=== PATIENT | male | born 1970 | race Caucasian/White ===

== ENCOUNTER 2016-12-29 01:35 | Observation (INO) | payer BC, OTHER ==
[2016-12-29] MEDS ORDERED: solu-MEDROL 125 MG IV ONE (01:52)
[2016-12-29] MEDS ORDERED: Sodium Chloride 0.9% 1000 ML 1,000 ML IV STA ×2 (01:52→03:31)
[2016-12-29] MEDS ORDERED: PROVENTIL 2.5 MG/3 ML NEB IH ONE ×2 (01:52→01:57)
--- NOTE | 2016-12-29 02:00 | ERPHSYRPT ---
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 HAS PRODUCTIVE COUGH FOR 2-3 DAYS ASSOCIATED WITH FEVER AND CHILLS. DENIES CHEST PAIN. Timing/Duration: today Activities at Onset: none Severity of Dyspnea-Max: moderate Severity of Dyspnea-Current: moderate Possible Cause: occasional episodes Modifying Factors: Improves With: coughing Associated Symptoms: constant, wheezing, productive cough International travel in last 2 weeks: No Allergies/Adverse Reactions: No Known Drug Allergies Allergy (Unverified 10/27/15 08:49) Home Medications: Lisinopril/Hydrochlorothiazide [Lisinopril-Hctz 20-12.5 mg Tab] 1 each PO BID [History] Oxycodone HCl/Acetaminophen [Percocet 10-325 mg Tablet] 1 each PO BID PRN [History] Hx Tetanus, Diphtheria Vaccination/Date Given: No Hx Influenza Vaccination/Date Given: No Hx Pneumococcal Vaccination/Date Given: No - Review of Systems Constitutional: Fever, No Chills Eyes: No Symptoms Ears, Nose, & Throat: No Symptoms Respiratory: Cough, Dyspnea Cardiac: No Symptoms, No Chest Pain, No Edema, No Syncope Abdominal/Gastrointestinal: No Symptoms, No Abdominal Pain, No Nausea, No Vomiting, No Diarrhea Genitourinary Symptoms: No Symptoms, No Dysuria Musculoskeletal: No Back Pain, No Neck Pain Skin: No Symptoms, No Rash Neurological: No Dizziness, No Focal Weakness, No Sensory Changes Psychological: No Symptoms Endocrine: No Symptoms All Other Systems: Reviewed and Negative - Past Medical History Pertinent Past Medical History: No Neurological History: No Pertinent History ENT History: No Pertinent History Cardiac History: Hypertension Respiratory History: No Pertinent History Endocrine Medical History: No Pertinent History Musculoskeletal History: No Pertinent History GI Medical History: GERD History: No Pertinent History Psycho-Social History: No Pertinent History Male Reproductive Disorders: No Pertinent History Other Medical History: blood clot LUE. - Past Surgical History Past Surgical History: Yes Neuro Surgical History: No Pertinent History Cardiac: No Pertinent History Respiratory: No Pertinent History Gastrointestinal: No Pertinent History Genitourinary: No Pertinent History Musculoskeletal: Orthopedic Surgery Male Surgical History: No Pertinent History Other Surgical History: LEFT ANKLE - Social History Smoking Status: Current every day smoker How long have you smoked: 30 Exposure to second hand smoke: No Drug Use: none Patient Lives Alone: No - Nursing Vital Signs Nursing Vital Signs: Initial Vital Signs Temperature 98.5 F Temperature Source Oral Pulse Rate 98 Respiratory Rate 18 Blood Pressure [] 131/62 Pain Intensity 4 - Physical Exam General Appearance: moderate distress Eye Exam: PERRL/EOMI Neck Exam: normal inspection, supple Respiratory Exam: diminished breath sounds, rhonchi, wheezing (DIFFUSE, POOR AIR EXCHANGE) Cardiovascular/Chest Exam: normal heart sounds, regular rate/rhythm Abdominal/Gastrointestinal Exam: soft, normal bowel sounds, No tenderness, No distention, No mass Extremity Exam: non-tender, normal range of motion, normal inspection, no calf tenderness, no pedal edema Peripheral Pulses Exam: carotid (R): 2+, carotid (L): 2+, femoral (R): 2+, femoral (L): 2+, dorsalis-pedis (R): 2+ Neurologic Exam: alert, oriented x 3, 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, 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, sensation nml, No motor deficits Skin Exam: normal color, warm, No dry SpO2 Interpretation: normal - Radiology Exams Chest X-ray Interpretation: Interpreted by me (LEFT INFRAHILAR INFILTRATE) Ordered Tests: Active Orders 24 hr Category Date Time Status Up Ad Essie ROUTINE Activity 12/29/16 04:21 Ordered Admission/Status Order ROUTINE Care 12/29/16 04:21 Ordered 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 12/29/16 01:52 Active Code Status Order ROUTINE Care 12/29/16 04:21 Ordered EKG-ER Only STAT Care 12/29/16 01:52 Active IV Care Q6H Care 12/29/16 04:21 Ordered IV Insertion STAT Care 12/29/16 01:52 Active Oxygen-ED Only NASAL CANNULA 2 lpm Care 12/29/16 01:52 Active Keo Hose, Apply ROUTINE Care 12/29/16 04:21 Ordered Vital Signs Q4H Care 12/29/16 04:21 Ordered Weight,Daily 0600 Care 12/29/16 04:21 Ordered Cardiac Diet Diet 12/29/16 Breakfast Ordered CHEST 2 VIEWS (PA AND LAT) Stat Exams 12/29/16 01:52 Taken BLOOD CULTURE Stat Lab 12/29/16 02:41 Received CBC W DIFF Stat Lab 12/29/16 02:00 Completed CMP Stat Lab 12/29/16 02:00 Completed Lactic Acid Urgent Lab 12/29/16 01:52 Completed MAGNESIUM Stat Lab 12/29/16 02:00 Completed TROPONIN Q3H Lab 12/29/16 02:00 Completed TROPONIN Q3H Lab 12/29/16 05:00 Ordered TROPONIN Q3H Lab 12/29/16 08:00 Ordered TROPONIN Q3H Lab 12/29/16 11:00 Ordered TROPONIN Q3H Lab 12/29/16 14:00 Ordered Oxygen NASAL CANNULA 2 lpm RT 12/29/16 04:21 Ordered Respiratory Nebulizer STAT RT 12/29/16 01:53 Completed Respiratory Therapy Consult ROUTINE RT 12/29/16 04:21 Ordered Transfer Order Routine Transfer 12/29/16 04:20 Ordered Medication Summary Generic Name Dose Route Start Last Admin Trade Name Freq PRN Reason Stop Dose Admin Acetaminophen 650 mg 12/29/16 04:25 Tylenol 325 Mg PO 01/28/17 04:24 Q4HPRN PRN FEVER Albuterol/Ipratropium 3 ml 12/29/16 07:00 Duoneb 0.5-3 Mg/3 Ml Neb IH 01/28/17 06:59 Q4HRT OANH Amlodipine Besylate 10 mg 12/29/16 10:00 Norvasc 5 Mg PO 01/28/17 09:59 QAM OANH Ceftriaxone Sodium/Dextrose 1 g in 50 mls @ 100 mls/hr 12/29/16 03:00 02:56 Rocephin 1 Gm-D5w 50 Ml Bag IV 01/28/17 02:59 100 mls/hr Q24H OANH Administration Sodium Chloride 1,000 mls @ 999 mls/hr 12/29/16 03:31 12/29/16 03:41 Sodium Chloride 0.9% 1000 Ml IV 12/29/16 04:31 999 mls/hr .Q1H1M STA Administration Azithromycin 250 mls @ 125 mls/hr 12/29/16 04:12 12/29/16 04:24 Zithromax 500 Mg/ 250 Ml Nacl Premix IV 12/29/16 06:11 125 mls/hr STAT ONE Administration Ceftriaxone Sodium/Dextrose 50 mls @ 100 mls/hr 12/29/16 10:00 Rocephin 1 Gm-D5w 50 Ml Bag IV 01/28/17 09:59 Q24H10 OANH Azithromycin 250 mls @ 125 mls/hr 12/29/16 10:00 Zithromax 500 Mg/ 250 Ml Nacl Premix IV 01/28/17 09:59 Q24H10 OANH Levalbuterol HCl 1.25 mg 12/29/16 04:27 Xopenex 1.25 Mg/0.5 Ml Ud Nebule IH 01/28/17 04:26 Q2HPRN PRN DIFFICULTY BREATHING Methylprednisolone Sodium Succinate 80 mg 12/29/16 06:00 Solu-Medrol 125 Mg IV 01/28/17 05:59 Q6HT OANH Discontinued Medications Generic Name Dose Route Start Last Admin Trade Name Freq PRN Reason Stop Dose Admin Albuterol Sulfate 10 mg 12/29/16 01:52 12/29/16 01:58 Proventil 2.5 Mg/3 Ml Neb IH 12/29/16 01:53 10 mg STAT ONE Administration Albuterol Sulfate Confirm 12/29/16 01:57 Proventil 2.5 Mg/3 Ml Neb Administered 12/29/16 01:58 Dose 10 mg IH .STK-MED ONE Sodium Chloride 1,000 mls @ 999 mls/hr 12/29/16 01:52 12/29/16 02:13 Sodium Chloride 0.9% 1000 Ml IV 12/29/16 02:52 999 mls/hr .Q1H1M STA Administration Sodium Chloride Confirm 12/29/16 02:10 Sodium Chloride 0.9% 1000 Ml Administered 12/29/16 02:11 Dose 1,000 mls @ ud .ROUTE .STK-MED ONE Sodium Chloride Confirm 12/29/16 03:30 Sodium Chloride 0.9% 1000 Ml Administered 12/29/16 03:31 Dose 1,000 mls @ ud .ROUTE .STK-MED ONE Azithromycin Confirm 12/29/16 04:20 Zithromax 500 Mg/ 250 Ml Nacl Premix Administered 12/29/16 04:21 Dose 250 mls @ ud IV .STK-MED ONE Methylprednisolone Sodium Succinate 125 mg 12/29/16 01:52 12/29/16 02:13 Solu-Medrol 125 Mg IV 12/29/16 01:53 125 mg STAT ONE Administration Methylprednisolone Sodium Succinate Confirm 12/29/16 02:10 Solu-Medrol 125 Mg Administered 12/29/16 02:11 Dose 125 mg .ROUTE .STK-MED ONE Oxycodone/Acetaminophen 1 tab 12/29/16 03:29 12/29/16 03:33 Oxycodone-Acetaminophen 10-325 PO 12/29/16 03:30 1 tab STAT STA Administration Oxycodone/Acetaminophen Confirm 12/29/16 03:33 Oxycodone-Acetaminophen 10-325 Administered 12/29/16 03:34 Dose 1 tab .ROUTE .STK-MED ONE Lab/Rad Data: Laboratory Result Diagrams 12/29/16 02:00 12/29/16 02:00 Laboratory Results 12/29/16 12/29/16 12/29/16 Range/Units 02:41 02:00 02:00 WBC (4.0-10.5) K/mm3 RBC (4.1-5.6) M/mm3 Hgb (12.5-18.0) gm/dl Hct (42-50) % MCV (78-100) fl MCH (26-32) pg MCHC (32-36) g/dl RDW (11.5-14.0) % Plt Count (150-450) K/mm3 MPV (6-9.5) fl Gran % (36.0-66.0) % Lymphocytes % (24.0-44.0) % Monocytes % (0.0-12.0) % Eosinophils % (0.00-5.0) % Basophils % (0.0-0.4) % Basophils # (0-0.4) Sodium 139 (136-145) mEq/L Potassium 4.2 (3.5-5.1) mEq/L Chloride 102 (98-107) mEq/L Carbon Dioxide 30.0 (21-32) mEq/L Anion Gap 11.3 (5-15) MEQ/L BUN 19 (9-20) mg/dL Creatinine 1.31 H (0.55-1.30) mg/dl Estimated GFR > 60 ML/MIN Glucose 108 (70-110) MG/DL Lactic Acid (0.4-2.0) Calcium 9.3 (8.5-10.1) mg/dL Magnesium 1.8 (1.8-2.4) mg/dL Total Bilirubin 0.5 (0.2-1.0) mg/dL AST 34 (15-37) U/L ALT 37 (12-78) U/L Alkaline Phosphatase 58 (46-116) U/L Troponin I < 0.017 (0.000-0.056) ng/ml Serum Total Protein 7.2 (6.4-8.2) gm/dL Albumin 3.9 (3.4-5.0) g/dL Influenza Type A Ag NEGATIVE (NEGATIVE) Influenza Type B Ag NEGATIVE (NEGATIVE) RSV (PCR) NEGATIVE (Negative) 12/29/16 12/29/16 Range/Units 02:00 01:52 WBC 9.8 (4.0-10.5) K/mm3 RBC 5.19 (4.1-5.6) M/mm3 Hgb 15.5 (12.5-18.0) gm/dl Hct 48.5 (42-50) % MCV 93.4 (78-100) fl MCH 29.9 (26-32) pg MCHC 32.0 (32-36) g/dl RDW 14.6 H (11.5-14.0) % Plt Count 220 (150-450) K/mm3 MPV 12.2 H (6-9.5) fl Gran % 56.1 (36.0-66.0) % Lymphocytes % 29.3 (24.0-44.0) % Monocytes % 11.8 (0.0-12.0) % Eosinophils % 2.6 (0.00-5.0) % Basophils % 0.2 (0.0-0.4) % Basophils # 0.02 (0-0.4) Sodium (136-145) mEq/L Potassium (3.5-5.1) mEq/L Chloride (98-107) mEq/L Carbon Dioxide (21-32) mEq/L Anion Gap (5-15) MEQ/L BUN (9-20) mg/dL Creatinine (0.55-1.30) mg/dl Estimated GFR ML/MIN Glucose (70-110) MG/DL Lactic Acid 1.6 (0.4-2.0) Calcium (8.5-10.1) mg/dL Magnesium (1.8-2.4) mg/dL Total Bilirubin (0.2-1.0) mg/dL AST (15-37) U/L ALT (12-78) U/L Alkaline Phosphatase (46-116) U/L Troponin I (0.000-0.056) ng/ml Serum Total Protein (6.4-8.2) gm/dL Albumin (3.4-5.0) g/dL Influenza Type A Ag (NEGATIVE) Influenza Type B Ag (NEGATIVE) RSV (PCR) (Negative) - Progress Progress Note: 12/29/16 02:54 PATIENT GIVEN CONTINUOUS NEBULIZER ALBUTEROL 10MG OVER 1 HOUR, IV BOLUS NORMAL SALINE 1 LITER OVER 1 HOUR, SOLUMEDROL 125MG, ROCEPHIN 1GM, AND ZITHROMAX 500MG IVPB 12/29/16 04:15 Blood Culture(s) Obtained: Yes Antibiotics given: Yes Discussed with : Diony (DISCUSSED WITH DR AGUDELO AT 0415 FOR ADMISSION) - Departure Time of Disposition: 04:30 Departure Disposition: Observation Clinical Impression: ACUTE PNEUMONIA WITH BRONCHIOSPASM Condition: Stable Critical Care Time: No Referrals: JUWAN BENTON [Primary Care Provider] -
[2016-12-29] MEDS ORDERED: Sodium Chloride 0.9% 1000 ML 1,000 ML ONE (02:10)
[2016-12-29] MEDS ORDERED: solu-MEDROL 125 MG ONE (02:10)
[2016-12-29 02:15] LABS: BASOPHIL % 0.2 % (0.0-0.4); Eosinophil % 2.6 % (0.00-5.0); Granulocytes % 56.1 % (36.0-66.0); Lymphocytes % 29.3 % (24.0-44.0); Mean Cell Volume 93.4 fl (78-100); Mean Corpuscular Hemoglobin 29.9 pg (26-32); Mean Platelet Volume 12.2 fl (6-9.5); Monocytes % 11.8 % (0.0-12.0); Platelet Count 220 K/mm3 (150-450); Red Blood Count 5.19 M/mm3 (4.1-5.6); Red Cell Distribution Width 14.6 % (11.5-14.0); White Blood Count 9.8 K/mm3 (4.0-10.5)
[2016-12-29 02:39] LABS: ALBUMIN 3.9 g/dL (3.4-5.0); ALKALINE PHOSPHATASE 58 U/L (46-116); ANION GAP 11.3 MEQ/L (5-15); BILIRUBIN,TOTAL 0.5 mg/dL (0.2-1.0); BLOOD UREA NITROGEN 19 mg/dL (9-20); CHLORIDE 102 mEq/L (98-107); Glucose 108 MG/DL (70-110); MAGNESIUM 1.8 mg/dL (1.8-2.4); Potassium 4.2 mEq/L (3.5-5.1); SGOT/AST 34 U/L (15-37); SGPT/ALT 37 U/L (12-78); SODIUM 139 mEq/L (136-145); Total Protein 7.2 gm/dL (6.4-8.2)
[2016-12-29] MEDS ORDERED: ROCEPHIN 1 Gm-D5w 50 ml Bag** 50 ML IV ONE (02:52)
[2016-12-29] MEDS ORDERED: ROCEPHIN 1 Gm-D5w 50 ml Bag** 1 G/50 ML IVPB IV SCH ×2 (03:00→22:00)
[2016-12-29] MEDS ORDERED: OXYCODONE-ACETAMINOPHEN 10-325 PO STA (03:29)
[2016-12-29] MEDS ORDERED: Sodium Chloride 0.9% 1000 ML 2,000 ML ONE (03:30)
[2016-12-29] MEDS ORDERED: OXYCODONE-ACETAMINOPHEN 10-325 ONE (03:33)
[2016-12-29] MEDS ORDERED: Zithromax 500 MG/ 250 ML NaCl Premix 250 ML IV ONE ×2 (04:12→04:20)
[2016-12-29] MEDS ORDERED: TYLENOL 325 MG PO PRN (04:25)
[2016-12-29] MEDS ORDERED: Xopenex 1.25 MG/0.5 ML UD NEBULE IH PRN (04:27)
[2016-12-29] MEDS ORDERED: Sodium Chloride 0.9% 1000 ML 1,000 ML IV SCH (04:30)
[2016-12-29] MEDS ORDERED: solu-MEDROL 125 MG IV SCH (06:00)
[2016-12-29] MEDS ORDERED: DUONEB 0.5-3 MG/3 ml Neb IH SCH (07:00)
[2016-12-29 07:38] VITALS: BP 159/85; PULSE 104; O2SAT 93
--- NOTE | 2016-12-29 08:26 | PCM.DCORD ---
- Discharge Discharge Date: 12/29/16 Disposition: Home, Self-Care Condition: Stable Prescriptions: New Prednisone 20 mg [Deltasone 20 mg] 40 mg PO DAILY #10 tablet Albuterol Sulfate [Proair Hfa] 2 puff IH Q4H PRN #1 hfa.aer.ad PRN Reason: Shortness Of Breath Azithromycin 250 mg [Zithromax 250 MG TABLET] 250 mg PO DAILY #4 tablet Continue Lisinopril/Hydrochlorothiazide [Lisinopril-Hctz 20-12.5 mg Tab] 1 each PO BID Amlodipine Besylate 10 mg [Norvasc 10 MG] 10 mg PO DAILY #30 tablet Naproxen [Naprosyn] 500 mg PO [id number] PRN #20 tablet PRN Reason: Pain Oxycodone HCl/Acetaminophen [Percocet 10-325 mg Tablet] 1 each PO BID PRN Testosterone Cypionate 200 mg IM UD Follow up with: JUWAN BENTON [Primary Care Provider] -
--- NOTE | 2016-12-29 08:26 | PCM.HP ---
History of Present Illness - Chief Complaint Chief Complaint: Shortness of Breath Date: 12/29/16 History of Present Illness: is a 46 year old male. 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 He had an inhaler in the past at home but doesn't any longer. He did not use anything prior to arrival he was not feeling poorly before the evening of arrival. He is feeling much better this am. After the neb treatment in ED he reports feeling significant improvement. He denies fever, chest pain, palpitations, nausea or vomiting. No calf pain or swelling. - Review of Systems Constitutional: No Fever, No Chills Eyes: No Symptoms Ears, Nose, & Throat: No Symptoms Respiratory: No Cough, No Short Of Breath Cardiac: No Chest Pain, No Edema, No Syncope Abdominal/Gastrointestinal: No Abdominal Pain, No Nausea, No Vomiting, No Diarrhea Genitourinary Symptoms: No Dysuria Musculoskeletal: No Back Pain, No Neck Pain Skin: No Rash Neurological: No Dizziness, No Focal Weakness, No Sensory Changes Psychological: No Symptoms Endocrine: No Symptoms Hematologic/Lymphatic: No Symptoms Immunological/Allergic: No Symptoms Medications & Allergies Home Medications: Home Medication List Lisinopril/Hydrochlorothiazide [Lisinopril-Hctz 20-12.5 mg Tab] 1 each PO BID [History Confirmed 12/29/16] Amlodipine Besylate 10 mg [Norvasc 10 MG] 10 mg PO DAILY #30 tablet 10/28/15 [ Rx Confirmed 12/29/16] Naproxen [Naprosyn] 500 mg PO [id number] PRN #20 tablet 07/19/16 [Rx Confirmed ] Albuterol Sulfate [Proair Hfa] 2 puff IH Q4H PRN #1 hfa.aer.ad 12/29/16 [Rx] Azithromycin 250 mg [Zithromax 250 MG TABLET] 250 mg PO DAILY #4 tablet [Rx] Oxycodone HCl/Acetaminophen [Percocet 10-325 mg Tablet] 1 each PO BID PRN [History Confirmed 12/29/16] Prednisone 20 mg [Deltasone 20 mg] 40 mg PO DAILY #10 tablet 12/29/16 [Rx] Testosterone Cypionate 200 mg IM UD 12/29/16 [History Confirmed 12/29/16] Allergies/Adverse Reactions: Allergies Allergy/AdvReac Type Severity Reaction Status Date / Time No Known Drug Allergies Allergy Unverified 10/27/15 08:49 - Past Medical History Past Medical History: No Neurological History: No Pertinent History ENT History: No Pertinent History Cardiac History: Hypertension Respiratory History: No Pertinent History Endocrine Medical History: No Pertinent History Musculoskelatal History: No Pertinent History GI Medical History: GERD History: No Pertinent History Pyscho-Social History: No Pertinent History Male Reproductive Disorders: No Pertinent History Comment: blood clot LUE. - Past Surgical History Past Surgical History: Yes Neuro Surgical History: No Pertinent History Cardiac History: No Pertinent History Respiratory Surgery: No Pertinent History GI Surgical History: No Pertinent History Genitourinary Surgical Hx: No Pertinent History Musculskeletal Surgical Hx: Orthopedic Surgery Male Surgical History: No Pertinent History Other Surgical History: LEFT ANKLE - Social History Smoking Status: Current every day smoker How long have you smoked: 29 Exposure to second hand smoke: No Alcohol: Rarely Drug Use: none - Physical Exam Vital Signs: Vital Signs - 24 hr Temp Pulse Resp BP Pulse Ox 12/29/16 07:36 97.6 F 104 H 22 159/85 93 L 12/29/16 06:33 106 H 18 97 12/29/16 05:45 105 H 18 98 12/29/16 05:16 97.8 F 108 H 12 146/83 95 12/29/16 03:40 98 H 18 131/62 96 12/29/16 02:46 107 H 20 150/74 95 12/29/16 02:01 118 H 28 H 90 L 12/29/16 01:45 98.5 F 114 H 20 148/87 92 L Oxygen-Last 24 hours O2 Percentage 2 Liters = 28% O2 Percentage 2 Liters = 28% O2 Percentage 2 Liters = 28% General Appearance: no apparent distress, alert, obese Neurologic Exam: alert, oriented x 3, cooperative, normal mood/affect, nml cerebellar function, nml station & gait, sensation nml, No motor deficits Eye Exam: PERRL/EOMI, eyes nml inspection Ears, Nose, Throat Exam: normal ENT inspection, TMs normal, pharynx normal, moist mucous membranes Neck Exam: normal inspection, non-tender, supple, full range of motion Respiratory Exam: normal breath sounds, lungs clear, No respiratory distress Cardiovascular Exam: regular rate/rhythm, normal heart sounds, normal peripheral pulses Gastrointestinal/Abdomen Exam: soft, normal bowel sounds, No tenderness, No mass Back Exam: normal inspection, normal range of motion, No CVA tenderness, No vertebral tenderness Extremity Exam: normal inspection, normal range of motion, pelvis stable Skin Exam: normal color, warm, dry, other (multiple scratches on arms and face) , No rash Lymphatic Exam: No adenopathy Results - Labs Lab/Micro Results: Lab Results-Last 24 Hours 12/29/16 Range/Units 05:28 Troponin I < 0.017 (0.000-0.056) ng/ml - Other Procedures and Tests Respiratory Therapy 12/29/16 04:21 Oxygen NASAL CANNULA 2 lpm 12/29/16 05:47 neb [Respiratory Nebulizer] 0700,1100,1500,1900,2300,0300 12/29/16 05:55 Smoking Cessation Education ONCE Assessment/Plan (1) Acute bronchitis Status: Acute Assessment & Plan: I did not see anythign that looks like pneumonia on the xray with his long smoking history and previous inhaler use he probably has copd will continue wtih prednisone, albuterol and finish the coarse of azithromycin at home followup if not improving or worsening. Code(s): J20.9 - ACUTE BRONCHITIS, UNSPECIFIED (2) Hypertension Status: Acute Code(s): I10 - ESSENTIAL (PRIMARY) HYPERTENSION
[2016-12-29] MEDS ORDERED: OXYCODONE-ACETAMINOPHEN 10-325 PO PRN (08:45)
--- NOTE | 2016-12-29 08:57 | XRAY ---
Indication: Cough and dyspnea. Comparison: None PA/lateral chest hyperinflated and clear. Heart is not enlarged. Vascularity normal. Bony thorax intact. Impression: Nonacute hyperinflated chest.
[2016-12-29] MEDS ORDERED: Zestril 20 MG*** 20 MG, hydroDIURIL 25 MG*** 12.5 MG PO SCH ×2 (10:00)
[2016-12-29] MEDS ORDERED: ROCEPHIN 1 Gm-D5w 50 ml Bag** 50 ML IV SCH (10:00)
[2016-12-29] MEDS ORDERED: NORVASC 5 MG PO SCH ×2 (10:00)
[2016-12-29] MEDS ORDERED: NON-FORMULARY ITEM (Lisinopril/Hydrochlorothiazide [Lisinopril-Hctz 20-12.5 Mg Tab] 1 EACH PO SCH (10:00)
[2016-12-29] MEDS ORDERED: Zithromax 500 MG/ 250 ML NaCl Premix 250 ML IV SCH (10:00)
[2016-12-29] MEDS ORDERED: NON-FORMULARY ITEM (Amlodipine Besylate 10 Mg [Norvasc 10 Mg] 10 MG) PO SCH (10:00)
== END 2016-12-29 10:20 | disposition home or self-care (01) ==
LOC: ED 01:35 → MED SURG 04:39
PROVIDERS: ADMIT Family Medicine; ATTEND Family Medicine
DX: J20.9 Acute bronchitis, unspecified (principal); I10 Essential (primary) hypertension; K21.9 Gastro-esophageal reflux disease without esophagitis
CPT/HCPCS: 36000; 36415; 71020; 80053; 83605; 83735; 84484; 85025; 87040; 87631; 93005; 93041; 93268; 94640; 94760; 96360; 96365; 96367; 96374; 99285; G0378; J0456; J0696; J2930; A9270-GY

== ENCOUNTER 2016-12-31 10:36 | Emergency (ER) | payer OTHER ==
--- NOTE | 2016-12-31 11:01 | ERPHSYRPT ---
- History of Present Illness Time Seen by Provider: 12/31/16 10:56 Source: patient Exam Limitations: no limitations Patient Subjective Stated Complaint: SHORTNESS OF BREATH SINCE SUNDAY. SEEN AND ADMITTED SUNDAY FOR PNEUMONIA. WENT HOME ON [place]PAK AND PREDNISONE AND INHALER. HASN'T USED INHALER SINCE LAST NIGHT. ALSO HAS MISPLACED HIS LISINOPRIL AND HASN'T TAKEN IT EITHER. Triage Nursing Assessment: AMBULATED TO ROOM PER SELF. SKIN FLUSHED, WARM. RESP NONLABORED. Physician History: Recently admitted 2 days ago for pneumonia. States taking meds as prescribed but still SOB and wheezing. Also with mild cough, headache but no fever, chills , dizziness or weakness. Pt. usually 1 to 1.5 PPD smoker but smoked 1-2 cig/ day. States have not take HBP for 5-6 days. No CP or palpitations. Chart reviewed from last visit showed CXR to be without infiltrates. Timing/Duration: day(s) (3-4), intermittent Activities at Onset: activity Severity of Dyspnea-Max: moderate Severity of Dyspnea-Current: moderate Possible Cause: no prior episodes Modifying Factors: Improves With: albuterol inhaler (improves), exertion ( worsens) Associated Symptoms: cough, wheezing, No fever, No weakness, No ankle swelling, No lightheadedness, No tightness International travel in last 2 weeks: No Allergies/Adverse Reactions: No Known Drug Allergies Allergy (Unverified 10/27/15 08:49) Home Medications: Lisinopril/Hydrochlorothiazide [Lisinopril-Hctz 20-12.5 mg Tab] 1 each PO BID [History] Oxycodone HCl/Acetaminophen [Percocet 10-325 mg Tablet] 1 each PO BID PRN [History] Testosterone Cypionate 200 mg IM UD 12/29/16 [History] Hx Tetanus, Diphtheria Vaccination/Date Given: No Hx Influenza Vaccination/Date Given: No Hx Pneumococcal Vaccination/Date Given: No - Review of Systems Constitutional: No Fever, No Chills Eyes: No Symptoms Ears, Nose, & Throat: No Symptoms Respiratory: Cough, Dyspnea, Wheezing Cardiac: No Chest Pain, No Edema, No Syncope Abdominal/Gastrointestinal: No Abdominal Pain, No Nausea, No Vomiting, No Diarrhea Genitourinary Symptoms: No Dysuria Musculoskeletal: No Back Pain, No Neck Pain Skin: No Rash Neurological: No Dizziness, No Focal Weakness, No Sensory Changes Psychological: No Symptoms Endocrine: No Symptoms All Other Systems: Reviewed and Negative - Past Medical History Pertinent Past Medical History: Yes Neurological History: No Pertinent History ENT History: No Pertinent History Cardiac History: Hypertension Respiratory History: No Pertinent History, Bronchitis, Pneumonia Endocrine Medical History: No Pertinent History Musculoskeletal History: No Pertinent History GI Medical History: GERD History: No Pertinent History Psycho-Social History: No Pertinent History Male Reproductive Disorders: No Pertinent History Other Medical History: blood clot LUE. - Past Surgical History Past Surgical History: Yes Neuro Surgical History: No Pertinent History Cardiac: No Pertinent History Respiratory: No Pertinent History Gastrointestinal: No Pertinent History Genitourinary: No Pertinent History Musculoskeletal: Orthopedic Surgery Male Surgical History: No Pertinent History Other Surgical History: LEFT ANKLE - Social History Smoking Status: Current every day smoker How long have you smoked: 29 Exposure to second hand smoke: No Drug Use: none Patient Lives Alone: No - Nursing Vital Signs Nursing Vital Signs: Initial Vital Signs Temperature 97.9 F Temperature Source Oral Pulse Rate 91 Respiratory Rate 20 Blood Pressure [Right Arm] 163/95 Pain Intensity 6 - Physical Exam General Appearance: no apparent distress, alert Eye Exam: PERRL/EOMI Neck Exam: normal inspection, supple Respiratory Exam: diminished breath sounds, prolonged expirations, wheezing Cardiovascular/Chest Exam: regular rate/rhythm, tachycardia Abdominal/Gastrointestinal Exam: soft, No tenderness, No distention, No mass Extremity Exam: non-tender, normal range of motion, normal inspection, no calf tenderness, no pedal edema Peripheral Pulses Exam: dorsalis-pedis (R): 2+, dorsalis-pedis (L): 2+ Neurologic Exam: alert, oriented x 3, cooperative, varnisher plasticoater II-XII nml as tested, sensation nml, No motor deficits Skin Exam: normal color, warm, No dry SpO2 Interpretation: normal SpO2: 95 Oxygen Delivery: Room Air - Course Nursing assessment & vital signs reviewed: Yes Ordered Tests: Active Orders 24 hr Category Date Time Status IV Insertion STAT Care 12/31/16 11:05 Active CHEST 2 VIEWS (PA AND LAT) Stat Exams 12/31/16 11:06 Taken BMP Stat Lab 12/31/16 10:45 Completed CBC W DIFF Stat Lab 12/31/16 10:45 Completed Respiratory Nebulizer STAT RT 12/31/16 11:08 Completed Respiratory Nebulizer STAT RT 12/31/16 12:41 Completed Medication Summary Discontinued Medications Generic Name Dose Route Start Last Admin Trade Name Tana PRN Reason Stop Dose Admin Albuterol/Ipratropium 3 ml 12/31/16 11:05 12/31/16 11:20 Duoneb 0.5-3 Mg/3 Ml Neb IH 12/31/16 11:06 3 ml STAT ONE Administration Albuterol/Ipratropium Confirm 12/31/16 11:17 Duoneb 0.5-3 Mg/3 Ml Neb Administered 12/31/16 11:18 Dose 3 ml IH .STK-MED ONE Albuterol/Ipratropium 3 ml 12/31/16 12:41 12/31/16 12:49 Duoneb 0.5-3 Mg/3 Ml Neb IH 12/31/16 12:42 3 ml STAT ONE Administration Albuterol/Ipratropium Confirm 12/31/16 12:48 Duoneb 0.5-3 Mg/3 Ml Neb Administered 12/31/16 12:49 Dose 3 ml IH .STK-MED ONE Lisinopril 20 mg/ 0 mg 12/31/16 11:09 12/31/16 11:35 Hydrochlorothiazide 12.5 mg PO 12/31/16 11:10 20 mg DAILY STA Administration Methylprednisolone Sodium Succinate 125 mg 12/31/16 11:05 12/31/16 11:24 Solu-Medrol 125 Mg IV 12/31/16 11:06 125 mg STAT ONE Administration Methylprednisolone Sodium Succinate Confirm 12/31/16 11:21 Solu-Medrol 125 Mg Administered 12/31/16 11:22 Dose 125 mg .ROUTE .STK-MED ONE Lab/Rad Data: Laboratory Result Diagrams 12/31/16 10:45 12/31/16 10:45 Laboratory Results 12/31/16 12/31/16 Range/Units 10:45 10:45 WBC 12.5 H (4.0-10.5) K/mm3 RBC 5.20 (4.1-5.6) M/mm3 Hgb 15.5 (12.5-18.0) gm/dl Hct 48.3 (42-50) % MCV 92.9 (78-100) fl MCH 29.8 (26-32) pg MCHC 32.1 (32-36) g/dl RDW 14.1 H (11.5-14.0) % Plt Count 190 (150-450) K/mm3 MPV 12.3 H (6-9.5) fl Gran % 70.4 H (36.0-66.0) % Lymphocytes % 20.7 L (24.0-44.0) % Monocytes % 8.2 (0.0-12.0) % Eosinophils % 0.5 (0.00-5.0) % Basophils % 0.2 (0.0-0.4) % Basophils # 0.02 (0-0.4) Sodium 138 (136-145) mEq/L Potassium 3.6 (3.5-5.1) mEq/L Chloride 102 (98-107) mEq/L Carbon Dioxide 28.6 (21-32) mEq/L Anion Gap 10.5 (5-15) MEQ/L BUN 15 (9-20) mg/dL Creatinine 1.01 (0.55-1.30) mg/dl Estimated GFR > 60 ML/MIN Glucose 122 H (70-110) MG/DL Calcium 9.2 (8.5-10.1) mg/dL - Progress Progress: improved Air Movement: good Progress Note: 12/31/16 13:21 patient given Solu-Medrol, DuoNeb 2 that did seem to improve his symptoms. Patient also given lisinopril hydrochlorothiazide for his blood pressure Blood Culture(s) Obtained: No Counseled pt/family regarding: lab results, diagnosis, rad results - Departure Time of Disposition: 13:22 Departure Disposition: Home Clinical Impression: Acute bronchitis, COPD exacerbation Condition: Stable Critical Care Time: No Instructions: Chronic Obstructive Pulmonary Disease, Bronchitis Additional Instructions: RX: Prednisone, Lisinopril/HCTZ Continue antibiotic as prescribed Return for worse cough, short of breath or any problems. Prescriptions: Lisinopril/Hydrochlorothiazide [Lisinopril-Hctz 20-25 mg Tab] 2 each PO DAILY # 10 tablet
[2016-12-31] MEDS ORDERED: solu-MEDROL 125 MG IV ONE (11:05)
[2016-12-31] MEDS ORDERED: DUONEB 0.5-3 MG/3 ml Neb IH ONE ×4 (11:05→12:48)
[2016-12-31] MEDS ORDERED: Zestril 20 MG*** 20 MG, hydroDIURIL 25 MG*** 12.5 MG PO STA ×2 (11:09)
[2016-12-31] MEDS ORDERED: solu-MEDROL 125 MG ONE (11:21)
[2016-12-31 11:25] LABS: BASOPHIL % 0.2 % (0.0-0.4); Eosinophil % 0.5 % (0.00-5.0); Granulocytes % 70.4 % (36.0-66.0); Lymphocytes % 20.7 % (24.0-44.0); Mean Cell Volume 92.9 fl (78-100); Mean Corpuscular Hemoglobin 29.8 pg (26-32); Mean Platelet Volume 12.3 fl (6-9.5); Monocytes % 8.2 % (0.0-12.0); Platelet Count 190 K/mm3 (150-450); Red Cell Distribution Width 14.1 % (11.5-14.0); White Blood Count 12.5 K/mm3 (4.0-10.5)
[2016-12-31 11:31] LABS: ANION GAP 10.5 MEQ/L (5-15); BLOOD UREA NITROGEN 15 mg/dL (9-20); CHLORIDE 102 mEq/L (98-107); Carbon Dioxide 28.6 mEq/L (21-32); Glucose 122 MG/DL (70-110); Potassium 3.6 mEq/L (3.5-5.1); SODIUM 138 mEq/L (136-145)
[2016-12-31 12:34] VITALS: BP 163/95
[2016-12-31 13:28] VITALS: PULSE 101
[2016-12-31 13:31] VITALS: O2SAT 95
--- NOTE | 2016-12-31 20:21 | XRAY ---
Indication: Cough. Comparison: December 29, 2016. PA/lateral remains hyperinflated and clear. Heart and mediastinal structures within normal limits. No new/acute findings.
== END 2016-12-31 13:37 | disposition home or self-care (01) ==
LOC: ED 10:36
DX: J20.9 Acute bronchitis, unspecified (principal); J44.1 Chronic obstructive pulmonary disease with (acute) exacerbation; R06.02 Shortness of breath; R06.2 Wheezing
CPT/HCPCS: 36000; 36415; 71020; 80048; 85025; 94640; 96374; 99284; J2930; A9270-GY

== ENCOUNTER 2017-11-24 19:33 | Emergency (ER) | payer OTHER ==
--- NOTE | 2017-11-24 20:06 | ERPHSYRPT ---
- History of Present Illness Time Seen by Provider: 11/24/17 19:55 Historian: patient Exam Limitations: clinical condition Patient Subjective Stated Complaint: sneezed 1 1/2 weeks ago and pain in lefr lower ribs. pain with coughing. denies injury. states had shoulder surgery 6 weeks ago to left shoulder Triage Nursing Assessment: alert in no distress. pain to left loweer ribs after sneezing.. pain on palpation.. pain increases with coughing and sneezing. denies trauma to the area. lungs clear. denies fever. Physician History: PATIENT STATES HE SNEEZED 1 WEEK AGO AND DEVELOPED PAIN IN LEFT LOWER RIBS PERSISTENT UPON DEEP BREATHING, MOTION OF TORSO OR COUGHING. HAD RECENT LEFT SHOULDER SURGERY 6 WEEKS AGO. Timing/Duration: week(s) Activities at Onset: other (DEEP INSPIRATION, MOTION OF TORSO) Chest Pain Radiation: no radiation Severity of Pain-Max: moderate Severity of Pain-Current: moderate Modifying Factors: Improves With: breathing, movement, change in position Associated Symptoms: hurts to breathe Prior Chest Pain/Cardiac Workup: no prior chest pain Nitro Today/Relief: no nitro taken today Aspirin Treatment Today: no aspirin today Allergies/Adverse Reactions: No Known Drug Allergies Allergy (Unverified 11/24/17 19:54) Home Medications: Lisinopril/Hydrochlorothiazide [Lisinopril-Hctz 20-12.5 mg Tab] 1 each PO BID [History] Oxycodone HCl/Acetaminophen [Percocet 10-325 mg Tablet] 1 each PO BID PRN [History] Testosterone Cypionate 200 mg IM UD 12/29/16 [History] Hx Tetanus, Diphtheria Vaccination/Date Given: No Hx Influenza Vaccination/Date Given: No Hx Pneumococcal Vaccination/Date Given: No Immunizations Up to Date: (unknown) - Review of Systems Constitutional: No Fever, No Chills Eyes: No Symptoms Ears, Nose, & Throat: No Symptoms Respiratory: No Symptoms, No Cough, No Dyspnea Cardiac: Chest Pain, No Edema, No Syncope Abdominal/Gastrointestinal: No Symptoms, No Abdominal Pain, No Nausea, No Vomiting, No Diarrhea Genitourinary Symptoms: No Symptoms, No Dysuria Musculoskeletal: No Back Pain, No Neck Pain Skin: No Symptoms, No Rash Neurological: No Symptoms, No Dizziness, No Focal Weakness, No Sensory Changes Psychological: No Symptoms Endocrine: No Symptoms Hematologic/Lymphatic: No Symptoms All Other Systems: Reviewed and Negative - Past Medical History Pertinent Past Medical History: Yes Neurological History: No Pertinent History ENT History: No Pertinent History Cardiac History: Hypertension Respiratory History: No Pertinent History, Bronchitis, Pneumonia Endocrine Medical History: No Pertinent History Musculoskeletal History: No Pertinent History GI Medical History: GERD History: No Pertinent History Psycho-Social History: No Pertinent History Male Reproductive Disorders: No Pertinent History Other Medical History: blood clot LUE. - Past Surgical History Past Surgical History: Yes Neuro Surgical History: No Pertinent History Cardiac: No Pertinent History Respiratory: No Pertinent History Gastrointestinal: No Pertinent History Genitourinary: No Pertinent History Musculoskeletal: Other Male Surgical History: No Pertinent History Other Surgical History: rotator cuff - Social History Smoking Status: Former smoker How long have you smoked: 29 Exposure to second hand smoke: No Drug Use: marijuana Patient Lives Alone: No - Nursing Vital Signs Nursing Vital Signs: Initial Vital Signs Temperature 97.8 F 11/24/17 19:45 Pulse Rate 109 H 11/24/17 19:45 Respiratory Rate 18 11/24/17 19:45 Blood Pressure 163/109 11/24/17 19:45 O2 Sat by Pulse Oximetry 98 11/24/17 19:45 Pain Scale Pain Intensity 5 - Physical Exam General Appearance: no apparent distress, alert Eye Exam: PERRL/EOMI, eyes nml inspection Ears, Nose, Throat Exam: normal ENT inspection, moist mucous membranes Neck Exam: normal inspection, non-tender, supple, full range of motion Respiratory Exam: normal breath sounds, chest tenderness, lungs clear, other ( MARKED TENDERNESS LEFT ANTERIORLATERAL 8TH TO 9TH RIBS NO CREPITUS OR ECCHYMOSIS ), No respiratory distress Cardiovascular Exam: regular rate/rhythm, normal heart sounds Gastrointestinal/Abdomen Exam: soft, No tenderness, No mass Back Exam: normal inspection, No CVA tenderness, No vertebral tenderness Extremity Exam: normal inspection, normal range of motion Neurologic Exam: alert, oriented x 3, cooperative, normal mood/affect, sensation nml, No motor deficits Skin Exam: normal color, warm, dry SpO2 Interpretation: normal SpO2: 98 Oxygen Delivery: Room Air - Course EKG Interpreted by Me: RATE, Sinus Rhythm, NORMAL AXIS (rate 91,) - Radiology Exams Left Ribs X-ray Interpretation: Interpreted by me (NONDISPLACED FRACTURE LEFT 11TH RIB FRACTURE) Chest X-ray Interpretation: Interpreted by me, Negative Ordered Tests: Active Orders 24 hr Category Date Time Status Client Operations Manager STAT Care 11/24/17 20:01 Active EKG-ER Only STAT Care 11/24/17 22:05 Active CHEST 1 VIEW (PORTABLE) Stat Exams 11/24/17 21:01 Taken RIBS UNILATERAL Stat Exams 11/24/17 21:00 Taken BMP Stat Lab 11/24/17 20:17 Completed CBC W DIFF Stat Lab 11/24/17 20:17 Completed D-DIMER QUANTITATION Stat Lab 11/24/17 20:24 Completed Manual Differential NC Stat Lab 11/24/17 20:17 Completed TROPONIN Q3H Lab 11/24/17 20:17 Completed TROPONIN Q3H Lab 11/24/17 23:15 Ordered TROPONIN Q3H Lab 11/25/17 03:15 Ordered TROPONIN Q3H Lab 11/25/17 06:15 Ordered TROPONIN Q3H Lab 11/25/17 09:15 Ordered Medication Summary Discontinued Medications Generic Name Dose Route Start Last Admin Trade Name Tana PRN Reason Stop Dose Admin Acetaminophen/Codeine Phosphate 2 tab 11/24/17 22:00 11/24/17 22:15 Tylenol #3 Tablet PO 11/24/17 22:01 2 tab SENT HOME W/ PATIENT ONE Administration Acetaminophen/Codeine Phosphate Confirm 11/24/17 22:15 Tylenol #3 Tablet Administered 11/24/17 22:16 Dose 2 tab .ROUTE .STK-MED ONE Lactated Ringer's 1,000 mls @ 500 mls/hr 11/24/17 20:07 11/24/17 20:42 Lactated Ringers IV 11/24/17 22:06 500 mls/hr .Q2H ONE Administration Lactated Ringer's Confirm 11/24/17 20:42 Lactated Ringers Administered 11/24/17 20:43 Dose 1,000 mls @ ud IV .STK-MED ONE Ketorolac Tromethamine 30 mg 11/24/17 20:08 11/24/17 20:42 Toradol 30 Mg Injection IV 11/24/17 20:09 30 mg STAT ONE Administration Ketorolac Tromethamine Confirm 11/24/17 20:42 Toradol 30 Mg Injection Administered 11/24/17 20:43 Dose 30 mg .ROUTE .STK-MED ONE Lab/Rad Data: Laboratory Result Diagrams 11/24/17 20:17 11/24/17 20:17 Laboratory Results 11/24/17 11/24/17 11/24/17 Range/Units 20:24 20:17 20:17 WBC (4.0-10.5) K/mm3 RBC (4.1-5.6) M/mm3 Hgb (12.5-18.0) gm/dl Hct (42-50) % MCV (78-100) fl MCH (26-32) pg MCHC (32-36) g/dl RDW (11.5-14.0) % Plt Count (150-450) K/mm3 MPV (6-9.5) fl Segmented Neutrophils (36.-66.) % Band Neutrophils (0.0-2.0) % Lymphocytes (Manual) (24-44) % Monocytes (Manual) (0.0-12.0) % Eosinophils (Manual) (0.00-3.0) % Differential Comment Atypical Lymphocytes % Platelet Estimate (NORMAL) D-Dimer 480.32 (0-500) ng/mL Sodium 142 (137-145) mmol/L Potassium 3.9 (3.5-5.1) mmol/L Chloride 100 (98-107) mEq/L Carbon Dioxide 29 (22-30) mmol/L Anion Gap 16.1 H (5-15) MEQ/L BUN 14 (9-20) mg/dl Creatinine 0.87 (0.66-1.25) mg/dl Estimated GFR > 60 ML/MIN Glucose 129 H (74-106) mg/dL Calcium 10.0 (8.4-10.2) mg/dL Troponin I < 0.012 (0.000-0.034) ng/ml 11/24/17 Range/Units 20:17 WBC 9.6 (4.0-10.5) K/mm3 RBC 5.27 (4.1-5.6) M/mm3 Hgb 15.8 (12.5-18.0) gm/dl Hct 49.3 (42-50) % MCV 93.5 (78-100) fl MCH 30.0 (26-32) pg MCHC 32.0 (32-36) g/dl RDW 13.8 (11.5-14.0) % Plt Count 235 (150-450) K/mm3 MPV 11.5 H (6-9.5) fl Segmented Neutrophils 69 H (36.-66.) % Band Neutrophils 1 (0.0-2.0) % Lymphocytes (Manual) 17 L (24-44) % Monocytes (Manual) 4 (0.0-12.0) % Eosinophils (Manual) 2 (0.00-3.0) % Differential Comment NORMAL Atypical Lymphocytes 7 % Platelet Estimate NORMAL (NORMAL) D-Dimer (0-500) ng/mL Sodium (137-145) mmol/L Potassium (3.5-5.1) mmol/L Chloride (98-107) mEq/L Carbon Dioxide (22-30) mmol/L Anion Gap (5-15) MEQ/L BUN (9-20) mg/dl Creatinine (0.66-1.25) mg/dl Estimated GFR ML/MIN Glucose (74-106) mg/dL Calcium (8.4-10.2) mg/dL Troponin I (0.000-0.034) ng/ml - Progress Progress Note: 11/24/17 22:10 IV LR 500ML/HR, TORADOL 30MG IV, DISCHARGED HOME TYLENOL #3 -2 TABLETS Counseled pt/family regarding: lab results, diagnosis, need for follow-up, rad results - Departure Time of Disposition: 22:30 Departure Disposition: Home Clinical Impression: LEFT CHEST WALL PAIN, NONDISPLACED LEFT 11TH RIB FRACTURE Condition: Stable Critical Care Time: No Referrals: JUWAN BENTON [Primary Care Provider] - Additional Instructions: TORADOL 10MG EVERY 6 HOURS FOR MILD TO MODERATE PAIN. TYLENOL #3 EVERY 4 HOURS FOR BREAK THROUGH PAIN. CONSULT YOUR PRIMARY CARE PROVIDER FOR FOLLOWUP. Prescriptions: Codeine Phosphate/APAP #3 [Tylenol #3 Tablet] 1 tab PO Q4H PRN PRN #8 tablet PRN Reason: Pain Ketorolac Tromethamine [Toradol] 10 mg PO Q6HPRN PRN #20 tablet PRN Reason: Pain
[2017-11-24] MEDS ORDERED: Lactated Ringers 1,000 ML IV ONE ×2 (20:07→20:42)
[2017-11-24] MEDS ORDERED: TORAdol 30 mg Injection IV ONE (20:08)
[2017-11-24 20:26] LABS: Granulocyte Absolute (ANC) 5.73 (1.4-6.9); Hematocrit 49.3 % (42-50); Hemoglobin 15.8 gm/dl (12.5-18.0); Mean Cell Volume 93.5 fl (78-100); Mean Platelet Volume 11.5 fl (6-9.5); Platelet Count 235 K/mm3 (150-450); Red Blood Count 5.27 M/mm3 (4.1-5.6); Red Cell Distribution Width 13.8 % (11.5-14.0); White Blood Count 9.6 K/mm3 (4.0-10.5)
[2017-11-24] MEDS ORDERED: TORAdol 30 mg Injection ONE (20:42)
[2017-11-24 20:43] LABS: ANION GAP 16.1 MEQ/L (5-15); BLOOD UREA NITROGEN 14 mg/dl (9-20); CHLORIDE 100 mEq/L (98-107); Carbon Dioxide 29 mmol/L (22-30); Creatinine 1 0.87 mg/dl (0.66-1.25); Glucose 129 mg/dL (74-106); Potassium 3.9 mmol/L (3.5-5.1); SODIUM 142 mmol/L (137-145)
[2017-11-24 20:55] LABS: ATYPICAL LYMPHS 7 %; BAND 1 % (0.0-2.0); Eosinophil 2 % (0.00-3.0); Lymphocytes 17 % (24-44); Monocyte 4 % (0.0-12.0); Neutrophils 69 % (36.-66.); Total Cells Counted 100
[2017-11-24 20:56] LABS: Platelet Estimate NORMAL (NORMAL)
[2017-11-24] MEDS ORDERED: Tylenol #3 Tablet PO ONE (22:00)
[2017-11-24 22:03] VITALS: PULSE 99
[2017-11-24] MEDS ORDERED: Tylenol #3 Tablet ONE (22:15)
[2017-11-24 22:46] VITALS: BP 124/78; O2SAT 97
--- NOTE | 2017-11-24 23:25 | XRAY ---
Indication: Left lower rib pain following coughing/sneezing. Comparison: None 2 views of the left ribs demonstrates old anterior lateral 9/10 rib fractures and minimal multilevel spinal endplate spurring. No other bony, articular, or soft tissue abnormalities.
--- NOTE | 2017-11-24 23:25 | XRAY ---
Indication: Left sided rib pain following coughing/sneezing. Comparison: December 31, 2016. Portable chest again demonstrates normal heart and lungs. Bony thorax intact. No new/acute findings.
== END 2017-11-24 22:46 | disposition home or self-care (01) ==
LOC: ED 19:33
DX: S22.32XA Fracture of one rib, left side, initial encounter for closed fracture (principal); R07.89 Other chest pain
CPT/HCPCS: 36000; 36415; 71045; 71100; 80048; 84484; 85025; 85379; 93005; 93041; 96360; 96361; 96374; 99284; J1885; A9270-GY

== ENCOUNTER 2018-02-10 16:45 | Observation (INO) | payer OTHER ==
[2018-02-10] MEDS ORDERED: NITRO-BID 2% UD PACKETS TOP ONE (16:54)
[2018-02-10] MEDS ORDERED: DUONEB 0.5-3 MG/3 ml Neb IH ONE ×2 (16:54→17:02)
[2018-02-10] MEDS ORDERED: CAPTOPRIL 25 MG PO ONE (16:54)
[2018-02-10] MEDS ORDERED: Sodium Chloride 0.9% 1000 ML 1,000 ML IV SCH (17:00)
[2018-02-10] MEDS ORDERED: NITRO-BID 2% UD PACKETS ONE (17:17)
[2018-02-10] MEDS ORDERED: CAPTOPRIL 25 MG ONE (17:17)
[2018-02-10] MEDS ORDERED: Sodium Chloride 0.9% 1000 ML 1,000 ML ONE (17:17)
--- NOTE | 2018-02-10 17:23 | ERPHSYRPT ---
- History of Present Illness Time Seen by Provider: 02/10/18 16:50 Source: patient Exam Limitations: no limitations Patient Subjective Stated Complaint: pt reports shortness of breath and swelling to legs for 3 days. also reports cough wiht phlegm. Triage Nursing Assessment: pt is aox3, pupils perrl, pt is afebrile, pt is able to speak in 5-6 word sentences, lung sounds are diminished in posterior amaro, bilat. productive cough present that is intermittent. moderate non pitting pedal edema present. pedal pulses strong and equal. cap refill < 3 seconds. Physician History: patient with increased sob x 3 days; getting worse; cough clear phleghm; no cp; feels hot but no fever; no travel; no exposures; no prior hx; smoke 1 ppd; no N& V; swelling of legs x 3 days Timing/Duration: today (worse), day(s) (onset 3), gradual onset, worse Activities at Onset: rest Severity of Dyspnea-Max: severe Severity of Dyspnea-Current: severe Possible Cause: no prior episodes Modifying Factors: Improves With: coughing Associated Symptoms: intermittent, cough, edema, wheezing, ankle swelling, productive cough (cllear) International travel in last 2 weeks: No Allergies/Adverse Reactions: No Known Drug Allergies Allergy (Unverified 11/24/17 19:54) Home Medications: Lisinopril/Hydrochlorothiazide [Lisinopril-Hctz 20-12.5 mg Tab] 1 each PO BID [History] Oxycodone HCl/Acetaminophen [Percocet 10-325 mg Tablet] 1 each PO BID PRN [History] Testosterone Cypionate 200 mg IM UD 12/29/16 [History] Hx Tetanus, Diphtheria Vaccination/Date Given: Yes Hx Influenza Vaccination/Date Given: No Hx Pneumococcal Vaccination/Date Given: No Immunizations Up to Date: Yes - Review of Systems Constitutional: No Symptoms Eyes: No Symptoms Ears, Nose, & Throat: No Symptoms Respiratory: Cough, Dyspnea, Dyspnea on Exertion (RENTERIA), Wheezing, No Cyanosis, No Stridor Cardiac: Edema, Orthopnea (maybe), No Chest Pain, No Palpitations, No Syncope Abdominal/Gastrointestinal: No Abdominal Pain, No Nausea, No Vomiting, No Diarrhea Genitourinary Symptoms: No Symptoms Musculoskeletal: No Symptoms Skin: No Symptoms Neurological: No Symptoms Psychological: No Symptoms Endocrine: No Symptoms Hematologic/Lymphatic: No Symptoms Immunological/Allergic: No Symptoms - Past Medical History Pertinent Past Medical History: Yes Neurological History: No Pertinent History ENT History: No Pertinent History Cardiac History: Hypertension Respiratory History: No Pertinent History, Bronchitis, Pneumonia Endocrine Medical History: No Pertinent History Musculoskeletal History: No Pertinent History GI Medical History: GERD History: No Pertinent History Psycho-Social History: No Pertinent History Male Reproductive Disorders: No Pertinent History Other Medical History: blood clot LUE. - Past Surgical History Past Surgical History: Yes Neuro Surgical History: No Pertinent History Cardiac: No Pertinent History Respiratory: No Pertinent History Gastrointestinal: No Pertinent History Genitourinary: No Pertinent History Musculoskeletal: Other Male Surgical History: No Pertinent History Other Surgical History: rotator cuff - Social History Smoking Status: Current every day smoker How long have you smoked: 29 Exposure to second hand smoke: No Alcohol Use: Socially Drug Use: none Patient Lives Alone: Yes Significant Family History: heart disease, hypertension - Female History Hx Now: No - Nursing Vital Signs Nursing Vital Signs: Initial Vital Signs Temperature 98.7 F 02/10/18 16:51 Pulse Rate 112 H 02/10/18 16:51 Respiratory Rate 20 02/10/18 16:51 Blood Pressure 161/138 02/10/18 16:51 O2 Sat by Pulse Oximetry 96 02/10/18 16:51 - Physical Exam General Appearance: moderate distress (respiratory), alert, obese Eye Exam: PERRL/EOMI, eyes nml inspection Ears, Nose, Throat Exam: hearing grossly normal, normal ENT inspection, normal pharynx, No pharyngeal erythema Neck Exam: normal inspection, non-tender, supple, full range of motion, JVD ( mild semi upright) Respiratory Exam: respiratory distress, airway intact, diminished breath sounds , crackles/rales, wheezing, No normal breath sounds, No chest tenderness, No lungs clear, No stridor, No pleural rub Cardiovascular/Chest Exam: regular rate/rhythm, normal peripheral pulses, edema , JVD, tachycardia, No normal heart sounds (muffled), No murmur Abdominal/Gastrointestinal Exam: soft, normal bowel sounds, distention, No tenderness, No guarding, No pulsatile mass, No rebound, No organomegaly Rectal Exam: deferred Extremity Exam: non-tender, normal range of motion, normal inspection, no calf tenderness, pedal edema (2+), No nelli's sign Peripheral Pulses Exam: carotid (R): 4+, carotid (L): 4+, femoral (R): 4+, femoral (L): 4+, dorsalis-pedis (R): 3+, dorsalis-pedis (L): 3+ Neurologic Exam: alert, oriented x 3, cooperative, 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, nml station & gait, No normal mood/affect (anxious) Skin Exam: normal color, warm, dry, No rash, No petechiae, No cyanosis Lymphatic Exam: No adenopathy SpO2 Interpretation: normal SpO2: 96 Oxygen Delivery: Room Air - Course Nursing assessment & vital signs reviewed: Yes EKG Interpreted by Me: RATE (102), Sinus Rhythm, Sinus Tach, NORMAL AXIS, NORMAL INTERVALS, NORMAL QRS, Non-specific ST Changes (poor R wave progression V1-V3 unchanged from old ekg done 11-24-17) Rhythm Strip: Rate (112), Sinus Tachycardia - Radiology Exams Chest X-ray Interpretation: Interpreted by me, No Pneumothorax, Nml Heart Size, Nml Mediastinum, Other (increased bilateral interstitial markings bibasilar L>R) Ordered Tests: Active Orders 24 hr Category Date Time Status Care Director Rn STAT Care 02/10/18 16:55 Active EKG-ER Only STAT Care 02/10/18 16:54 Active IV Insertion STAT Care 02/10/18 16:54 Active Pulse Oximetry (ED) STAT Care 02/10/18 16:54 Active CHEST 1 VIEW (PORTABLE) Stat Exams 02/10/18 16:55 Taken BLOOD CULTURE Stat Lab 02/10/18 18:10 Received CBC W DIFF Stat Lab 02/10/18 17:10 Completed CMP Stat Lab 02/10/18 17:10 Completed Lactic Acid Stat Lab 02/10/18 17:27 Completed MAGNESIUM Stat Lab 02/10/18 17:10 Completed NT PRO BNP Stat Lab 02/10/18 17:10 Completed PROTIME WITH INR Stat Lab 02/10/18 17:10 Completed TROPONIN Q3H Lab 02/10/18 17:10 Completed TROPONIN Q3H Lab 02/10/18 20:00 Ordered TROPONIN Q3H Lab 02/10/18 23:00 Ordered TROPONIN Q3H Lab 02/11/18 02:00 Ordered TROPONIN Q3H Lab 02/11/18 05:00 Ordered Peak Expiratory Flow Rate ONCE RT 02/10/18 16:54 Active Respiratory Nebulizer STAT RT 02/10/18 16:56 Completed Transfer Order Routine Transfer 02/10/18 Ordered Medication Summary Generic Name Dose Route Start Last Admin Trade Name Vitoq PRN Reason Stop Dose Admin Sodium Chloride 1,000 mls @ 50 mls/hr 02/10/18 17:00 02/10/18 17:20 Sodium Chloride 0.9% 1000 Ml IV 03/12/18 16:59 50 mls/hr .Q20H OANH Administration Ceftriaxone Sodium/Dextrose 1 g in 50 mls @ 100 mls/hr 02/10/18 18:15 Rocephin 1 Gm-D5w 50 Ml Bag IV 02/10/18 18:44 STAT STA Discontinued Medications Generic Name Dose Route Start Last Admin Trade Name Vitoq PRN Reason Stop Dose Admin Albuterol/Ipratropium 3 ml 02/10/18 16:54 02/10/18 17:05 Duoneb 0.5-3 Mg/3 Ml Neb IH 02/10/18 16:55 3 ml STAT ONE Administration Albuterol/Ipratropium Confirm 02/10/18 17:02 Duoneb 0.5-3 Mg/3 Ml Neb Administered 02/10/18 17:03 Dose 3 ml IH .STK-MED ONE Captopril 25 mg 02/10/18 16:54 02/10/18 17:21 Captopril 25 Mg PO 02/10/18 16:55 25 mg STAT ONE Administration Captopril Confirm 02/10/18 17:17 Captopril 25 Mg Administered 02/10/18 17:18 Dose 25 mg .ROUTE .STK-MED ONE Famotidine 20 mg 02/10/18 18:16 Pepcid 20 Mg Vial IV 02/10/18 18:17 STAT ONE Furosemide 40 mg 02/10/18 18:16 Lasix 40 Mg/4 Ml IV 02/10/18 18:17 STAT ONE Methylprednisolone Sodium Succinate 125 mg 02/10/18 18:16 Solu-Medrol 125 Mg IV 02/10/18 18:17 STAT ONE Nitroglycerin 1 gm 02/10/18 16:54 02/10/18 17:20 Nitro-Bid 2% Ud Packets TOP 02/10/18 16:55 1 gm STAT ONE Administration Nitroglycerin Confirm 02/10/18 17:17 Nitro-Bid 2% Ud Packets Administered 02/10/18 17:18 Dose 1 gm .ROUTE .STK-MED ONE Lab/Rad Data: Laboratory Result Diagrams 02/10/18 17:10 02/10/18 17:10 Laboratory Results 02/10/18 02/10/18 02/10/18 Range/Units 17:27 17:20 17:10 WBC (4.0-10.5) K/mm3 RBC (4.1-5.6) M/mm3 Hgb (12.5-18.0) gm/dl Hct (42-50) % MCV (78-100) fl MCH (26-32) pg MCHC (32-36) g/dl RDW (11.5-14.0) % Plt Count (150-450) K/mm3 MPV (6-9.5) fl Gran % (36.0-66.0) % Eos # (Auto) (0-0.5) Absolute Lymphs (auto) (1.0-4.6) Absolute Monos (auto) (0.0-1.3) Lymphocytes % (24.0-44.0) % Monocytes % (0.0-12.0) % Eosinophils % (0.00-5.0) % Basophils % (0.0-0.4) % Absolute Granulocytes (1.4-6.9) Basophils # (0-0.4) PT (8.83-12.87) SECONDS INR (0.8-3.0) Sodium (137-145) mmol/L Potassium (3.5-5.1) mmol/L Chloride (98-107) mmol/L Carbon Dioxide (22-30) mmol/L Anion Gap (5-15) MEQ/L BUN (9-20) mg/dL Creatinine (0.66-1.25) mg/dL Estimated GFR ML/MIN Glucose (74-106) mg/dL Lactic Acid 1.2 (0.4-2.0) Calcium (8.4-10.2) mg/dL Magnesium (1.6-2.3) mg/dL Total Bilirubin (0.2-1.3) mg/dL AST (17-59) U/L ALT (0-50) U/L Alkaline Phosphatase (38-126) U/L Troponin I < 0.012 (0.000-0.034) ng/mL NT-Pro-B Natriuret Pep (0-450) pg/mL Serum Total Protein (6.3-8.2) g/dL Albumin (3.5-5.0) g/dL Influenza Type A Ag NEGATIVE (NEGATIVE) Influenza Type B Ag NEGATIVE (NEGATIVE) RSV (PCR) NEGATIVE (Negative) 02/10/18 02/10/18 02/10/18 Range/Units 17:10 17:10 17:10 WBC 7.9 (4.0-10.5) K/mm3 RBC 4.81 (4.1-5.6) M/mm3 Hgb 14.8 (12.5-18.0) gm/dl Hct 45.8 (42-50) % MCV 95.2 (78-100) fl MCH 30.8 (26-32) pg MCHC 32.3 (32-36) g/dl RDW 15.2 H (11.5-14.0) % Plt Count 208 (150-450) K/mm3 MPV 12.0 H (6-9.5) fl Gran % 62.7 (36.0-66.0) % Eos # (Auto) 0.34 (0-0.5) Absolute Lymphs (auto) 2.01 (1.0-4.6) Absolute Monos (auto) 0.58 (0.0-1.3) Lymphocytes % 25.4 (24.0-44.0) % Monocytes % 7.3 (0.0-12.0) % Eosinophils % 4.3 (0.00-5.0) % Basophils % 0.3 (0.0-0.4) % Absolute Granulocytes 4.97 (1.4-6.9) Basophils # 0.02 (0-0.4) PT 11.6 (8.83-12.87) SECONDS INR 1.00 (0.8-3.0) Sodium 144 (137-145) mmol/L Potassium 3.7 (3.5-5.1) mmol/L Chloride 104 (98-107) mmol/L Carbon Dioxide 30 (22-30) mmol/L Anion Gap 13.5 (5-15) MEQ/L BUN 10 (9-20) mg/dL Creatinine 0.96 (0.66-1.25) mg/dL Estimated GFR > 60.0 ML/MIN Glucose 116 H (74-106) mg/dL Lactic Acid (0.4-2.0) Calcium 9.2 (8.4-10.2) mg/dL Magnesium 2.1 (1.6-2.3) mg/dL Total Bilirubin 0.30 (0.2-1.3) mg/dL AST 40 (17-59) U/L ALT 48 (0-50) U/L Alkaline Phosphatase 78 (38-126) U/L Troponin I (0.000-0.034) ng/mL NT-Pro-B Natriuret Pep 107 (0-450) pg/mL Serum Total Protein 6.7 (6.3-8.2) g/dL Albumin 4.0 (3.5-5.0) g/dL Influenza Type A Ag (NEGATIVE) Influenza Type B Ag (NEGATIVE) RSV (PCR) (Negative) reviewed - Progress Progress: re-examined (after meds) Air Movement: fair Progress Note: 02/10/18 17:25 EKG unchanged from old; lab and cxr pending; giving meds and resp treatment; will monitor and recheck 02/10/18 17:43 patient breathing easier and BS improved after meds and resp treatment; EKG unchanged form before; cxr inc bibasilar markings; cbc and lactate wnl; will continue IV fluids, monitor and recheck 02/10/18 17:59 VS improving; feeling better; moving air better; INR winl continue to monitor and recheck; will start on ATBs; lytes and pBNP wnl; will start ATBs and recheck and consult with LMD for disposition 02/10/18 18:00 02/10/18 18:17 resp panel neg; DR Storey consulted and will admit to OBS; patient notified and discussed smoking cessation and admission Blood Culture(s) Obtained: Yes Antibiotics given: Yes Discussed with : [place] (consulted and will admit) Will see patient in: hospital (observation) Counseled pt/family regarding: lab results, diagnosis, need for follow-up, rad results, smoking cessation - Departure Time of Disposition: 18:17 Departure Disposition: Observation Clinical Impression: Acute exacerbation of chronic obstructive airways disease, Hypertension, Acute bronchitis Condition: Serious Critical Care Time: No Referrals: JUWAN STOREY [Primary Care Provider] - Instructions: Chronic Obstructive Pulmonary Disease
[2018-02-10 17:30] LABS: BASOPHIL % 0.3 % (0.0-0.4); Basophil (Absolute #) 0.02 (0-0.4); Eosinophil % 4.3 % (0.00-5.0); Eosinophil (Absolute #) 0.34 (0-0.5); Granulocyte Absolute (ANC) 4.97 (1.4-6.9); Granulocytes % 62.7 % (36.0-66.0); Hematocrit 45.8 % (42-50); Hemoglobin 14.8 gm/dl (12.5-18.0); Lymphocyte (Absolute #) 2.01 (1.0-4.6); Lymphocytes % 25.4 % (24.0-44.0); Mean Cell Volume 95.2 fl (78-100); Mean Corpuscular Hemoglobin 30.8 pg (26-32); Mean Corpuscular Hgb Concent. 32.3 g/dl (32-36); Monocyte (Absolute #) 0.58 (0.0-1.3); Monocytes % 7.3 % (0.0-12.0); Platelet Count 208 K/mm3 (150-450); Red Blood Count 4.81 M/mm3 (4.1-5.6); Red Cell Distribution Width 15.2 % (11.5-14.0); White Blood Count 7.9 K/mm3 (4.0-10.5)
[2018-02-10 17:49] LABS: ALKALINE PHOSPHATASE 78 U/L (38-126); ANION GAP 13.5 MEQ/L (5-15); BLOOD UREA NITROGEN 10 mg/dL (9-20); CHLORIDE 104 mmol/L (98-107); Calcium 9.2 mg/dL (8.4-10.2); Carbon Dioxide 30 mmol/L (22-30); Creatinine 1 0.96 mg/dL (0.66-1.25); Glucose 116 mg/dL (74-106); Potassium 3.7 mmol/L (3.5-5.1); SGOT/AST 40 U/L (17-59); SGPT/ALT 48 U/L (0-50); SODIUM 144 mmol/L (137-145); Total Protein 6.7 g/dL (6.3-8.2)
[2018-02-10 17:55] LABS: NT PRO BNP 107 pg/mL (0-450)
[2018-02-10 18:04] LABS: INFLUENZA A NEGATIVE (NEGATIVE); INFLUENZA B NEGATIVE (NEGATIVE); RESPIRATORY SYNCTIAL VIRUS NEGATIVE (Negative)
[2018-02-10] MEDS ORDERED: ROCEPHIN 1 Gm-D5w 50 ml Bag** 1 G/50 ML IVPB IV STA (18:15)
[2018-02-10] MEDS ORDERED: solu-MEDROL 125 MG IV ONE (18:16)
[2018-02-10] MEDS ORDERED: Pepcid 20 MG VIAL IV ONE ×2 (18:16→18:23)
[2018-02-10] MEDS ORDERED: Lasix 40 MG/4 ML IV ONE (18:16)
[2018-02-10] MEDS ORDERED: solu-MEDROL 125 MG ONE (18:23)
[2018-02-10] MEDS ORDERED: ROCEPHIN 1 Gm-D5w 50 ml Bag** 1 G/50 ML IVPB IV ONE (18:23)
[2018-02-10] MEDS ORDERED: Lasix 40 MG/4 ML ONE (18:23)
[2018-02-10] MEDS: DUONEB 0.5-3 MG/3 ml Neb IH SCH ×2 (19:45→23:12)
--- NOTE | 2018-02-10 21:14 | XRAY ---
Indication: Short of breath and cough. Comparison: November 24, 2017. Portable chest demonstrates minimal right midlung fibrosis/scarring. Remaining heart, lungs, and bony thorax normal.
[2018-02-10] MEDS ORDERED: Cyclobenzaprine 10 MG PO ONE (22:00)
[2018-02-10] MEDS: Pepcid 20 MG PO SCH (22:32)
[2018-02-10] MEDS: solu-MEDROL 125 MG IV SCH (23:45)
[2018-02-11] MEDS: DUONEB 0.5-3 MG/3 ml Neb IH SCH ×6 (03:11→23:07)
[2018-02-11] MEDS ORDERED: ROCEPHIN 1 Gm-D5w 50 ml Bag** 1 G/50 ML IVPB IV ONE (04:02)
[2018-02-11] MEDS: solu-MEDROL 125 MG IV SCH ×3 (06:16→22:31)
--- NOTE | 2018-02-11 09:16 | PCM.HP ---
History of Present Illness - Chief Complaint Chief Complaint: Exac. COPD/Bronchitis Date: 02/11/18 History of Present Illness: is a 47 year old male. 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 He started smoking again a few months ago. He began having a coughing spell and was unable to catch his breath and came to ED. He denies chest pain. He was coughing hard enough it made him feel as though he was going to vomit. - Review of Systems Constitutional: No Fever, No Chills Eyes: No Symptoms Ears, Nose, & Throat: No Symptoms Respiratory: Cough, Short Of Breath, Wheezing Cardiac: No Chest Pain, No Edema, No Syncope Abdominal/Gastrointestinal: No Abdominal Pain, No Nausea, No Vomiting, No Diarrhea Genitourinary Symptoms: No Dysuria Musculoskeletal: No Back Pain, No Neck Pain Skin: No Rash Neurological: No Dizziness, No Focal Weakness, No Sensory Changes Psychological: No Symptoms Endocrine: No Symptoms Hematologic/Lymphatic: No Symptoms Immunological/Allergic: No Symptoms Medications & Allergies Home Medications: Home Medication List Amlodipine Besylate 10 mg [Norvasc 10 MG] 10 mg PO DAILY #30 tablet 10/28/15 [ Rx Confirmed 02/10/18] Testosterone Cypionate 200 mg IM UD 12/29/16 [History Confirmed 02/10/18] Lisinopril/Hydrochlorothiazide [Lisinopril-Hctz 20-25 mg Tab] 2 each PO DAILY # 10 tablet 12/31/16 [Rx Confirmed 02/10/18] Cyclobenzaprine HCl [Flexeril] 10 mg PO TID PRN 02/10/18 [History Confirmed ] Allergies/Adverse Reactions: Allergies Allergy/AdvReac Type Severity Reaction Status Date / Time No Known Drug Allergies Allergy Unverified 11/24/17 19:54 - Past Medical History Past Medical History: Yes Neurological History: No Pertinent History ENT History: No Pertinent History Cardiac History: Hypertension Respiratory History: No Pertinent History, Bronchitis, Pneumonia Endocrine Medical History: No Pertinent History Musculoskelatal History: No Pertinent History GI Medical History: GERD History: No Pertinent History Pyscho-Social History: No Pertinent History Male Reproductive Disorders: No Pertinent History Comment: blood clot LUE. - Past Surgical History Past Surgical History: Yes Neuro Surgical History: No Pertinent History Cardiac History: No Pertinent History Respiratory Surgery: No Pertinent History GI Surgical History: No Pertinent History Genitourinary Surgical Hx: No Pertinent History Musculskeletal Surgical Hx: Other Male Surgical History: No Pertinent History Other Surgical History: rotator cuff surgery - Social History Smoking Status: Current every day smoker How long have you smoked: 29 Exposure to second hand smoke: Yes Alcohol: Rarely Drug Use: none Significant Family History: heart disease, hypertension - Physical Exam Vital Signs: Vital Signs - 24 hr Temp Pulse Resp BP Pulse Ox 02/11/18 07:18 98.4 F 96 H 18 196/81 93 L 02/11/18 06:50 97 H 20 92 L 02/11/18 04:00 98.3 F 97 H 20 142/79 92 L 02/11/18 03:11 88 20 93 L 02/10/18 23:47 98.2 F 67 18 130/66 96 02/10/18 23:10 91 H 26 H 94 L 02/10/18 20:00 97.6 F 103 H 28 H 138/96 94 L 02/10/18 19:45 102 H 24 93 L 02/10/18 19:34 97.6 F 103 H 28 H 138/96 94 L 02/10/18 18:54 95 02/10/18 18:24 96 02/10/18 17:52 104 H 24 184/121 95 02/10/18 17:32 94 L 02/10/18 16:54 103 H 22 93 L 02/10/18 16:51 98.7 F 112 H 22 161/138 96 General Appearance: no apparent distress, alert, obese Neurologic Exam: alert, oriented x 3, cooperative, normal mood/affect, nml cerebellar function, nml station & gait, sensation nml, No motor deficits Eye Exam: PERRL/EOMI, eyes nml inspection Ears, Nose, Throat Exam: normal ENT inspection, TMs normal, pharynx normal, moist mucous membranes Neck Exam: normal inspection, non-tender, supple, full range of motion Respiratory Exam: wheezing, No crackles/rales Cardiovascular Exam: regular rate/rhythm, normal heart sounds, normal peripheral pulses Gastrointestinal/Abdomen Exam: soft, normal bowel sounds, No tenderness, No mass Back Exam: normal inspection, normal range of motion, No CVA tenderness, No vertebral tenderness Extremity Exam: normal inspection, normal range of motion, pelvis stable Skin Exam: normal color, warm, dry, No rash Lymphatic Exam: No adenopathy Results - Labs Lab/Micro Results: Lab Results-Last 24 Hours 02/10/18 02/10/18 02/11/18 Range/Units 20:10 23:15 03:00 Troponin I < 0.012 < 0.012 < 0.012 (0.000-0.034) ng/mL 02/11/18 Range/Units 05:25 Troponin I < 0.012 (0.000-0.034) ng/mL - Other Procedures and Tests Respiratory Therapy 02/10/18 21:59 BiPap/CPAP ROUTINE Assessment/Plan (1) Acute exacerbation of chronic obstructive airways disease Current Visit: Yes Status: Acute Assessment & Plan: continue the antibiotic. wean the iv steroids to 80 mg iv q8h and wean as tolerated continue O2 as needed for O2<90 continue nebs restart home bp medications he has been off for 1 week stop iv fluids with his swelling cardiac enzymes and bnp are within normal limits likely related to salt intake, heat and sitting prolonged periods Code(s): J44.1 - CHRONIC OBSTRUCTIVE PULMONARY DISEASE W (ACUTE) EXACERBATION (2) Hypertension Current Visit: Yes Status: Chronic Code(s): I10 - ESSENTIAL (PRIMARY) HYPERTENSION (3) Obstructive sleep apnea Current Visit: Yes Status: Chronic Code(s): G47.33 - OBSTRUCTIVE SLEEP APNEA (ADULT) (PEDIATRIC)
[2018-02-11] MEDS: ENOXAPARIN SODIUM SQ SCH (09:20)
[2018-02-11] MEDS: Pepcid 20 MG PO SCH ×2 (09:20→22:31)
[2018-02-11] MEDS ORDERED: NON-FORMULARY ITEM (Cyclobenzaprine Hcl [Flexeril] 10 MG) PO PRN (09:29)
[2018-02-11] MEDS ORDERED: Cyclobenzaprine 10 MG PO PRN (09:31)
[2018-02-11] MEDS ORDERED: ROCEPHIN 1 Gm-D5w 50 ml Bag** 1 G/50 ML IVPB IV SCH (10:00)
[2018-02-11] MEDS ORDERED: HYDROCHLOROTHIAZIDE PO SCH (10:00)
[2018-02-11] MEDS ORDERED: LISINOPRIL PO SCH (10:00)
[2018-02-11] MEDS ORDERED: [UNRECOGNIZED DRUG - OTHER] PO SCH (10:00)
[2018-02-11] MEDS ORDERED: NON-FORMULARY ITEM (Amlodipine Besylate 10 Mg [Norvasc 10 Mg] 10 MG) PO SCH (10:00)
[2018-02-11] MEDS: hydroDIURIL 25 MG PO SCH (11:16)
[2018-02-11] MEDS: NORVASC 5 MG PO SCH (11:17)
[2018-02-11] MEDS: Zestril 20 MG PO SCH (11:17)
[2018-02-11] MEDS ORDERED: APRESOLINE 20 MG/ML INJ IV PRN (14:58)
[2018-02-11] MEDS: TYLENOL 325 MG PO PRN (22:30)
[2018-02-11] MEDS: Lopressor 50 MG PO SCH (22:31)
[2018-02-11] MEDS: ROCEPHIN 1 Gm-D5w 50 ml Bag** 1 G/50 ML IVPB IV SCH (22:32)
[2018-02-12] MEDS: DUONEB 0.5-3 MG/3 ml Neb IH SCH ×6 (03:09→23:02)
[2018-02-12] MEDS: solu-MEDROL 125 MG IV SCH (05:33)
[2018-02-12] MEDS: Zestril 20 MG PO SCH (09:35)
[2018-02-12] MEDS: hydroDIURIL 25 MG PO SCH (09:35)
[2018-02-12] MEDS: ENOXAPARIN SODIUM SQ SCH (09:36)
[2018-02-12] MEDS: NORVASC 5 MG PO SCH (09:36)
[2018-02-12] MEDS: Lopressor 50 MG PO SCH ×2 (09:36→21:37)
[2018-02-12] MEDS: Pepcid 20 MG PO SCH ×2 (09:36→21:37)
[2018-02-12] MEDS: DELTASONE 20 MG PO SCH (09:36)
--- NOTE | 2018-02-12 11:19 | XRAY ---
Indication: Short of breath. Multiple contiguous axial images obtained through the chest using 100 cc Isovue 370 contrast and PE protocol. Comparison: None There is suboptimal opacification of the pulmonary arteries limiting evaluation of the more distal lobar and segmental pulmonary arteries. No obvious central pulmonary embolus. Heart is not enlarged. Aorta is normal in course and caliber. No pathologic mediastinal/hilar lymphadenopathy. Lungs inflated with minimal bilateral dependent atelectasis and minimal right minor fissure thickening. No suspicious pulmonary mass, infiltrate, or effusion. Bony thorax intact with minimal degenerative changes throughout the spine. Limited upper abdomen demonstrates fatty liver. Impression: 1. Pulmonary embolus evaluation limited due to suboptimal contrast opacification. No obvious central pulmonary embolus. 2. No acute cardiopulmonary abnormalities. 3. Fatty liver. CT DI 23.69
[2018-02-12] MEDS: ZOLOFT 50 MG TABLET PO SCH (15:52)
[2018-02-12] MEDS: TYLENOL 325 MG PO PRN (18:28)
[2018-02-12] MEDS: ROCEPHIN 1 Gm-D5w 50 ml Bag** 1 G/50 ML IVPB IV SCH (21:40)
--- NOTE | 2018-02-12 22:27 | PCM.NOTE ---
Date and Time: 02/12/18 0755 Subjective Assessment: He continues to have shortness of breath and sinus tachycardia with the nebs and is having desaturation when the oxygen is removed down to the low 80% range. He is overall feeling better and swelling is improved limitied coughing Objective Exam General Appearance: no apparent distress, alert, obese Neurologic Exam: alert, oriented x 3, cooperative, normal mood/affect, nml cerebellar function, sensation nml, No motor deficits Skin Exam: normal color, warm, dry Eye Exam: PERRL, EOMI, eyes nml inspection Ears, Nose, Throat Exam: normal ENT inspection, pharynx normal, moist mucous membranes Neck Exam: normal inspection, non-tender, supple, full range of motion Respiratory Exam: rhonchi (minimal), No respiratory distress Cardiovascular Exam: regular rate/rhythm, normal heart sounds Gastrointestinal/Abdomen Exam: soft, No tenderness, No mass Extremity Exam: normal inspection, normal range of motion Back Exam: normal inspection, normal range of motion, No CVA tenderness, No vertebral tenderness Male Genitalia Exam: deferred Rectal Exam: deferred OBJECTIVE DATA Vital Signs: Vital Signs - 24 hr Temp Pulse Resp BP Pulse Ox 02/12/18 20:00 98.4 F 117 H 24 150/71 94 L 02/12/18 18:43 117 H 24 94 L 02/12/18 16:00 98.1 F 107 H 24 163/70 02/12/18 15:58 18 02/12/18 15:00 100 H 18 94 L 02/12/18 12:00 98.7 F 107 H 18 113/73 94 L 02/12/18 11:00 108 H 20 93 L 02/12/18 09:39 118 H 20 92 L 02/12/18 08:00 98.4 F 95 H 22 125/81 95 02/12/18 07:45 22 02/12/18 07:00 108 H 20 95 02/12/18 06:00 95 02/12/18 04:00 98.2 F 105 H 22 132/81 95 02/12/18 03:09 105 H 22 94 L 02/11/18 23:52 98.2 F 117 H 22 97 02/11/18 23:07 117 H 22 97 Oxygen-Last 24 hours O2 Percentage 2 Liters = 28% O2 Percentage 2 Liters = 28% Pain Assessment - Last Documented Pain Intensity 0 Pain Scale Used 0-10 Pain Scale Intake and Output: Intake & Output 02/10/18 02/11/18 02/12/18 02/13/18 11:59 11:59 11:59 11:59 Intake Total 3317 3770 840 Output Total 3935 5683 Balance -1433 -305 840 Weight 160.6 kg 160.9 kg Radiology Exams: Radiology Procedures Category Date Time Status CHEST WITH CONTRAST [CT] Stat Exams 02/12/18 08:23 Completed Assessment/Plan (1) Acute exacerbation of chronic obstructive airways disease Current Visit: Yes Status: Acute Onset Date: ~02/10/18 Assessment & Plan: given persistent hypoxia and the sinus tachycardia will check CT PE protocol wean steroid to prednisone wean O2 as tolerated continue metoprolol for the htn and sinus tachy that is worse with the nebs Code(s): J44.1 - CHRONIC OBSTRUCTIVE PULMONARY DISEASE W (ACUTE) EXACERBATION (2) Hypertension Current Visit: Yes Status: Chronic Onset Date: ~02/10/18 Code(s): I10 - ESSENTIAL (PRIMARY) HYPERTENSION (3) Obstructive sleep apnea Current Visit: Yes Status: Chronic Code(s): G47.33 - OBSTRUCTIVE SLEEP APNEA (ADULT) (PEDIATRIC)
[2018-02-13] MEDS: TYLENOL 325 MG PO PRN (00:38)
[2018-02-13] MEDS: DUONEB 0.5-3 MG/3 ml Neb IH SCH ×2 (03:14→07:02)
[2018-02-13 07:40] VITALS: BP 137/89; PULSE 92; O2SAT 96
--- NOTE | 2018-02-13 08:26 | PCM.DCORD ---
- Discharge Discharge Date: 02/13/18 Disposition: Home, Self-Care Prescriptions: New Amoxicillin/Potassium Clav [Augmentin 875-125 Tablet] 1 each PO BID 7 Days # 14 tablet Furosemide [Lasix] 40 mg PO DAILY #30 tablet Potassium Chloride 8 meq PO DAILY #30 tablet.er Prednisone 10 mg PO DAILY 9 Days #18 tablet No Action Amlodipine Besylate 10 mg [Norvasc 10 MG] 10 mg PO DAILY #30 tablet Testosterone Cypionate 200 mg IM UD Lisinopril/Hydrochlorothiazide [Lisinopril-Hctz 20-25 mg Tab] 2 each PO DAILY #10 tablet Cyclobenzaprine HCl [Flexeril] 10 mg PO TID PRN PRN Reason: Pain Instructions: Quitting Smoking, Exacerbation of COPD (DC) Follow up with: JUWAN BENTON [Primary Care Provider] - 1 Week
[2018-02-13] MEDS: Zestril 20 MG PO SCH (10:27)
[2018-02-13] MEDS: NORVASC 5 MG PO SCH (10:27)
[2018-02-13] MEDS: DELTASONE 20 MG PO SCH (10:27)
[2018-02-13] MEDS: ENOXAPARIN SODIUM SQ SCH (10:27)
[2018-02-13] MEDS: Lopressor 50 MG PO SCH (10:28)
[2018-02-13] MEDS: Pepcid 20 MG PO SCH (10:28)
[2018-02-13] MEDS: hydroDIURIL 25 MG PO SCH (10:28)
[2018-02-13] MEDS: ZOLOFT 50 MG TABLET PO SCH (10:58)
--- NOTE | 2018-02-15 08:45 | DS ---
DISCHARGE DIAGNOSES: 1) ACUTE EXACERBATION OF CHRONIC OBSTRUCTIVE PULMONARY DISEASE. 2) LYMPHEDEMA. HOSPITAL COURSE: The patient is a 47 year-old white male patient who reportedly had increased swelling in his leg to the point he had no ankle. He was very short of breath and scared. He presented himself to the emergency room. He did improve with DuoNeb and diuresis. He was also placed on Solu-Medrol and Rocephin. Over the ensuing next couple of days, the patient improved remarkably although on the morning of 02/13/2018, he still had slight bibasilar wheezes present but he was feeling much better and essentially felt to be ready for discharge home. His laboratory studies showed several troponins to all be running less than 0.012 and had CBC which was normal with a white blood cell count of 7,900, hemoglobin 14.8, PLT count 208,000. His metabolic panel showed a glucose 116 otherwise was entirely normal. Otherwise ProBNP was also normal. International normalized ratio was 1.0. Lactic acid was 1.2. Influenza A, B and respiratory syncytial virus were negative. He had initially sinus tachycardia on initial evaluation in the emergency room. His EKG otherwise appeared to be fairly normal with slight aberration in beat III that appeared to be diminished R-wave in that area but no acute changes were noted. The patient was discharged home on prednisone 30 mg for three days, 20 mg for three days, 10 mg for three days and Albuterol nebulizer treatments. Augmentin 875 mg twice a day, Lasix 40 mg daily, potassium 8 mEq daily and follow up in the office in one week.
[2018-02-19] MEDS ORDERED: ZOLOFT 50 MG TABLET PO SCH (10:00)
== END 2018-02-13 11:20 | disposition home or self-care (01) ==
LOC: ED 16:45 → MED SURG 18:39
PROVIDERS: ADMIT Family Medicine; ATTEND Family Medicine
DX: J44.1 Chronic obstructive pulmonary disease with (acute) exacerbation (principal); I89.0 Lymphedema, not elsewhere classified; K21.9 Gastro-esophageal reflux disease without esophagitis; Z72.0 Tobacco use; I10 Essential (primary) hypertension; G47.33 Obstructive sleep apnea (adult) (pediatric); F51.9 Sleep disorder not due to a substance or known physiological condition, unspecified; Z79.899 Other long term (current) drug therapy
CPT/HCPCS: 36000; 36415; 71045; 71260; 80053; 83605; 83735; 83880; 84484; 85025; 85610; 87040; 87631; 93005; 93041; 93268; 94150; 94640; 94660; 94760; 96374; 96375; 99285; J0360; J0696; J1650; J1940; J2930; A9270-GY; G0378

== ENCOUNTER 2018-04-09 22:35 | Emergency (ER) | payer OTHER ==
[2018-04-09] MEDS ORDERED: Erythromycin 3.5 GM OPHTH. OP ONE (23:36)
[2018-04-09] MEDS ORDERED: TETRACAINE 0.5% STERI-UNIT SOL OP STA (23:36)
--- NOTE | 2018-04-10 | ERPHSYRPT ---
- History of Present Illness Time Seen by Provider: 04/09/18 23:30 Source: patient Patient Subjective Stated Complaint: thinks something is in his right eye Triage Nursing Assessment: Pt c/o of pain in left eye and feels like something is in it, tachycardic at 123 and BP of 149/110, doesn't recall getting anything in it, red, half open, headache Physician History: 47 Y/O WHITE MALE WITH RECURRENT H/O RIGHT EYE CORNEAL ABRASIONS. 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 HE FEELS THIS TIME HE HAS A FB /SAND SENSATION IN HIS RIGHT EYE. HE HAS A HEADACHE WELL. 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 Bed Exposure: No Allergies/Adverse Reactions: No Known Drug Allergies Allergy (Verified 04/09/18 23:05) Home Medications: Testosterone Cypionate 200 mg IM UD 12/29/16 [History] Bupropion HCl [Bupropion HCl ER] 150 mg PO BID 04/09/18 [History] Phentermine HCl 37.5 mg PO DAILY 04/09/18 [History] Hx Tetanus, Diphtheria Vaccination/Date Given: Yes Hx Influenza Vaccination/Date Given: No Hx Pneumococcal Vaccination/Date Given: No - Review of Systems Constitutional: No Symptoms Eyes: Eye Pain, Eye Redness, Foreign Body Sensation Ears, Nose, & Throat: No Symptoms Respiratory: No Symptoms, No Cough, No Dyspnea, No Stridor, No Wheezing Cardiac: No Symptoms, No Chest Pain Abdominal/Gastrointestinal: No Symptoms, No Abdominal Pain, No Nausea, No Vomiting, No Diarrhea Genitourinary Symptoms: No Symptoms Musculoskeletal: No Symptoms Skin: No Symptoms Neurological: No Symptoms, Headache, No Dizziness, No Focal Weakness, No Gait Changes, No Speech Changes Psychological: No Symptoms Endocrine: No Symptoms Hematologic/Lymphatic: No Symptoms Immunological/Allergic: No Symptoms All Other Systems: Reviewed and Negative - Past Medical History Pertinent Past Medical History: Yes Neurological History: No Pertinent History ENT History: No Pertinent History Cardiac History: Hypertension Respiratory History: No Pertinent History, Bronchitis, Pneumonia Endocrine Medical History: No Pertinent History Musculoskeletal History: No Pertinent History GI Medical History: GERD History: No Pertinent History Psycho-Social History: No Pertinent History Male Reproductive Disorders: No Pertinent History Other Medical History: blood clot LUE. - Past Surgical History Past Surgical History: Yes Neuro Surgical History: No Pertinent History Cardiac: No Pertinent History Respiratory: No Pertinent History Gastrointestinal: No Pertinent History Genitourinary: No Pertinent History Musculoskeletal: Other Male Surgical History: No Pertinent History Other Surgical History: rotator cuff surgery - Social History Smoking Status: Current every day smoker How long have you smoked: 29 Exposure to second hand smoke: Yes Alcohol Use: Socially Drug Use: none Patient Lives Alone: Yes Significant Family History: heart disease, hypertension - Nursing Vital Signs Nursing Vital Signs: Initial Vital Signs Temperature 98.5 F 04/09/18 22:51 Pulse Rate 134 H 04/09/18 22:51 Blood Pressure 142/126 04/09/18 22:51 O2 Sat by Pulse Oximetry 97 04/09/18 22:51 Pain Scale Pain Intensity 7 - Physical Exam Vision Acuity Degree Evaluation Phase: Uncorrected Vision Acuity Right Eye: 20/50 Vision Acuity Left Eye: 20/20 Eye Exam: right eye: conjunctival inflammation, corneal abrasion, left eye: normal inspection, bilateral eye: PERRL, abnormal EOM Ears, Nose, Throat Exam: normal ENT inspection, TMs normal Neck Exam: normal inspection, non-tender, supple, full range of motion Respiratory Exam: normal breath sounds, lungs clear, airway intact, No chest tenderness, No respiratory distress Cardiovascular Exam: regular rate/rhythm, normal heart sounds, normal peripheral pulses Gastrointestinal Exam: soft, normal bowel sounds, No tenderness, No distention, No guarding, No rebound Extremity Exam: normal inspection, normal range of motion Neurologic: alert, oriented x 3, cooperative, retoucher II-XII nml as tested, normal mood/affect, nml cerebellar function, nml station & gait Skin Exam: normal color, warm, dry Lymphatic: No adenopathy SpO2 Interpretation: normal SpO2: 96 Oxygen Delivery: Room Air - Course Nursing assessment & vital signs reviewed: Yes Ordered Tests: Medication Summary Discontinued Medications Generic Name Dose Route Start Last Admin Trade Name Freq PRN Reason Stop Dose Admin Erythromycin 3.5 gm 04/09/18 23:36 Erythromycin 3.5 Gm Ophth. OP 04/09/18 23:37 STAT ONE Tetracaine HCl 4 ml 04/09/18 23:36 Tetracaine 0.5% Steri-Unit Zeina OP 04/09/18 23:37 STAT STA - Progress Progress: improved, re-examined Counseled pt/family regarding: diagnosis, need for follow-up - Departure Time of Disposition: 00:05 Departure Disposition: Home Clinical Impression: Corneal abrasion, Conjunctivitis Condition: Good Critical Care Time: No Referrals: JUWAN BENTON [Primary Care Provider] - Additional Instructions: WARM COMPRESSES EACH MORNING AND NEEDED. CONTACT AN OPHTHAMOLOGIST TOMORROW FOR FURTHER MANAGEMENT Prescriptions: Hydrocodone/APAP 5/325 [Lake 5/325 mg] 1 each PO Q6H PRN PRN #8 tablet MDD 4 PRN Reason: Pain Erythromycin Base 3.5 gm [Erythromycin 3.5 GM OPHTH.] 0.5 inch OP QID #1 tube
[2018-04-10] MEDS ORDERED: TETRACAINE 0.5% STERI-UNIT SOL OP ONE (00:31)
[2018-04-10] MEDS ORDERED: Erythromycin 1 GM ONE (00:31)
[2018-04-10 00:43] VITALS: BP 124/105; PULSE 109; O2SAT 95
== END 2018-04-10 00:43 | disposition home or self-care (01) ==
LOC: ED 22:35
DX: S05.01XA Injury of conjunctiva and corneal abrasion without foreign body, right eye, initial encounter (principal); H10.9 Unspecified conjunctivitis
CPT/HCPCS: 99283; A9270-GY

== ENCOUNTER 2018-04-25 16:57 | Emergency (ER) | payer OTHER ==
--- NOTE | 2018-04-25 17:36 | ERPHSYRPT ---
- History of Present Illness Time Seen by Provider: 04/25/18 17:28 Source: patient Exam Limitations: no limitations Patient Subjective Stated Complaint: Patient complains of high blood pressure and swelling to arms, legs, and face. Triage Nursing Assessment: Patient ambulates into ER and transfered to bed per self. Patient complains of blood pressure of 148/97 about an hour ago and called Dr. Storey and was told to go to ER since he was swollen. Patient complains of SOB on exertion. Patient denies pain. Patient ble noted to be slightly swollen with no pitting. No other swelling noted. Patient lungs clear A/P kd. No cough noted. Patient complains of being extremely thirsty. Mucous membranes are dry. Physician History: The patient is a 47-year-old male in planing of elevated blood pressure, excessive thirst, swelling of his feet, and mild shortness of breath upon walking. He called his local doctor, Dr. Storey, and because of the late hour the day, was told to come to the ER for evaluation. These symptoms have been going on for 2 days. He has some pain in his feet and pain in his back. He denies fever or chills. His past medical history significant for hypertension, edema, COPD, and depression. Timing/Duration: yesterday Severity: mild Modifying Factors: Improves With: nothing Associated Symptoms: shortness of breath Allergies/Adverse Reactions: No Known Drug Allergies Allergy (Verified 04/25/18 17:19) Home Medications: Testosterone Cypionate 200 mg IM UD 12/29/16 [History] Bupropion HCl [Bupropion HCl ER] 150 mg PO BID 04/09/18 [History] Phentermine HCl 37.5 mg PO DAILY 04/09/18 [History] Hx Tetanus, Diphtheria Vaccination/Date Given: No Hx Influenza Vaccination/Date Given: No Hx Pneumococcal Vaccination/Date Given: No Immunizations Up to Date: Yes - Review of Systems Constitutional: No Fever, No Chills Eyes: No Symptoms Ears, Nose, & Throat: No Symptoms Respiratory: Dyspnea Cardiac: No Chest Pain, No Edema, No Syncope Abdominal/Gastrointestinal: No Abdominal Pain, No Nausea, No Vomiting, No Diarrhea Genitourinary Symptoms: No Dysuria Musculoskeletal: No Back Pain, No Neck Pain Skin: No Rash Neurological: No Dizziness, No Focal Weakness, No Sensory Changes Psychological: No Symptoms Endocrine: No Symptoms Hematologic/Lymphatic: No Symptoms Immunological/Allergic: No Symptoms All Other Systems: Reviewed and Negative - Past Medical History Pertinent Past Medical History: Yes Neurological History: No Pertinent History ENT History: No Pertinent History Cardiac History: Hypertension Respiratory History: No Pertinent History, Bronchitis, Pneumonia Endocrine Medical History: No Pertinent History Musculoskeletal History: No Pertinent History GI Medical History: GERD History: No Pertinent History Psycho-Social History: No Pertinent History Male Reproductive Disorders: No Pertinent History Other Medical History: blood clot LUE. - Past Surgical History Past Surgical History: Yes Neuro Surgical History: No Pertinent History Cardiac: No Pertinent History Respiratory: No Pertinent History Gastrointestinal: No Pertinent History Genitourinary: No Pertinent History Musculoskeletal: Other Male Surgical History: No Pertinent History Other Surgical History: rotator cuff surgery - Social History Smoking Status: Former smoker How long have you smoked: 29 Exposure to second hand smoke: No Alcohol Use: Socially Drug Use: none Patient Lives Alone: No Significant Family History: heart disease, hypertension - Nursing Vital Signs Nursing Vital Signs: Initial Vital Signs Temperature 98.6 F 04/25/18 17:07 Pulse Rate 119 H 04/25/18 17:07 Respiratory Rate 20 04/25/18 17:07 Blood Pressure 159/97 04/25/18 17:07 O2 Sat by Pulse Oximetry 96 04/25/18 17:07 Pain Scale Pain Intensity 0 - Physical Exam General Appearance: no apparent distress, alert Eye Exam: PERRL/EOMI, eyes nml inspection Ears, Nose, Throat Exam: dry mucous membranes, pharyngeal erythema, other ( enlarged uvula) Neck Exam: normal inspection, non-tender, supple, full range of motion Respiratory Exam: normal breath sounds, lungs clear, No respiratory distress Cardiovascular Exam: tachycardia Gastrointestinal/Abdomen Exam: soft, normal bowel sounds, No tenderness, No mass Rectal Exam: not done Back Exam: normal inspection, normal range of motion, No CVA tenderness, No vertebral tenderness Extremity Exam: pedal edema (mild edema of ankles) Neurologic Exam: alert, oriented x 3, cooperative, normal mood/affect, nml cerebellar function, nml station & gait, sensation nml, No motor deficits Skin Exam: normal color, warm, dry, No rash Lymphatic Exam: No adenopathy SpO2 Interpretation: normal SpO2: 96 Oxygen Delivery: Room Air - Course EKG Interpreted by Me: RATE, Sinus Rhythm, Sinus Tach, NORMAL AXIS, NORMAL INTERVALS, NORMAL QRS, NORMAL ST-T, Other (no change comp EKG 02/10/18.) - Radiology Exams Chest X-ray Interpretation: Interpreted by me, Negative (comp 1v chest 02/10/18.) Ordered Tests: Active Orders 24 hr Category Date Time Status Wing Coverer STAT Care 04/25/18 17:41 Active Clean Catch Urine Specimen STAT Care 04/25/18 17:40 Active EKG-ER Only STAT Care 04/25/18 17:40 Active IV Insertion STAT Care 04/25/18 17:40 Active Oxygen-ED Only NASAL CANNULA 2 lpm Care 04/25/18 17:40 Active CHEST 2 VIEWS (PA AND LAT) Stat Exams 04/25/18 17:41 Taken CBC W DIFF Stat Lab 04/25/18 18:00 Completed CMP Stat Lab 04/25/18 18:00 Completed Lactic Acid Stat Lab 04/25/18 18:00 Completed Manual Differential NC Stat Lab 04/25/18 18:00 Completed NT PRO BNP Stat Lab 04/25/18 18:00 Completed TROPONIN Q3H Lab 04/25/18 18:00 Completed TROPONIN Q3H Lab 04/25/18 20:45 Ordered TROPONIN Q3H Lab 04/25/18 23:45 Ordered TROPONIN Q3H Lab 04/26/18 02:45 Ordered TROPONIN Q3H Lab 04/26/18 05:45 Ordered UA W/RFX UR CULTURE Stat Lab 04/25/18 18:30 Completed Medication Summary Generic Name Dose Route Start Last Admin Trade Name Freq PRN Reason Stop Dose Admin Sodium Chloride 1,000 mls @ 999 mls/hr 04/25/18 18:45 04/25/18 18:48 Sodium Chloride 0.9% 1000 Ml IV 04/25/18 19:45 999 mls/hr .Q1H1M STA Administration Discontinued Medications Generic Name Dose Route Start Last Admin Trade Name Freq PRN Reason Stop Dose Admin Acetaminophen 1,000 mg 04/25/18 18:55 Tylenol Extra Strength 500 Mg PO 04/25/18 18:56 STAT STA Sodium Chloride Confirm 04/25/18 18:47 Sodium Chloride 0.9% 1000 Ml Administered 04/25/18 18:48 Dose 1,000 mls @ ud .ROUTE .K-MED ONE Lab/Rad Data: Laboratory Result Diagrams 04/25/18 18:00 04/25/18 18:00 Laboratory Results 04/25/18 04/25/18 04/25/18 Range/Units 18:30 18:00 18:00 WBC (4.0-10.5) K/mm3 RBC (4.1-5.6) M/mm3 Hgb (12.5-18.0) gm/dl Hct (42-50) % MCV (78-100) fl MCH (26-32) pg MCHC (32-36) g/dl RDW (11.5-14.0) % Plt Count (150-450) K/mm3 MPV (6-9.5) fl Absolute Granulocytes (1.4-6.9) Sodium (137-145) mmol/L Potassium (3.5-5.1) mmol/L Chloride (98-107) mmol/L Carbon Dioxide (22-30) mmol/L Anion Gap (5-15) MEQ/L BUN (9-20) mg/dL Creatinine (0.66-1.25) mg/dL Estimated GFR ML/MIN Glucose (74-106) mg/dL Lactic Acid (0.4-2.0) Calcium (8.4-10.2) mg/dL Total Bilirubin (0.2-1.3) mg/dL AST (17-59) U/L ALT (0-50) U/L Alkaline Phosphatase (38-126) U/L Troponin I < 0.012 (0.000-0.034) ng/mL NT-Pro-B Natriuret Pep (0-450) pg/mL Serum Total Protein (6.3-8.2) g/dL Albumin (3.5-5.0) g/dL Ur Collection Type CLEAN CATCH Urine Color YELLOW (YELLOW) Urine Appearance CLEAR (CLEAR) Urine pH 7.0 (5-6) Ur Specific Goessel 1.010 (1.005-1.025) Urine Protein NEGATIVE (Negative) Urine Ketones NEGATIVE (NEGATIVE) Urine Blood NEGATIVE (0-5) Kei/ul Urine Nitrite NEGATIVE (NEGATIVE) Urine Bilirubin NEGATIVE (NEGATIVE) Urine Urobilinogen NORMAL (0-1) mg/dL Ur Leukocyte Esterase NEGATIVE (NEGATIVE) Urine Culture Reflexed NO (NO) Urine Glucose NEGATIVE (NEGATIVE) mg/dL Group A Strep Antibody NEGATIVE (NEGATIVE) Specimen Received 04/25/18 1835 04/25/18 04/25/18 04/25/18 Range/Units 18:00 18:00 18:00 WBC 9.6 (4.0-10.5) K/mm3 RBC 4.63 (4.1-5.6) M/mm3 Hgb 14.5 (12.5-18.0) gm/dl Hct 43.6 (42-50) % MCV 94.2 (78-100) fl MCH 31.3 (26-32) pg MCHC 33.3 (32-36) g/dl RDW 14.5 H (11.5-14.0) % Plt Count 207 (150-450) K/mm3 MPV 11.4 H (6-9.5) fl Absolute Granulocytes 5.32 (1.4-6.9) Sodium 141 (137-145) mmol/L Potassium 4.2 (3.5-5.1) mmol/L Chloride 104 (98-107) mmol/L Carbon Dioxide 27 (22-30) mmol/L Anion Gap 15.0 (5-15) MEQ/L BUN 26 H (9-20) mg/dL Creatinine 1.35 H (0.66-1.25) mg/dL Estimated GFR > 60.0 ML/MIN Glucose 124 H (74-106) mg/dL Lactic Acid 1.4 (0.4-2.0) Calcium 10.0 (8.4-10.2) mg/dL Total Bilirubin 0.30 (0.2-1.3) mg/dL AST 29 (17-59) U/L ALT 45 (0-50) U/L Alkaline Phosphatase 90 (38-126) U/L Troponin I (0.000-0.034) ng/mL NT-Pro-B Natriuret Pep 66.4 (0-450) pg/mL Serum Total Protein 7.1 (6.3-8.2) g/dL Albumin 4.5 (3.5-5.0) g/dL Ur Collection Type Urine Color (YELLOW) Urine Appearance (CLEAR) Urine pH (5-6) Ur Specific Goessel (1.005-1.025) Urine Protein (Negative) Urine Ketones (NEGATIVE) Urine Blood (0-5) Kei/ul Urine Nitrite (NEGATIVE) Urine Bilirubin (NEGATIVE) Urine Urobilinogen (0-1) mg/dL Ur Leukocyte Esterase (NEGATIVE) Urine Culture Reflexed (NO) Urine Glucose (NEGATIVE) mg/dL Group A Strep Antibody (NEGATIVE) Specimen Received - Progress Progress: improved Counseled pt/family regarding: lab results, diagnosis, rad results - Departure Time of Disposition: 18:57 Departure Disposition: Home Clinical Impression: Mild dehydration Condition: Stable Critical Care Time: No Referrals: JUWAN STOREY [Primary Care Provider] - Additional Instructions: You have mild dehydration. You were given Tylenol 1000 mg orally for your headache. You were given fluids by IV in the ER. Stay well hydrated. Follow- up with Dr. Storey this week.
[2018-04-25 18:10] LABS: Granulocyte Absolute (ANC) 5.32 (1.4-6.9); Hematocrit 43.6 % (42-50); Hemoglobin 14.5 gm/dl (12.5-18.0); Mean Cell Volume 94.2 fl (78-100); Mean Corpuscular Hemoglobin 31.3 pg (26-32); Mean Corpuscular Hgb Concent. 33.3 g/dl (32-36); Mean Platelet Volume 11.4 fl (6-9.5); Platelet Count 207 K/mm3 (150-450); Red Blood Count 4.63 M/mm3 (4.1-5.6); Red Cell Distribution Width 14.5 % (11.5-14.0); White Blood Count 9.6 K/mm3 (4.0-10.5)
[2018-04-25 18:42] LABS: ALBUMIN 4.5 g/dL (3.5-5.0); ALKALINE PHOSPHATASE 90 U/L (38-126); BLOOD UREA NITROGEN 26 mg/dL (9-20); CHLORIDE 104 mmol/L (98-107); Carbon Dioxide 27 mmol/L (22-30); Creatinine 1 1.35 mg/dL (0.66-1.25); Glucose 124 mg/dL (74-106); NT PRO BNP 66.4 pg/mL (0-450); Potassium 4.2 mmol/L (3.5-5.1); SGOT/AST 29 U/L (17-59); SGPT/ALT 45 U/L (0-50); SODIUM 141 mmol/L (137-145); Total Protein 7.1 g/dL (6.3-8.2)
[2018-04-25] MEDS ORDERED: Sodium Chloride 0.9% 1000 ML 1,000 ML IV STA (18:45)
[2018-04-25 18:47] LABS: Appearance CLEAR (CLEAR); Glucose NEGATIVE (NEGATIVE); Leukocyte Esterase NEGATIVE (NEGATIVE); Nitrite NEGATIVE (NEGATIVE); Protein,Urine Dip NEGATIVE (Negative)
[2018-04-25] MEDS ORDERED: Sodium Chloride 0.9% 1000 ML 1,000 ML ONE (18:47)
[2018-04-25 18:48] LABS: Bilirubin NEGATIVE (NEGATIVE); Blood NEGATIVE Ery/ul (0-5); Ketones NEGATIVE (NEGATIVE); Urobilinogen NORMAL mg/dL (0-1)
[2018-04-25] MEDS ORDERED: TYLENOL EXTRA STRENGTH 500 MG PO STA (18:55)
[2018-04-25] MEDS ORDERED: TYLENOL EXTRA STRENGTH 500 MG ONE (18:58)
[2018-04-25 20:01] VITALS: BP 142/82; PULSE 99; O2SAT 98
[2018-04-25 20:04] LABS: BAND 3 % (0.0-2.0); Neutrophils 50 % (36.-66.); Total Cells Counted 100
[2018-04-25 20:05] LABS: ANISOCYTOSIS 1+; Eosinophil 3 % (0.00-3.0); Lymphocytes 36 % (24-44); Monocyte 6 % (0.0-12.0); Nucleated Red Blood Cell 1 %; Platelet Estimate NORMAL (NORMAL)
--- NOTE | 2018-04-26 08:44 | XRAY ---
Indication: Short of breath. Leg swelling. Comparison: February 10, 2018. PA/lateral chest unchanged again demonstrating minimal right midlung fibrosis/scarring. Remaining heart, lungs, and bony thorax normal.
== END 2018-04-25 20:02 | disposition home or self-care (01) ==
LOC: ED 16:57
DX: E86.0 Dehydration (principal); R51 Headache; R06.02 Shortness of breath; M54.9 Dorsalgia, unspecified; M79.672 Pain in left foot; M79.671 Pain in right foot; Z79.899 Other long term (current) drug therapy
CPT/HCPCS: 36000; 36415; 71046; 80053; 81002; 83605; 83880; 84484; 85025; 87651; 93005; 93041; 96360; 96374; 99284; A9270-GY

== ENCOUNTER 2018-11-07 21:57 | Emergency (ER) | payer OTHER ==
--- NOTE | 2018-11-07 22:05 | ERPHSYRPT ---
- History of Present Illness Time Seen by Provider: 11/07/18 22:05 Source: patient Exam Limitations: no limitations Physician History: 48 y/o white male with h/o hypertension presents with intermittent dizziness for last couple of weeks. pt seen by his pcp who took him off one of his bp meds one week ago. he has been continuing lisinopril, lasix and potassium. pt denies cp, denies soa, denies visual changes, denies abd pain. no new meds. pt states he takes his meds as prescribed. pt has had no bleeding. pt states he has not been eating or drinking well. pt does have a h/o hematuria, pyelonephritis and prostatitis in past. no known renal dz. Timing/Duration: week(s) (2), intermittent Severity: moderate Character of Deficits: none Deficits: no difficulties Baseline/Normal Cognition: alert oriented x 3 Current Cognition: alert oriented x 3 Baseline Gait: walks w/o assistance Associated Symptoms: nausea, vomiting (x1 today), No confusion, No loss of consciousness, No numbness/tingling in legs/feet, No chest pain Allergies/Adverse Reactions: No Known Drug Allergies Allergy (Verified 04/25/18 17:19) Home Medications: Testosterone Cypionate 200 mg IM UD 12/29/16 [History] Bupropion HCl [Bupropion HCl ER] 150 mg PO BID 04/09/18 [History] Phentermine HCl 37.5 mg PO DAILY 04/09/18 [History] Hx Tetanus, Diphtheria Vaccination/Date Given: No Hx Influenza Vaccination/Date Given: No Hx Pneumococcal Vaccination/Date Given: No - Review of Systems Constitutional: No Symptoms Eyes: No Symptoms Ears, Nose, & Throat: No Symptoms Respiratory: No Symptoms Cardiac: No Symptoms Abdominal/Gastrointestinal: Nausea, Vomiting (x1) Genitourinary Symptoms: No Symptoms Musculoskeletal: No Symptoms Skin: No Symptoms Neurological: Dizziness Psychological: No Symptoms Endocrine: No Symptoms Hematologic/Lymphatic: No Symptoms Immunological/Allergic: No Symptoms All Other Systems: Reviewed and Negative - Past Medical History Pertinent Past Medical History: Yes Neurological History: No Pertinent History ENT History: No Pertinent History Cardiac History: Hypertension Respiratory History: No Pertinent History, Bronchitis, Pneumonia Endocrine Medical History: No Pertinent History Musculoskeletal History: No Pertinent History GI Medical History: GERD History: No Pertinent History Psycho-Social History: No Pertinent History Male Reproductive Disorders: No Pertinent History Other Medical History: blood clot LUE. - Past Surgical History Past Surgical History: Yes Neuro Surgical History: No Pertinent History Cardiac: No Pertinent History Respiratory: No Pertinent History Gastrointestinal: No Pertinent History Genitourinary: No Pertinent History Musculoskeletal: Other Male Surgical History: No Pertinent History Other Surgical History: rotator cuff surgery - Social History Smoking Status: Former smoker How long have you smoked: 29 Exposure to second hand smoke: No Alcohol Use: Socially Drug Use: none Patient Lives Alone: No Significant Family History: heart disease, hypertension - Nursing Vital Signs Nursing Vital Signs: Initial Vital Signs Temperature 97.9 F 11/07/18 22:24 Pulse Rate 109 H 11/07/18 22:24 Respiratory Rate 18 11/07/18 22:24 Blood Pressure 90/64 11/07/18 22:24 O2 Sat by Pulse Oximetry 97 11/07/18 22:24 Pain Scale Pain Intensity 0 - Symone Coma Scale Best Eye Response (Symone): (4) open spontaneously Best Verbal Response (Symone): (5) oriented Best Motor Response (Symone): (6) obeys commands Etta Total: 15 - Physical Exam General Appearance: no apparent distress, alert, anxiety Eye Exam: bilateral eye: normal inspection, PERRL, EOMI Ears, Nose, Throat Exam: normal ENT inspection, TMs normal, moist mucous membranes Neck Exam: normal inspection, non-tender, supple, full range of motion Respiratory: normal breath sounds, lungs clear, airway intact, No chest tenderness, No respiratory distress, No accessory muscle use, No rhonchi, No wheezing, No stridor Cardiovascular: regular rate/rhythm, normal heart sounds, normal peripheral pulses Gastrointestinal: soft, normal bowel sounds, No tenderness, No guarding, No rebound Back Exam: normal inspection, normal range of motion, No CVA tenderness, No vertebral tenderness Extremity Exam: normal inspection, normal range of motion, pelvis stable Mental Status: alert, oriented x 3, 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 door 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 Exam: normal hearing, normal speech, PERRL, tongue midline Coordination/Gait: normal finger to nose, normal gait Motor/Sensory: no motor deficit, no sensory deficit, no pronator drift Skin Exam: normal color, warm, dry SpO2 Interpretation: normal O2 Delivery: Room Air - Course Nursing assessment & vital signs reviewed: Yes EKG Interpreted by Me: RATE, Sinus Tach, NORMAL AXIS, NORMAL INTERVALS, NORMAL QRS, Other (no changes from comparison ekg dated 04/25/18) Ordered Tests: Active Orders 24 hr Category Date Time Status Airfreight Operations Agent STAT Care 11/07/18 22:34 Active Clean Catch Urine Specimen STAT Care 11/07/18 22:34 Active EKG-ER Only STAT Care 11/07/18 22:34 Active IV Insertion STAT Care 11/07/18 22:34 Active HEAD WITHOUT CONTRAST [CT] Stat Exams 11/07/18 22:34 Taken CBC W DIFF Stat Lab 11/07/18 22:45 Completed CMP Stat Lab 11/07/18 22:45 Completed TROPONIN Q3H Lab 11/07/18 21:45 Completed TROPONIN Q3H Lab 11/08/18 01:45 Ordered TROPONIN Q3H Lab 11/08/18 04:45 Ordered TROPONIN Q3H Lab 11/08/18 07:45 Ordered TROPONIN Q3H Lab 11/08/18 10:45 Ordered UA W/RFX UR CULTURE Stat Lab 11/07/18 22:34 Ordered Medication Summary Discontinued Medications Generic Name Dose Route Start Last Admin Trade Name Freq PRN Reason Stop Dose Admin Al Hydrox/Mg Hydrox/Simethicone Confirm 11/08/18 00:47 Maalox Es 30 Ml Unit Dose Administered 11/08/18 00:48 Dose 30 ml .ROUTE .STK-MED ONE Sodium Chloride 1,000 mls @ 999 mls/hr 11/07/18 22:34 11/07/18 23:49 Sodium Chloride 0.9% 1000 Ml IV 11/07/18 23:34 Infused .Q1H1M STA Infusion Sodium Chloride Confirm 11/07/18 22:45 Sodium Chloride 0.9% 1000 Ml Administered 11/07/18 22:46 Dose 1,000 mls @ ud .ROUTE .STK-MED ONE Sodium Chloride Confirm 11/08/18 00:10 Sodium Chloride 0.9% 1000 Ml Administered 11/08/18 00:11 Dose 1,000 mls @ ud .ROUTE .STK-MED ONE Sodium Chloride 1,000 mls @ 999 mls/hr 11/08/18 00:13 11/08/18 00:14 Sodium Chloride 0.9% 1000 Ml IV 11/08/18 01:13 999 mls/hr .Q1H1M STA Administration Lidocaine HCl Confirm 11/08/18 00:46 Xylocaine Hcl Viscous * Administered 11/08/18 00:47 Dose 15 ml .ROUTE .STK-MED ONE Magnesium Hydroxide 45 ml 11/08/18 00:53 11/08/18 00:58 Gi Cocktail 45 Ml (Maalox/Lidocaine) PO 11/08/18 00:54 45 ml STAT ONE Administration Lab/Rad Data: Laboratory Result Diagrams 11/07/18 22:45 11/07/18 22:45 Laboratory Results 11/07/18 11/07/18 11/07/18 Range/Units 22:45 22:45 21:45 WBC 10.0 (4.0-10.5) K/mm3 RBC 4.40 (4.1-5.6) M/mm3 Hgb 13.5 (12.5-18.0) gm/dl Hct 41.1 L (42-50) % MCV 93.4 (78-100) fl MCH 30.7 (26-32) pg MCHC 32.8 (32-36) g/dl RDW 13.5 (11.5-14.0) % Plt Count 226 (150-450) K/mm3 MPV 11.9 H (6-9.5) fl Gran % 50.9 (36.0-66.0) % Eos # (Auto) 0.27 (0-0.5) Absolute Lymphs (auto) 3.76 (1.0-4.6) Absolute Monos (auto) 0.85 (0.0-1.3) Lymphocytes % 37.5 (24.0-44.0) % Monocytes % 8.5 (0.0-12.0) % Eosinophils % 2.7 (0.00-5.0) % Basophils % 0.4 (0.0-0.4) % Absolute Granulocytes 5.10 (1.4-6.9) Basophils # 0.04 (0-0.4) Sodium 137 (137-145) mmol/L Potassium 5.2 H (3.5-5.1) mmol/L Chloride 103 (98-107) mmol/L Carbon Dioxide 18 L (22-30) mmol/L Anion Gap 20.5 H (5-15) MEQ/L BUN 83 H (9-20) mg/dL Creatinine 8.82 H (0.66-1.25) mg/dL Estimated GFR 6.9 ML/MIN Glucose 93 (74-106) mg/dL Calcium 10.3 H (8.4-10.2) mg/dL Total Bilirubin 0.50 (0.2-1.3) mg/dL AST 24 (17-59) U/L ALT 37 (0-50) U/L Alkaline Phosphatase 71 (38-126) U/L Troponin I < 0.012 (0.000-0.034) ng/mL Serum Total Protein 7.8 (6.3-8.2) g/dL Albumin 4.9 (3.5-5.0) g/dL - Progress Progress: improved, re-examined Progress Note: 11/08/18 01:29 at 0100, spoke with dr. peck(pts pcp). i reviewed pt hx, condition, lab, ekg and ct results. we opted to contact nephrology for transfer. pt may require dialysis. at [address] pnadey(nephrology). i reviewed pt hx, condition, lab, ekg and ct head results. he accepts pt in transfer to [facility]-pt preference. Discussed with : [place], Other (dannie(nephrology)) Counseled pt/family regarding: lab results, diagnosis, rad results - Departure Time of Disposition: 01:32 Departure Disposition: Transfer Clinical Impression: Acute renal failure, Hypotension, Dizziness Condition: Stable Critical Care Time: No Referrals: JUWAN PECK [Primary Care Provider] -
[2018-11-07] MEDS ORDERED: Sodium Chloride 0.9% 1000 ML 1,000 ML IV STA (22:34)
[2018-11-07] MEDS ORDERED: Sodium Chloride 0.9% 1000 ML 1,000 ML ONE (22:45)
[2018-11-07 22:50] LABS: BASOPHIL % 0.4 % (0.0-0.4); Basophil (Absolute #) 0.04 (0-0.4); Eosinophil % 2.7 % (0.00-5.0); Eosinophil (Absolute #) 0.27 (0-0.5); Granulocytes % 50.9 % (36.0-66.0); Hematocrit 41.1 % (42-50); Hemoglobin 13.5 gm/dl (12.5-18.0); Lymphocyte (Absolute #) 3.76 (1.0-4.6); Lymphocytes % 37.5 % (24.0-44.0); Mean Cell Volume 93.4 fl (78-100); Mean Corpuscular Hemoglobin 30.7 pg (26-32); Mean Corpuscular Hgb Concent. 32.8 g/dl (32-36); Mean Platelet Volume 11.9 fl (6-9.5); Monocyte (Absolute #) 0.85 (0.0-1.3); Monocytes % 8.5 % (0.0-12.0); Platelet Count 226 K/mm3 (150-450); Red Cell Distribution Width 13.5 % (11.5-14.0)
[2018-11-07 23:17] LABS: ALBUMIN 4.9 g/dL (3.5-5.0); ANION GAP 20.5 MEQ/L (5-15); BILIRUBIN,TOTAL 0.5 mg/dL (0.2-1.3); Calcium 10.3 mg/dL (8.4-10.2); Creatinine 1 8.82 mg/dL (0.66-1.25); Potassium 5.2 mmol/L (3.5-5.1); Total Protein 7.8 g/dL (6.3-8.2)
[2018-11-08] MEDS ORDERED: Sodium Chloride 0.9% 1000 ML 1,000 ML ONE ×2 (00:10→01:36)
[2018-11-08] MEDS ORDERED: Sodium Chloride 0.9% 1000 ML 1,000 ML IV STA (00:13)
[2018-11-08] MEDS ORDERED: XYLOCAINE HCl Viscous ONE (00:46)
[2018-11-08] MEDS ORDERED: MAALOX ES 30 ML UNIT DOSE ONE (00:47)
[2018-11-08] MEDS ORDERED: GI COCKTAIL 45 ML (Maalox/Lidocaine) PO ONE (00:53)
[2018-11-08 01:41] LABS: Appearance CLEAR (CLEAR); Bilirubin NEGATIVE (NEGATIVE); Blood NEGATIVE Ery/ul (0-5); Glucose NEGATIVE (NEGATIVE); Ketones NEGATIVE (NEGATIVE); Leukocyte Esterase NEGATIVE (NEGATIVE); Mucus SLIGHT /HPF (NEGATIVE); Nitrite NEGATIVE (NEGATIVE); Protein,Urine Dip NEGATIVE (Negative); Specific Gravity 1.012 (1.005-1.025); Urobilinogen NEGATIVE mg/dL (0-1)
[2018-11-08] MEDS ORDERED: Sodium Chloride 0.9% 1000 ML 1,000 ML IV SCH (01:45)
[2018-11-08 02:25] VITALS: BP 89/57; PULSE 93; O2SAT 92
--- NOTE | 2018-11-08 08:57 | XRAY ---
Indication: Dizziness. Multiple contiguous axial images obtained through the head without contrast. Comparison: None Normal appearing brain parenchyma, ventricles, and bony calvarium. Minimal ethmoid sinus mucosal thickening. Remaining visualized paranasal sinuses and mastoid air cells are clear. Impression: Normal CT head without contrast exam. Minimal paranasal sinus disease. Comment: Preliminary interpretation was made by [facility]. No discrepancy. CT DI 67.60
== END 2018-11-08 02:49 | disposition short-term general hospital (02) ==
LOC: ED 21:57
DX: N17.9 Acute kidney failure, unspecified (principal); I95.9 Hypotension, unspecified; I10 Essential (primary) hypertension; K21.9 Gastro-esophageal reflux disease without esophagitis; R42 Dizziness and giddiness; R11.2 Nausea with vomiting, unspecified
CPT/HCPCS: 36000; 36415; 70450; 80053; 81001; 84484; 85025; 93005; 93041; 96360; 96361; 99285; A9270-GY

== ENCOUNTER 2018-11-13 17:13 | Emergency (ER) | payer OTHER ==
[2018-11-13] MEDS ORDERED: TRANDATE 20 MG/5 ML SYRINGE IV ONE ×2 (17:42→17:49)
--- NOTE | 2018-11-13 17:42 | ERPHSYRPT ---
- History of Present Illness Time Seen by Provider: 11/13/18 17:30 Source: patient Patient Subjective Stated Complaint: Pt states "I was here for low blood pressure on and they sent me to [facility] and I was in acute renal failure. They have been messing with my blood pressure meds and now my pressure is high. I am very anxious as well." Triage Nursing Assessment: Pt alert and oriented X 3, skin pwd. PT ambualates with an upright steady gait, able to speak in clear full sentences Pt in no apparent respiratory distress. Physician History: 48 y/o white male recently here for acute renal failure, 11/07/18, and sent to [facility]. pt placed on amlodipine 5mg daily. pt went to a today and pt of renal failure. pt states he did become anxious but also was feeling a bit off. he checked his bp and was elevated so he came into ED for eval. pt has an appt with prescribing physician in 2 days. pt denies cp, denies soa and denies abd pain. pts urine is a little orange but no dysuria. Timing/Duration: day(s) (a few days) Severity: mild Associated Symptoms: No nausea, No vomiting, No diaphoresis, No cough, No chest pain, No headaches, No syncope, No weakness Allergies/Adverse Reactions: No Known Drug Allergies Allergy (Verified 04/25/18 17:19) Home Medications: Testosterone Cypionate 200 mg IM UD 12/29/16 [History] Amlodipine Besylate [Norvasc] 5 mg PO DAILY 11/13/18 [History] Bupropion HCl 150 mg Sr [Wellbutrin SR 150 MG] 150 mg PO BID 11/13/18 [ History] Oxycodone/APAP 5 mg/325 mg [Percocet Tablet 5/325Mg] 1 tab PO DAILY [History] Topiramate 50 mg PO DAILY 11/13/18 [History] Hx Tetanus, Diphtheria Vaccination/Date Given: Yes Hx Influenza Vaccination/Date Given: No Hx Pneumococcal Vaccination/Date Given: No Immunizations Up to Date: Yes - Review of Systems Constitutional: No Symptoms Eyes: No Symptoms Ears, Nose, & Throat: No Symptoms Respiratory: No Symptoms Cardiac: No Symptoms, No Chest Pain, No Palpitations, No Syncope Abdominal/Gastrointestinal: No Symptoms Genitourinary Symptoms: No Symptoms Musculoskeletal: No Symptoms Skin: No Symptoms Neurological: No Symptoms, No Dizziness, No Headache, No Sensory Changes Psychological: Anxiety Endocrine: No Symptoms Hematologic/Lymphatic: No Symptoms Immunological/Allergic: No Symptoms All Other Systems: Reviewed and Negative - Past Medical History Pertinent Past Medical History: Yes Neurological History: No Pertinent History ENT History: No Pertinent History Cardiac History: Hypertension Respiratory History: No Pertinent History, Bronchitis, Pneumonia Endocrine Medical History: No Pertinent History Musculoskeletal History: No Pertinent History GI Medical History: GERD History: No Pertinent History Psycho-Social History: No Pertinent History Male Reproductive Disorders: No Pertinent History Other Medical History: blood clot LUE. - Past Surgical History Past Surgical History: Yes Neuro Surgical History: No Pertinent History Cardiac: No Pertinent History Respiratory: No Pertinent History Gastrointestinal: No Pertinent History Genitourinary: No Pertinent History Musculoskeletal: Other Male Surgical History: No Pertinent History Other Surgical History: rotator cuff surgery - Social History Smoking Status: Current every day smoker How long have you smoked: years Exposure to second hand smoke: Yes Alcohol Use: Socially Drug Use: none Patient Lives Alone: Yes Significant Family History: heart disease, hypertension - Nursing Vital Signs Nursing Vital Signs: Initial Vital Signs Temperature 98.0 F 11/13/18 17:26 Pulse Rate 112 H 11/13/18 17:26 Respiratory Rate 18 11/13/18 17:26 Blood Pressure 167/105 11/13/18 17:26 O2 Sat by Pulse Oximetry 97 11/13/18 17:26 Pain Scale Pain Intensity 0 - Physical Exam General Appearance: no apparent distress, alert, anxiety Eye Exam: PERRL/EOMI, eyes nml inspection Ears, Nose, Throat Exam: normal ENT inspection, TMs normal, moist mucous membranes Neck Exam: normal inspection, non-tender, supple, full range of motion Respiratory Exam: normal breath sounds, lungs clear, airway intact, No chest tenderness, No respiratory distress, No accessory muscle use, No rhonchi, No wheezing, No stridor Cardiovascular Exam: normal heart sounds, normal peripheral pulses, tachycardia Gastrointestinal/Abdomen Exam: soft, normal bowel sounds, No tenderness, No guarding, No rebound Back Exam: normal inspection, normal range of motion, No CVA tenderness, No vertebral tenderness Extremity Exam: normal inspection, normal range of motion, pelvis stable Neurologic Exam: alert, oriented x 3, cooperative, processing specialist II-XII nml as tested Skin Exam: normal color, warm, dry Lymphatic Exam: No adenopathy SpO2 Interpretation: normal SpO2: 97 O2 Delivery: Room Air - Course Nursing assessment & vital signs reviewed: Yes Ordered Tests: Active Orders 24 hr Category Date Time Status Bath Design Sales Consultant STAT Care 11/13/18 17:43 Active IV Insertion STAT Care 11/13/18 17:42 Active Pulse Oximetry (ED) STAT Care 11/13/18 17:42 Active BMP Stat Lab 11/13/18 17:55 Completed CBC W DIFF Stat Lab 11/13/18 17:55 Completed Medication Summary Discontinued Medications Generic Name Dose Route Start Last Admin Trade Name Freq PRN Reason Stop Dose Admin Labetalol HCl 10 mg 11/13/18 17:42 11/13/18 17:49 Trandate 20 Mg/5 Ml Syringe IV 11/13/18 17:43 10 mg STAT ONE Administration Labetalol HCl Confirm 11/13/18 17:49 Trandate 20 Mg/5 Ml Syringe Administered 11/13/18 17:50 Dose 20 mg IV .STPrivateGriffe-MED ONE Lab/Rad Data: Laboratory Result Diagrams 11/13/18 17:55 11/13/18 17:55 Laboratory Results 11/13/18 11/13/18 Range/Units 17:55 17:55 WBC 8.4 (4.0-10.5) K/mm3 RBC 4.12 (4.1-5.6) M/mm3 Hgb 12.8 (12.5-18.0) gm/dl Hct 38.5 L (42-50) % MCV 93.4 (78-100) fl MCH 31.1 (26-32) pg MCHC 33.2 (32-36) g/dl RDW 12.8 (11.5-14.0) % Plt Count 202 (150-450) K/mm3 MPV 11.9 H (6-9.5) fl Gran % 61.6 (36.0-66.0) % Eos # (Auto) 0.38 (0-0.5) Absolute Lymphs (auto) 2.22 (1.0-4.6) Absolute Monos (auto) 0.59 (0.0-1.3) Lymphocytes % 26.5 (24.0-44.0) % Monocytes % 7.0 (0.0-12.0) % Eosinophils % 4.5 (0.00-5.0) % Basophils % 0.4 (0.0-0.4) % Absolute Granulocytes 5.15 (1.4-6.9) Basophils # 0.03 (0-0.4) Sodium 139 (137-145) mmol/L Potassium 4.2 (3.5-5.1) mmol/L Chloride 107 (98-107) mmol/L Carbon Dioxide 22 (22-30) mmol/L Anion Gap 13.9 (5-15) MEQ/L BUN 23 H (9-20) mg/dL Creatinine 1.53 H (0.66-1.25) mg/dL Estimated GFR 52.3 ML/MIN Glucose 103 (74-106) mg/dL Calcium 9.8 (8.4-10.2) mg/dL - Progress Progress: improved, re-examined Counseled pt/family regarding: lab results, diagnosis, need for follow-up - Departure Time of Disposition: 18:46 Departure Disposition: Home Clinical Impression: Hypertension, Hypertensive urgency Condition: Stable Critical Care Time: Yes Critical Care Time(excluding separately billable procedures): 30-74 minutes Referrals: JUWAN BENTON [Primary Care Provider] - Additional Instructions: take medications as prescribed. follow up with your prescribing physician on Fridays appointment
[2018-11-13 17:58] LABS: BASOPHIL % 0.4 % (0.0-0.4); Basophil (Absolute #) 0.03 (0-0.4); Eosinophil % 4.5 % (0.00-5.0); Eosinophil (Absolute #) 0.38 (0-0.5); Granulocyte Absolute (ANC) 5.15 (1.4-6.9); Granulocytes % 61.6 % (36.0-66.0); Hematocrit 38.5 % (42-50); Hemoglobin 12.8 gm/dl (12.5-18.0); Lymphocyte (Absolute #) 2.22 (1.0-4.6); Lymphocytes % 26.5 % (24.0-44.0); Mean Cell Volume 93.4 fl (78-100); Mean Corpuscular Hemoglobin 31.1 pg (26-32); Mean Corpuscular Hgb Concent. 33.2 g/dl (32-36); Mean Platelet Volume 11.9 fl (6-9.5); Monocyte (Absolute #) 0.59 (0.0-1.3); Platelet Count 202 K/mm3 (150-450); Red Blood Count 4.12 M/mm3 (4.1-5.6); Red Cell Distribution Width 12.8 % (11.5-14.0); White Blood Count 8.4 K/mm3 (4.0-10.5)
[2018-11-13 18:11] VITALS: PULSE 96
[2018-11-13 18:22] LABS: ANION GAP 13.9 MEQ/L (5-15); Calcium 9.8 mg/dL (8.4-10.2); Creatinine 1 1.53 mg/dL (0.66-1.25); Potassium 4.2 mmol/L (3.5-5.1)
[2018-11-13 18:47] VITALS: O2SAT 97
[2018-11-13 18:52] VITALS: BP 135/95
== END 2018-11-13 19:11 | disposition home or self-care (01) ==
LOC: ED 17:13
DX: I10 Essential (primary) hypertension (principal); I16.0 Hypertensive urgency; K21.9 Gastro-esophageal reflux disease without esophagitis
CPT/HCPCS: 36000; 36415; 80048; 85025; 93041; 96374; 99284

== ENCOUNTER 2018-12-23 15:41 | Emergency (ER) | payer OTHER ==
[2018-12-23 16:25] LABS: BASOPHIL % 0.1 % (0.0-0.4); Basophil (Absolute #) 0.01 (0-0.4); Eosinophil % 3.5 % (0.00-5.0); Granulocytes % 54.6 % (36.0-66.0); Hematocrit 41.8 % (42-50); Hemoglobin 13.3 gm/dl (12.5-18.0); Lymphocyte (Absolute #) 2.81 (1.0-4.6); Lymphocytes % 32.6 % (24.0-44.0); Mean Cell Volume 95.4 fl (78-100); Mean Corpuscular Hemoglobin 30.4 pg (26-32); Mean Corpuscular Hgb Concent. 31.8 g/dl (32-36); Mean Platelet Volume 11.3 fl (6-9.5); Monocyte (Absolute #) 0.79 (0.0-1.3); Monocytes % 9.2 % (0.0-12.0); Platelet Count 238 K/mm3 (150-450); Red Blood Count 4.38 M/mm3 (4.1-5.6); Red Cell Distribution Width 13.8 % (11.5-14.0); White Blood Count 8.6 K/mm3 (4.0-10.5)
--- NOTE | 2018-12-23 16:25 | ERPHSYRPT ---
- History of Present Illness Time Seen by Provider: 12/23/18 16:03 Source: patient Exam Limitations: no limitations Patient Subjective Stated Complaint: Pt states "For the past couple of day I have noticed my legs swelling. I have kidney problems and I am just nervous." Triage Nursing Assessment: Pt alert and oriented X 3, skin pwd Pt ambulates with an upright steady gait, able to speak in clear full sentences. Pt in no respiratory distress. PT legs slightly swollen and tight. Physician History: 48-year-old white male with history of high blood pressure, bronchitis, pneumonia, GERD, a localized blood clot in his left upper extremity, and gout. Patient arrives with complaint of pain in his left first metacarpal phalangeal joint for several days he states that he's been having swelling in both of his legs for 2 days. He states that the last time he had symptoms similar to this he had gout and ended up with renal failure. He states he is having some pain in the distal legs. He denies any shortness of breath or chest pain. Past medical history includes high blood pressure, bronchitis, pneumonia, GERD, a localized blood clot in the left upper arm, gout Past surgical history includes rotator cuff surgery Social history includes tobacco use patient denies illicit drug use alcohol use. Timing/Duration: day(s) (2-3 days) Severity: moderate Modifying Factors: Improves With: nothing Associated Symptoms: other (swelling bilateral legs pain left first metatarsal phalangeal joint), No nausea, No vomiting, No abdominal pain, No shortness of breath, No heartburn, No diaphoresis, No cough, No chills, No chest pain, No fever, No headaches, No loss of appetite, No malaise, No rash, No syncope, No seizure, No weakness Allergies/Adverse Reactions: No Known Drug Allergies Allergy (Verified 04/25/18 17:19) Home Medications: Amlodipine Besylate [Norvasc] 5 mg PO DAILY 11/13/18 [History] Oxycodone/APAP 5 mg/325 mg [Percocet Tablet 5/325Mg] 1 tab PO DAILY [History] Topiramate 50 mg PO DAILY 11/13/18 [History] Lisinopril 10 mg [Zestril 10 MG] 10 mg PO DAILY 12/23/18 [History] Metoprolol Tartrate [Lopressor] 100 mg PO DAILY 12/23/18 [History] Hx Tetanus, Diphtheria Vaccination/Date Given: Yes Hx Influenza Vaccination/Date Given: No Hx Pneumococcal Vaccination/Date Given: No Immunizations Up to Date: Yes - Review of Systems Constitutional: No Fever, No Chills Eyes: No Symptoms Ears, Nose, & Throat: No Symptoms Respiratory: No Cough, No Dyspnea Cardiac: Edema, No Chest Pain, No Palpitations, No Syncope, No Orthopnea, No PND Abdominal/Gastrointestinal: No Abdominal Pain, No Nausea, No Vomiting, No Diarrhea Genitourinary Symptoms: No Dysuria Musculoskeletal: Joint Pain (Pain left first metatarsal phalangeal joint), Other (swelling bilateral legs) Skin: No Rash Neurological: No Dizziness, No Focal Weakness, No Sensory Changes Psychological: No Symptoms Endocrine: No Symptoms All Other Systems: Reviewed and Negative - Past Medical History Pertinent Past Medical History: Yes Neurological History: No Pertinent History ENT History: No Pertinent History Cardiac History: Hypertension Respiratory History: No Pertinent History, Bronchitis, Pneumonia Endocrine Medical History: No Pertinent History Musculoskeletal History: No Pertinent History GI Medical History: GERD History: No Pertinent History Psycho-Social History: No Pertinent History Male Reproductive Disorders: No Pertinent History Other Medical History: blood clot LUE. - Past Surgical History Past Surgical History: Yes Neuro Surgical History: No Pertinent History Cardiac: No Pertinent History Respiratory: No Pertinent History Gastrointestinal: No Pertinent History Genitourinary: No Pertinent History Musculoskeletal: Other Male Surgical History: No Pertinent History Other Surgical History: rotator cuff surgery - Social History Smoking Status: Current every day smoker How long have you smoked: years Exposure to second hand smoke: Yes Alcohol Use: Socially Drug Use: none Patient Lives Alone: Yes Significant Family History: heart disease, hypertension - Nursing Vital Signs Nursing Vital Signs: Initial Vital Signs Temperature 98.7 F 12/23/18 15:50 Pulse Rate 84 12/23/18 15:50 Respiratory Rate 18 12/23/18 15:50 Blood Pressure 145/83 12/23/18 15:50 O2 Sat by Pulse Oximetry 98 12/23/18 15:50 Pain Scale Pain Intensity 4 - Physical Exam General Appearance: no apparent distress, alert Eye Exam: PERRL/EOMI, eyes nml inspection Ears, Nose, Throat Exam: normal ENT inspection, TMs normal, pharynx normal, moist mucous membranes Neck Exam: normal inspection, non-tender, supple, full range of motion Respiratory Exam: normal breath sounds, lungs clear, No respiratory distress Cardiovascular Exam: regular rate/rhythm, normal heart sounds, normal peripheral pulses, capillary refill <2 sec Gastrointestinal/Abdomen Exam: soft, normal bowel sounds, No tenderness, No mass Back Exam: normal inspection, normal range of motion, No CVA tenderness, No vertebral tenderness Extremity Exam: other (1+ edema bilateral lower legs, tender with palpation left metatarsal phalangeal joint #1) Neurologic Exam: alert, oriented x 3, cooperative, normal mood/affect, nml cerebellar function, nml station & gait, sensation nml, No motor deficits Skin Exam: normal color, warm, dry, No rash SpO2 Interpretation: normal (98%) SpO2: 98 - Course Nursing assessment & vital signs reviewed: Yes EKG Interpreted by Me: RATE (73 bpm), Sinus Rhythm, NORMAL AXIS, 1st degree AV Block, Other (EKG: Sinus rhythm with first-degree AV block. 73 bpm, normal axis , no acute ST or T wave changes.) - Radiology Exams Chest X-ray Interpretation: Discussed w/ radiologist (Chest x-ray: Impression non- acute chest) Ordered Tests: Active Orders 24 hr Category Date Time Status Take Up Supervisor STAT Care 12/23/18 16:18 Active EKG-ER Only STAT Care 12/23/18 16:17 Active IV Insertion STAT Care 12/23/18 16:17 Active Pulse Oximetry (ED) STAT Care 12/23/18 16:17 Active CHEST 1 VIEW (PORTABLE) Stat Exams 12/23/18 16:28 Completed CBC W DIFF Stat Lab 12/23/18 16:15 Completed CMP Stat Lab 12/23/18 16:15 Completed D-DIMER QUANTITATION Stat Lab 12/23/18 16:15 Completed NT PRO BNP Stat Lab 12/23/18 16:15 Completed TROPONIN Q3H Lab 12/23/18 16:15 Completed TROPONIN Q3H Lab 12/23/18 19:30 Ordered TROPONIN Q3H Lab 12/23/18 22:30 Ordered TROPONIN Q3H Lab 12/24/18 01:30 Ordered TROPONIN Q3H Lab 12/24/18 04:30 Ordered UA W/RFX UR CULTURE Stat Lab 12/23/18 17:20 Completed Uric Acid Stat Lab 12/23/18 16:15 Completed Medication Summary Discontinued Medications Generic Name Dose Route Start Last Admin Trade Name Tana PRN Reason Stop Dose Admin Methylprednisolone Sodium Succinate 125 mg 12/23/18 17:02 12/23/18 17:17 Solu-Medrol 125 Mg IV 12/23/18 17:03 125 mg STAT ONE Administration Methylprednisolone Sodium Succinate Confirm 12/23/18 17:15 Solu-Medrol 125 Mg Administered 12/23/18 17:16 Dose 125 mg .ROUTE .STK-MED ONE Lab/Rad Data: Laboratory Result Diagrams 12/23/18 16:15 12/23/18 16:15 Laboratory Results 12/23/18 12/23/18 12/23/18 Range/Units 17:20 16:15 16:15 WBC (4.0-10.5) K/mm3 RBC (4.1-5.6) M/mm3 Hgb (12.5-18.0) gm/dl Hct (42-50) % MCV (78-100) fl MCH (26-32) pg MCHC (32-36) g/dl RDW (11.5-14.0) % Plt Count (150-450) K/mm3 MPV (6-9.5) fl Gran % (36.0-66.0) % Eos # (Auto) (0-0.5) Absolute Lymphs (auto) (1.0-4.6) Absolute Monos (auto) (0.0-1.3) Lymphocytes % (24.0-44.0) % Monocytes % (0.0-12.0) % Eosinophils % (0.00-5.0) % Basophils % (0.0-0.4) % Absolute Granulocytes (1.4-6.9) Basophils # (0-0.4) D-Dimer (215-500) ng/mL Sodium (137-145) mmol/L Potassium (3.5-5.1) mmol/L Chloride (98-107) mmol/L Carbon Dioxide (22-30) mmol/L Anion Gap (5-15) MEQ/L BUN (9-20) mg/dL Creatinine (0.66-1.25) mg/dL Estimated GFR ML/MIN Glucose (74-106) mg/dL Uric Acid 8.5 H (3.5-7.2) mg/dL Calcium (8.4-10.2) mg/dL Total Bilirubin (0.2-1.3) mg/dL AST (17-59) U/L ALT (0-50) U/L Alkaline Phosphatase (38-126) U/L Troponin I < 0.012 (0.000-0.034) ng/mL NT-Pro-B Natriuret Pep (0-450) pg/mL Serum Total Protein (6.3-8.2) g/dL Albumin (3.5-5.0) g/dL Urine Color YELLOW (YELLOW) Urine Appearance CLEAR (CLEAR) Urine pH 6.0 (5-6) Ur Specific Lenore 1.011 (1.005-1.025) Urine Protein NEGATIVE (Negative) Urine Ketones NEGATIVE (NEGATIVE) Urine Blood NEGATIVE (0-5) Kei/ul Urine Nitrite NEGATIVE (NEGATIVE) Urine Bilirubin NEGATIVE (NEGATIVE) Urine Urobilinogen NEGATIVE (0-1) mg/dL Ur Leukocyte Esterase NEGATIVE (NEGATIVE) Urine WBC (Auto) 3-5 (0-5) /HPF Urine RBC (Auto) NONE (0-2) /HPF U Epithel Cells (Auto) NONE (FEW) /HPF Urine Bacteria (Auto) NONE (NEGATIVE) /HPF Urine Culture Reflexed NO (NO) Urine Glucose NEGATIVE (NEGATIVE) mg/dL 12/23/18 12/23/18 12/23/18 Range/Units 16:15 16:15 16:15 WBC 8.6 (4.0-10.5) K/mm3 RBC 4.38 (4.1-5.6) M/mm3 Hgb 13.3 (12.5-18.0) gm/dl Hct 41.8 L (42-50) % MCV 95.4 (78-100) fl MCH 30.4 (26-32) pg MCHC 31.8 L (32-36) g/dl RDW 13.8 (11.5-14.0) % Plt Count 238 (150-450) K/mm3 MPV 11.3 H (6-9.5) fl Gran % 54.6 (36.0-66.0) % Eos # (Auto) 0.30 (0-0.5) Absolute Lymphs (auto) 2.81 (1.0-4.6) Absolute Monos (auto) 0.79 (0.0-1.3) Lymphocytes % 32.6 (24.0-44.0) % Monocytes % 9.2 (0.0-12.0) % Eosinophils % 3.5 (0.00-5.0) % Basophils % 0.1 (0.0-0.4) % Absolute Granulocytes 4.70 (1.4-6.9) Basophils # 0.01 (0-0.4) D-Dimer 344 (215-500) ng/mL Sodium 138 (137-145) mmol/L Potassium 3.9 (3.5-5.1) mmol/L Chloride 107 (98-107) mmol/L Carbon Dioxide 23 (22-30) mmol/L Anion Gap 12.8 (5-15) MEQ/L BUN 13 (9-20) mg/dL Creatinine 1.06 (0.66-1.25) mg/dL Estimated GFR > 60.0 ML/MIN Glucose 78 (74-106) mg/dL Uric Acid (3.5-7.2) mg/dL Calcium 9.8 (8.4-10.2) mg/dL Total Bilirubin 0.30 (0.2-1.3) mg/dL AST 36 (17-59) U/L ALT 46 (0-50) U/L Alkaline Phosphatase 67 (38-126) U/L Troponin I (0.000-0.034) ng/mL NT-Pro-B Natriuret Pep 30.9 (0-450) pg/mL Serum Total Protein 7.3 (6.3-8.2) g/dL Albumin 4.3 (3.5-5.0) g/dL Urine Color (YELLOW) Urine Appearance (CLEAR) Urine pH (5-6) Ur Specific Lenore (1.005-1.025) Urine Protein (Negative) Urine Ketones (NEGATIVE) Urine Blood (0-5) Kei/ul Urine Nitrite (NEGATIVE) Urine Bilirubin (NEGATIVE) Urine Urobilinogen (0-1) mg/dL Ur Leukocyte Esterase (NEGATIVE) Urine WBC (Auto) (0-5) /HPF Urine RBC (Auto) (0-2) /HPF U Epithel Cells (Auto) (FEW) /HPF Urine Bacteria (Auto) (NEGATIVE) /HPF Urine Culture Reflexed (NO) Urine Glucose (NEGATIVE) mg/dL - Progress Progress: improved Progress Note: 12/23/18 17:57 48-year-old white male who states that he had gout in the past and had had subsequent renal failure. He states that he has been having swelling of his lower legs for the last couple days some mild tenderness in his lower legs. He also states that he has pain in his left metatarsal phalangeal joint for a couple of days. Patient with EKG which is remarkable for sinus rhythm 73 bpm first degree AV block no acute ST or T wave changes are noted patient's uric acid is elevated at 8.5 d-dimer is 344 BNP was within normal limits chemistry is essentially normal chest x-ray nonacute chest troponin within normal limits patient's CBC essentially normal white count 8.6 hemoglobin 13.3 hematocrit 41.8 BNP is normal Patient's urine is essentially normal Impression 1. Gout. 2. Dependent edema Patient was given Solu-Medrol [address] patient on tapering dose of prednisone Patient to elevate his legs. Follow-up with his family doctor. 12/23/18 18:06 Had considered placing the patient on tramadol for pain however the patient is chronically on narcotic analgesia prescribed by Dr. Hilario pain infection control manager, Patient to take pain medications as prescribed by Dr. Hilario. - Departure Departure Disposition: Home Clinical Impression: Dependent edema Gout Qualifiers: Gout site: foot Gout etiology: unspecified cause Chronicity: acute Laterality: left Qualified Code(s): M10.9 - Gout, unspecified Condition: Fair Critical Care Time: No Referrals: JUWAN BENTON [Primary Care Provider] - Instructions: Dependent Edema (DC) Additional Instructions: Return home. Elevate legs. Tapering dose of prednisone as directed. Follow-up with your family doctor. Return for acute distress or for severe symptoms.
--- NOTE | 2018-12-23 16:36 | XRAY ---
Indication: Bilateral leg swelling. History CHF. Comparison: April 25, 2018. Portable apical lordotic chest is clear. Heart and mediastinal structures within normal limits for AP portable technique. Bony thorax intact. Impression: Nonacute chest.
[2018-12-23 16:41] LABS: ALBUMIN 4.3 g/dL (3.5-5.0); ALKALINE PHOSPHATASE 67 U/L (38-126); ANION GAP 12.8 MEQ/L (5-15); BLOOD UREA NITROGEN 13 mg/dL (9-20); CHLORIDE 107 mmol/L (98-107); Calcium 9.8 mg/dL (8.4-10.2); Carbon Dioxide 23 mmol/L (22-30); Creatinine 1 1.06 mg/dL (0.66-1.25); Glucose 78 mg/dL (74-106); NT PRO BNP 30.9 pg/mL (0-450); Potassium 3.9 mmol/L (3.5-5.1); SGOT/AST 36 U/L (17-59); SGPT/ALT 46 U/L (0-50); SODIUM 138 mmol/L (137-145); Total Protein 7.3 g/dL (6.3-8.2)
[2018-12-23] MEDS ORDERED: solu-MEDROL 125 MG IV ONE (17:02)
[2018-12-23] MEDS ORDERED: solu-MEDROL 125 MG ONE (17:15)
[2018-12-23 17:43] LABS: Appearance CLEAR (CLEAR); Bilirubin NEGATIVE (NEGATIVE); Blood NEGATIVE Ery/ul (0-5); Glucose NEGATIVE (NEGATIVE); Ketones NEGATIVE (NEGATIVE); Leukocyte Esterase NEGATIVE (NEGATIVE); Nitrite NEGATIVE (NEGATIVE); Protein,Urine Dip NEGATIVE (Negative); Specific Gravity 1.011 (1.005-1.025); Urobilinogen NEGATIVE mg/dL (0-1)
[2018-12-23 18:13] VITALS: BP 122/72
[2018-12-23 18:16] VITALS: PULSE 78; O2SAT 99
== END 2018-12-23 18:19 | disposition home or self-care (01) ==
LOC: ED 15:41
DX: R60.9 Edema, unspecified (principal); M10.9 Gout, unspecified; K21.9 Gastro-esophageal reflux disease without esophagitis
CPT/HCPCS: 36000; 36415; 71045; 80053; 81001; 83880; 84484; 84550; 85025; 85379; 93005; 93041; 96374; 99284; J2930

== ENCOUNTER 2019-01-13 02:25 | Emergency (ER) | payer OTHER ==
[2019-01-13] MEDS ORDERED: solu-MEDROL 125 MG IV ONE (02:55)
[2019-01-13] MEDS ORDERED: DUONEB 0.5-3 MG/3 ml Neb IH ONE ×2 (02:55→03:20)
[2019-01-13] MEDS ORDERED: solu-MEDROL 125 MG ONE (03:00)
--- NOTE | 2019-01-13 03:01 | ERPHSYRPT ---
- History of Present Illness Time Seen by Provider: 01/13/19 02:50 Source: patient Exam Limitations: no limitations Patient Subjective Stated Complaint: pt states he has cough since sunday. cough has increased and woke up tonight with difficulty breathing. pt states pain in his chest and ribs from coughing Triage Nursing Assessment: pt alert and oriented, answers questions approp. pt ambulatory with steady gait noted. respirations nonlabored with exp wheezes noted bilat. frequent cough noted. skin pink warm and dry. Physician History: 48-year-old white male with history of high blood pressure, bronchitis, pneumonia, GERD, blood clot in his left upper extremity. Patient arrives with complaint of a cough since Sunday 2 days ago he now states that he woke up with shortness of breath this morning he has pain with coughing in his chest otherwise no chest pain has no fevers. He does have a nebulizing machine at home but has not used to treatment. Past medical history includes high blood pressure, bronchitis, pneumonia, GERD, blood clot left upper extremity Past surgical history includes rotator cuff surgery Social history positive tobacco use. Timing/Duration: day(s) (2 days) Activities at Onset: none Severity of Dyspnea-Max: moderate Severity of Dyspnea-Current: moderate Possible Cause: occasional episodes Associated Symptoms: cough, chest pain/discomfort (pain with coughing), wheezing , No edema, No fever, No insomnia, No loss of appetite, No lightheadedness, No weakness, No ankle swelling, No chills, No hemoptysis, No calf pain, No dizziness, No heaviness, No heart racing, No lightheadedness, No leg swelling, No muscle spasms feet, No muscle spasms hands, No painful breathing, No productive cough, No sweating, No tightness, No tingling face International travel in last 2 weeks: No Allergies/Adverse Reactions: No Known Drug Allergies Allergy (Verified 01/13/19 02:39) Home Medications: Amlodipine Besylate [Norvasc] 5 mg PO DAILY 11/13/18 [History] Oxycodone/APAP 5 mg/325 mg [Percocet Tablet 5/325Mg] 1 tab PO DAILY [History] Topiramate 50 mg PO DAILY 11/13/18 [History] Lisinopril 10 mg [Zestril 10 MG] 20 mg PO DAILY 12/23/18 [History] Metoprolol Tartrate [Lopressor] 100 mg PO DAILY 12/23/18 [History] Hx Tetanus, Diphtheria Vaccination/Date Given: Yes Hx Influenza Vaccination/Date Given: No Hx Pneumococcal Vaccination/Date Given: No Immunizations Up to Date: Yes - Review of Systems Constitutional: No Fever, No Chills Eyes: No Symptoms Ears, Nose, & Throat: No Symptoms Respiratory: Cough, Dyspnea, Wheezing Cardiac: Other (pain in chest with coughing), No Chest Pain, No Edema, No Syncope Abdominal/Gastrointestinal: No Abdominal Pain, No Nausea, No Vomiting, No Diarrhea Genitourinary Symptoms: No Dysuria Musculoskeletal: No Back Pain, No Neck Pain Skin: No Rash Neurological: No Dizziness, No Focal Weakness, No Sensory Changes Psychological: No Symptoms Endocrine: No Symptoms All Other Systems: Reviewed and Negative - Past Medical History Pertinent Past Medical History: Yes Neurological History: No Pertinent History ENT History: No Pertinent History Cardiac History: Hypertension Respiratory History: No Pertinent History, Bronchitis, Pneumonia Endocrine Medical History: No Pertinent History Musculoskeletal History: No Pertinent History GI Medical History: GERD History: No Pertinent History, Renal Disease Psycho-Social History: No Pertinent History Male Reproductive Disorders: No Pertinent History Other Medical History: arf 2 mos ago. blood clot LUE. - Past Surgical History Past Surgical History: Yes Neuro Surgical History: No Pertinent History Cardiac: No Pertinent History Respiratory: No Pertinent History Gastrointestinal: No Pertinent History Genitourinary: No Pertinent History Musculoskeletal: Other Male Surgical History: No Pertinent History Other Surgical History: rotator cuff surgery - Social History Smoking Status: Current every day smoker How long have you smoked: 30 yrs 1pp Exposure to second hand smoke: Yes Alcohol Use: Socially Drug Use: none Patient Lives Alone: Yes Significant Family History: heart disease, hypertension - Nursing Vital Signs Nursing Vital Signs: Initial Vital Signs Temperature 97.8 F 01/13/19 02:26 Pulse Rate 97 H 01/13/19 02:26 Respiratory Rate 22 01/13/19 02:26 Blood Pressure 160/106 01/13/19 02:26 O2 Sat by Pulse Oximetry 95 01/13/19 02:26 Pain Scale Pain Intensity 6 - Physical Exam General Appearance: mild distress, alert Eye Exam: PERRL/EOMI Ears, Nose, Throat Exam: hearing grossly normal, normal ENT inspection, normal pharynx, No abnormal TM (R), No abnormal TM (L), No sinus pain/drainage, No hearing decreased, No nasal congestion, No pharyngeal erythema, No tonsillar exudate, No tonsillar swelling Neck Exam: normal inspection, supple Respiratory Exam: airway intact, diminished breath sounds, wheezing, No chest tenderness Cardiovascular/Chest Exam: normal heart sounds, regular rate/rhythm, normal peripheral pulses, No murmur Abdominal/Gastrointestinal Exam: soft, No tenderness, No distention, No mass Extremity Exam: non-tender, normal range of motion, normal inspection, no calf tenderness, no pedal edema Peripheral Pulses Exam: dorsalis-pedis (R): 2+, dorsalis-pedis (L): 2+ Neurologic Exam: alert, oriented x 3, cooperative, conceptor II-XII nml as tested, sensation nml, No motor deficits Skin Exam: normal color, warm, No dry SpO2 Interpretation: normal (95%) SpO2: 95 - Course Nursing assessment & vital signs reviewed: Yes EKG Interpreted by Me: RATE (94 bpm), Sinus Rhythm, NORMAL AXIS, Other (EKG: Sinus rhythm, 94 bpm, normal axis, no acute ST or T wave changes normal EKG) - Radiology Exams Chest X-ray Interpretation: Interpreted by me (no acute disease process noted) Ordered Tests: Active Orders 24 hr Category Date Time Status Line Producer STAT Care 01/13/19 02:56 Active EKG-ER Only STAT Care 01/13/19 02:55 Active IV Insertion STAT Care 01/13/19 02:55 Active Pulse Oximetry (ED) STAT Care 01/13/19 02:55 Active CHEST 1 VIEW (PORTABLE) Stat Exams 01/13/19 02:55 Taken CBC W DIFF Stat Lab 01/13/19 03:00 Completed CMP Stat Lab 01/13/19 03:00 Completed D-DIMER QUANTITATION Stat Lab 01/13/19 03:00 Completed TROPONIN Q3H Lab 01/13/19 03:00 Completed TROPONIN Q3H Lab 01/13/19 06:00 Ordered TROPONIN Q3H Lab 01/13/19 09:00 Ordered TROPONIN Q3H Lab 01/13/19 12:00 Ordered TROPONIN Q3H Lab 01/13/19 15:00 Ordered VENOUS BLOOD GAS Stat Lab 01/13/19 03:28 Completed Respiratory Nebulizer STAT RT 01/13/19 02:56 Completed Respiratory Nebulizer STAT RT 01/13/19 03:48 Ordered Respiratory Therapy Assessment DAILY RT 01/13/19 03:24 Completed Medication Summary Discontinued Medications Generic Name Dose Route Start Last Admin Trade Name Tana PRN Reason Stop Dose Admin Albuterol/Ipratropium 3 ml 01/13/19 02:55 01/13/19 03:25 Duoneb 0.5-3 Mg/3 Ml Neb IH 01/13/19 02:56 3 ml STAT ONE Administration Albuterol/Ipratropium Confirm 01/13/19 03:20 Duoneb 0.5-3 Mg/3 Ml Neb Administered 01/13/19 03:21 Dose 3 ml IH .STK-MED ONE Methylprednisolone Sodium Succinate 125 mg 01/13/19 02:55 01/13/19 03:03 Solu-Medrol 125 Mg IV 01/13/19 02:56 125 mg STAT ONE Administration Methylprednisolone Sodium Succinate Confirm 01/13/19 03:00 Solu-Medrol 125 Mg Administered 01/13/19 03:01 Dose 125 mg .ROUTE .STK-MED ONE Lab/Rad Data: Laboratory Result Diagrams 01/13/19 03:00 01/13/19 03:00 Laboratory Results 01/13/19 01/13/19 01/13/19 Range/Units 03:28 03:00 03:00 WBC (4.0-10.5) K/mm3 RBC (4.1-5.6) M/mm3 Hgb (12.5-18.0) gm/dl Hct (42-50) % MCV (78-100) fl MCH (26-32) pg MCHC (32-36) g/dl RDW (11.5-14.0) % Plt Count (150-450) K/mm3 MPV (6-9.5) fl Gran % (36.0-66.0) % Eos # (Auto) (0-0.5) Absolute Lymphs (auto) (1.0-4.6) Absolute Monos (auto) (0.0-1.3) Lymphocytes % (24.0-44.0) % Monocytes % (0.0-12.0) % Eosinophils % (0.00-5.0) % Basophils % (0.0-0.4) % Absolute Granulocytes (1.4-6.9) Basophils # (0-0.4) D-Dimer 303 (215-500) ng/mL pO2/FiO2 Ratio 21.0 % VBG pH 7.38 (7.32-7.42) VBG pCO2 at Pat Temp 47 (42-55) mm/Hg VBG pO2 at Pat Temp 66 H (25-40) mm/Hg VBG HCO3 27.8 (22-28) meq/L VBG O2 Sat (Luis Daniel) 95.6 (95-100) VBG Base Excess 1.9 (-2.0-2.0) VBG Hemoglobin 14.7 VBG Carboxyhemoglobin 3.6 (0.0-6.9) % T HGB POC Potassium 4.3 (3.5-5.1) Sodium (137-145) mmol/L Potassium (3.5-5.1) mmol/L Chloride (98-107) mmol/L Carbon Dioxide (22-30) mmol/L Anion Gap (5-15) MEQ/L BUN (9-20) mg/dL Creatinine (0.66-1.25) mg/dL Estimated GFR ML/MIN Glucose (74-106) mg/dL Calcium (8.4-10.2) mg/dL Total Bilirubin (0.2-1.3) mg/dL AST (17-59) U/L ALT (0-50) U/L Alkaline Phosphatase (38-126) U/L Troponin I < 0.012 (0.000-0.034) ng/mL Serum Total Protein (6.3-8.2) g/dL Albumin (3.5-5.0) g/dL 01/13/19 01/13/19 Range/Units 03:00 03:00 WBC 5.9 (4.0-10.5) K/mm3 RBC 4.55 (4.1-5.6) M/mm3 Hgb 13.9 (12.5-18.0) gm/dl Hct 43.6 (42-50) % MCV 95.8 (78-100) fl MCH 30.5 (26-32) pg MCHC 31.9 L (32-36) g/dl RDW 13.3 (11.5-14.0) % Plt Count 195 (150-450) K/mm3 MPV 11.4 H (6-9.5) fl Gran % 53.3 (36.0-66.0) % Eos # (Auto) 0.45 (0-0.5) Absolute Lymphs (auto) 1.76 (1.0-4.6) Absolute Monos (auto) 0.52 (0.0-1.3) Lymphocytes % 29.8 (24.0-44.0) % Monocytes % 8.8 (0.0-12.0) % Eosinophils % 7.6 H (0.00-5.0) % Basophils % 0.5 (0.0-0.4) % Absolute Granulocytes 3.15 (1.4-6.9) Basophils # 0.03 (0-0.4) D-Dimer (215-500) ng/mL pO2/FiO2 Ratio % VBG pH (7.32-7.42) VBG pCO2 at Pat Temp (42-55) mm/Hg VBG pO2 at Pat Temp (25-40) mm/Hg VBG HCO3 (22-28) meq/L VBG O2 Sat (Luis Daniel) (95-100) VBG Base Excess (-2.0-2.0) VBG Hemoglobin VBG Carboxyhemoglobin (0.0-6.9) % T HGB POC Potassium (3.5-5.1) Sodium 142 (137-145) mmol/L Potassium 4.2 (3.5-5.1) mmol/L Chloride 105 (98-107) mmol/L Carbon Dioxide 27 (22-30) mmol/L Anion Gap 14.4 (5-15) MEQ/L BUN 14 (9-20) mg/dL Creatinine 0.95 (0.66-1.25) mg/dL Estimated GFR > 60.0 ML/MIN Glucose 100 (74-106) mg/dL Calcium 10.0 (8.4-10.2) mg/dL Total Bilirubin 0.30 (0.2-1.3) mg/dL AST 30 (17-59) U/L ALT 31 (0-50) U/L Alkaline Phosphatase 87 (38-126) U/L Troponin I (0.000-0.034) ng/mL Serum Total Protein 7.2 (6.3-8.2) g/dL Albumin 4.2 (3.5-5.0) g/dL - Progress Progress: improved Air Movement: fair Progress Note: 01/13/19 03:49 Patient improved after DuoNeb treatment but still some wheezes. Chest x-ray no acute disease process noted. Labs essentially normal. Patient has been given Solu-Medrol Will give Rocephin 1 g IV. Will repeat albuterol treatment. Plan home continue albuterol at home (patient has this). Zithromax at home. Tapering prednisone at home. Follow-up with family doctor. Patient instructed to quit smoking. - Departure Departure Disposition: Home Clinical Impression: Acute exacerbation of chronic obstructive airways disease Condition: Fair Critical Care Time: No Referrals: JUWAN BENTON [Primary Care Provider] - Instructions: Chronic Obstructive Pulmonary Disease Additional Instructions: Return home, rest.. Plenty of fluids. Use your albuterol nebulizer every 4 hours as needed. Zithromax Z-NED as directed. Tapering dose of prednisone as directed. Quit smoking. Follow-up with your family doctor. Return for acute distress or for severe symptoms. Prescriptions: Azithromycin 250 mg [Zithromax 250 MG TABLET] 0 mg PO ZPACK #6 tablet
[2019-01-13 03:09] LABS: BASOPHIL % 0.5 % (0.0-0.4); Basophil (Absolute #) 0.03 (0-0.4); Eosinophil % 7.6 % (0.00-5.0); Eosinophil (Absolute #) 0.45 (0-0.5); Granulocyte Absolute (ANC) 3.15 (1.4-6.9); Granulocytes % 53.3 % (36.0-66.0); Hematocrit 43.6 % (42-50); Hemoglobin 13.9 gm/dl (12.5-18.0); Lymphocyte (Absolute #) 1.76 (1.0-4.6); Lymphocytes % 29.8 % (24.0-44.0); Mean Cell Volume 95.8 fl (78-100); Mean Corpuscular Hemoglobin 30.5 pg (26-32); Mean Corpuscular Hgb Concent. 31.9 g/dl (32-36); Mean Platelet Volume 11.4 fl (6-9.5); Monocyte (Absolute #) 0.52 (0.0-1.3); Monocytes % 8.8 % (0.0-12.0); Platelet Count 195 K/mm3 (150-450); Red Blood Count 4.55 M/mm3 (4.1-5.6); Red Cell Distribution Width 13.3 % (11.5-14.0); White Blood Count 5.9 K/mm3 (4.0-10.5)
[2019-01-13 03:15] LABS: ALBUMIN 4.2 g/dL (3.5-5.0); ALKALINE PHOSPHATASE 87 U/L (38-126); ANION GAP 14.4 MEQ/L (5-15); BLOOD UREA NITROGEN 14 mg/dL (9-20); CHLORIDE 105 mmol/L (98-107); Carbon Dioxide 27 mmol/L (22-30); Creatinine 1 0.95 mg/dL (0.66-1.25); Glucose 100 mg/dL (74-106); Potassium 4.2 mmol/L (3.5-5.1); SGOT/AST 30 U/L (17-59); SGPT/ALT 31 U/L (0-50); SODIUM 142 mmol/L (137-145); Total Protein 7.2 g/dL (6.3-8.2)
[2019-01-13 03:35] LABS: VBG BASE EXCESS 1.9 (-2.0-2.0); VBG CARBOXYHEMOGLOBIN 3.6 % T HGB (0.0-6.9); VBG HCO3- 27.8 meq/L (22-28); VBG HEMOGLOBIN 14.7; VBG O2 SATURATION 95.6 (95-100); VBG POTASSIUM 4.3 (3.5-5.1); VBG pH 7.38 (7.32-7.42)
[2019-01-13] MEDS ORDERED: ROCEPHIN 1 Gm-D5w 50 ml Bag** 1 G/50 ML IVPB IV STA (03:47)
[2019-01-13] MEDS ORDERED: PROVENTIL 2.5 MG/3 ML NEB IH ONE ×2 (03:48→04:10)
[2019-01-13] MEDS ORDERED: ROCEPHIN 1 Gm-D5w 50 ml Bag** 1 G/50 ML IVPB IV ONE (04:05)
[2019-01-13 04:46] VITALS: BP 159/95; PULSE 75; O2SAT 95
--- NOTE | 2019-01-13 09:12 | XRAY ---
Indication: Cough. Short of breath. Comparison: December 23, 2018. Portable apical lordotic chest again demonstrates normal heart and lungs. Bony thorax intact. No new/acute findings.
== END 2019-01-13 04:51 | disposition home or self-care (01) ==
LOC: ED 02:25
DX: J44.1 Chronic obstructive pulmonary disease with (acute) exacerbation (principal); K21.9 Gastro-esophageal reflux disease without esophagitis; Z79.899 Other long term (current) drug therapy
CPT/HCPCS: 36000; 36415; 71045; 80053; 82805; 84484; 85025; 85379; 93005; 93041; 94640; 96365; 96374; 99284; J0696; J2930; J7609; A9270-GY

== ENCOUNTER 2019-03-16 14:38 | Emergency (ER) | payer OTHER ==
[2019-03-16] MEDS ORDERED: Sodium Chloride 0.9% 1000 ML 1,000 ML IV STA (15:31)
[2019-03-16] MEDS ORDERED: Zofran 4 MG/2 ML VIAL IV ONE (15:31)
--- NOTE | 2019-03-16 15:31 | ERPHSYRPT ---
- History of Present Illness Time Seen by Provider: 03/16/19 15:30 Historian: patient Exam Limitations: clinical condition Patient Subjective Stated Complaint: PT HERE FOR A HERNIA, HE STATES THAT IS ABD HAS HURT FOR 3 DAYS , NO NAUSEA OR VOMINTING, NO DIFFICULTY URINATING Triage Nursing Assessment: PT ALERT, RESP EASY, SKIN W/D/P. ABD SOFT, NO EDEMA NOTED, Physician History: PATIENT WITH A HISTORY OF HYPERTENSION, MEDICATION NONCOMPLIANCE COMPLAINS OF ULMBILICAL HERNIA PAIN X 3 DAYS, INCREASED IN SIZE. DENIES NAUSEA, EMESIS, DIARRHEA OR FEVER. Timing/Duration: day(s) Activities at Onset: none Quality: sharpness, stabbing, other (UPON COUGH OR STRAINING OF ABDOMEN) Pain Radiation: no radiation Severity of Pain-Max: moderate Severity of Pain-Current: moderate Modifying Factors: Improves With: coughing, defecating, other (STRAINING) Previous symptoms: same symptoms as today Allergies/Adverse Reactions: No Known Drug Allergies Allergy (Verified 01/13/19 02:39) Home Medications: Amlodipine Besylate [Norvasc] 5 mg PO DAILY 11/13/18 [History] Oxycodone/APAP 5 mg/325 mg [Percocet Tablet 5/325Mg] 1 tab PO DAILY [History] Topiramate 50 mg PO DAILY 11/13/18 [History] Lisinopril 10 mg [Zestril 10 MG] 20 mg PO DAILY 12/23/18 [History] Metoprolol Tartrate [Lopressor] 100 mg PO DAILY 12/23/18 [History] Hx Tetanus, Diphtheria Vaccination/Date Given: Yes Hx Influenza Vaccination/Date Given: No Hx Pneumococcal Vaccination/Date Given: No Immunizations Up to Date: Yes - Review of Systems Constitutional: No Fever, No Chills Eyes: No Symptoms Ears, Nose, & Throat: No Symptoms Respiratory: No Symptoms, No Cough, No Dyspnea Cardiac: No Symptoms, No Chest Pain, No Edema, No Syncope Abdominal/Gastrointestinal: Other (UMBILICAL HERNIA PAIN), No Abdominal Pain, No Nausea, No Vomiting, No Diarrhea Genitourinary Symptoms: No Symptoms, No Dysuria Musculoskeletal: No Symptoms, No Back Pain, No Neck Pain Skin: No Symptoms, No Rash Neurological: No Dizziness, No Focal Weakness, No Sensory Changes Psychological: No Symptoms Endocrine: No Symptoms All Other Systems: Reviewed and Negative - Past Medical History Pertinent Past Medical History: Yes Neurological History: No Pertinent History ENT History: No Pertinent History Cardiac History: Hypertension Respiratory History: No Pertinent History, Bronchitis, Pneumonia Endocrine Medical History: No Pertinent History Musculoskeletal History: No Pertinent History GI Medical History: GERD History: No Pertinent History, Renal Disease Psycho-Social History: No Pertinent History Male Reproductive Disorders: No Pertinent History Other Medical History: arf 2 mos ago. blood clot LUE. - Past Surgical History Past Surgical History: Yes Neuro Surgical History: No Pertinent History Cardiac: No Pertinent History Respiratory: No Pertinent History Gastrointestinal: No Pertinent History Genitourinary: No Pertinent History Musculoskeletal: Other Male Surgical History: No Pertinent History Other Surgical History: rotator cuff surgery - Social History Smoking Status: Former smoker How long have you smoked: 30 yrs 1pp Exposure to second hand smoke: No Alcohol Use: Socially Drug Use: none Patient Lives Alone: No Significant Family History: heart disease, hypertension - Nursing Vital Signs Nursing Vital Signs: Initial Vital Signs Temperature 98.0 F 03/16/19 15:04 Pulse Rate 84 03/16/19 15:04 Respiratory Rate 18 03/16/19 15:04 Blood Pressure 185/108 03/16/19 15:04 O2 Sat by Pulse Oximetry 94 L 03/16/19 15:04 Pain Scale Pain Intensity 4 - Physical Exam General Appearance: no apparent distress, alert Eye Exam: PERRL/EOMI, eyes nml inspection Ears, Nose, Throat Exam: normal ENT inspection, pharynx normal, moist mucous membranes Neck Exam: normal inspection, non-tender, supple, full range of motion Respiratory Exam: normal breath sounds, lungs clear, No respiratory distress Cardiovascular Exam: regular rate/rhythm, normal heart sounds Gastrointestinal/Abdomen Exam: soft, normal bowel sounds, tenderness (UMBILICAL HERNIA EASILY REDUCIBLE 3CM), No mass Back Exam: normal inspection, normal range of motion, No CVA tenderness, No vertebral tenderness Extremity Exam: normal inspection, normal range of motion, pelvis stable Neurologic Exam: alert, oriented x 3, cooperative, normal mood/affect, nml cerebellar function, sensation nml, No motor deficits Skin Exam: normal color, warm, dry SpO2 Interpretation: normal SpO2: 94 - CT Exams Abdomen/Pelvis CT Interpretation: Tele-radiologist Report (SMALL FAT CONTAINING UMBILICAL HERNIA WITHOUT EVIDENCE OF FAT NECROSIS) Ordered Tests: Active Orders 24 hr Category Date Time Status IV Insertion STAT Care 03/16/19 15:31 Active ABDOMEN AND PELVIS W CONTRAST [CT] Stat Exams 03/16/19 17:19 Taken AMYLASE Stat Lab 03/16/19 15:52 Completed BMP Stat Lab 03/16/19 15:52 Completed CBC W DIFF Stat Lab 03/16/19 15:52 Completed LIPASE Stat Lab 03/16/19 15:52 Completed Manual Differential NC Stat Lab 03/16/19 15:52 Completed UA W/RFX UR CULTURE Stat Lab 03/16/19 16:56 Completed Medication Summary Discontinued Medications Generic Name Dose Route Start Last Admin Trade Name Freq PRN Reason Stop Dose Admin Sodium Chloride 1,000 mls @ 500 mls/hr 03/16/19 15:31 03/16/19 17:41 Sodium Chloride 0.9% 1000 Ml IV 03/16/19 17:30 Infused .Q2H STA Infusion Sodium Chloride Confirm 03/16/19 15:43 Sodium Chloride 0.9% 1000 Ml Administered 03/16/19 15:44 Dose 1,000 mls @ ud .ROUTE .STK-MED ONE Ceftriaxone Sodium/Dextrose 1 g in 50 mls @ 100 mls/hr 03/16/19 17:14 17:21 Rocephin 1 Gm-D5w 50 Ml Bag IV 03/16/19 17:43 100 ml/hr STAT STA 100 mls/hr Administration Ceftriaxone Sodium/Dextrose Confirm 03/16/19 17:20 Rocephin 1 Gm-D5w 50 Ml Bag Administered 03/16/19 17:21 Dose 1 g in 50 mls @ ud IV .STK-MED ONE Ketorolac Tromethamine 30 mg 03/16/19 16:39 03/16/19 16:50 Toradol 30 Mg Injection IV 03/16/19 16:40 30 mg STAT ONE Administration Ketorolac Tromethamine Confirm 03/16/19 16:48 Toradol 30 Mg Injection Administered 03/16/19 16:49 Dose 30 mg .ROUTE .STK-MED ONE Ondansetron HCl 4 mg 03/16/19 15:31 03/16/19 15:50 Zofran 4 Mg/2 Ml Vial IV 03/16/19 15:32 4 mg STAT ONE Administration Ondansetron HCl Confirm 03/16/19 15:43 Zofran 4 Mg/2 Ml Vial Administered 03/16/19 15:44 Dose 4 mg .ROUTE .STK-MED ONE Lab/Rad Data: Laboratory Result Diagrams 03/16/19 15:52 03/16/19 15:52 Laboratory Results 03/16/19 03/16/19 03/16/19 Range/Units 16:56 15:52 15:52 WBC 8.7 (4.0-10.5) K/mm3 RBC 4.50 (4.1-5.6) M/mm3 Hgb 13.6 (12.5-18.0) gm/dl Hct 42.1 (42-50) % MCV 93.6 (78-100) fl MCH 30.2 (26-32) pg MCHC 32.3 (32-36) g/dl RDW 13.4 (11.5-14.0) % Plt Count 208 (150-450) K/mm3 MPV 11.2 H (6-9.5) fl Segmented Neutrophils 59 (36.-66.) % Band Neutrophils 4 H (0.0-2.0) % Lymphocytes (Manual) 26 (24-44) % Monocytes (Manual) 6 (0.0-12.0) % Eosinophils (Manual) 3 (0.00-3.0) % Atypical Lymphocytes 2 % Toxic Granulation 1+ Platelet Estimate NORMAL (NORMAL) RBC Morphology NORMAL Sodium 143 (137-145) mmol/L Potassium 4.1 (3.5-5.1) mmol/L Chloride 108 H (98-107) mmol/L Carbon Dioxide 24 (22-30) mmol/L Anion Gap 14.8 (5-15) MEQ/L BUN 10 (9-20) mg/dL Creatinine 1.00 (0.66-1.25) mg/dL Estimated GFR > 60.0 ML/MIN Glucose 92 (74-106) mg/dL Calcium 9.8 (8.4-10.2) mg/dL Amylase 37 (30-110) U/L Lipase 54 (23-300) U/L Urine Color YELLOW (YELLOW) Urine Appearance CLEAR (CLEAR) Urine pH 5.0 (5-6) Ur Specific [place] 1.023 (1.005-1.025) Urine Protein NEGATIVE (Negative) Urine Ketones NEGATIVE (NEGATIVE) Urine Blood NEGATIVE (0-5) Kei/ul Urine Nitrite NEGATIVE (NEGATIVE) Urine Bilirubin NEGATIVE (NEGATIVE) Urine Urobilinogen NEGATIVE (0-1) mg/dL Ur Leukocyte Esterase TRACE (NEGATIVE) Urine WBC (Auto) 6-10 (0-5) /HPF Urine RBC (Auto) 0-2 (0-2) /HPF U Epithel Cells (Auto) NONE (FEW) /HPF Urine Bacteria (Auto) NONE SEEN (NEGATIVE) /HPF Urine Mucus (Auto) SLIGHT (NEGATIVE) /HPF Urine Culture Reflexed NO (NO) Urine Glucose NEGATIVE (NEGATIVE) mg/dL - Progress Progress Note: 03/16/19 15:37 IV NORMAL SALINE 100ML/HR, LABETOLOL 20MG IV FOR BP 186/108 03/16/19 15:37, TORADOL 30MG IV 03/16/19 18:15 - Departure Departure Disposition: Home Clinical Impression: REDUCIBLE UMBILICAL HERNIA, URINARY TRACT INFECTION Condition: Stable Critical Care Time: No Referrals: JUWAN BENTON [Primary Care Provider] - Additional Instructions: FOLLOWUP WITH YOUR PRIMARY CARE PROVIDER FOR EVALUATION AND REFERRAL TO A SURGEON FOR CARE. ANTIBIOTIC LEVAQUIN 500MG DAILY FOR 10 DAYS, FOR TREATMENT OF URINARY TRACT INFECTION. TORADOL 10 MG EVERY 6 HOURS NEEDED FOR PAIN. Prescriptions: Ketorolac Tromethamine [Toradol] 10 mg PO Q6HPRN PRN #20 tablet PRN Reason: Pain Levofloxacin [Levaquin] 500 mg PO DAILY #10 tablet
[2019-03-16] MEDS ORDERED: Sodium Chloride 0.9% 1000 ML 1,000 ML ONE (15:43)
[2019-03-16] MEDS ORDERED: Zofran 4 MG/2 ML VIAL ONE (15:43)
[2019-03-16 15:54] LABS: Hematocrit 42.1 % (42-50); Hemoglobin 13.6 gm/dl (12.5-18.0); Mean Cell Volume 93.6 fl (78-100); Mean Corpuscular Hemoglobin 30.2 pg (26-32); Mean Corpuscular Hgb Concent. 32.3 g/dl (32-36); Mean Platelet Volume 11.2 fl (6-9.5); Platelet Count 208 K/mm3 (150-450); Red Cell Distribution Width 13.4 % (11.5-14.0); White Blood Count 8.7 K/mm3 (4.0-10.5)
[2019-03-16 16:05] LABS: AMYLASE 37 U/L (30-110); ANION GAP 14.8 MEQ/L (5-15); BLOOD UREA NITROGEN 10 mg/dL (9-20); CHLORIDE 108 mmol/L (98-107); Calcium 9.8 mg/dL (8.4-10.2); Carbon Dioxide 24 mmol/L (22-30); Glucose 92 mg/dL (74-106); Potassium 4.1 mmol/L (3.5-5.1); SODIUM 143 mmol/L (137-145)
[2019-03-16 16:11] LABS: ATYPICAL LYMPHS 2 %; BAND 4 % (0.0-2.0); Eosinophil 3 % (0.00-3.0); Lymphocytes 26 % (24-44); Monocyte 6 % (0.0-12.0); Neutrophils 59 % (36.-66.); Total Cells Counted 100
[2019-03-16 16:12] LABS: Platelet Estimate NORMAL (NORMAL); Toxic Granulation 1+
[2019-03-16] MEDS ORDERED: TORAdol 30 mg Injection IV ONE (16:39)
[2019-03-16] MEDS ORDERED: TORAdol 30 mg Injection ONE (16:48)
[2019-03-16 17:01] LABS: Appearance CLEAR (CLEAR); Bilirubin NEGATIVE (NEGATIVE); Blood NEGATIVE Ery/ul (0-5); Glucose NEGATIVE (NEGATIVE); Ketones NEGATIVE (NEGATIVE); Leukocyte Esterase TRACE (NEGATIVE); Mucus SLIGHT /HPF (NEGATIVE); Nitrite NEGATIVE (NEGATIVE); Protein,Urine Dip NEGATIVE (Negative); RBC 0-2 /HPF (0-2); Specific Gravity 1.023 (1.005-1.025); Urobilinogen NEGATIVE mg/dL (0-1)
[2019-03-16 17:02] LABS: Bacteria NONE SEEN /HPF (NEGATIVE)
[2019-03-16] MEDS ORDERED: ROCEPHIN 1 Gm-D5w 50 ml Bag** 1 G/50 ML IVPB IV STA (17:14)
[2019-03-16] MEDS ORDERED: ROCEPHIN 1 Gm-D5w 50 ml Bag** 1 G/50 ML IVPB IV ONE (17:20)
[2019-03-16 18:05] VITALS: BP 172/103; PULSE 70
[2019-03-16 18:21] VITALS: O2SAT 94
--- NOTE | 2019-03-16 21:29 | XRAY ---
Indication: Umbilical pain. UTI. Multiple contiguous axial images obtained through the abdomen and pelvis using 80 cc Isovue 370 contrast only. Comparison: CT renal stone study October 27, 2015. Lung bases demonstrates minimal atelectasis/scarring. No infiltrate or effusion. Heart is not enlarged. Noncontrasted stomach and bowel loops appear nonobstructed. Normal appendix. Mild sigmoid diverticulosis. No free fluid/air. Stable fatty liver and subcentimeter left mid renal exophytic cyst. Remaining liver, gallbladder, pancreas, spleen, adrenal glands, kidneys, ureters, and bladder appear unremarkable. Mild aortoiliac calcifications. No AAA or pathological retroperitoneal lymphadenopathy. Osseous structures intact with mild degenerative changes throughout the spine. Stable bilateral L5 spondylolysis with very minimal spondylolisthesis. Moderate-sized fatty umbilical hernia, not previously imaged. Impression: 1. Fatty umbilical hernia not previously imaged. 2. Sigmoid diverticulosis without diverticulitis. 3. Stable fatty liver, left renal cyst, and L5 spondylolysis with very minimal spondylolisthesis. 4. Remaining CT abdomen/pelvis with contrast cystogram is negative Comment: Preliminary interpretation was made by [facility] who does not report incidental sigmoid diverticulosis and left renal cyst. CTDI 23.68
== END 2019-03-16 18:53 | disposition home or self-care (01) ==
LOC: ED 14:38
DX: K42.9 Umbilical hernia without obstruction or gangrene (principal); N39.0 Urinary tract infection, site not specified; I10 Essential (primary) hypertension; Z91.14 Patient's other noncompliance with medication regimen; Z79.899 Other long term (current) drug therapy
CPT/HCPCS: 36000; 36415; 74177; 80048; 81001; 82150; 83690; 85025; 96360; 96361; 96365; 96374; 96375; 99284; J0696; J1885; J2405

== ENCOUNTER 2019-03-24 12:06 | Emergency (ER) | payer OTHER ==
[2019-03-24 12:22] VITALS: O2SAT 97
[2019-03-24] MEDS ORDERED: Sodium Chloride 0.9% 1000 ML 1,000 ML ONE ×2 (12:41→15:44)
--- NOTE | 2019-03-24 12:42 | ERPHSYRPT ---
- History of Present Illness Time Seen by Provider: 03/24/19 12:30 Source: patient Exam Limitations: no limitations Patient Subjective Stated Complaint: Weak and aches all over, bloated, dizzy, tricia horse in leg Triage Nursing Assessment: Pt walked into the ER, lungs clear, pulses normal, hypertensive, achy, rates pain 6/10, sinus rhythm, urinating large quantaties, + 1 edema Physician History: 48-year-old white male arrives with complaint of refill over he's been urinating a lot since yesterday feels like his legs are swelling noted that his blood pressure was elevated yesterday. No chest pain no shortness of breath no nausea no vomiting. Past medical history includes bronchitis, high blood pressure, pneumonia, GERD, renal disease, blood clot in the left upper extremity. Past surgical history includes rotator cuff surgery. Social history former smoker Timing/Duration: yesterday Severity: moderate Modifying Factors: Improves With: nothing Associated Symptoms: malaise, other (myalgias, frequent urination), No nausea, No vomiting, No abdominal pain, No shortness of breath, No heartburn, No diaphoresis, No cough, No chills, No chest pain, No fever, No headaches, No loss of appetite, No syncope, No seizure, No weakness Allergies/Adverse Reactions: No Known Drug Allergies Allergy (Verified 03/24/19 12:22) Home Medications: Amlodipine Besylate [Norvasc] 5 mg PO DAILY 11/13/18 [History] Oxycodone/APAP 5 mg/325 mg [Percocet Tablet 5/325Mg] 1 tab PO DAILY [History] Topiramate 50 mg PO DAILY 11/13/18 [History] Lisinopril 10 mg [Zestril 10 MG] 20 mg PO DAILY 12/23/18 [History] Metoprolol Tartrate [Lopressor] 100 mg PO DAILY 12/23/18 [History] Hx Tetanus, Diphtheria Vaccination/Date Given: Yes Hx Influenza Vaccination/Date Given: No Hx Pneumococcal Vaccination/Date Given: No - Review of Systems Constitutional: Malaise, Weakness, No Fever, No Chills Eyes: No Symptoms Ears, Nose, & Throat: No Symptoms Respiratory: No Cough, No Dyspnea Cardiac: Other (increased blood pressure), No Chest Pain, No Edema, No Syncope Abdominal/Gastrointestinal: No Abdominal Pain, No Nausea, No Vomiting, No Diarrhea Genitourinary Symptoms: Frequency, No Dysuria Musculoskeletal: Myalgias, No Arthralgias, No Back Pain, No Neck Pain, No Deformity, No Fall, No Injury, No Joint Redness, No Joint Pain, No Joint Swelling, No Other Skin: No Rash Neurological: No Dizziness, No Focal Weakness, No Sensory Changes Psychological: No Symptoms Endocrine: No Symptoms All Other Systems: Reviewed and Negative - Past Medical History Pertinent Past Medical History: Yes Neurological History: No Pertinent History ENT History: No Pertinent History Cardiac History: Hypertension Respiratory History: No Pertinent History, Bronchitis, Pneumonia Endocrine Medical History: No Pertinent History Musculoskeletal History: No Pertinent History GI Medical History: GERD, Hernia History: No Pertinent History, Renal Disease Psycho-Social History: No Pertinent History Male Reproductive Disorders: No Pertinent History Other Medical History: arf 2 mos ago. blood clot LUE. - Past Surgical History Past Surgical History: Yes Neuro Surgical History: No Pertinent History Cardiac: No Pertinent History Respiratory: No Pertinent History Gastrointestinal: No Pertinent History Genitourinary: No Pertinent History Musculoskeletal: Other Male Surgical History: No Pertinent History Other Surgical History: rotator cuff surgery - Social History Smoking Status: Former smoker How long have you smoked: 30 yrs 1pp Exposure to second hand smoke: No Alcohol Use: Socially Drug Use: none Patient Lives Alone: Yes Significant Family History: heart disease, hypertension - Nursing Vital Signs Nursing Vital Signs: Initial Vital Signs Temperature 98.1 F 03/24/19 12:14 Pulse Rate 94 H 03/24/19 12:14 Respiratory Rate 22 03/24/19 12:14 Blood Pressure 183/108 03/24/19 12:14 O2 Sat by Pulse Oximetry 97 03/24/19 12:14 Pain Scale Pain Intensity 6 - Physical Exam General Appearance: mild distress, alert, obese Eye Exam: PERRL/EOMI, eyes nml inspection Ears, Nose, Throat Exam: normal ENT inspection, TMs normal, pharynx normal, moist mucous membranes Neck Exam: normal inspection, non-tender, supple, full range of motion Respiratory Exam: normal breath sounds, lungs clear, No respiratory distress Cardiovascular Exam: regular rate/rhythm, normal heart sounds, normal peripheral pulses, capillary refill <2 sec Gastrointestinal/Abdomen Exam: soft, normal bowel sounds, No tenderness, No mass Back Exam: normal inspection Extremity Exam: normal inspection, normal range of motion, pelvis stable Neurologic Exam: alert, oriented x 3, cooperative, solutions development analyst II-XII nml as tested, normal mood/affect, nml cerebellar function, nml station & gait, sensation nml, No motor deficits Skin Exam: normal color, warm, dry, No rash SpO2 Interpretation: normal (97%) SpO2: 97 - Course Nursing assessment & vital signs reviewed: Yes EKG Interpreted by Me: RATE (90 bpm), Sinus Rhythm, NORMAL AXIS, Other (EKG: Sinus rhythm, 90 beats per minute, normal axis, no acute ST or T wave changes, normal EKG) - Radiology Exams Chest X-ray Interpretation: Discussed w/ radiologist (chest x-ray: Impression: 1. No infiltrates to suggest focal pneumonia or other acute cardiopulmonary disease is seen. This represents no significant interval change from January 13, 2019) Ordered Tests: Active Orders 24 hr Category Date Time Status EKG-ER Only STAT Care 03/24/19 12:37 Active IV Insertion STAT Care 03/24/19 12:37 Active CHEST 1 VIEW (PORTABLE) Stat Exams 03/24/19 12:38 Completed AMYLASE Stat Lab 03/24/19 12:35 Completed BLOOD CULTURE Stat Lab 03/24/19 12:55 Received CBC W DIFF Stat Lab 03/24/19 12:35 Completed CMP Stat Lab 03/24/19 12:35 Completed D-DIMER QUANTITATION Stat Lab 03/24/19 12:35 Completed LIPASE Stat Lab 03/24/19 12:35 Completed NT PRO BNP Stat Lab 03/24/19 12:35 Completed TROPONIN Q3H Lab 03/24/19 12:35 Completed TROPONIN Q3H Lab 03/24/19 15:50 Completed UA W/RFX UR CULTURE Stat Lab 03/24/19 14:45 Completed Medication Summary Discontinued Medications Generic Name Dose Route Start Last Admin Trade Name Freq PRN Reason Stop Dose Admin Acetaminophen 650 mg 03/24/19 15:54 03/24/19 16:02 Tylenol 325 Mg PO 03/24/19 15:55 650 mg STAT ONE Administration Acetaminophen Confirm 03/24/19 16:00 Tylenol 325 Mg Administered 03/24/19 16:01 Dose 650 mg .ROUTE .STK-MED ONE Sodium Chloride 1,000 mls @ 100 mls/hr 03/24/19 12:45 03/24/19 15:47 Sodium Chloride 0.9% 1000 Ml IV 04/23/19 12:44 Infused .Q10H OANH Infusion Sodium Chloride 1,000 mls @ 999 mls/hr 03/24/19 15:42 03/24/19 16:51 Sodium Chloride 0.9% 1000 Ml IV 03/24/19 16:42 Infused .Q1H1M STA Infusion Sodium Chloride Confirm 03/24/19 12:41 Sodium Chloride 0.9% 1000 Ml Administered 03/24/19 12:42 Dose 1,000 mls @ ud .ROUTE .[facility] ONE Sodium Chloride Confirm 03/24/19 15:44 Sodium Chloride 0.9% 1000 Ml Administered 03/24/19 15:45 Dose 1,000 mls @ ud .ROUTE .[facility] ONE Lab/Rad Data: Laboratory Result Diagrams 03/24/19 12:35 03/24/19 12:35 Laboratory Results 03/24/19 03/24/19 03/24/19 Range/Units 15:50 14:45 12:35 WBC (4.0-10.5) K/mm3 RBC (4.1-5.6) M/mm3 Hgb (12.5-18.0) gm/dl Hct (42-50) % MCV (78-100) fl MCH (26-32) pg MCHC (32-36) g/dl RDW (11.5-14.0) % Plt Count (150-450) K/mm3 MPV (6-9.5) fl Gran % (36.0-66.0) % Eos # (Auto) (0-0.5) Absolute Lymphs (auto) (1.0-4.6) Absolute Monos (auto) (0.0-1.3) Lymphocytes % (24.0-44.0) % Monocytes % (0.0-12.0) % Eosinophils % (0.00-5.0) % Basophils % (0.0-0.4) % Absolute Granulocytes (1.4-6.9) Basophils # (0-0.4) D-Dimer (215-500) ng/mL Sodium (137-145) mmol/L Potassium (3.5-5.1) mmol/L Chloride (98-107) mmol/L Carbon Dioxide (22-30) mmol/L Anion Gap (5-15) MEQ/L BUN (9-20) mg/dL Creatinine (0.66-1.25) mg/dL Estimated GFR ML/MIN Glucose (74-106) mg/dL Calcium (8.4-10.2) mg/dL Total Bilirubin (0.2-1.3) mg/dL AST (17-59) U/L ALT (0-50) U/L Alkaline Phosphatase (38-126) U/L Troponin I < 0.012 < 0.012 (0.000-0.034) ng/mL NT-Pro-B Natriuret Pep (0-450) pg/mL Serum Total Protein (6.3-8.2) g/dL Albumin (3.5-5.0) g/dL Amylase (30-110) U/L Lipase (23-300) U/L Urine Color YELLOW (YELLOW) Urine Appearance CLEAR (CLEAR) Urine pH 8.0 (5-6) Ur Specific [place] 1.013 (1.005-1.025) Urine Protein NEGATIVE (Negative) Urine Ketones NEGATIVE (NEGATIVE) Urine Blood NEGATIVE (0-5) Kei/ul Urine Nitrite NEGATIVE (NEGATIVE) Urine Bilirubin NEGATIVE (NEGATIVE) Urine Urobilinogen NEGATIVE (0-1) mg/dL Ur Leukocyte Esterase NEGATIVE (NEGATIVE) Urine WBC (Auto) NONE (0-5) /HPF Urine RBC (Auto) NONE (0-2) /HPF U Epithel Cells (Auto) NONE (FEW) /HPF Urine Bacteria (Auto) NONE (NEGATIVE) /HPF Urine Culture Reflexed NO (NO) Urine Glucose NEGATIVE (NEGATIVE) mg/dL 03/24/19 03/24/19 03/24/19 Range/Units 12:35 12:35 12:35 WBC (4.0-10.5) K/mm3 RBC (4.1-5.6) M/mm3 Hgb (12.5-18.0) gm/dl Hct (42-50) % MCV (78-100) fl MCH (26-32) pg MCHC (32-36) g/dl RDW (11.5-14.0) % Plt Count (150-450) K/mm3 MPV (6-9.5) fl Gran % (36.0-66.0) % Eos # (Auto) (0-0.5) Absolute Lymphs (auto) (1.0-4.6) Absolute Monos (auto) (0.0-1.3) Lymphocytes % (24.0-44.0) % Monocytes % (0.0-12.0) % Eosinophils % (0.00-5.0) % Basophils % (0.0-0.4) % Absolute Granulocytes (1.4-6.9) Basophils # (0-0.4) D-Dimer 612 H* (215-500) ng/mL Sodium 139 (137-145) mmol/L Potassium 3.9 (3.5-5.1) mmol/L Chloride 106 (98-107) mmol/L Carbon Dioxide 22 (22-30) mmol/L Anion Gap 15.2 H (5-15) MEQ/L BUN 17 (9-20) mg/dL Creatinine 1.30 H (0.66-1.25) mg/dL Estimated GFR > 60.0 ML/MIN Glucose 93 (74-106) mg/dL Calcium 9.5 (8.4-10.2) mg/dL Total Bilirubin 0.60 (0.2-1.3) mg/dL AST 29 (17-59) U/L ALT 37 (0-50) U/L Alkaline Phosphatase 61 (38-126) U/L Troponin I (0.000-0.034) ng/mL NT-Pro-B Natriuret Pep 90.4 (0-450) pg/mL Serum Total Protein 7.0 (6.3-8.2) g/dL Albumin 4.1 (3.5-5.0) g/dL Amylase 33 (30-110) U/L Lipase 46 (23-300) U/L Urine Color (YELLOW) Urine Appearance (CLEAR) Urine pH (5-6) Ur Specific [place] (1.005-1.025) Urine Protein (Negative) Urine Ketones (NEGATIVE) Urine Blood (0-5) Kei/ul Urine Nitrite (NEGATIVE) Urine Bilirubin (NEGATIVE) Urine Urobilinogen (0-1) mg/dL Ur Leukocyte Esterase (NEGATIVE) Urine WBC (Auto) (0-5) /HPF Urine RBC (Auto) (0-2) /HPF U Epithel Cells (Auto) (FEW) /HPF Urine Bacteria (Auto) (NEGATIVE) /HPF Urine Culture Reflexed (NO) Urine Glucose (NEGATIVE) mg/dL 03/24/19 Range/Units 12:35 WBC 6.8 (4.0-10.5) K/mm3 RBC 4.53 (4.1-5.6) M/mm3 Hgb 13.7 (12.5-18.0) gm/dl Hct 41.5 L (42-50) % MCV 91.6 (78-100) fl MCH 30.2 (26-32) pg MCHC 33.0 (32-36) g/dl RDW 13.7 (11.5-14.0) % Plt Count 191 (150-450) K/mm3 MPV 11.7 H (6-9.5) fl Gran % 78.2 H (36.0-66.0) % Eos # (Auto) 0.06 (0-0.5) Absolute Lymphs (auto) 0.88 L (1.0-4.6) Absolute Monos (auto) 0.54 (0.0-1.3) Lymphocytes % 12.9 L (24.0-44.0) % Monocytes % 7.9 (0.0-12.0) % Eosinophils % 0.9 (0.00-5.0) % Basophils % 0.1 (0.0-0.4) % Absolute Granulocytes 5.33 (1.4-6.9) Basophils # 0.01 (0-0.4) D-Dimer (215-500) ng/mL Sodium (137-145) mmol/L Potassium (3.5-5.1) mmol/L Chloride (98-107) mmol/L Carbon Dioxide (22-30) mmol/L Anion Gap (5-15) MEQ/L BUN (9-20) mg/dL Creatinine (0.66-1.25) mg/dL Estimated GFR ML/MIN Glucose (74-106) mg/dL Calcium (8.4-10.2) mg/dL Total Bilirubin (0.2-1.3) mg/dL AST (17-59) U/L ALT (0-50) U/L Alkaline Phosphatase (38-126) U/L Troponin I (0.000-0.034) ng/mL NT-Pro-B Natriuret Pep (0-450) pg/mL Serum Total Protein (6.3-8.2) g/dL Albumin (3.5-5.0) g/dL Amylase (30-110) U/L Lipase (23-300) U/L Urine Color (YELLOW) Urine Appearance (CLEAR) Urine pH (5-6) Ur Specific [place] (1.005-1.025) Urine Protein (Negative) Urine Ketones (NEGATIVE) Urine Blood (0-5) Kei/ul Urine Nitrite (NEGATIVE) Urine Bilirubin (NEGATIVE) Urine Urobilinogen (0-1) mg/dL Ur Leukocyte Esterase (NEGATIVE) Urine WBC (Auto) (0-5) /HPF Urine RBC (Auto) (0-2) /HPF U Epithel Cells (Auto) (FEW) /HPF Urine Bacteria (Auto) (NEGATIVE) /HPF Urine Culture Reflexed (NO) Urine Glucose (NEGATIVE) mg/dL - Progress Progress: improved Progress Note: 03/24/19 15:49 48-year-old white male with history of bronchitis, high blood pressure, pneumonia, GERD, renal disease, blood clot in the left upper extremity. Patient states and pressure yesterday and blood pressure on arrival however this is markedly improved since arrival. Patient states she has had diffuse aching all over his body since yesterday Is not short of breath he has no chest pain Patient's vitals are stable with the exception of an elevated blood pressure on arrival Patient was EKG sinus rhythm 90 beats per minute normal axis no acute ST or T wave changes Patient's chest x-ray no acute disease process noted patient with a BNP of 90.4 troponin less than 0.012 CBC white blood cell 6.8 hemoglobin 13.7 hematocrit 41.5 platelets 191 d-dimer is mildly elevated at 612 patient is not short of breath nor is he having any chest pain nor is he tachycardic Patient's chemistry is remarkable for a BUN of 17 and a creatinine mildly elevated 1.30. Anion gap is slightly elevated at 15.2 with a normal at 15 patient's urinalysis is normal. Patient is complaining of generalized aching. He does state that he is driving I have offered the patient some [place] for pain he states he has Percocet at home. Will go ahead and give patient Tylenol for his pain will give patient a second liter of normal saline I've discussed the patient's case with Dr. Storey. . - Departure Departure Disposition: Home Clinical Impression: Myalgia, Dehydration, mild Hypertension Qualifiers: Hypertension type: unspecified Qualified Code(s): I10 - Essential (primary) hypertension Condition: Fair Critical Care Time: No Referrals: JUWAN STOREY [Primary Care Provider] - Additional Instructions: Return home. Plenty of fluids. Pain medications as prescribed by your family doctor/pain temperature control inspector. Followup with your family DrNiko. Return for acute distress or for severe symptoms.
[2019-03-24] MEDS ORDERED: Sodium Chloride 0.9% 1000 ML 1,000 ML IV SCH (12:45)
[2019-03-24 12:58] LABS: BASOPHIL % 0.1 % (0.0-0.4); Basophil (Absolute #) 0.01 (0-0.4); Eosinophil % 0.9 % (0.00-5.0); Eosinophil (Absolute #) 0.06 (0-0.5); Granulocyte Absolute (ANC) 5.33 (1.4-6.9); Granulocytes % 78.2 % (36.0-66.0); Hematocrit 41.5 % (42-50); Hemoglobin 13.7 gm/dl (12.5-18.0); Lymphocyte (Absolute #) 0.88 (1.0-4.6); Lymphocytes % 12.9 % (24.0-44.0); Mean Cell Volume 91.6 fl (78-100); Mean Corpuscular Hemoglobin 30.2 pg (26-32); Mean Platelet Volume 11.7 fl (6-9.5); Monocyte (Absolute #) 0.54 (0.0-1.3); Monocytes % 7.9 % (0.0-12.0); Platelet Count 191 K/mm3 (150-450); Red Blood Count 4.53 M/mm3 (4.1-5.6); Red Cell Distribution Width 13.7 % (11.5-14.0); White Blood Count 6.8 K/mm3 (4.0-10.5)
[2019-03-24 13:12] LABS: ALBUMIN 4.1 g/dL (3.5-5.0); ALKALINE PHOSPHATASE 61 U/L (38-126); AMYLASE 33 U/L (30-110); ANION GAP 15.2 MEQ/L (5-15); BLOOD UREA NITROGEN 17 mg/dL (9-20); CHLORIDE 106 mmol/L (98-107); Calcium 9.5 mg/dL (8.4-10.2); Carbon Dioxide 22 mmol/L (22-30); Glucose 93 mg/dL (74-106); Potassium 3.9 mmol/L (3.5-5.1); SGOT/AST 29 U/L (17-59); SGPT/ALT 37 U/L (0-50); SODIUM 139 mmol/L (137-145)
--- NOTE | 2019-03-24 13:14 | XRAY ---
Exam: AP upright portable chest film from 03/24/2019. Comparison: AP portable chest film from 01/13/2019. Indication: 48-year-old male "aches all over". Findings: The heart size is normal. The patient is rotated slightly to the right. The jewel and mediastinal structures appear unremarkable. The lungs are well expanded. There is either a minimal amount of linear pleural reaction within the minor fissure on the right or subtle subsegmental linear atelectasis in this projection. This is nonspecific. No air space infiltrates, vascular congestion, pneumothorax, or pleural fluid is seen. EKG leads are seen in place. No acute osseous findings are noted. I again see minimal convexity of the lower thoracic spine toward the left. Impression: 1. No infiltrates to suggest focal pneumonia or other acute cardiopulmonary disease is seen. This represents no significant interval change from 01/13/2019.
[2019-03-24 15:02] LABS: Appearance CLEAR (CLEAR); Bilirubin NEGATIVE (NEGATIVE); Blood NEGATIVE Ery/ul (0-5); Glucose NEGATIVE (NEGATIVE); Ketones NEGATIVE (NEGATIVE); Leukocyte Esterase NEGATIVE (NEGATIVE); Nitrite NEGATIVE (NEGATIVE); Protein,Urine Dip NEGATIVE (Negative); Specific Gravity 1.013 (1.005-1.025); Urobilinogen NEGATIVE mg/dL (0-1)
[2019-03-24] MEDS ORDERED: Sodium Chloride 0.9% 1000 ML 1,000 ML IV STA (15:42)
[2019-03-24] MEDS ORDERED: TYLENOL 325 MG PO ONE (15:54)
[2019-03-24] MEDS ORDERED: TYLENOL 325 MG ONE (16:00)
[2019-03-24 16:50] VITALS: BP 194/110; PULSE 91
== END 2019-03-24 16:55 | disposition home or self-care (01) ==
LOC: ED 12:06
DX: M79.10 Myalgia, unspecified site (principal); E86.0 Dehydration; I10 Essential (primary) hypertension
CPT/HCPCS: 36000; 36415; 71045; 80053; 81001; 82150; 83690; 83880; 84484; 85025; 85379; 87040; 93005; 96360; 96361; 99284; A9270-GY

== ENCOUNTER 2019-04-21 00:55 | Emergency (ER) | payer MEDICAID, OTHER ==
[2019-04-21] MEDS ORDERED: TORAdol 30 mg Injection IV ONE (01:12)
[2019-04-21] MEDS ORDERED: Sodium Chloride 0.9% 1000 ML 1,000 ML IV STA (01:12)
--- NOTE | 2019-04-21 01:18 | ERPHSYRPT ---
- History of Present Illness Time Seen by Provider: 04/21/19 01:13 Historian: patient Exam Limitations: no limitations Physician History: 48-year-old white male with history of high blood pressure, GERD, hernia, renal disease, bronchitis, pneumonia Patient arrives with complaint of. Umbilical pain he states he has an umbilical hernia he states that he was working in a [employer] today. He states the bar from the [employer] was pushing on his abdomen he feels like his umbilical hernia has poked out he states he is having pain in the area he states he usually can put a finger in the area but is unable to do so. He is not having vomiting no diarrhea. Past medical history includes high blood pressure, GERD, hernia, renal disease, bronchitis, pneumonia Past surgical history includes rotator cuff surgery Timing/Duration: today Activities at Onset: other (had been driving a [employer]) Quality: aching Abdominal Pain Onset Location: periumbilical Pain Radiation: no radiation Severity of Pain-Max: moderate Severity of Pain-Current: moderate Modifying Factors: Improves With: nothing Associated Symptoms: No back, No chest pain, No diaphoresis, No diarrhea, No fever/chills, No fatigue, No headache, No heartburn, No loss of appetite, No nausea, No neck pain, No rash, No shortness of breath, No syncope, No testicular pain, No vomiting, No weakness Previous symptoms: same symptoms as today (similar symptoms March 16, 2019 patient with a fat-containing umbilical hernia) Allergies/Adverse Reactions: No Known Drug Allergies Allergy (Verified 04/21/19 01:14) Home Medications: Amlodipine Besylate [Norvasc] 5 mg PO DAILY 11/13/18 [History] Oxycodone/APAP 5 mg/325 mg [Percocet Tablet 5/325Mg] 1 tab PO DAILY [History] Topiramate 50 mg PO DAILY 11/13/18 [History] Lisinopril 10 mg [Zestril 10 MG] 20 mg PO DAILY 12/23/18 [History] Metoprolol Tartrate [Lopressor] 100 mg PO DAILY 12/23/18 [History] Hx Tetanus, Diphtheria Vaccination/Date Given: Yes Hx Influenza Vaccination/Date Given: No Hx Pneumococcal Vaccination/Date Given: No - Review of Systems Constitutional: No Fever, No Chills Eyes: No Symptoms Ears, Nose, & Throat: No Symptoms Respiratory: No Cough, No Dyspnea Abdominal/Gastrointestinal: Abdominal Pain, No Nausea, No Vomiting, No Diarrhea , No Constipation, No Hematemesis, No Hematochezia, No Melena, No Dysphagia, No Appetite Changes Genitourinary Symptoms: No Dysuria Musculoskeletal: No Back Pain, No Neck Pain Skin: No Rash Neurological: No Dizziness, No Focal Weakness, No Sensory Changes Psychological: No Symptoms Endocrine: No Symptoms All Other Systems: Reviewed and Negative - Past Medical History Pertinent Past Medical History: Yes Neurological History: No Pertinent History ENT History: No Pertinent History Cardiac History: Hypertension Respiratory History: No Pertinent History, Bronchitis, Pneumonia Endocrine Medical History: No Pertinent History Musculoskeletal History: No Pertinent History GI Medical History: GERD, Hernia History: No Pertinent History, Renal Disease Psycho-Social History: No Pertinent History Male Reproductive Disorders: No Pertinent History Other Medical History: arf 2 mos ago. blood clot LUE. - Past Surgical History Past Surgical History: Yes Neuro Surgical History: No Pertinent History Cardiac: No Pertinent History Respiratory: No Pertinent History Gastrointestinal: No Pertinent History Genitourinary: No Pertinent History Musculoskeletal: Other Male Surgical History: No Pertinent History Other Surgical History: rotator cuff surgery - Social History Smoking Status: Former smoker How long have you smoked: 30 yrs 1pp Exposure to second hand smoke: No Alcohol Use: Socially Drug Use: none Patient Lives Alone: Yes Significant Family History: heart disease, hypertension - Nursing Vital Signs Nursing Vital Signs: Initial Vital Signs Temperature 97.3 F 04/21/19 01:00 Pulse Rate 88 04/21/19 01:00 Respiratory Rate 18 04/21/19 01:00 Blood Pressure 172/104 04/21/19 01:00 O2 Sat by Pulse Oximetry 97 04/21/19 01:00 Pain Scale Pain Intensity 5 - Physical Exam General Appearance: mild distress, alert Eye Exam: PERRL/EOMI, eyes nml inspection Ears, Nose, Throat Exam: normal ENT inspection, pharynx normal, moist mucous membranes Neck Exam: normal inspection, non-tender, supple, full range of motion Respiratory Exam: normal breath sounds, lungs clear, No respiratory distress Cardiovascular Exam: regular rate/rhythm, normal heart sounds, capillary refill <2 sec Gastrointestinal/Abdomen Exam: soft, normal bowel sounds, tenderness ( periumbilical tenderness), hernia (umbilical hernia feels like it reduces to me however patient states he does not think it is reduced and still is having pain) Back Exam: normal inspection, normal range of motion, No CVA tenderness, No vertebral tenderness Extremity Exam: normal inspection, normal range of motion, pelvis stable Neurologic Exam: alert, oriented x 3, cooperative, 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 Evaluation the anterior aspect of the abdomen and pelvis is limited due to patient touching the CT scanner which produces significant artifact. 2. No significant interval change and small fat-containing umbilical hernia. 3. Hepatic steatosis and probably hepatomegaly. 4. Mild splenomegaly. 5. Nonspecific small bowel wall thickening. Please exclude enteritis clinically.) Ordered Tests: Active Orders 24 hr Category Date Time Status IV Insertion STAT Care 04/21/19 01:12 Active ABDOMEN AND PELVIS W CONTRAST [CT] Stat Exams 04/21/19 02:06 Taken AMYLASE Stat Lab 04/21/19 01:12 Completed CBC W DIFF Stat Lab 04/21/19 01:12 Completed CMP Stat Lab 04/21/19 01:12 Completed LIPASE Stat Lab 04/21/19 01:12 Completed UA W/RFX UR CULTURE Stat Lab 04/21/19 03:00 Completed Medication Summary Discontinued Medications Generic Name Dose Route Start Last Admin Trade Name Freq PRN Reason Stop Dose Admin Sodium Chloride 1,000 mls @ 999 mls/hr 04/21/19 01:12 04/21/19 02:34 Sodium Chloride 0.9% 1000 Ml IV 04/21/19 02:12 Infused .Q1H1M STA Infusion Sodium Chloride Confirm 04/21/19 01:25 Sodium Chloride 0.9% 1000 Ml Administered 04/21/19 01:26 Dose 1,000 mls @ ud .ROUTE .STK-MED ONE Ketorolac Tromethamine 30 mg 04/21/19 01:12 04/21/19 01:25 Toradol 30 Mg Injection IV 04/21/19 01:13 30 mg STAT ONE Administration Ketorolac Tromethamine Confirm 04/21/19 01:24 Toradol 30 Mg Injection Administered 04/21/19 01:25 Dose 30 mg .ROUTE .STK-MED ONE Lab/Rad Data: Laboratory Result Diagrams 04/21/19 01:12 04/21/19 01:12 Laboratory Results 04/21/19 04/21/19 04/21/19 Range/Units 03:00 01:12 01:12 WBC 7.7 (4.0-10.5) K/mm3 RBC 4.72 (4.1-5.6) M/mm3 Hgb 14.0 (12.5-18.0) gm/dl Hct 43.6 (42-50) % MCV 92.4 (78-100) fl MCH 29.7 (26-32) pg MCHC 32.1 (32-36) g/dl RDW 13.8 (11.5-14.0) % Plt Count 192 (150-450) K/mm3 MPV 11.1 H (6-9.5) fl Gran % 41.0 (36.0-66.0) % Eos # (Auto) 0.27 (0-0.5) Absolute Lymphs (auto) 3.45 (1.0-4.6) Absolute Monos (auto) 0.81 (0.0-1.3) Lymphocytes % 44.7 H (24.0-44.0) % Monocytes % 10.5 (0.0-12.0) % Eosinophils % 3.5 (0.00-5.0) % Basophils % 0.3 (0.0-0.4) % Absolute Granulocytes 3.16 (1.4-6.9) Basophils # 0.02 (0-0.4) Sodium 142 (137-145) mmol/L Potassium 3.9 (3.5-5.1) mmol/L Chloride 109 H (98-107) mmol/L Carbon Dioxide 26 (22-30) mmol/L Anion Gap 10.8 (5-15) MEQ/L BUN 18 (9-20) mg/dL Creatinine 1.11 (0.66-1.25) mg/dL Estimated GFR > 60.0 ML/MIN Glucose 104 (74-106) mg/dL Calcium 9.7 (8.4-10.2) mg/dL Total Bilirubin 0.30 (0.2-1.3) mg/dL AST 26 (17-59) U/L ALT 41 (0-50) U/L Alkaline Phosphatase 82 (38-126) U/L Serum Total Protein 6.6 (6.3-8.2) g/dL Albumin 4.0 (3.5-5.0) g/dL Amylase 40 (30-110) U/L Lipase 44 (23-300) U/L Urine Color YELLOW (YELLOW) Urine Appearance CLEAR (CLEAR) Urine pH 5.0 (5-6) Ur Specific [place] 1.030 (1.005-1.025) Urine Protein NEGATIVE (Negative) Urine Ketones NEGATIVE (NEGATIVE) Urine Blood NEGATIVE (0-5) Kei/ul Urine Nitrite NEGATIVE (NEGATIVE) Urine Bilirubin NEGATIVE (NEGATIVE) Urine Urobilinogen NEGATIVE (0-1) mg/dL Ur Leukocyte Esterase NEGATIVE (NEGATIVE) Urine WBC (Auto) 3-5 (0-5) /HPF Urine RBC (Auto) NONE (0-2) /HPF U Epithel Cells (Auto) NONE (FEW) /HPF Urine Bacteria (Auto) NONE (NEGATIVE) /HPF Urine Mucus (Auto) SLIGHT (NEGATIVE) /HPF Urine Culture Reflexed NO (NO) Urine Glucose NEGATIVE (NEGATIVE) mg/dL - Progress Progress: improved Progress Note: 04/21/19 01:17 Patient with mild elevation of blood pressure however patient states he is not taking his blood pressure medications because he doesn't feel like it. 04/21/19 04:28 Patient with a small fat-containing hernia on CT abdomen unchanged from previous. After coming back from CT patient states he felt like his hernia was back out he did have a small approximately 1.5-2 cm hernia which was easily reduced. Will release patient. Patient with Percocet at home. Will place patient on clear fluids 24-48 hours of abdominal pain Percocet as prescribed by his family for pain. Patient is to contact Dr. Heath as previously recommended by this emergency room. - Departure Departure Disposition: Home Clinical Impression: Reducible umbilical hernia Condition: Fair Critical Care Time: No Referrals: JUWAN BENTON [Primary Care Provider] - Additional Instructions: Return home. Plenty of fluids. Clear fluids only 24-48 hours if abdominal pain. Percocet as prescribed by your family . Followup with Dr. Heath. Or your family Return for acute distress or for severe symptoms
[2019-04-21] MEDS ORDERED: TORAdol 30 mg Injection ONE (01:24)
[2019-04-21] MEDS ORDERED: Sodium Chloride 0.9% 1000 ML 1,000 ML ONE (01:25)
[2019-04-21 01:28] LABS: BASOPHIL % 0.3 % (0.0-0.4); Basophil (Absolute #) 0.02 (0-0.4); Eosinophil % 3.5 % (0.00-5.0); Eosinophil (Absolute #) 0.27 (0-0.5); Granulocyte Absolute (ANC) 3.16 (1.4-6.9); Hematocrit 43.6 % (42-50); Lymphocyte (Absolute #) 3.45 (1.0-4.6); Lymphocytes % 44.7 % (24.0-44.0); Mean Cell Volume 92.4 fl (78-100); Mean Corpuscular Hemoglobin 29.7 pg (26-32); Mean Corpuscular Hgb Concent. 32.1 g/dl (32-36); Mean Platelet Volume 11.1 fl (6-9.5); Monocyte (Absolute #) 0.81 (0.0-1.3); Monocytes % 10.5 % (0.0-12.0); Platelet Count 192 K/mm3 (150-450); Red Blood Count 4.72 M/mm3 (4.1-5.6); Red Cell Distribution Width 13.8 % (11.5-14.0); White Blood Count 7.7 K/mm3 (4.0-10.5)
[2019-04-21 01:40] LABS: ALKALINE PHOSPHATASE 82 U/L (38-126); AMYLASE 40 U/L (30-110); ANION GAP 10.8 MEQ/L (5-15); BLOOD UREA NITROGEN 18 mg/dL (9-20); CHLORIDE 109 mmol/L (98-107); Calcium 9.7 mg/dL (8.4-10.2); Carbon Dioxide 26 mmol/L (22-30); Creatinine 1 1.11 mg/dL (0.66-1.25); Glucose 104 mg/dL (74-106); LIPASE 44 U/L (23-300); Potassium 3.9 mmol/L (3.5-5.1); SGOT/AST 26 U/L (17-59); SGPT/ALT 41 U/L (0-50); SODIUM 142 mmol/L (137-145); Total Protein 6.6 g/dL (6.3-8.2)
[2019-04-21 03:00] VITALS: O2SAT 95
[2019-04-21 03:07] LABS: Appearance CLEAR (CLEAR); Bilirubin NEGATIVE (NEGATIVE); Blood NEGATIVE Ery/ul (0-5); Glucose NEGATIVE (NEGATIVE); Ketones NEGATIVE (NEGATIVE); Leukocyte Esterase NEGATIVE (NEGATIVE); Mucus SLIGHT /HPF (NEGATIVE); Nitrite NEGATIVE (NEGATIVE); Protein,Urine Dip NEGATIVE (Negative); Urobilinogen NEGATIVE mg/dL (0-1)
[2019-04-21 04:18] VITALS: BP 157/105; PULSE 86
--- NOTE | 2019-04-21 08:48 | XRAY ---
Indication: Abdomen pain. Periumbilical hernia. Multiple contiguous axial images obtained through the abdomen and pelvis using 80 cc Isovue 370 contrast only. Comparison: [facility] 2018. Lung bases are clear. Heart is not enlarged. Anterior abdomen not completely included in the [id number]. Noncontrasted stomach and visualized bowel loops appear nonobstructed. Normal appendix. Again minimal sigmoid diverticulosis. Gallbladder contracted without gallstones. No free fluid/air. Stable fatty liver, left mid renal exophytic cyst, and fatty umbilical hernia. Remaining liver, gallbladder, pancreas, spleen, adrenal glands, kidneys, ureters, and bladder appear unremarkable. Stable mild aortoiliac calcifications. No AAA or pathologic retroperitoneal lymphadenopathy. Osseous structures intact again with mild degenerative changes throughout the spine and bilateral L5 spondylolysis with minimal spondylolisthesis. Impression: 1. Anterior abdomen not completely included in the [id number] limiting the exam. 2. Stable fatty liver, left renal cyst, fatty umbilical hernia, and L5 spondylolysis with minimal spondylolisthesis. 3. No new or acute intra-abdominal/pelvic abnormalities. Comment: Preliminary interpretation was made by [facility]. No critical discrepancy. CTDI 23.68
== END 2019-04-21 04:36 | disposition home or self-care (01) ==
LOC: ED 00:55
DX: K42.9 Umbilical hernia without obstruction or gangrene (principal)
CPT/HCPCS: 36000; 36415; 74177; 80053; 81001; 82150; 83690; 85025; 96360; 96374; 99284; J1885

== ENCOUNTER 2019-06-27 22:32 | Emergency (ER) | payer MEDICAID ==
[2019-06-27] MEDS ORDERED: Sodium Chloride 0.9% 1000 ML 1,000 ML IV STA (22:41)
--- NOTE | 2019-06-27 22:47 | ERPHSYRPT ---
- History of Present Illness Time Seen by Provider: 06/27/19 22:35 Historian: patient Exam Limitations: no limitations Physician History: Dysuria, hematuria with worsening right flank pain for the past two days. Worse over the past 12 hours. Negative evaluation prior to coming into the emergency department this evening. Timing/Duration: day(s) (2) Activities at Onset: none Quality: aching, burning Abdominal Pain Onset Location: flank Pain Radiation: groin Severity of Pain-Max: moderate Severity of Pain-Current: moderate Modifying Factors: Improves With: nothing Associated Symptoms: No back, No chest pain, No diaphoresis, No diarrhea, No fever/chills, No fatigue, No headache, No heartburn, No loss of appetite, No nausea, No neck pain, No rash, No shortness of breath, No syncope, No testicular pain, No vomiting, No weakness Previous symptoms: same symptoms as today, other (diagnosed with renal failure last time he had similar symptoms) Allergies/Adverse Reactions: No Known Drug Allergies Allergy (Verified 06/28/19 00:16) Home Medications: Amlodipine Besylate [Norvasc] 5 mg PO DAILY 11/13/18 [History] Oxycodone/APAP 5 mg/325 mg [Percocet Tablet 5/325Mg] 1 tab PO DAILY [History] Lisinopril 10 mg [Zestril 10 MG] 20 mg PO DAILY 12/23/18 [History] Metoprolol Tartrate [Lopressor] 100 mg PO DAILY 12/23/18 [History] Hx Tetanus, Diphtheria Vaccination/Date Given: Yes Hx Influenza Vaccination/Date Given: No Hx Pneumococcal Vaccination/Date Given: No - Review of Systems Constitutional: No Fever, No Chills, No Fatigue Eyes: No Eye Pain, No Vision Changes Ears, Nose, & Throat: No Mouth Pain, No Mouth Swelling, No Painful Swallowing Respiratory: No Cough, No Dyspnea Cardiac: No Chest Pain, No Palpitations, No Syncope Abdominal/Gastrointestinal: No Abdominal Pain, No Nausea, No Vomiting, No Hematemesis, No Hematochezia, No Melena Genitourinary Symptoms: Dysuria, Frequency, Hematuria, Flank Pain, No Urgency, No Urinary Retention, No Testicle Pain Musculoskeletal: No Back Pain, No Neck Pain Skin: No Pruritis, No Rash Neurological: No Focal Weakness, No Parasthesia, No Seizure, No Tremors, No Vertigo Psychological: No Anxiety, No Emotional Lability Endocrine: No Polydipsia Hematologic/Lymphatic: No Easy Bleeding, No Easy Bruising All Other Systems: Reviewed and Negative - Past Medical History Pertinent Past Medical History: Yes Neurological History: No Pertinent History ENT History: No Pertinent History Cardiac History: Hypertension Respiratory History: No Pertinent History, Bronchitis, Pneumonia Endocrine Medical History: No Pertinent History Musculoskeletal History: No Pertinent History GI Medical History: GERD, Hernia History: No Pertinent History, Renal Disease Psycho-Social History: No Pertinent History Male Reproductive Disorders: No Pertinent History Other Medical History: arf 2 mos ago. blood clot LUE. - Past Surgical History Past Surgical History: Yes Neuro Surgical History: No Pertinent History Cardiac: No Pertinent History Respiratory: No Pertinent History Gastrointestinal: No Pertinent History Genitourinary: No Pertinent History Musculoskeletal: Other Male Surgical History: No Pertinent History Other Surgical History: rotator cuff surgery - Social History Smoking Status: Former smoker How long have you smoked: 30 yrs 1pp Exposure to second hand smoke: No Alcohol Use: Socially Drug Use: none Patient Lives Alone: Yes Significant Family History: heart disease, hypertension - Nursing Vital Signs Nursing Vital Signs: Initial Vital Signs Temperature 98.4 F 06/27/19 22:43 Pulse Rate 90 06/27/19 22:43 Respiratory Rate 18 06/27/19 22:43 Blood Pressure 176/102 06/27/19 22:43 O2 Sat by Pulse Oximetry 97 06/27/19 22:43 Pain Scale Pain Intensity 1 - Physical Exam General Appearance: no apparent distress Eye Exam: PERRL/EOMI, eyes nml inspection, No scleral icterus Ears, Nose, Throat Exam: pharynx normal, moist mucous membranes Neck Exam: normal inspection, non-tender, supple, full range of motion, No meningismus, No limited range of motion, No lymphadenopathy Respiratory Exam: normal breath sounds, lungs clear, airway intact, No chest tenderness, No respiratory distress, No diminished breath sounds, No accessory muscle use, No crackles/rales, No rhonchi, No wheezing Cardiovascular Exam: regular rate/rhythm, normal heart sounds, normal peripheral pulses, capillary refill <2 sec Gastrointestinal/Abdomen Exam: soft, normal bowel sounds, No tenderness, No distention, No mass, No pulsatile mass, No rebound Back Exam: normal inspection, normal range of motion, No CVA tenderness, No vertebral tenderness, No rash Extremity Exam: normal inspection, normal range of motion, pelvis stable Neurologic Exam: alert, oriented x 3, 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 Mild urinary bladder which may be secondary to incomplete distention versus cystitis/UTI. Mild hepatosplenomegaly and diffuse fatty alteration of the liver. Previous ventral hernia repair.) Ordered Tests: Active Orders 24 hr Category Date Time Status IV Insertion STAT Care 06/27/19 22:41 Active NPO (ED) STAT Care 06/27/19 22:41 Active ABDOMEN AND PELVIS W/0 CONTRAS [CT] Stat Exams 06/27/19 22:42 Taken CBC W DIFF Stat Lab 06/27/19 23:15 Completed CMP Stat Lab 06/27/19 23:15 Completed CULTURE,URINE Stat Lab 06/27/19 23:15 Received Lactic Acid Stat Lab 06/27/19 22:41 Completed UA W/RFX UR CULTURE Stat Lab 06/27/19 23:15 Completed Medication Summary Discontinued Medications Generic Name Dose Route Start Last Admin Trade Name Freq PRN Reason Stop Dose Admin Sodium Chloride 1,000 mls @ 999 mls/hr 06/27/19 22:41 06/27/19 23:23 Sodium Chloride 0.9% 1000 Ml IV 06/27/19 23:41 999 mls/hr .Q1H1M STA Administration Sodium Chloride Confirm 06/27/19 23:11 Sodium Chloride 0.9% 1000 Ml Administered 06/27/19 23:12 Dose 1,000 mls @ ud .ROUTE .STK-MED ONE Trimethoprim/Sulfamethoxazole 1 tab 06/28/19 00:07 Bactrim Ds Tablet PO 06/28/19 00:08 STAT STA Lab/Rad Data: Laboratory Result Diagrams 06/27/19 23:15 06/27/19 23:15 Laboratory Results 06/27/19 06/27/19 06/27/19 Range/Units 23:15 23:15 23:15 WBC 11.2 H (4.0-10.5) K/mm3 RBC 4.72 (4.1-5.6) M/mm3 Hgb 14.0 (12.5-18.0) gm/dl Hct 43.4 (42-50) % MCV 91.9 (78-100) fl MCH 29.7 (26-32) pg MCHC 32.3 (32-36) g/dl RDW 14.1 H (11.5-14.0) % Plt Count 240 (150-450) K/mm3 MPV 11.4 H (6-9.5) fl Gran % 61.1 (36.0-66.0) % Eos # (Auto) 0.39 (0-0.5) Absolute Lymphs (auto) 3.13 (1.0-4.6) Absolute Monos (auto) 0.79 (0.0-1.3) Lymphocytes % 28.1 (24.0-44.0) % Monocytes % 7.1 (0.0-12.0) % Eosinophils % 3.5 (0.00-5.0) % Basophils % 0.2 (0.0-0.4) % Absolute Granulocytes 6.82 (1.4-6.9) Basophils # 0.02 (0-0.4) Sodium 140 (137-145) mmol/L Potassium 4.0 (3.5-5.1) mmol/L Chloride 105 (98-107) mmol/L Carbon Dioxide 24 (22-30) mmol/L Anion Gap 15.6 H (5-15) MEQ/L BUN 22 H (9-20) mg/dL Creatinine 0.99 (0.66-1.25) mg/dL Estimated GFR > 60.0 ML/MIN Glucose 123 H (74-106) mg/dL Lactic Acid (0.4-2.0) Calcium 9.7 (8.4-10.2) mg/dL Total Bilirubin 0.20 (0.2-1.3) mg/dL AST 25 (17-59) U/L ALT 38 (0-50) U/L Alkaline Phosphatase 81 (38-126) U/L Serum Total Protein 7.3 (6.3-8.2) g/dL Albumin 4.4 (3.5-5.0) g/dL Urine Color YELLOW (YELLOW) Urine Appearance SLIGHTLY CLOUDY (CLEAR) Urine pH 5.0 (5-6) Ur Specific [place] 1.017 (1.005-1.025) Urine Protein NEGATIVE (Negative) Urine Ketones NEGATIVE (NEGATIVE) Urine Blood LARGE (0-5) Kei/ul Urine Nitrite NEGATIVE (NEGATIVE) Urine Bilirubin NEGATIVE (NEGATIVE) Urine Urobilinogen NEGATIVE (0-1) mg/dL Ur Leukocyte Esterase MODERATE (NEGATIVE) Urine WBC (Auto) >100 (0-5) /HPF Urine RBC (Auto) >101 (0-2) /HPF U Epithel Cells (Auto) NONE (FEW) /HPF Urine Bacteria (Auto) NONE (NEGATIVE) /HPF Urine Mucus (Auto) SLIGHT (NEGATIVE) /HPF Urine Culture Reflexed YES (NO) Urine Glucose NEGATIVE (NEGATIVE) mg/dL 06/27/19 Range/Units 22:41 WBC (4.0-10.5) K/mm3 RBC (4.1-5.6) M/mm3 Hgb (12.5-18.0) gm/dl Hct (42-50) % MCV (78-100) fl MCH (26-32) pg MCHC (32-36) g/dl RDW (11.5-14.0) % Plt Count (150-450) K/mm3 MPV (6-9.5) fl Gran % (36.0-66.0) % Eos # (Auto) (0-0.5) Absolute Lymphs (auto) (1.0-4.6) Absolute Monos (auto) (0.0-1.3) Lymphocytes % (24.0-44.0) % Monocytes % (0.0-12.0) % Eosinophils % (0.00-5.0) % Basophils % (0.0-0.4) % Absolute Granulocytes (1.4-6.9) Basophils # (0-0.4) Sodium (137-145) mmol/L Potassium (3.5-5.1) mmol/L Chloride (98-107) mmol/L Carbon Dioxide (22-30) mmol/L Anion Gap (5-15) MEQ/L BUN (9-20) mg/dL Creatinine (0.66-1.25) mg/dL Estimated GFR ML/MIN Glucose (74-106) mg/dL Lactic Acid 1.4 (0.4-2.0) Calcium (8.4-10.2) mg/dL Total Bilirubin (0.2-1.3) mg/dL AST (17-59) U/L ALT (0-50) U/L Alkaline Phosphatase (38-126) U/L Serum Total Protein (6.3-8.2) g/dL Albumin (3.5-5.0) g/dL Urine Color (YELLOW) Urine Appearance (CLEAR) Urine pH (5-6) Ur Specific [place] (1.005-1.025) Urine Protein (Negative) Urine Ketones (NEGATIVE) Urine Blood (0-5) Kei/ul Urine Nitrite (NEGATIVE) Urine Bilirubin (NEGATIVE) Urine Urobilinogen (0-1) mg/dL Ur Leukocyte Esterase (NEGATIVE) Urine WBC (Auto) (0-5) /HPF Urine RBC (Auto) (0-2) /HPF U Epithel Cells (Auto) (FEW) /HPF Urine Bacteria (Auto) (NEGATIVE) /HPF Urine Mucus (Auto) (NEGATIVE) /HPF Urine Culture Reflexed (NO) Urine Glucose (NEGATIVE) mg/dL - Progress Progress: improved Progress Note: 06/28/19 00:17 No abdominal pain or CVA tenderness bilaterally Counseled pt/family regarding: lab results, diagnosis, need for follow-up, rad results - Departure Departure Disposition: Home Clinical Impression: Acute cystitis with hematuria Hypertension Qualifiers: Hypertension type: essential hypertension Qualified Code(s): I10 - Essential ( primary) hypertension Condition: Good Critical Care Time: No Referrals: JUWAN BENTON [Primary Care Provider] - Follow Up with PCP/3 days Instructions: Blood in the Urine (Hematuria) in Adults, Urinary Tract Infection , Adult (DC), High Blood Pressure (DC) Additional Instructions: return immediately back to the emergency department if any worse pain, no bowel pain, worsening blood in the urine, difficulty urinating, worsening pain with urination, concerning signs or symptoms that weren't present at the emergency room for immediate reevaluation in the emergency room. Follow-up with your doctor in 3 days to consider rechecking blood work and check urine culture results. Prescriptions: Smz/Tmp Ds Tablet [Bactrim Ds Tablet] 1 tab PO Q12H #20 tablet
[2019-06-27] MEDS ORDERED: Sodium Chloride 0.9% 1000 ML 1,000 ML ONE (23:11)
[2019-06-27 23:19] LABS: Absolute Neutrophil Ct (ANC) 6.82 (1.4-6.9); BASOPHIL % 0.2 % (0.0-0.4); Basophil (Absolute #) 0.02 (0-0.4); Eosinophil % 3.5 % (0.00-5.0); Eosinophil (Absolute #) 0.39 (0-0.5); Hematocrit 43.4 % (42-50); Lymphocyte (Absolute #) 3.13 (1.0-4.6); Lymphocytes % 28.1 % (24.0-44.0); Mean Cell Volume 91.9 fl (78-100); Mean Corpuscular Hemoglobin 29.7 pg (26-32); Mean Corpuscular Hgb Concent. 32.3 g/dl (32-36); Mean Platelet Volume 11.4 fl (6-9.5); Monocyte (Absolute #) 0.79 (0.0-1.3); Monocytes % 7.1 % (0.0-12.0); Neutrophil % 61.1 % (36.0-66.0); Platelet Count 240 K/mm3 (150-450); Red Blood Count 4.72 M/mm3 (4.1-5.6); Red Cell Distribution Width 14.1 % (11.5-14.0); White Blood Count 11.2 K/mm3 (4.0-10.5)
[2019-06-27 23:21] LABS: Appearance SLIGHTLY CLOUDY (CLEAR); Bilirubin NEGATIVE (NEGATIVE); Blood LARGE Ery/ul (0-5); Glucose NEGATIVE (NEGATIVE); Ketones NEGATIVE (NEGATIVE); Leukocyte Esterase MODERATE (NEGATIVE); Mucus SLIGHT /HPF (NEGATIVE); Nitrite NEGATIVE (NEGATIVE); Protein,Urine Dip NEGATIVE (Negative); Specific Gravity 1.017 (1.005-1.025); Urobilinogen NEGATIVE mg/dL (0-1); WBC >100 /HPF (0-5)
[2019-06-27 23:22] LABS: RBC >101 /HPF (0-2)
[2019-06-27 23:28] LABS: ALBUMIN 4.4 g/dL (3.5-5.0); ALKALINE PHOSPHATASE 81 U/L (38-126); ANION GAP 15.6 MEQ/L (5-15); BLOOD UREA NITROGEN 22 mg/dL (9-20); CHLORIDE 105 mmol/L (98-107); Calcium 9.7 mg/dL (8.4-10.2); Carbon Dioxide 24 mmol/L (22-30); Creatinine 1 0.99 mg/dL (0.66-1.25); Glucose 123 mg/dL (74-106); SGOT/AST 25 U/L (17-59); SGPT/ALT 38 U/L (0-50); SODIUM 140 mmol/L (137-145); Total Protein 7.3 g/dL (6.3-8.2)
[2019-06-28] MEDS ORDERED: BACTRIM DS TABLET PO STA (00:07)
[2019-06-28 00:15] VITALS: BP 122/83; PULSE 80; O2SAT 95
[2019-06-28] MEDS ORDERED: BACTRIM DS TABLET PO ONE (00:15)
--- NOTE | 2019-06-28 07:41 | XRAY ---
Indication: Right flank pain. Dysuria/hematuria and elevated WBC. Multiple contiguous axial images obtained through the abdomen and pelvis without contrast as ordered. Comparison: April 21, 2019. Lung bases remain clear. Heart is not enlarged. Stomach is distended with food/fluid. Noncontrasted stomach and bowel loops appear nonobstructed. Normal appendix. Stable minimal descending/sigmoid diverticulosis, fatty hepatomegaly, and left renal exophytic cyst. No free fluid/air. Remaining liver, gallbladder, pancreas, spleen, adrenal glands, kidneys, ureters, and bladder appear unremarkable for noncontrast exam. Stable mild aortoiliac calcifications without AAA. Osseous structures intact again with mild degenerative changes throughout the thoracolumbar spine with stable bilateral L5 spondylolysis with minimal spondylolisthesis. There has been interval ventral hernia repair at the level of the umbilicus. Impression: 1. Stable colonic diverticulosis, fatty hepatomegaly, left renal cyst, and L5 spondylolysis with minimal grade [address] abdomen/pelvis without contrast exam is negative. Comment: Preliminary interpretation was made by [facility]. No discrepancy. CTDI 23.68
== END 2019-06-28 00:34 | disposition home or self-care (01) ==
LOC: ED 22:32
DX: N30.01 Acute cystitis with hematuria (principal); I10 Essential (primary) hypertension; R30.0 Dysuria; R10.9 Unspecified abdominal pain; Z79.899 Other long term (current) drug therapy
CPT/HCPCS: 36000; 36415; 74176; 80053; 81001; 83605; 85025; 87077; 87086; 87186; 96360; 99284; A9270-GY

== ENCOUNTER 2019-08-26 00:06 | Emergency (ER) | payer MEDICAID ==
--- NOTE | 2019-08-26 00:31 | ERPHSYRPT ---
- History of Present Illness Time Seen by Provider: 08/26/19 00:15 Source: patient Exam Limitations: no limitations Physician History: Patient has had bilateral lower extremity swelling for the past ten days while working in [place]. 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 Timing/Duration: day(s) (10), constant, gradual onset, improved (today) Severity: moderate Modifying Factors: Improves With: rest (elevating his legs). Worsens With: other (standing) Associated Symptoms: No nausea, No vomiting, No abdominal pain, No shortness of breath, No heartburn, No diaphoresis, No cough, No chills, No chest pain, No fever, No headaches, No loss of appetite, No malaise, No rash, No syncope, No seizure, No weakness Allergies/Adverse Reactions: No Known Drug Allergies Allergy (Verified 08/26/19 00:32) Home Medications: Amlodipine Besylate [Norvasc] 5 mg PO DAILY 11/13/18 [History] Oxycodone/APAP 5 mg/325 mg [Percocet Tablet 5/325Mg] 1 tab PO DAILY [History] Lisinopril 10 mg [Zestril 10 MG] 20 mg PO DAILY 12/23/18 [History] Metoprolol Tartrate [Lopressor] 100 mg PO DAILY 12/23/18 [History] Omeprazole Magnesium [Prilosec Otc] 40 mg PO DAILY 08/26/19 [History] Hx Tetanus, Diphtheria Vaccination/Date Given: Yes Hx Influenza Vaccination/Date Given: No Hx Pneumococcal Vaccination/Date Given: No - Review of Systems Constitutional: No Fever, No Chills, No Fatigue Eyes: No Eye Pain, No Vision Changes Ears, Nose, & Throat: No Mouth Swelling, No Throat Pain, No Painful Swallowing Respiratory: No Cough, No Dyspnea Cardiac: Edema (bilateral lower extremities), No Chest Pain, No Syncope Abdominal/Gastrointestinal: No Abdominal Pain, No Nausea, No Vomiting, No Diarrhea Genitourinary Symptoms: No Dysuria, No Hematuria, No Flank Pain Musculoskeletal: No Back Pain, No Neck Pain, No Myalgias Skin: No Rash Neurological: No Dizziness, No Focal Weakness, No Headache, No Parasthesia, No Sensory Changes Psychological: No Symptoms Endocrine: No Excessive Sweating Hematologic/Lymphatic: No Easy Bleeding, No Easy Bruising All Other Systems: Reviewed and Negative - Past Medical History Pertinent Past Medical History: Yes Neurological History: No Pertinent History ENT History: No Pertinent History Cardiac History: Hypertension Respiratory History: No Pertinent History, Bronchitis, Pneumonia Endocrine Medical History: No Pertinent History Musculoskeletal History: No Pertinent History GI Medical History: GERD, Hernia History: No Pertinent History, Renal Disease Psycho-Social History: No Pertinent History Male Reproductive Disorders: No Pertinent History Other Medical History: arf 2 mos ago. blood clot LUE. - Past Surgical History Past Surgical History: Yes Neuro Surgical History: No Pertinent History Cardiac: No Pertinent History Respiratory: No Pertinent History Gastrointestinal: No Pertinent History Genitourinary: No Pertinent History Musculoskeletal: Other Male Surgical History: No Pertinent History Other Surgical History: rotator cuff surgery - Social History Smoking Status: Former smoker How long have you smoked: 30 yrs 1pp Exposure to second hand smoke: No Alcohol Use: Socially Drug Use: none Patient Lives Alone: Yes Significant Family History: heart disease, hypertension - Nursing Vital Signs Nursing Vital Signs: Initial Vital Signs Temperature 97.9 F 08/26/19 00:19 Pulse Rate 87 08/26/19 00:19 Respiratory Rate 16 08/26/19 00:19 Blood Pressure 175/99 08/26/19 00:19 O2 Sat by Pulse Oximetry 96 08/26/19 00:19 Pain Scale Pain Intensity 0 - Physical Exam General Appearance: no apparent distress, alert Eye Exam: PERRL/EOMI, eyes nml inspection, No scleral icterus, No pale conjunctivae Ears, Nose, Throat Exam: normal ENT inspection, TMs normal, pharynx normal, moist mucous membranes Neck Exam: normal inspection, non-tender, supple, full range of motion, No meningismus, No Brudzinski, No JVD Respiratory Exam: normal breath sounds, lungs clear, airway intact, No respiratory distress, No accessory muscle use, No prolonged expirations, No crackles/rales, No rhonchi, No wheezing, No stridor Cardiovascular Exam: regular rate/rhythm, normal heart sounds, normal peripheral pulses, capillary refill <2 sec Gastrointestinal/Abdomen Exam: soft, normal bowel sounds, No tenderness, No mass , No rebound Back Exam: normal inspection, normal range of motion, No CVA tenderness, No vertebral tenderness Extremity Exam: normal inspection, normal range of motion, pelvis stable, No calf tenderness, No nelli's sign, No pedal edema, No swelling Neurologic Exam: alert, oriented x 3, 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, 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, normal mood/affect, nml station & gait, sensation nml, No motor deficits Skin Exam: normal color, warm, dry, No rash, No jaundice, No cyanosis Lymphatic Exam: No adenopathy SpO2 Interpretation: normal O2 Delivery: Room Air - Course Nursing assessment & vital signs reviewed: Yes - Radiology Exams Chest X-ray Interpretation: Interpreted by me, Reviewed by me, No Fracture, No Pneumonia, No Pneumothorax, Nml Alignment, Nml Heart Size, No Infiltrates, Nml Mediastinum Ordered Tests: Active Orders 24 hr Category Date Time Status Chief Media Officer STAT Care 08/26/19 00:24 Active EKG-ER Only STAT Care 08/26/19 00:23 Active IV Insertion STAT Care 08/26/19 00:23 Active CHEST 1 VIEW (PORTABLE) Stat Exams 08/26/19 00:24 Taken CBC W DIFF Stat Lab 08/26/19 00:56 Completed CK-Creatinine Phosphokinase Stat Lab 08/26/19 00:56 Completed CMP Stat Lab 08/26/19 00:56 Completed MAGNESIUM Stat Lab 08/26/19 00:56 Completed NT PRO BNP Stat Lab 08/26/19 00:56 Completed PROTIME WITH INR Stat Lab 08/26/19 00:56 Completed PTT Stat Lab 08/26/19 00:56 Completed TROPONIN Q3H Lab 08/26/19 00:56 Completed TSH [TSH, 3RD Generation] Stat Lab 08/26/19 00:56 Completed UA W/RFX UR CULTURE Stat Lab 08/26/19 02:59 Ordered Lab/Rad Data: Laboratory Result Diagrams 08/26/19 00:56 08/26/19 00:56 Laboratory Results 08/26/19 08/26/19 08/26/19 Range/Units 00:56 00:56 00:56 WBC (4.0-10.5) K/mm3 RBC (4.1-5.6) M/mm3 Hgb (12.5-18.0) gm/dl Hct (42-50) % MCV (78-100) fl MCH (26-32) pg MCHC (32-36) g/dl RDW (11.5-14.0) % Plt Count (150-450) K/mm3 MPV (6-9.5) fl Gran % (36.0-66.0) % Eos # (Auto) (0-0.5) Absolute Lymphs (auto) (1.0-4.6) Absolute Monos (auto) (0.0-1.3) Lymphocytes % (24.0-44.0) % Monocytes % (0.0-12.0) % Eosinophils % (0.00-5.0) % Basophils % (0.0-0.4) % Absolute Granulocytes (1.4-6.9) Basophils # (0-0.4) PT (8.83-12.87) SECONDS INR (0.8-3.0) APTT (24.1-36.1) SECONDS Sodium (137-145) mmol/L Potassium (3.5-5.1) mmol/L Chloride (98-107) mmol/L Carbon Dioxide (22-30) mmol/L Anion Gap (5-15) MEQ/L BUN (9-20) mg/dL Creatinine (0.66-1.25) mg/dL Estimated GFR ML/MIN Glucose (74-106) mg/dL Calcium (8.4-10.2) mg/dL Magnesium (1.6-2.3) mg/dL Total Bilirubin (0.2-1.3) mg/dL AST (17-59) U/L ALT (0-50) U/L Alkaline Phosphatase (38-126) U/L Creatine Kinase 311 H (55-170) U/L Troponin I < 0.012 (0.000-0.034) ng/mL NT-Pro-B Natriuret Pep (0-450) pg/mL Serum Total Protein (6.3-8.2) g/dL Albumin (3.5-5.0) g/dL TSH 3rd Generation 0.509 (0.47-4.68) mIU/L 08/26/19 08/26/19 08/26/19 Range/Units 00:56 00:56 00:56 WBC 8.5 (4.0-10.5) K/mm3 RBC 4.63 (4.1-5.6) M/mm3 Hgb 13.6 (12.5-18.0) gm/dl Hct 42.8 (42-50) % MCV 92.4 (78-100) fl MCH 29.4 (26-32) pg MCHC 31.8 L (32-36) g/dl RDW 14.5 H (11.5-14.0) % Plt Count 199 (150-450) K/mm3 MPV 11.1 H (6-9.5) fl Gran % 57.2 (36.0-66.0) % Eos # (Auto) 0.38 (0-0.5) Absolute Lymphs (auto) 2.49 (1.0-4.6) Absolute Monos (auto) 0.74 (0.0-1.3) Lymphocytes % 29.2 (24.0-44.0) % Monocytes % 8.7 (0.0-12.0) % Eosinophils % 4.5 (0.00-5.0) % Basophils % 0.4 (0.0-0.4) % Absolute Granulocytes 4.88 (1.4-6.9) Basophils # 0.03 (0-0.4) PT 11.7 (8.83-12.87) SECONDS INR 1.03 (0.8-3.0) APTT 32.4 (24.1-36.1) SECONDS Sodium 140 (137-145) mmol/L Potassium 3.6 (3.5-5.1) mmol/L Chloride 105 (98-107) mmol/L Carbon Dioxide 27 (22-30) mmol/L Anion Gap 11.9 (5-15) MEQ/L BUN 10 (9-20) mg/dL Creatinine 0.91 (0.66-1.25) mg/dL Estimated GFR > 60.0 ML/MIN Glucose 96 (74-106) mg/dL Calcium 9.7 (8.4-10.2) mg/dL Magnesium 2.0 (1.6-2.3) mg/dL Total Bilirubin 0.40 (0.2-1.3) mg/dL AST 41 (17-59) U/L ALT 28 (0-50) U/L Alkaline Phosphatase 73 (38-126) U/L Creatine Kinase (55-170) U/L Troponin I (0.000-0.034) ng/mL NT-Pro-B Natriuret Pep 103 (0-450) pg/mL Serum Total Protein 7.0 (6.3-8.2) g/dL Albumin 4.0 (3.5-5.0) g/dL TSH 3rd Generation (0.47-4.68) mIU/L - Progress Progress: unchanged Progress Note: 08/26/19 01:54 Patient has no respiratory distress. Patient has remained in sinus rhythm throughout his time on the pvc monitor while in the emergency department without any arrhythmias, ectopy or signs of ischemia, injury or infarction. 08/26/19 03:25 Patient has no significant swelling in either bilateral lower extremity Counseled pt/family regarding: lab results, diagnosis, need for follow-up, rad results - Departure Departure Disposition: Home Clinical Impression: Bilateral lower extremity edema, Elevated creatine kinase level Hypertension Qualifiers: Hypertension type: essential hypertension Qualified Code(s): I10 - Essential ( primary) hypertension Condition: Good Critical Care Time: No Referrals: JUWAN BENTON [Primary Care Provider] - 08/26/19 Instructions: Peripheral Edema -- Bilateral, Dependent Edema (DC) Additional Instructions: Discharge/Care Plan MANDIWIL DOTSON was seen on 08/26/19 in the Emergency Room. The patient was counseled regarding Diagnosis,Lab results, Imaging studies, need for follow up and when to return to the Emergency Room. Continue to elevated your legs when you can and use compression stockings when standing for long periods of time. Return if any swelling is one sided, any new shortness of breath, any facial or upper extremity swelling, any chest pain or any other concerning sign of symptom that was not present at today's emergency department visit for immediate re-evaluation in the emergency department. Prescriptions given: None Discharge Note I have spoken with the patient. I have explained the patient's condition, diagnosis and treatment plan based on the information available to me at this time. I have answered the patient's questions and addressed any concerns. The patient has a good understanding of the patient's diagnosis, condition and treatment plan as can be expected at this point. The vital signs have been stable. The patient's condition is stable and appropriate for discharge from the emergency department. The patient will pursue further outpatient evaluation with the primary care physician or other designated or consulting physician as outlined in the discharge instructions. The patient is agreeable to this plan of care and follow -up instructions have been explained in detail. The patient has received these instructions. The patient is aware that any significant change in condition or worsening of symptoms should prompt an immediate return to this or the closest emergency department or call 911.
[2019-08-26 00:56] LABS: Absolute Neutrophil Ct (ANC) 4.88 (1.4-6.9); BASOPHIL % 0.4 % (0.0-0.4); Basophil (Absolute #) 0.03 (0-0.4); Eosinophil % 4.5 % (0.00-5.0); Eosinophil (Absolute #) 0.38 (0-0.5); Hematocrit 42.8 % (42-50); Hemoglobin 13.6 gm/dl (12.5-18.0); Lymphocyte (Absolute #) 2.49 (1.0-4.6); Lymphocytes % 29.2 % (24.0-44.0); Mean Cell Volume 92.4 fl (78-100); Mean Corpuscular Hemoglobin 29.4 pg (26-32); Mean Corpuscular Hgb Concent. 31.8 g/dl (32-36); Mean Platelet Volume 11.1 fl (6-9.5); Monocyte (Absolute #) 0.74 (0.0-1.3); Monocytes % 8.7 % (0.0-12.0); Neutrophil % 57.2 % (36.0-66.0); Platelet Count 199 K/mm3 (150-450); Red Blood Count 4.63 M/mm3 (4.1-5.6); Red Cell Distribution Width 14.5 % (11.5-14.0); White Blood Count 8.5 K/mm3 (4.0-10.5)
[2019-08-26 01:10] LABS: INR 1.03 (0.8-3.0); PROTIME 11.7 SECONDS (8.83-12.87)
[2019-08-26 01:12] LABS: PTT 32.4 SECONDS (24.1-36.1)
[2019-08-26 01:23] LABS: ALKALINE PHOSPHATASE 73 U/L (38-126); ANION GAP 11.9 MEQ/L (5-15); BLOOD UREA NITROGEN 10 mg/dL (9-20); CHLORIDE 105 mmol/L (98-107); Calcium 9.7 mg/dL (8.4-10.2); Carbon Dioxide 27 mmol/L (22-30); Creatinine 1 0.91 mg/dL (0.66-1.25); Glucose 96 mg/dL (74-106); NT PRO BNP 103 pg/mL (0-450); Potassium 3.6 mmol/L (3.5-5.1); SGOT/AST 41 U/L (17-59); SGPT/ALT 28 U/L (0-50); SODIUM 140 mmol/L (137-145)
[2019-08-26 03:31] LABS: Appearance CLEAR (CLEAR); Bilirubin NEGATIVE (NEGATIVE); Blood NEGATIVE Ery/ul (0-5); Glucose NEGATIVE (NEGATIVE); Ketones NEGATIVE (NEGATIVE); Leukocyte Esterase NEGATIVE (NEGATIVE); Nitrite NEGATIVE (NEGATIVE); Protein,Urine Dip NEGATIVE (Negative); Specific Gravity 1.018 (1.005-1.025); Urobilinogen NEGATIVE mg/dL (0-1)
[2019-08-26 03:44] VITALS: BP 154/98; PULSE 91; O2SAT 94
--- NOTE | 2019-08-26 18:11 | XRAY ---
Exam: AP upright portable chest film from 08/26/2019. Comparison: AP upright portable chest film from 03/24/2019. Indication: Lower extremity edema, CHF. Findings: The film was obtained in a lordotic projection. The patient is slightly rotated toward the right. EKG leads are seen in place. The transverse heart size appears within normal limits. The jewel and mediastinal structures appear intact. The lung amaro appear clear. No pulmonary vascular congestion or pleural fluid is seen. No pneumothorax is seen. Mild lower thoracic levoscoliosis is seen. Impression: 1. No acute cardiopulmonary process is seen. There has been no significant interval change from 03/24/2019.
== END 2019-08-26 03:44 | disposition home or self-care (01) ==
LOC: ED 00:06
DX: R60.9 Edema, unspecified (principal); I10 Essential (primary) hypertension; R94.4 Abnormal results of kidney function studies; Z79.899 Other long term (current) drug therapy
CPT/HCPCS: 36000; 36415; 71045; 80053; 81001; 82550; 83735; 83880; 84443; 84484; 85025; 85610; 85730; 93005; 93041; 99284

== ENCOUNTER 2020-01-04 21:34 | Observation (INO) | payer OTHER ==
[2020-01-04] MEDS ORDERED: Sodium Chloride 0.9% 1000 ML 1,000 ML IV STA (22:12)
[2020-01-04 22:27] LABS: Absolute Neutrophil Ct (ANC) 3.89 (1.4-6.9); BASOPHIL % 0.1 % (0.0-0.4); Basophil (Absolute #) 0.01 (0-0.4); Eosinophil % 2.5 % (0.00-5.0); Hematocrit 46.5 % (42-50); Hemoglobin 15.5 gm/dl (12.5-18.0); Lymphocyte (Absolute #) 3.08 (1.0-4.6); Lymphocytes % 39.1 % (24.0-44.0); Mean Corpuscular Hemoglobin 30.3 pg (26-32); Mean Corpuscular Hgb Concent. 33.3 g/dl (32-36); Mean Platelet Volume 11.8 fl (7.5-11.0); Monocyte (Absolute #) 0.69 (0.0-1.3); Monocytes % 8.8 % (0.0-12.0); Neutrophil % 49.5 % (36.0-66.0); Platelet Count 206 K/mm3 (150-450); Red Blood Count 5.11 M/mm3 (4.1-5.6); Red Cell Distribution Width 14.4 % (11.5-14.0); White Blood Count 7.9 K/mm3 (4.0-10.5)
[2020-01-04] MEDS ORDERED: Sodium Chloride 0.9% 1000 ML 1,000 ML ONE (22:28)
--- NOTE | 2020-01-04 22:32 | ERPHSYRPT ---
- History of Present Illness Time Seen by Provider: 01/04/20 22:06 Patient Subjective Stated Complaint: dizziness x 3-4 days Triage Nursing Assessment: pt to ED c/p dizziness x 3-4 days. states was mushroom hunting today and felt like he was going to pass out. denies pain. no LOC. has had this feeling about a year ago and was dx with renal disease. denies urinary or bowel issues at this time. A&Ox3, no difficulites with speech. ambulated with no assistance to room with no issues. lung sounds clear bilat, heart sounds clear, bowel sounds active. behavior calm and appropriate. Physician History: 49 years old male with history of hypertension presented in the ER with chief complaint of dizziness going off and on for the last 3 to 4 days with worsening since this afternoon. Patient report he feels as if he is going to pass out. He never passed out any actual. He denies any spinning sensation. Denies any chest pain palpitations or shortness of breath during the episodes. It happens more with activity and gets better with resting. Denies any numbness tingling or focal weakness. Denies any visual symptoms. Patient report having similar symptom last time when he was in renal failure. Denies any cough fever chills or sick contact. Patient also reports decreased oral intake for almost 1 week. Timing/Duration: day(s) (3), intermittent, worse Severity: moderate Modifying Factors: Improves With: rest Associated Symptoms: No vomiting, No abdominal pain, No shortness of breath, No heartburn, No diaphoresis, No chills, No chest pain, No fever, No headaches, No loss of appetite, No malaise, No rash, No syncope Allergies/Adverse Reactions: No Known Drug Allergies Allergy (Verified 01/04/20 21:54) Home Medications: Amlodipine Besylate [Norvasc] 5 mg PO DAILY 11/13/18 [History] Oxycodone/APAP 5 mg/325 mg [Percocet Tablet 5/325Mg] 1 tab PO DAILY [History] Lisinopril 10 mg [Zestril 10 MG] 20 mg PO DAILY 12/23/18 [History] Metoprolol Tartrate [Lopressor] 100 mg PO DAILY 12/23/18 [History] Omeprazole Magnesium [Prilosec Otc] 40 mg PO DAILY 08/26/19 [History] Telmisartan 80 mg [Micardis 80 MG Tablet] 80 mg PO DAILY 01/04/20 [History ] Topiramate 50 mg PO DAILY 01/04/20 [History] Hx Tetanus, Diphtheria Vaccination/Date Given: Yes Hx Influenza Vaccination/Date Given: No Hx Pneumococcal Vaccination/Date Given: No Travel Risk - International Travel Have you traveled outside of the country in past 3 weeks: No (N) If Yes where:: [facility] - Coronavirus Screening Has patient experienced Coronavirus symptoms: No - Review of Systems Constitutional: Malaise, Weakness Eyes: No Symptoms Ears, Nose, & Throat: No Symptoms Respiratory: No Symptoms Cardiac: No Symptoms Abdominal/Gastrointestinal: No Symptoms Genitourinary Symptoms: No Symptoms Musculoskeletal: No Symptoms Skin: No Symptoms Neurological: Dizziness Psychological: No Symptoms Endocrine: No Symptoms Hematologic/Lymphatic: No Symptoms Immunological/Allergic: No Symptoms All Other Systems: Reviewed and Negative - Past Medical History Pertinent Past Medical History: Yes Neurological History: No Pertinent History ENT History: No Pertinent History Cardiac History: Hypertension Respiratory History: Bronchitis, Pneumonia Endocrine Medical History: No Pertinent History Musculoskeletal History: No Pertinent History GI Medical History: GERD, Hernia History: Renal Disease Psycho-Social History: No Pertinent History Male Reproductive Disorders: No Pertinent History Other Medical History: arf 2 mos ago. blood clot LUE. - Past Surgical History Past Surgical History: Yes Neuro Surgical History: No Pertinent History Cardiac: No Pertinent History Respiratory: No Pertinent History Gastrointestinal: No Pertinent History Genitourinary: No Pertinent History Musculoskeletal: Other Male Surgical History: No Pertinent History Other Surgical History: rotator cuff surgery, hernia - Social History Smoking Status: Current every day smoker How long have you smoked: 30 yrs Exposure to second hand smoke: No Alcohol Use: Socially Drug Use: none Patient Lives Alone: Yes Significant Family History: heart disease, hypertension - Nursing Vital Signs Nursing Vital Signs: Initial Vital Signs Temperature 97.4 F 01/04/20 21:42 Pulse Rate 78 01/04/20 21:42 Respiratory Rate 18 01/04/20 21:42 Blood Pressure 133/86 01/04/20 21:42 O2 Sat by Pulse Oximetry 99 01/04/20 21:42 Pain Scale Pain Intensity 0 - Physical Exam General Appearance: no apparent distress Eye Exam: PERRL/EOMI, eyes nml inspection Ears, Nose, Throat Exam: normal ENT inspection, TMs normal, pharynx normal Neck Exam: normal inspection, non-tender, supple, full range of motion Respiratory Exam: normal breath sounds, lungs clear, No chest tenderness, No respiratory distress Cardiovascular Exam: regular rate/rhythm, normal heart sounds, normal peripheral pulses Gastrointestinal/Abdomen Exam: soft, normal bowel sounds Back Exam: normal inspection, normal range of motion, No CVA tenderness Extremity Exam: normal inspection, normal range of motion Neurologic Exam: alert, oriented x 3, 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, 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, normal mood/affect, nml cerebellar function, nml station & gait, sensation nml Skin Exam: normal color SpO2 Interpretation: normal SpO2: 99 O2 Delivery: Room Air - Course Nursing assessment & vital signs reviewed: Yes EKG Interpreted by Me: RATE (77), NORMAL AXIS, NORMAL QRS Ordered Tests: Active Orders 24 hr Category Date Time Status EKG-ER Only STAT Care 01/04/20 22:12 Active IV Insertion STAT Care 01/04/20 22:12 Active Isolation, Initiate & Maintain Q12H Care 01/04/20 21:54 Active CHEST 1 VIEW (PORTABLE) Stat Exams 01/04/20 22:12 Taken CBC W DIFF Stat Lab 01/04/20 22:22 Completed CMP Stat Lab 01/04/20 22:22 Completed Lactic Acid Stat Lab 01/04/20 22:15 Completed MAGNESIUM Routine Lab 01/04/20 22:22 Received NT PRO BNP Routine Lab 01/04/20 22:22 Received TROPONIN Q3H Lab 01/04/20 22:22 Received TROPONIN Q3H Lab 01/05/20 01:15 Ordered TROPONIN Q3H Lab 01/05/20 04:15 Ordered TROPONIN Q3H Lab 01/05/20 07:15 Ordered TROPONIN Q3H Lab 01/05/20 10:15 Ordered UA W/RFX UR CULTURE Stat Lab 01/04/20 22:12 Uncollected Medication Summary Generic Name Dose Route Start Last Admin Trade Name Freq PRN Reason Stop Dose Admin Sodium Chloride 1,000 mls @ 999 mls/hr 01/04/20 22:12 01/04/20 22:30 Sodium Chloride 0.9% 1000 Ml IV 01/04/20 23:12 999 mls/hr .Q1H1M STA Administration Sodium Chloride 1,000 mls @ 125 mls/hr 01/04/20 23:00 Sodium Chloride 0.9% 1000 Ml IV 02/03/20 22:59 .Q8H OANH Discontinued Medications Generic Name Dose Route Start Last Admin Trade Name Tana PRN Reason Stop Dose Admin Sodium Chloride Confirm 01/04/20 22:28 Sodium Chloride 0.9% 1000 Ml Administered 01/04/20 22:29 Dose 1,000 mls @ ud .ROUTE .STK-MED ONE Lab/Rad Data: Laboratory Result Diagrams 01/04/20 22:22 01/04/20 22:22 Laboratory Results 01/04/20 01/04/20 01/04/20 Range/Units 22:22 22:22 22:15 WBC 7.9 (4.0-10.5) K/mm3 RBC 5.11 (4.1-5.6) M/mm3 Hgb 15.5 (12.5-18.0) gm/dl Hct 46.5 (42-50) % MCV 91.0 (78-100) fl MCH 30.3 (26-32) pg MCHC 33.3 (32-36) g/dl RDW 14.4 H (11.5-14.0) % Plt Count 206 (150-450) K/mm3 MPV 11.8 H (7.5-11.0) fl Gran % 49.5 (36.0-66.0) % Eos # (Auto) 0.20 (0-0.5) Absolute Lymphs (auto) 3.08 (1.0-4.6) Absolute Monos (auto) 0.69 (0.0-1.3) Lymphocytes % 39.1 (24.0-44.0) % Monocytes % 8.8 (0.0-12.0) % Eosinophils % 2.5 (0.00-5.0) % Basophils % 0.1 (0.0-0.4) % Absolute Granulocytes 3.89 (1.4-6.9) Basophils # 0.01 (0-0.4) Sodium 140 (137-145) mmol/L Potassium 4.0 (3.5-5.1) mmol/L Chloride 108 H (98-107) mmol/L Carbon Dioxide 19 L (22-30) mmol/L Anion Gap 17.4 H (5-15) MEQ/L BUN 62 H (9-20) mg/dL Creatinine 2.54 H (0.66-1.25) mg/dL Estimated GFR 29.0 ML/MIN Glucose 96 (74-106) mg/dL Lactic Acid 0.8 (0.4-2.0) Calcium 10.0 (8.4-10.2) mg/dL Total Bilirubin 0.50 (0.2-1.3) mg/dL AST 24 (17-59) U/L ALT 35 (0-50) U/L Alkaline Phosphatase 92 (38-126) U/L Serum Total Protein 7.9 (6.3-8.2) g/dL Albumin 4.8 (3.5-5.0) g/dL - Progress Progress: re-examined Progress Note: 01/04/20 23:00 49 years old is evaluated for dizziness/lightheadedness. Patient has been taking multiple diuretics and has also been taking ibuprofen off and on. He was given IV fluid bolus followed by maintenance. Work-up showed normal white count. Has acute renal failure with BUN of 62 and creatinine 2.5. Chest x-ray did not show any acute finding EKG negative for any acute ischemic changes. Negative initial troponin. I believe patient is volume depleted from diuretics plus has some element of ibuprofen toxicity. Discussed with Dr. Alberts and patient is being admitted. Discussed with : Charlie Will see patient in: hospital (observation) Counseled pt/family regarding: lab results, diagnosis, rad results - Departure Departure Disposition: Observation Clinical Impression: Acute renal failure Qualifiers: Acute renal failure type: unspecified Qualified Code(s): N17.9 - Acute kidney failure, unspecified Condition: Stable Critical Care Time: No Referrals: JUWAN BENTON [Primary Care Provider] -
[2020-01-04 22:39] LABS: ALBUMIN 4.8 g/dL (3.5-5.0); ANION GAP 17.4 MEQ/L (5-15); BILIRUBIN,TOTAL 0.5 mg/dL (0.2-1.3); Creatinine 1 2.54 mg/dL (0.66-1.25); Total Protein 7.9 g/dL (6.3-8.2)
[2020-01-04 22:59] LABS: MAGNESIUM 2.3 mg/dL (1.6-2.3); NT PRO BNP 21.8 pg/mL (0-450); TROPONIN < 0.012 ng/mL (0.000-0.034)
[2020-01-04] MEDS ORDERED: Zofran 4 MG/2 ML VIAL IV PRN (23:27)
[2020-01-04] MEDS ORDERED: Sodium Chloride 0.9% 1000 ML 1,000 ML IV SCH (23:27)
[2020-01-04] MEDS ORDERED: TYLENOL 325 MG PO PRN (23:27)
[2020-01-04] MEDS ORDERED: HUMALOG SQ PRN (23:27)
[2020-01-04] MEDS: Sodium Chloride 0.9% 1000 ML 1,000 ML IV SCH (23:59)
[2020-01-05 00:12] LABS: Appearance CLEAR (CLEAR); Bacteria NONE SEEN /HPF (NEGATIVE); Bilirubin NEGATIVE (NEGATIVE); Blood NEGATIVE Ery/ul (0-5); Glucose NEGATIVE (NEGATIVE); Ketones NEGATIVE (NEGATIVE); Leukocyte Esterase NEGATIVE (NEGATIVE); Mucus SLIGHT /HPF (NEGATIVE); Nitrite NEGATIVE (NEGATIVE); Protein,Urine Dip NEGATIVE (Negative); RBC NONE SEEN /HPF (0-2); Specific Gravity 1.015 (1.005-1.025); Urobilinogen NEGATIVE mg/dL (0-1); WBC 0-2 /HPF (0-5)
[2020-01-05 04:37] LABS: ANION GAP 13.6 MEQ/L (5-15); Calcium 9.7 mg/dL (8.4-10.2); Creatinine 1 1.89 mg/dL (0.66-1.25); Potassium 3.9 mmol/L (3.5-5.1)
[2020-01-05 04:39] LABS: Absolute Neutrophil Ct (ANC) 2.85 (1.4-6.9); BASOPHIL % 0.1 % (0.0-0.4); Basophil (Absolute #) 0.01 (0-0.4); Eosinophil % 3.9 % (0.00-5.0); Eosinophil (Absolute #) 0.27 (0-0.5); Hematocrit 43.8 % (42-50); Hemoglobin 14.2 gm/dl (12.5-18.0); Lymphocyte (Absolute #) 3.04 (1.0-4.6); Lymphocytes % 44.4 % (24.0-44.0); Mean Corpuscular Hemoglobin 29.8 pg (26-32); Mean Corpuscular Hgb Concent. 32.4 g/dl (32-36); Monocyte (Absolute #) 0.67 (0.0-1.3); Monocytes % 9.8 % (0.0-12.0); Neutrophil % 41.8 % (36.0-66.0); Platelet Count 188 K/mm3 (150-450); Red Blood Count 4.76 M/mm3 (4.1-5.6); Red Cell Distribution Width 14.2 % (11.5-14.0); White Blood Count 6.8 K/mm3 (4.0-10.5)
--- NOTE | 2020-01-05 08:13 | XRAY ---
Indication: Dizziness. Comparison: August 26, 2019. Portable apical lordotic chest again demonstrates normal heart and lungs. Bony thorax intact again with minimal levoscoliosis. No new/acute findings.
[2020-01-05] MEDS: Sodium Chloride 0.9% 1000 ML 1,000 ML IV SCH ×2 (08:19→16:20)
--- NOTE | 2020-01-05 09:34 | XRAY ---
Indication: Acute renal failure. Two-dimensional renal sonogram performed. Comparison: October 27, 2015. Both kidneys again normal in reniform shape with normal color perfusion. Right kidney measures 12.6 x 6.7 x 6.4 cm and the left measures 11.8 x 6.1 x 5.2 cm. Previous left lower renal cyst not seen. No focal solid/cystic renal mass, hydronephrosis, or perinephric fluid. Cortical medullary differentiation preserved without cortical thinning. Images of the normally distended urinary bladder grossly unremarkable. Ureteral jets not seen within the allotted exam time. Impression: Negative renal sonogram.
--- NOTE | 2020-01-05 09:36 | HP ---
HISTORY OF PRESENT ILLNESS: This is a 49 year-old patient of Dr. Storey's who presented to the emergency department yesterday. He reports he was out mushroom hunting and felt dizzy like he had low blood pressure. This was worse whenever he was doing anything physical such as walking, bending over or exerting himself. He reports a history of creatinine up to 8 in the past at which time he saw faculty criminal justice, Dr. Mitchell. On review of his chart this was in October 2018. The patient reports that he is taking both telmisartan and lisinopril and actually on his home medicine list we have telmisartan with hydrochlorothiazide 80/25 and telmisartan 80 mg by itself as well as lisinopril 20 mg although his clinic chart says lisinopril 40 mg. The patient said that recently he was started on topiramate by the pain management doctor and thinks this may be why his creatinine was elevated when he was admitted this time. He reports he has been drinking water well, urinating okay. He denies any lower extremity edema but reports if he does not take the hydrochlorothiazide that he then has swelling in his legs. He denies any diarrhea. REVIEW OF SYSTEMS: No constipation. No dyspnea. He felt like he was going to pass out but has not actually passed out. No fevers. No cough. MEDICATIONS: Very unclear about what his actual medications are. His home medication list is in the front of his chart but is different than his last office visit with Dr. Storey and it appears that he has had two different people prescribing the EMA and the ARB. Dr. Storey has been prescribing the EMA and the ARB has been prescribed by nurse practitioner, Enid Bloom. ALLERGIES: NKDA. PAST MEDICAL HISTORY: Hypertension, back pain, knee pain. He sees a automotive painter helper for prescriptions. PAST SURGICAL HISTORY: Shoulder surgery. Hernia surgery. SOCIAL HISTORY: He reports he smokes one and a half packs per day of cigarettes. Denies any alcohol use. 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 FAMILY HISTORY: His mother is living and has hypertension, thyroid problems and coronary artery disease. His father and of myocardial infarction at age 68. PHYSICAL EXAMINATION: VITAL SIGNS: Temperature current 97.5F, temperature max 98.7F, heart rate 73, respiratory rate 16, blood pressure 126/73. Oxygen saturation 97% on room air. GENERAL: The patient is a pleasant talkative man lying in bed in no acute distress. CVS: He has a regular rate and rhythm. No murmurs, gallops or rubs are appreciated. CHEST: Clear to auscultation bilaterally. No crackles or wheezes. ABDOMEN: Soft, nontender, nondistended with normal bowel sounds. EXTREMITIES: No clubbing, cyanosis or edema. SKIN: Warm, dry and intact. LABORATORY DATA AND TESTS: EKG revealed a prolonged ID interval, normal sinus rhythm with no ST-T wave changes. ASSESSMENT AND PLAN: 1) ACUTE RENAL FAILURE: His creatinine on admission was 2.5, repeat today 1.8. He has been on normal saline at 125 ml/hour, will ask his faculty criminal justice, Dr. Mitchell, to see him. I am holding all of his home blood pressure medications at this time. He should not be on EMA inhibitor with the ARB inhibitor and this will need to be clarified with either his primary care doctor or his specialist. I have made his primary care doctor aware of the duplication in therapy. Will check an ultrasound of his kidneys bilaterally. 2) HYPERTENSION: He had an EKG that was normal. Will continue to monitor his blood pressure to see what we might need to send him home on as far as blood pressure medication. 3) TOBACCO ABUSE: The patient will need to be counseled to stop smoking tobacco. 4) CHRONIC KIDNEY DISEASE STAGE II: An old consult note from Dr. Mitchell states he had chronic kidney disease stage II in the past. I will recheck his BNP in the morning.
[2020-01-05] MEDS ORDERED: Pepcid 20 MG VIAL IV SCH (10:00)
[2020-01-05] MEDS: OXYCODONE-ACETAMINOPHEN 10-325 PO SCH ×3 (10:09→21:05)
[2020-01-05] MEDS: Protonix 40MG Tablet PO SCH (10:10)
[2020-01-05 23:13] LABS: Appearance CLEAR (CLEAR); Bilirubin NEGATIVE (NEGATIVE); Blood NEGATIVE Ery/ul (0-5); Epithelial Cells MODERATE /HPF (FEW); Glucose NEGATIVE (NEGATIVE); Ketones NEGATIVE (NEGATIVE); Leukocyte Esterase NEGATIVE (NEGATIVE); Nitrite NEGATIVE (NEGATIVE); Protein,Urine Dip NEGATIVE (Negative); RBC 0-2 /HPF (0-2); Specific Gravity 1.014 (1.005-1.025); Urobilinogen NEGATIVE mg/dL (0-1); WBC 0-2 /HPF (0-5)
[2020-01-06 04:27] VITALS: O2SAT 97
[2020-01-06 05:16] LABS: ANION GAP 12.3 MEQ/L (5-15); BLOOD UREA NITROGEN 26 mg/dL (9-20); CHLORIDE 110 mmol/L (98-107); Calcium 10.1 mg/dL (8.4-10.2); Carbon Dioxide 22 mmol/L (22-30); Creatinine 1 1.17 mg/dL (0.66-1.25); Glucose 97 mg/dL (74-106); Potassium 4.6 mmol/L (3.5-5.1); SODIUM 140 mmol/L (137-145)
[2020-01-06 05:18] LABS: ALBUMIN 4.2 g/dL (3.5-5.0); ALKALINE PHOSPHATASE 75 U/L (38-126); ANION GAP 14.4 MEQ/L (5-15); BLOOD UREA NITROGEN 26 mg/dL (9-20); CHLORIDE 109 mmol/L (98-107); Carbon Dioxide 23 mmol/L (22-30); Creatinine 1 1.14 mg/dL (0.66-1.25); Glucose 98 mg/dL (74-106); MAGNESIUM 2.1 mg/dL (1.6-2.3); Potassium 4.6 mmol/L (3.5-5.1); SGOT/AST 25 U/L (17-59); SGPT/ALT 32 U/L (0-50); SODIUM 141 mmol/L (137-145); Total Protein 7.1 g/dL (6.3-8.2)
[2020-01-06 05:26] LABS: Risk Ratio 7.1
--- NOTE | 2020-01-06 08:13 | CONS ---
CONSULT DATE: 01/05/2020 HISTORY: Jorge Luis Lew is a very pleasant 49 year-old gentleman who had gone mushroom hunting and felt that he was about to pass out. He did not have any vomiting or diarrhea. There was no loss of consciousness. The patient did not have any bladder, bowel issues or incontinence. There was no focal weakness or difficulty in speech. The patient has history of hypertension. The patient presented to the emergency room with above mentioned problems including near passing out episode/presyncope. Vital signs in the emergency room were relatively stable. The patient's creatinine was noted to be 2.54. The patient was taking lisinopril. He was taking telmisartan/hydrochlorothiazide and he was also taking ibuprofen. He did not have bleeding from any orifices. Hemoglobin was 15.5. He denies any voiding difficulty. Ultrasonogram was done in the hospital which was within normal limits. Kidney size was normal. There was no hydronephrosis. His baseline creatinine was within normal limits. He has history of acute kidney injury in the past but did not follow up in the office. He was seen by me in [facility]. REVIEW OF SYSTEMS: Basically positive for near syncopal episode, weakness, dizziness. No fall, trauma, focal weakness, blurry vision, headache, seizure, bladder/bowel incontinence, bleeding, dysuria, hematuria. History chronic nonsteroidal use is present. No skin itching or skin rash. All systems were reviewed in detail and pertinent mentioned here and in history of present illness and the rest were negative. PAST MEDICAL HISTORY: Hypertension. Arthritis of the knee. Gastroesophageal reflux disease. Possible headaches and recently initiated on topiramate. PAST SURGICAL HISTORY: Rotator cuff surgery. Hernia repair. MEDICATIONS: Home medications were reviewed. They included amlodipine, oxycodone, lisinopril, metoprolol, omeprazole, telmisartan/hydrochlorothiazide, topiramate and possible Lasix. ALLERGIES: NKDA. SOCIAL HISTORY: Every day smoker more than 30 pack year history of smoking. Social alcohol use. No drug abuse. FAMILY HISTORY: No history of renal problems in the family. PHYSICAL EXAMINATION: Reveals a gentleman who was seen, vital signs were stable, vital signs were reviewed. HEENT: Normocephalic, atraumatic, pink conjunctivae. NECK: No JVD. CHEST: Clear to auscultation. No distress. CVS: S1, S2 normal. No rub or gallop. ABDOMEN: Soft, nontender. No organomegaly. EXTREMITIES: No cyanosis or clubbing. SKIN: No skin rash. Skin turgor normal. MUSCULOSKELETAL: No acute joint swelling, redness, nontender. NEUROLOGIC: Nonfocal exam. Alert, awake, oriented x3. LAB DATA AND TESTS: Labs were reviewed. Recent creatinine was 1.9. Troponins were normal. Hemoglobin was more than 14. Glucose was normal. ASSESSMENT: 1) ACUTE KIDNEY INJURY, CHRONIC KIDNEY DISEASE NOT OTHERWISE SPECIFIED. Etiology of acute kidney is because of possible relative hypotension. It is well known that patient's on a combination of EMA plus ARB have a high risk of acute kidney injury. The patient also was possibly taking concomitant Lasix and hydrochlorothiazide plus ibuprofen this could have further contributed to acute kidney injury. He is voiding well. Ultrasound is normal. Vital signs are now stable. We will decrease IV fluids to KVO. His oral intake is fair. We will monitor urine, protein/creatinine ratio. We will check UA for any sediments. We will also rule out paraproteinemia. At discharge would recommend stopping any further use of EMA and ARB together. We will discontinue lisinopril, okay to take telmisartan. I would recommend to avoid Lasix. 2) HYPERTENSION: Fairly controlled at this time. No need to reinitiate Lasix. We can gradually reintroduce patient's antihypertensive as needed. We can start with telmisartan. The patient was also on high dose metoprolol and it can be introduced at a lower dose. Okay to take topiramate from renal perspective. All questions answered. He will follow up in two weeks. 3) SYNCOPE: Recent syncopal episode most likely because of relative hypotension, seems to have resolved. Troponins are normal. 4) ARTHRITIS: Avoid ibuprofen.
--- NOTE | 2020-01-06 08:55 | PCM.DCORD ---
- Discharge Discharge Date: 01/06/20 Disposition: Home, Self-Care Condition: Good Prescriptions: Continue Omeprazole Magnesium [Prilosec Otc] 40 mg PO DAILY Telmisartan/Hydrochlorothiazid [Telmisartan-Hctz 80-25 mg Tab] 1 each PO DAILY Oxycodone HCl/Acetaminophen [Percocet 10-325 mg Tablet] 1 each PO TID Discontinued Lisinopril 10 mg [Zestril 10 MG] 20 mg PO DAILY Metoprolol Tartrate [Lopressor] 100 mg PO DAILY Topiramate 50 mg PO BID Telmisartan 80 mg [Micardis 80 MG Tablet] 80 mg PO DAILY Additional Instructions: GET LABS (CMP) DONE 2 DAYS PRIOR TO FOLLOW-UP APPOINTMENT WITH DR. CANO Call Dr. Storey's office or go to ER if you experience dizziness or any other concerns. Follow up with: BRIGID CANO [CONSULTING PHYSICIAN] - Call for Appointment (FOLLOW-UP IN 2 WEEKS , CMP LAB 2 DAYS BEFORE APPT.) JUWAN STOREY [ACTIVE STAFF] - 1 Week
[2020-01-06 09:13] VITALS: BP 162/67; PULSE 68
[2020-01-06] MEDS: Protonix 40MG Tablet PO SCH (09:47)
[2020-01-06] MEDS: OXYCODONE-ACETAMINOPHEN 10-325 PO SCH (09:48)
[2020-01-06] MEDS ORDERED: Micardis 80 MG Tablet PO SCH (10:00)
[2020-01-06] MEDS ORDERED: hydroDIURIL 25 MG PO SCH (10:00)
--- NOTE | 2020-01-06 14:29 | DS ---
DISCHARGE DIAGNOSES: 1) ACUTE RENAL FAILURE NOW RESOLVED. 2) HYPERTENSION. 3) TOBACCO ABUSE. 4) CHRONIC KIDNEY DISEASE UNSPECIFIED STAGE. DISCHARGE PHYSICAL EXAMINATION: VITALS: Temperature current 99.0F, temperature max 99.0F, heart rate 68, respiratory rate 18, blood pressure 152/76. Oxygen saturation 97% on room air. GENERAL: The patient is a pleasant talkative man sitting up in bed eating breakfast in no acute distress. CVS: He had a regular rate and rhythm. No murmurs, gallops or rubs were appreciated. CHEST: Clear to auscultation bilaterally. No crackles or wheezes. ABDOMEN: Soft, nontender, nondistended with normal bowel sounds. EXTREMITIES: No clubbing, cyanosis or edema. SKIN: Warm, dry and intact. HOSPITAL COURSE: 1) ACUTE RENAL FAILURE: He was given IV fluids. Renal ultrasound was normal. Dr. Bravo, [employer], saw him and is going to follow up with him in the office as well. All of his antihypertensives were held until the morning of his discharge at which time he was given telmisartan and hydrochlorothiazide. He will need to follow up closely with is primary care doctor. He is not to take EMA with an ARB and so he will not be taking lisinopril. 2) HYPERTENSION: His blood pressure was low throughout his hospitalization until the day of discharge at which time his antihypertensives were restarted. 3) TOBACCO ABUSE: The patient reports he has no desire to quit smoking at this time although the benefits of doing so were discussed with him. 4) CHRONIC KIDNEY DISEASE UNSPECIFIED STAGE: He will need to follow up with the drill hand as planned. DISCHARGE MEDICATIONS: Please see the discharge order. DISPOSITION: The patient was discharged to home in fair condition.
== END 2020-01-06 10:45 | disposition home or self-care (01) ==
LOC: ED 21:34 → MED SURG 23:26
PROVIDERS: ADMIT Family Medicine; ATTEND Family Medicine
DX: N17.9 Acute kidney failure, unspecified (principal); I12.9 Hypertensive chronic kidney disease with stage 1 through stage 4 chronic kidney disease, or unspecified chronic kidney disease; N18.9 Chronic kidney disease, unspecified; R55 Syncope and collapse; M19.90 Unspecified osteoarthritis, unspecified site; Z79.899 Other long term (current) drug therapy; Z72.0 Tobacco use
CPT/HCPCS: 36000; 36415; 71045; 76770; 80048; 80053; 80061; 81001; 82570; 83605; 83721; 83735; 83880; 84156; 84484; 85025; 93005; 96360; 99285; G0378; A9270-GY

== ENCOUNTER 2020-08-08 01:56 | Emergency (ER) | payer BC, OTHER ==
[2020-08-08 02:14] VITALS: O2SAT 98
[2020-08-08] MEDS ORDERED: CITROMA 296 ML PO ONE (02:32)
[2020-08-08] MEDS ORDERED: Dulcolax 10 MG SUPP PR ONE (02:36)
--- NOTE | 2020-08-08 02:36 | ERPHSYRPT ---
- History of Present Illness Time Seen by Provider: 08/08/20 02:33 Source: patient Exam Limitations: no limitations Patient Subjective Stated Complaint: Patient states " I have been having problems being able to have a BM". Patient states " I am pushing and I have hemorrhoids so bad I can't stand the pain any longer". Triage Nursing Assessment: Patient arrived to ER per self. Patient A/O times 4. Patient able to follow directions without difficulty. Patient ABD obese, non- distended. Patient denies any pain or discomfort upon palpitation. Patient with hyper-active BS in all 4 quads. Patient denies N/V. Patient states appetite and fluid intake has been normal. Upon inspection of anus no visible hemorrhoids noted. Patient noted to be slightly irritated around anus. Physician History: Patient states " I have been having problems being able to have a BM". Patient states " I am pushing and I have hemorrhoids so bad I can't stand the pain any longer". Patient usually have a regular bowel movements but since last 2 to 3 days he has a hard time passing bowel movement and due to that his hemorrhoids are acting up. Patient takes narcotics for his back pain and recently patient is on low carbohydrate diet for weight loss. Timing/Duration: yesterday Severity: moderate Associated Symptoms: denies symptoms Allergies/Adverse Reactions: No Known Drug Allergies Allergy (Verified 08/08/20 02:33) Home Medications: Omeprazole Magnesium [Prilosec Otc] 40 mg PO DAILY 08/26/19 [History] Oxycodone HCl/Acetaminophen [Percocet 10-325 mg Tablet] 1 each PO TID 01/05/20 [History] Telmisartan/Hydrochlorothiazid [Telmisartan-Hctz 80-25 mg Tab] 1 each PO DAILY 01/05/20 [History] Cyclobenzaprine HCl 10 mg [Cyclobenzaprine 10 MG] 10 mg PO DAILY 08/08/20 [History] Duloxetine HCl 60 mg PO DAILY 08/08/20 [History] Hx Tetanus, Diphtheria Vaccination/Date Given: No Hx Influenza Vaccination/Date Given: No Hx Pneumococcal Vaccination/Date Given: No Immunizations Up to Date: Yes Travel Risk - International Travel Have you traveled outside of the country in past 3 weeks: No - Coronavirus Screening Are you exhibiting any of the following symptoms?: No Close contact with a COVID-19 positive Pt in past 14-21 Days: No - Review of Systems Constitutional: No Fever, No Chills Eyes: No Symptoms Ears, Nose, & Throat: No Symptoms Respiratory: No Cough, No Dyspnea Cardiac: No Chest Pain, No Edema, No Syncope Abdominal/Gastrointestinal: Constipation, No Abdominal Pain, No Nausea, No Vomiting, No Diarrhea Genitourinary Symptoms: No Dysuria Musculoskeletal: No Back Pain, No Neck Pain Skin: No Rash Neurological: No Dizziness, No Focal Weakness, No Sensory Changes Psychological: No Symptoms Endocrine: No Symptoms All Other Systems: Reviewed and Negative - Past Medical History Pertinent Past Medical History: Yes Neurological History: No Pertinent History ENT History: No Pertinent History Cardiac History: Hypertension Respiratory History: Bronchitis, Pneumonia Endocrine Medical History: No Pertinent History Musculoskeletal History: No Pertinent History GI Medical History: GERD, Hernia History: Renal Disease Psycho-Social History: No Pertinent History Male Reproductive Disorders: No Pertinent History Other Medical History: arf 1yr ago. blood clot LUE. - Past Surgical History Past Surgical History: Yes Neuro Surgical History: No Pertinent History Cardiac: No Pertinent History Respiratory: No Pertinent History Gastrointestinal: No Pertinent History Genitourinary: No Pertinent History Musculoskeletal: Other Male Surgical History: No Pertinent History Other Surgical History: rotator cuff surgery, hernia - Social History Smoking Status: Current every day smoker How long have you smoked: 35 years Exposure to second hand smoke: Yes Alcohol Use: Socially Drug Use: none Patient Lives Alone: Yes Significant Family History: heart disease, hypertension - Nursing Vital Signs Nursing Vital Signs: Initial Vital Signs Temperature 98.0 F 08/08/20 02:10 Pulse Rate 102 H 08/08/20 02:10 Respiratory Rate 18 08/08/20 02:10 Blood Pressure 162/105 08/08/20 02:10 O2 Sat by Pulse Oximetry 98 08/08/20 02:10 Pain Scale Pain Intensity 8 - Physical Exam General Appearance: no apparent distress, alert Eye Exam: PERRL/EOMI, eyes nml inspection Ears, Nose, Throat Exam: normal ENT inspection, TMs normal, pharynx normal, moist mucous membranes Neck Exam: normal inspection, non-tender, supple, full range of motion Respiratory Exam: normal breath sounds, lungs clear, No respiratory distress Cardiovascular Exam: regular rate/rhythm, normal heart sounds, normal peripheral pulses Gastrointestinal/Abdomen Exam: soft, normal bowel sounds, No tenderness, No mass Back Exam: normal inspection, normal range of motion, No CVA tenderness, No vertebral tenderness Extremity Exam: normal inspection, normal range of motion, pelvis stable Neurologic Exam: alert, oriented x 3, cooperative, normal mood/affect, nml cerebellar function, nml station & gait, sensation nml, No motor deficits Skin Exam: normal color, warm, dry, No rash Lymphatic Exam: No adenopathy SpO2: 98 - Course Nursing assessment & vital signs reviewed: Yes - Radiology Exams Abdomen X-ray Interpretation: Reviewed by me Ordered Tests: Medication Summary Discontinued Medications Generic Name Dose Route Start Last Admin Trade Name Freq PRN Reason Stop Dose Admin Bisacodyl 10 mg 08/08/20 02:36 08/08/20 02:47 Dulcolax 10 Mg Supp OH 08/08/20 02:37 10 mg STAT ONE Administration Magnesium Citrate 150 ml 08/08/20 02:32 08/08/20 02:41 Citroma 296 Ml PO 08/08/20 02:33 150 ml 1XONLY ONE Administration Magnesium Citrate Confirm 08/08/20 02:40 Citroma 296 Ml Administered 08/08/20 02:41 Dose 296 ml .ROUTE .STK-MED ONE - Progress Progress: improved Progress Note: 08/08/20 03:58 Patient has Large bowel movement. Patient is feeling little bit better. Counseled pt/family regarding: diagnosis, need for follow-up - Departure Departure Disposition: Home Clinical Impression: Constipation due to opioid therapy Condition: Stable Critical Care Time: No Referrals: JUWAN BENTON [Primary Care Provider] - Instructions: Constipation, Adult (DC) Additional Instructions: Discharge/Care Plan WIL RAYMOND was seen on 08/08/20 in the Emergency Room. The patient was counseled regarding Diagnosis,Lab results, Imaging studies, need for follow up and when to return to the Emergency Room. Prescriptions given: Discharge Note I have spoken with the patient and/or caregivers. I have explained the patient's condition, diagnosis and treatment plan based on the information available to me at this time. I have answered the patient's and/or caregiver's questions and addressed any concerns. The patient and/or caregivers have as good understanding of the patient's diagnosis, condition and treatment plan as can be expected at this point. The vital signs have been stable. The patient's condition is stable and appropriate for discharge from the emergency department. The patient will pursue further outpatient evaluation with the primary care physician or other designated or consulting physician as outlined in the discharge instructions. The patient and/or caregivers are agreeable to this plan of care and follow-up instructions have been explained in detail. The patient and/or caregivers have received these instruction. The patient/and or caregivers are aware that any significant change in condition or worsening of symptoms should prompt an immediate return to this or the closest emergency department or call 911. Prescriptions: Bisacodyl 10 mg [Dulcolax 10 MG SUPP] 10 mg RC HS PRN PRN #10 supp.rect PRN Reason: Constipation
[2020-08-08] MEDS ORDERED: CITROMA 296 ML ONE (02:40)
[2020-08-08 03:54] VITALS: PULSE 91
[2020-08-08 04:11] VITALS: BP 155/90
== END 2020-08-08 04:11 | disposition home or self-care (01) ==
LOC: ED 01:56
DX: K59.03 Drug induced constipation (principal); T40.605A Adverse effect of unspecified narcotics, initial encounter
CPT/HCPCS: 99283; A9270-GY

== ENCOUNTER 2020-08-09 20:19 | Emergency (ER) | payer OTHER ==
--- NOTE | 2020-08-09 21:00 | ERPHSYRPT ---
- History of Present Illness Historian: patient Patient Subjective Stated Complaint: pt states "I'm having bowel issues. I have knots on my rectum." pt states "I felt sarah when I went to the bathroom." Triage Nursing Assessment: pt ambulated into the er; pt is axo x4; c/o lump on rectum; states 8/10 pain to rectum; excoriation to periarea; small hemorhhoid present on external rectum; bowel sounds active in all quads; abd is soft, obese, round; clear lung sounds in all lobes; clear heart tone; c/o clear brown liquid diarrhea; hypertensive; tachycardic Physician History: 50 yo wm seen in ER 2 days for constipation presents w rectal pain x 4-5 day. Pt has had diarrhea since taking magcitrate. He denies abdominal pain/melena/hematochezia/fever/dysuria/hematuria/cough/coryza/trauma. Timing/Duration: other (5-6 days) Activities at Onset: none Quality: burning Abdominal Pain Onset Location: periumbilical (Rectal) Pain Radiation: no radiation Severity of Pain-Max: moderate Severity of Pain-Current: moderate Modifying Factors: Improves With: other (bowel movements) Associated Symptoms: diarrhea, No back, No chest pain, No diaphoresis, No fever/chills, No fatigue, No headache, No heartburn, No loss of appetite, No nausea, No neck pain, No rash, No shortness of breath, No syncope, No vomiting, No weakness Previous symptoms: no prior history Allergies/Adverse Reactions: No Known Drug Allergies Allergy (Verified 08/09/20 20:27) Home Medications: Omeprazole Magnesium [Prilosec Otc] 40 mg PO DAILY 08/26/19 [History] Oxycodone HCl/Acetaminophen [Percocet 10-325 mg Tablet] 1 each PO TID 01/05/20 [History] Telmisartan/Hydrochlorothiazid [Telmisartan-Hctz 80-25 mg Tab] 1 each PO DAILY 01/05/20 [History] Cyclobenzaprine HCl 10 mg [Cyclobenzaprine 10 MG] 10 mg PO DAILY 08/08/20 [History] Duloxetine HCl 60 mg PO DAILY 08/08/20 [History] Hx Tetanus, Diphtheria Vaccination/Date Given: No Hx Influenza Vaccination/Date Given: No Hx Pneumococcal Vaccination/Date Given: No Travel Risk - International Travel Have you traveled outside of the country in past 3 weeks: No - Coronavirus Screening Are you exhibiting any of the following symptoms?: No Close contact with a COVID-19 positive Pt in past 14-21 Days: No - Review of Systems Constitutional: No Symptoms Eyes: No Symptoms Ears, Nose, & Throat: No Symptoms Respiratory: No Symptoms Cardiac: No Symptoms Abdominal/Gastrointestinal: Diarrhea Genitourinary Symptoms: No Symptoms Musculoskeletal: No Symptoms Skin: No Symptoms Neurological: No Symptoms Psychological: No Symptoms Endocrine: No Symptoms Hematologic/Lymphatic: No Symptoms Immunological/Allergic: No Symptoms - Past Medical History Pertinent Past Medical History: Yes Neurological History: No Pertinent History ENT History: No Pertinent History Cardiac History: Hypertension Respiratory History: Bronchitis, Pneumonia Endocrine Medical History: No Pertinent History Musculoskeletal History: No Pertinent History GI Medical History: GERD, Hernia History: Renal Disease Psycho-Social History: No Pertinent History Male Reproductive Disorders: No Pertinent History Other Medical History: arf 1yr ago. blood clot LUE. - Past Surgical History Past Surgical History: Yes Neuro Surgical History: No Pertinent History Cardiac: No Pertinent History Respiratory: No Pertinent History Gastrointestinal: No Pertinent History Genitourinary: No Pertinent History Musculoskeletal: Other Male Surgical History: No Pertinent History Other Surgical History: rotator cuff surgery, hernia - Social History Smoking Status: Current every day smoker How long have you smoked: 35 years Exposure to second hand smoke: Yes Alcohol Use: Socially Drug Use: none Patient Lives Alone: Yes Significant Family History: heart disease, hypertension - Nursing Vital Signs Nursing Vital Signs: Initial Vital Signs Temperature 98.3 F 08/09/20 20:28 Pulse Rate 115 H 08/09/20 20:28 Respiratory Rate 18 08/09/20 20:28 Blood Pressure 166/105 08/09/20 20:28 O2 Sat by Pulse Oximetry 98 08/09/20 20:28 Pain Scale Pain Intensity 6 - Physical Exam General Appearance: no apparent distress Eye Exam: PERRL/EOMI, eyes nml inspection, No photophobia Ears, Nose, Throat Exam: normal ENT inspection, TMs normal, pharynx normal, moist mucous membranes Neck Exam: normal inspection, non-tender, supple, full range of motion, No meningismus, No mass, No Brudzinski, No Kernig's Respiratory Exam: normal breath sounds, lungs clear, airway intact Cardiovascular Exam: regular rate/rhythm, normal heart sounds, normal peripheral pulses, No murmur Gastrointestinal/Abdomen Exam: soft, other (obese) Rectal Exam: hemorrhoids (1 internal/1 external/no gross hematochezia/excoriation) Back Exam: normal inspection Extremity Exam: normal inspection, normal range of motion Neurologic Exam: alert, oriented x 3, cooperative, 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, normal mood/affect, sensation nml, No motor deficits, No sensory deficit Skin Exam: normal color, warm, dry, No rash Lymphatic Exam: No adenopathy SpO2 Interpretation: normal SpO2: 98 O2 Delivery: Room Air - Course Nursing assessment & vital signs reviewed: Yes - CT Exams Abdomen/Pelvis CT Interpretation: Discussed w/radiologist ([id number]/Nothing acute) Ordered Tests: Active Orders 24 hr Category Date Time Status ABDOMEN AND PELVIS W/0 CONTRAS [CT] Stat Exams 08/09/20 20:49 Taken Medication Summary Discontinued Medications Generic Name Dose Route Start Last Admin Trade Name Tana PRN Reason Stop Dose Admin Ketorolac Tromethamine 60 mg 08/09/20 21:26 08/09/20 21:33 Toradol 30 Mg Injection IM 08/09/20 21:27 60 mg STAT ONE Administration Ketorolac Tromethamine Confirm 08/09/20 21:29 Toradol 30 Mg Injection Administered 08/09/20 21:30 Dose 60 mg .ROUTE .STK-MED ONE - Progress Progress Note: 08/09/20 21:48 Pain improved w 60mg IM Toradol Counseled pt/family regarding: need for follow-up, rad results - Departure Departure Disposition: Home Clinical Impression: Rectal or anal pain Condition: Stable Critical Care Time: No Referrals: JUWAN BENTON [Primary Care Provider] - Instructions: Hemorrhoids (DC) Additional Instructions: Protofoam as needed for pain. Avoid using laxatives Return to ER for increasing pain or temperature greater than 100.5 If pain continues or if you have blood in stool, you will need a colonoscopy. Prescriptions: Pramoxine HCl [Proctofoam] 15 gm TP Q4HPRN PRN #1 foam PRN Reason: Rectal pain
[2020-08-09] MEDS ORDERED: TORAdol 30 mg Injection IM ONE (21:26)
[2020-08-09] MEDS ORDERED: TORAdol 30 mg Injection ONE (21:29)
[2020-08-09 22:04] VITALS: BP 108/68; PULSE 108
[2020-08-09 22:16] VITALS: O2SAT 98
--- NOTE | 2020-08-10 08:47 | XRAY ---
Indication: Rectal pain. History of hemorrhoids. Multiple contiguous axial images obtained through the abdomen and pelvis without contrast as ordered. Comparison: June 27, 2019. Lung bases remain clear. Heart is not enlarged. Noncontrasted stomach and bowel loops remain nonobstructed with no significant colonic fecal debris. Normal appearing appendix. No free fluid/air. Stable 24 cm fatty hepatomegaly and 1 cm left renal exophytic cyst. Remaining liver, gallbladder, pancreas, spleen, adrenal glands, kidneys, ureters, and bladder are unremarkable for noncontrast exam. Stable mild aortoiliac calcifications without AAA. Osseous structures intact again with mild/moderate degenerative changes throughout the thoracolumbar spine. Stable bilateral L5 spondylolysis with minimal grade 1 spondylolisthesis. Stable intact ventral hernia mesh graft. Impression: 1. Stable fatty hepatomegaly, left renal cyst, multilevel degenerative spondylosis, and L5 spondylolysis with grade [address] abdomen/pelvis without contrast exam is negative.
== END 2020-08-09 22:05 | disposition home or self-care (01) ==
LOC: ED 20:19
DX: K62.89 Other specified diseases of anus and rectum (principal); R19.7 Diarrhea, unspecified; I10 Essential (primary) hypertension; Z79.899 Other long term (current) drug therapy
CPT/HCPCS: 74176; 96372; 99284; J1885

== ENCOUNTER 2020-09-09 13:36 | Emergency (ER) | payer OTHER ==
[2020-09-09] MEDS ORDERED: Sodium Chloride 0.9% 1000 ML 1,000 ML IV STA (14:55)
[2020-09-09] MEDS ORDERED: MORPHINE SULFATE 4 MG INJ IV ONE (14:55)
[2020-09-09] MEDS ORDERED: Zofran 4 MG/2 ML VIAL IV ONE (14:55)
--- NOTE | 2020-09-09 14:58 | ERPHSYRPT ---
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 Triage Nursing Assessment: pt arrives p/w/d resp easy a@ox3 pt has redness and irritation noted to buttock kd and a hard nodule noted to deep inner left buttocks and rectum pt dose have clear drainage noted and leaking loose stool Physician History: 49 years old male presented in the ER with chief complaint of left perianal area swelling gradually increasing for the last 1 month associated with moderate to severe sharp pain which is way more worse than before since yesterday. Also report having some discharge since yesterday. No fever but has chills. Denies any history of perianal abscess in the past. Timing/Duration: week(s) (4), gradual onset, worse Severity: moderate Modifying Factors: Improves With: immobilization, rest, ibuprofen. Worsens With: movement Associated Symptoms: chills Allergies/Adverse Reactions: No Known Drug Allergies Allergy (Verified 08/09/20 20:27) Home Medications: Omeprazole Magnesium [Prilosec Otc] 40 mg PO DAILY 08/26/19 [History] Oxycodone HCl/Acetaminophen [Percocet 10-325 mg Tablet] 1 each PO TID 01/05/20 [History] Telmisartan/Hydrochlorothiazid [Telmisartan-Hctz 80-25 mg Tab] 1 each PO DAILY 0 01/05/20 [History] Cyclobenzaprine HCl 10 mg [Cyclobenzaprine 10 MG] 10 mg PO DAILY 08/08/20 [History] Duloxetine HCl 60 mg PO DAILY 08/08/20 [History] Hx Tetanus, Diphtheria Vaccination/Date Given: No Hx Influenza Vaccination/Date Given: No Hx Pneumococcal Vaccination/Date Given: No Travel Risk - International Travel Have you traveled outside of the country in past 3 weeks: No - Coronavirus Screening Are you exhibiting any of the following symptoms?: No Close contact with a COVID-19 positive Pt in past 14-21 Days: No - Review of Systems Constitutional: Chills Eyes: No Symptoms Ears, Nose, & Throat: No Symptoms Respiratory: No Symptoms Cardiac: No Symptoms Abdominal/Gastrointestinal: No Symptoms Genitourinary Symptoms: No Symptoms Musculoskeletal: No Symptoms Skin: Cellulitis, Induration Neurological: No Symptoms Psychological: No Symptoms Endocrine: No Symptoms Hematologic/Lymphatic: No Symptoms Immunological/Allergic: No Symptoms - Past Medical History Pertinent Past Medical History: Yes Neurological History: No Pertinent History ENT History: No Pertinent History Cardiac History: Hypertension Respiratory History: Bronchitis, Pneumonia Endocrine Medical History: No Pertinent History Musculoskeletal History: No Pertinent History GI Medical History: GERD, Hernia History: Renal Disease Psycho-Social History: No Pertinent History Male Reproductive Disorders: No Pertinent History Other Medical History: arf 1yr ago. blood clot LUE. - Past Surgical History Past Surgical History: Yes Neuro Surgical History: No Pertinent History Cardiac: No Pertinent History Respiratory: No Pertinent History Gastrointestinal: No Pertinent History Genitourinary: No Pertinent History Musculoskeletal: Other Male Surgical History: No Pertinent History Other Surgical History: rotator cuff surgery, hernia - Social History Smoking Status: Current every day smoker How long have you smoked: 35 years Exposure to second hand smoke: Yes Alcohol Use: Socially Drug Use: none Patient Lives Alone: Yes Significant Family History: heart disease, hypertension - Nursing Vital Signs Nursing Vital Signs: Initial Vital Signs Temperature 98.9 F 09/09/20 14:04 Pulse Rate 114 H 09/09/20 14:04 Respiratory Rate 16 09/09/20 14:04 Blood Pressure 189/101 09/09/20 14:04 O2 Sat by Pulse Oximetry 96 09/09/20 14:04 Pain Scale Pain Intensity 3 - Physical Exam General Appearance: no apparent distress Ears, Nose, Throat Exam: normal ENT inspection Neck Exam: normal inspection, supple Respiratory Exam: normal breath sounds, lungs clear Cardiovascular Exam: normal heart sounds, tachycardia Gastrointestinal/Abdomen Exam: soft, normal bowel sounds Rectal Exam: other (Left buttock/perirectal area 4.4 cm area swelling with induration, warm and tender to touch. Firm consistency. Negative fluctuation.) Extremity Exam: normal inspection, normal range of motion Neurologic Exam: alert, oriented x 3, cooperative Skin Exam: normal color SpO2 Interpretation: normal SpO2: 96 O2 Delivery: Room Air Ordered Tests: Active Orders 24 hr Category Date Time Status PELVIS WITH CONTRAST [CT] Stat Exams 09/09/20 14:56 Completed BLOOD CULTURE Stat Lab 09/09/20 15:15 Received CBC W DIFF Stat Lab 09/09/20 15:05 Completed CMP Stat Lab 09/09/20 15:05 Completed Lactic Acid Stat Lab 09/09/20 14:55 Completed Medication Summary Discontinued Medications Generic Name Dose Route Start Last Admin Trade Name Tana PRN Reason Stop Dose Admin Sodium Chloride 1,000 mls @ 999 mls/hr 09/09/20 14:55 09/09/20 17:10 Sodium Chloride 0.9% 1000 Ml IV 09/09/20 15:55 Infused .Q1H1M STA Infusion Sodium Chloride Confirm 09/09/20 15:52 Sodium Chloride 0.9% 1000 Ml Administered 09/09/20 15:53 Dose 1,000 mls @ ud .ROUTE .STK-MED ONE Clindamycin HCl/Dextrose 900 mg in 50 mls @ 100 mls/hr 09/09/20 16:34 08/18 01/04 16:43 Clindamycin-D5w 900 Mg/50 Ml IV 09/09/20 17:03 Not Given STAT STA Clindamycin HCl/Dextrose Confirm 09/09/20 16:53 Clindamycin-D5w 900 Mg/50 Ml Administered 09/09/20 16:54 Dose 900 mg in 50 mls @ ud IV .STK-MED ONE Levofloxacin 250 mg 09/09/20 16:46 09/09/20 16:54 Levofloxacin 250mg Tablet PO 09/09/20 16:47 250 mg STAT ONE Administration Levofloxacin Confirm 09/09/20 16:52 Levofloxacin 250mg Tablet Administered 09/09/20 16:53 Dose 250 mg .ROUTE .STK-MED ONE Metronidazole 500 mg 09/09/20 16:46 09/09/20 16:54 Flagyl 500 Mg PO 09/09/20 16:47 500 mg STAT ONE Administration Metronidazole Confirm 09/09/20 16:52 Flagyl 500 Mg Administered 09/09/20 16:53 Dose 500 mg .ROUTE .STK-MED ONE Morphine Sulfate 4 mg 09/09/20 14:55 09/09/20 16:02 Morphine Sulfate 4 Mg Inj IV 09/09/20 14:56 4 mg STAT ONE Administration Morphine Sulfate Confirm 09/09/20 15:52 Morphine Sulfate 4 Mg Inj Administered 09/09/20 15:53 Dose 4 mg .ROUTE .STK-MED ONE Ondansetron HCl 4 mg 09/09/20 14:55 09/09/20 16:05 Zofran 4 Mg/2 Ml Vial IV 09/09/20 14:56 4 mg STAT ONE Administration Ondansetron HCl Confirm 09/09/20 15:52 Zofran 4 Mg/2 Ml Vial Administered 09/09/20 15:53 Dose 4 mg .ROUTE .STK-MED ONE Lab/Rad Data: Laboratory Result Diagrams 09/09/20 15:05 09/09/20 15:05 Laboratory Results 09/09/20 09/09/20 09/09/20 Range/Units 15:05 15:05 14:55 WBC 11.9 H (4.0-10.5) K/mm3 RBC 4.55 (4.1-5.6) M/mm3 Hgb 13.5 (12.5-18.0) gm/dl Hct 42.8 (42-50) % MCV 94.1 (78-100) fl MCH 29.7 (26-32) pg MCHC 31.5 L (32-36) g/dl RDW 14.3 H (11.5-14.0) % Plt Count 197 (150-450) K/mm3 MPV 11.5 H (7.5-11.0) fl Gran % 66.7 H (36.0-66.0) % Eos # (Auto) 0.21 (0-0.5) Absolute Lymphs (auto) 2.65 (1.0-4.6) Absolute Monos (auto) 1.07 (0.0-1.3) Lymphocytes % 22.3 L (24.0-44.0) % Monocytes % 9.0 (0.0-12.0) % Eosinophils % 1.8 (0.00-5.0) % Basophils % 0.2 (0.0-0.4) % Absolute Granulocytes 7.95 H (1.4-6.9) Basophils # 0.02 (0-0.4) Sodium 135 L (137-145) mmol/L Potassium 4.1 (3.5-5.1) mmol/L Chloride 104 (98-107) mmol/L Carbon Dioxide 26 (22-30) mmol/L Anion Gap 9.5 (5-15) MEQ/L BUN 15 (9-20) mg/dL Creatinine 0.90 (0.66-1.25) mg/dL Estimated GFR > 60.0 ML/MIN Glucose 99 (74-106) mg/dL Lactic Acid 0.7 (0.4-2.0) Calcium 9.8 (8.4-10.2) mg/dL Total Bilirubin 0.50 (0.2-1.3) mg/dL AST 18 (17-59) U/L ALT 21 (0-50) U/L Alkaline Phosphatase 93 (38-126) U/L Serum Total Protein 7.3 (6.3-8.2) g/dL Albumin 4.1 (3.5-5.0) g/dL - Progress Progress: improved, pain not gone completely Progress Note: 09/09/20 16:48 49 years old is evaluated for left perirectal swelling. Is given pain medication and IV fluids, on reevaluation pain is much better. Has normal white count and lactate. Grossly unremarkable chemistries. I have obtained CT pelvis with contrast which ruled out abscess/foreign years but does have some cellulitis. I have offered observation admission with IV antibiotics and surgical consultation if needed but patient does not want to stay at all. He wants to go home and would come back in case of worsening. I have given him oral Levaquin and Flagyl and will continue to go home. Discussed signs symptoms of worsening needing return to ER which he seems understanding. Counseled pt/family regarding: lab results, diagnosis, need for follow-up, rad results - Departure Departure Disposition: Home Clinical Impression: Perirectal cellulitis Condition: Stable Critical Care Time: No Referrals: JUWAN BENTON [Primary Care Provider] - Follow Up with PCP/3 days JUAN ALARCON MD [ASSOCIATE STAFF] - (In 3 days for reevaluation) Instructions: Wound Infection Additional Instructions: Pain medications as needed. Apply warm compresses. Follow-up with primary care/general surgery for reevaluation. Return to ER for increasing pain swelling redness, discharge or if develop fever chills/vomiting etc. Prescriptions: Ciprofloxacin [Cipro 500 MG] 500 mg PO BID #14 tablet Metronidazole 500 mg [Flagyl 500 MG] 500 mg PO TID #21 tablet Hydrocodone/Acetaminophen [[place] 7.5-325 Tablet] 1 each PO Q4-6HPRN PRN 3 Days #12 tablet MDD 4 PRN Reason: Pain
[2020-09-09 15:27] LABS: Absolute Neutrophil Ct (ANC) 7.95 (1.4-6.9); BASOPHIL % 0.2 % (0.0-0.4); Basophil (Absolute #) 0.02 (0-0.4); Eosinophil % 1.8 % (0.00-5.0); Eosinophil (Absolute #) 0.21 (0-0.5); Hematocrit 42.8 % (42-50); Hemoglobin 13.5 gm/dl (12.5-18.0); Lymphocyte (Absolute #) 2.65 (1.0-4.6); Lymphocytes % 22.3 % (24.0-44.0); Mean Cell Volume 94.1 fl (78-100); Mean Corpuscular Hemoglobin 29.7 pg (26-32); Mean Corpuscular Hgb Concent. 31.5 g/dl (32-36); Mean Platelet Volume 11.5 fl (7.5-11.0); Monocyte (Absolute #) 1.07 (0.0-1.3); Neutrophil % 66.7 % (36.0-66.0); Platelet Count 197 K/mm3 (150-450); Red Blood Count 4.55 M/mm3 (4.1-5.6); Red Cell Distribution Width 14.3 % (11.5-14.0); White Blood Count 11.9 K/mm3 (4.0-10.5)
[2020-09-09 15:33] LABS: ALBUMIN 4.1 g/dL (3.5-5.0); ALKALINE PHOSPHATASE 93 U/L (38-126); ANION GAP 9.5 MEQ/L (5-15); BLOOD UREA NITROGEN 15 mg/dL (9-20); CHLORIDE 104 mmol/L (98-107); Calcium 9.8 mg/dL (8.4-10.2); Carbon Dioxide 26 mmol/L (22-30); EST GLOMERULAR FILTRATION RATE > 60.0 ML/MIN; Glucose 99 mg/dL (74-106); Potassium 4.1 mmol/L (3.5-5.1); SGOT/AST 18 U/L (17-59); SGPT/ALT 21 U/L (0-50); SODIUM 135 mmol/L (137-145); Total Protein 7.3 g/dL (6.3-8.2)
[2020-09-09] MEDS ORDERED: MORPHINE SULFATE 4 MG INJ ONE (15:52)
[2020-09-09] MEDS ORDERED: Sodium Chloride 0.9% 1000 ML 1,000 ML ONE (15:52)
[2020-09-09] MEDS ORDERED: Zofran 4 MG/2 ML VIAL ONE (15:52)
--- NOTE | 2020-09-09 16:20 | XRAY ---
Indication: Left buttock/perirectal abscess. Multiple contiguous axial images obtained through the pelvis only using 100 cc Isovue 370 contrast. Comparison: August 09, 2020. Left buttock/left perirectum demonstrates new cutaneous/subcutaneous induration measuring at least 3.3 x 2.0 x 6.3 cm with a few tiny subcutaneous air bubbles favoring cellulitis. No walled off fluid collection/abscess. Visualized bowel loops, distal ureters, and urinary bladder are unremarkable. There remains mild aortoiliac calcifications. No pathologic pelvic/inguinal lymphadenopathy. Visualized osseous structures intact with stable L5 spondylolysis and minimal grade 1 spondylolisthesis. Again partially visualized ventral hernia mesh graft. Impression: 1. New medial left buttock/left perirectal cellulitis. Negative abscess. 2. Stable L5 spondylolysis with grade 1 spondylolisthesis.
[2020-09-09 16:22] VITALS: BP 175/99
[2020-09-09] MEDS ORDERED: CLINDAMYCIN-D5W 900 MG/50 ML*** 900 MG/50 ML BAG IV STA (16:34)
[2020-09-09] MEDS ORDERED: Levofloxacin 250MG Tablet PO ONE (16:46)
[2020-09-09] MEDS ORDERED: Flagyl 500 MG PO ONE (16:46)
[2020-09-09] MEDS ORDERED: Levofloxacin 250MG Tablet ONE (16:52)
[2020-09-09] MEDS ORDERED: Flagyl 500 MG ONE (16:52)
[2020-09-09] MEDS ORDERED: CLINDAMYCIN-D5W 900 MG/50 ML*** 0 MG/0 ML BAG IV ONE (16:53)
[2020-09-09 17:08] VITALS: PULSE 95; O2SAT 96
== END 2020-09-09 17:29 | disposition home or self-care (01) ==
LOC: ED 13:36
DX: K61.1 Rectal abscess (principal); Z79.891 Long term (current) use of opiate analgesic; Z79.899 Other long term (current) drug therapy; I10 Essential (primary) hypertension
CPT/HCPCS: 36415; 72193; 80053; 83605; 85025; 87040; 96374; 96375; 99284; J2270; J2405; A9270-GY

== ENCOUNTER 2021-01-24 20:43 | Emergency (ER) | payer OTHER ==
[2021-01-24 21:27] LABS: BASOPHIL % 0.1 % (0.0-0.4); Basophil (Absolute #) 0.01 (0-0.4); Eosinophil % 3.1 % (0.00-5.0); Eosinophil (Absolute #) 0.27 (0-0.5); Hematocrit 48.4 % (42-50); Hemoglobin 15.6 gm/dl (12.5-18.0); Lymphocyte (Absolute #) 3.19 (1.0-4.6); Lymphocytes % 36.6 % (24.0-44.0); Mean Corpuscular Hemoglobin 30.3 pg (26-32); Mean Corpuscular Hgb Concent. 32.2 g/dl (32-36); Mean Platelet Volume 11.6 fl (7.5-11.0); Monocyte (Absolute #) 0.65 (0.0-1.3); Monocytes % 7.5 % (0.0-12.0); Neutrophil % 52.7 % (36.0-66.0); Platelet Count 213 K/mm3 (150-450); Red Blood Count 5.15 M/mm3 (4.1-5.6); Red Cell Distribution Width 13.5 % (11.5-14.0); White Blood Count 8.7 K/mm3 (4.0-10.5)
[2021-01-24 21:41] LABS: Appearance CLEAR (CLEAR); Bilirubin NEGATIVE (NEGATIVE); Blood NEGATIVE Ery/ul (0-5); Epithelial Cells RARE /HPF (FEW); Glucose NEGATIVE (NEGATIVE); Ketones NEGATIVE (NEGATIVE); Leukocyte Esterase NEGATIVE (NEGATIVE); Nitrite NEGATIVE (NEGATIVE); Protein,Urine Dip NEGATIVE (Negative); Specific Gravity 1.018 (1.005-1.025); Urobilinogen NEGATIVE mg/dL (0-1)
[2021-01-24 21:48] LABS: ALBUMIN 4.6 g/dL (3.5-5.0); ALKALINE PHOSPHATASE 95 U/L (38-126); ANION GAP 13.6 MEQ/L (5-15); BLOOD UREA NITROGEN 24 mg/dL (9-20); CHLORIDE 102 mmol/L (98-107); Calcium 9.7 mg/dL (8.4-10.2); Carbon Dioxide 25 mmol/L (22-30); Creatinine 1 0.96 mg/dL (0.66-1.25); EST GLOMERULAR FILTRATION RATE > 60.0 ML/MIN; Glucose 103 mg/dL (74-106); MAGNESIUM 2.2 mg/dL (1.6-2.3); NT PRO BNP 19.9 pg/mL (0-450); Potassium 4.1 mmol/L (3.5-5.1); SGOT/AST 38 U/L (17-59); SGPT/ALT 44 U/L (0-50); SODIUM 136 mmol/L (137-145); Total Protein 7.5 g/dL (6.3-8.2)
--- NOTE | 2021-01-24 22:01 | ERPHSYRPT ---
- History of Present Illness Time Seen by Provider: 01/24/21 21:10 Source: patient Exam Limitations: no limitations Patient Subjective Stated Complaint: Patient states " I have been having alot more swelling in my lower legs in the last 3-4 days and I went to my Pain clinic Appt and the MD told me with my HX I should go get checked out." Triage Nursing Assessment: Patient arrived to ED and ambulated to room without difficulty. Patient A/O times 4. Patient able to answer questions appropriatly. Patient follows directions without difficuly. Physician History: Patient is a 50-year-old male presents to our ED as a referral from his pain specialist. Patient called his pain specialist and advised him that patient has been cramping pain in his calves experiencing swelling of his legs. Patient states he has a history of renal insufficiency. Patient also has a history of congestive heart failure. In light of the significant past medical history patient was advised to come to our ED. Patient is otherwise well. No chest pain. No shortness of breath. No nausea vomiting or diaphoresis. Symptoms are mild to moderate in intensity. No specific worsening or improving factors. Patient voices no other complaints or concerns at this time. Timing/Duration: today Severity: moderate Modifying Factors: Improves With: nothing Associated Symptoms: denies symptoms Allergies/Adverse Reactions: No Known Drug Allergies Allergy (Verified 01/24/21 20:57) Home Medications: Omeprazole Magnesium [Prilosec Otc] 40 mg PO DAILY 08/26/19 [History] Telmisartan/Hydrochlorothiazid [Telmisartan-Hctz 80-25 mg Tab] 1 each PO DAILY 01/05/20 [History] Cyclobenzaprine HCl 10 mg [Cyclobenzaprine 10 MG] 10 mg PO DAILY 08/08/20 [History] Duloxetine HCl 60 mg PO DAILY 08/08/20 [History] Morphine Sulfate Cr 15 mg [Ms Contin 15 MG] 15 mg PO QID 01/24/21 [Histor y] Hx Tetanus, Diphtheria Vaccination/Date Given: No Hx Influenza Vaccination/Date Given: No Hx Pneumococcal Vaccination/Date Given: No Immunizations Up to Date: Yes Travel Risk - International Travel Have you traveled outside of the country in past 3 weeks: No - Coronavirus Screening Are you exhibiting any of the following symptoms?: No Close contact with a COVID-19 positive Pt in past 14-21 Days: No - Vaccine Status Have you recieved a Covid-19 vaccination: No - Review of Systems Constitutional: No Symptoms, No Fever, No Chills Eyes: No Symptoms Ears, Nose, & Throat: No Symptoms Respiratory: No Symptoms, No Cough, No Dyspnea Cardiac: No Symptoms, No Chest Pain, No Edema, No Syncope Abdominal/Gastrointestinal: No Symptoms, No Abdominal Pain, No Nausea, No Vomiting, No Diarrhea Genitourinary Symptoms: No Symptoms, No Dysuria Musculoskeletal: No Symptoms, No Back Pain, No Neck Pain Skin: No Symptoms, No Rash Neurological: No Symptoms, No Dizziness, No Focal Weakness, No Sensory Changes Psychological: No Symptoms Endocrine: No Symptoms Hematologic/Lymphatic: No Symptoms Immunological/Allergic: No Symptoms All Other Systems: Reviewed and Negative - Past Medical History Pertinent Past Medical History: Yes Neurological History: No Pertinent History ENT History: No Pertinent History Cardiac History: Hypertension Respiratory History: Bronchitis, Pneumonia Endocrine Medical History: No Pertinent History Musculoskeletal History: No Pertinent History GI Medical History: GERD, Hernia History: Renal Disease Psycho-Social History: No Pertinent History Male Reproductive Disorders: No Pertinent History Other Medical History: HX Blood Clot LUE. - Past Surgical History Past Surgical History: Yes Neuro Surgical History: No Pertinent History Cardiac: No Pertinent History Respiratory: No Pertinent History Gastrointestinal: No Pertinent History Genitourinary: No Pertinent History Musculoskeletal: Other Male Surgical History: No Pertinent History Other Surgical History: HX Rotator Cuff Surgery, HX Hernia - Social History Smoking Status: Current every day smoker How long have you smoked: 36 years Exposure to second hand smoke: Yes Alcohol Use: Socially Drug Use: none Patient Lives Alone: Yes Significant Family History: heart disease, hypertension - Nursing Vital Signs Nursing Vital Signs: Initial Vital Signs Temperature 98.2 F 01/24/21 21:02 Pulse Rate 100 H 01/24/21 21:02 Respiratory Rate 22 01/24/21 21:02 Blood Pressure 169/110 01/24/21 21:02 O2 Sat by Pulse Oximetry 96 01/24/21 21:02 Pain Scale Pain Intensity 6 - Physical Exam General Appearance: no apparent distress, alert Eye Exam: PERRL/EOMI, eyes nml inspection Ears, Nose, Throat Exam: normal ENT inspection, TMs normal, pharynx normal, moist mucous membranes Neck Exam: normal inspection, non-tender, supple, full range of motion Respiratory Exam: normal breath sounds, lungs clear, No respiratory distress Cardiovascular Exam: regular rate/rhythm, normal heart sounds, normal peripheral pulses Gastrointestinal/Abdomen Exam: soft, normal bowel sounds, No tenderness, No mass Back Exam: normal inspection, normal range of motion, No CVA tenderness, No vertebral tenderness Extremity Exam: normal inspection, normal range of motion, pelvis stable, other (1+ pitting edema bilateral lower extremities. Negative Homans' sign bilaterally.) Neurologic Exam: alert, oriented x 3, cooperative, normal mood/affect, nml cerebellar function, nml station & gait, sensation nml, No motor deficits Skin Exam: normal color, warm, dry, No rash Lymphatic Exam: No adenopathy SpO2 Interpretation: normal SpO2: 96 O2 Delivery: Room Air - Course Nursing assessment & vital signs reviewed: Yes - Radiology Exams Chest X-ray Interpretation: Interpreted by me (Unchanged from previous. Borderline cardiomegaly. Lung amaro are clear. Bony thorax intact.) Ordered Tests: Active Orders 24 hr Category Date Time Status Construction Project Assistant STAT Care 01/24/21 20:56 Active EKG-ER Only STAT Care 01/24/21 20:55 Active IV Insertion STAT Care 01/24/21 20:55 Active Pulse Oximetry (ED) STAT Care 01/24/21 20:55 Active CHEST 1 VIEW (PORTABLE) Stat Exams 01/24/21 20:56 Taken CBC W DIFF Stat Lab 01/24/21 21:20 Completed CMP Stat Lab 01/24/21 21:20 Completed MAGNESIUM Stat Lab 01/24/21 21:20 Completed NT PRO BNP Stat Lab 01/24/21 21:20 Completed TROPONIN Q3H Lab 01/24/21 21:20 Completed TROPONIN Q3H Lab 01/25/21 00:00 Ordered TROPONIN Q3H Lab 01/25/21 03:00 Ordered TROPONIN Q3H Lab 01/25/21 06:00 Ordered TROPONIN Q3H Lab 01/25/21 09:00 Ordered UA W/RFX UR CULTURE Stat Lab 01/24/21 21:02 Completed Lab/Rad Data: Laboratory Result Diagrams 01/24/21 21:20 01/24/21 21:20 Laboratory Results 01/24/21 01/24/21 01/24/21 Range/Units 21:20 21:20 21:20 WBC 8.7 (4.0-10.5) K/mm3 RBC 5.15 (4.1-5.6) M/mm3 Hgb 15.6 (12.5-18.0) gm/dl Hct 48.4 (42-50) % MCV 94.0 (78-100) fl MCH 30.3 (26-32) pg MCHC 32.2 (32-36) g/dl RDW 13.5 (11.5-14.0) % Plt Count 213 (150-450) K/mm3 MPV 11.6 H (7.5-11.0) fl Gran % 52.7 (36.0-66.0) % Eos # (Auto) 0.27 (0-0.5) Absolute Lymphs (auto) 3.19 (1.0-4.6) Absolute Monos (auto) 0.65 (0.0-1.3) Lymphocytes % 36.6 (24.0-44.0) % Monocytes % 7.5 (0.0-12.0) % Eosinophils % 3.1 (0.00-5.0) % Basophils % 0.1 (0.0-0.4) % Absolute Granulocytes 4.60 (1.4-6.9) Basophils # 0.01 (0-0.4) Sodium 136 L (137-145) mmol/L Potassium 4.1 (3.5-5.1) mmol/L Chloride 102 (98-107) mmol/L Carbon Dioxide 25 (22-30) mmol/L Anion Gap 13.6 (5-15) MEQ/L BUN 24 H (9-20) mg/dL Creatinine 0.96 (0.66-1.25) mg/dL Estimated GFR > 60.0 ML/MIN Glucose 103 (74-106) mg/dL Calcium 9.7 (8.4-10.2) mg/dL Magnesium 2.2 (1.6-2.3) mg/dL Total Bilirubin 0.40 (0.2-1.3) mg/dL AST 38 (17-59) U/L ALT 44 (0-50) U/L Alkaline Phosphatase 95 (38-126) U/L Troponin I < 0.012 (0.000-0.034) ng/mL NT-Pro-B Natriuret Pep 19.9 (0-450) pg/mL Serum Total Protein 7.5 (6.3-8.2) g/dL Albumin 4.6 (3.5-5.0) g/dL Urine Color (YELLOW) Urine Appearance (CLEAR) Urine pH (5-6) Ur Specific [place] (1.005-1.025) Urine Protein (Negative) Urine Ketones (NEGATIVE) Urine Blood (0-5) Kei/ul Urine Nitrite (NEGATIVE) Urine Bilirubin (NEGATIVE) Urine Urobilinogen (0-1) mg/dL Ur Leukocyte Esterase (NEGATIVE) Urine WBC (Auto) (0-5) /HPF Urine RBC (Auto) (0-2) /HPF U Epithel Cells (Auto) (FEW) /HPF Urine Bacteria (Auto) (NEGATIVE) /HPF Urine Culture Reflexed (NO) Urine Glucose (NEGATIVE) mg/dL 01/24/21 Range/Units 21:02 WBC (4.0-10.5) K/mm3 RBC (4.1-5.6) M/mm3 Hgb (12.5-18.0) gm/dl Hct (42-50) % MCV (78-100) fl MCH (26-32) pg MCHC (32-36) g/dl RDW (11.5-14.0) % Plt Count (150-450) K/mm3 MPV (7.5-11.0) fl Gran % (36.0-66.0) % Eos # (Auto) (0-0.5) Absolute Lymphs (auto) (1.0-4.6) Absolute Monos (auto) (0.0-1.3) Lymphocytes % (24.0-44.0) % Monocytes % (0.0-12.0) % Eosinophils % (0.00-5.0) % Basophils % (0.0-0.4) % Absolute Granulocytes (1.4-6.9) Basophils # (0-0.4) Sodium (137-145) mmol/L Potassium (3.5-5.1) mmol/L Chloride (98-107) mmol/L Carbon Dioxide (22-30) mmol/L Anion Gap (5-15) MEQ/L BUN (9-20) mg/dL Creatinine (0.66-1.25) mg/dL Estimated GFR ML/MIN Glucose (74-106) mg/dL Calcium (8.4-10.2) mg/dL Magnesium (1.6-2.3) mg/dL Total Bilirubin (0.2-1.3) mg/dL AST (17-59) U/L ALT (0-50) U/L Alkaline Phosphatase (38-126) U/L Troponin I (0.000-0.034) ng/mL NT-Pro-B Natriuret Pep (0-450) pg/mL Serum Total Protein (6.3-8.2) g/dL Albumin (3.5-5.0) g/dL Urine Color YELLOW (YELLOW) Urine Appearance CLEAR (CLEAR) Urine pH 6.0 (5-6) Ur Specific [place] 1.018 (1.005-1.025) Urine Protein NEGATIVE (Negative) Urine Ketones NEGATIVE (NEGATIVE) Urine Blood NEGATIVE (0-5) Kei/ul Urine Nitrite NEGATIVE (NEGATIVE) Urine Bilirubin NEGATIVE (NEGATIVE) Urine Urobilinogen NEGATIVE (0-1) mg/dL Ur Leukocyte Esterase NEGATIVE (NEGATIVE) Urine WBC (Auto) NONE (0-5) /HPF Urine RBC (Auto) NONE (0-2) /HPF U Epithel Cells (Auto) RARE (FEW) /HPF Urine Bacteria (Auto) NONE (NEGATIVE) /HPF Urine Culture Reflexed NO (NO) Urine Glucose NEGATIVE (NEGATIVE) mg/dL - Progress Progress: improved Progress Note: Patient reassessed. He feels well. No chest pain or shortness of breath. No nausea vomiting or diaphoresis. Chest x-ray essentially unchanged. Patient does not appear to be in failure. Kidney function appears to be within normal limits. Will discharge patient at this time. Patient agrees to follow-up with his primary care doctor within 48 hours for reevaluation. 01/24/21 23:10 Counseled pt/family regarding: lab results, diagnosis, need for follow-up, rad results - Departure Departure Disposition: Home Clinical Impression: Leg swelling, Muscle spasm of calf Condition: Stable Critical Care Time: No Referrals: JUWAN BENTON [Primary Care Provider] - Additional Instructions: Discharge/Care Plan RAYMONDWIL DOTSON was seen on 01/24/21 in the Emergency Room. The patient was counseled regarding Diagnosis,Lab results, Imaging studies, need for follow up and when to return to the Emergency Room. Prescriptions given: Discharge Note I have spoken with the patient and/or caregivers. I have explained the patient's condition, diagnosis and treatment plan based on the information available to me at this time. I have answered the patient's and/or caregiver's questions and addressed any concerns. The patient and/or caregivers have as good understanding of the patient's diagnosis, condition and treatment plan as can be expected at this point. The vital signs have been stable. The patient's condition is stable and appropriate for discharge from the emergency department. The patient will pursue further outpatient evaluation with the primary care physician or other designated or consulting physician as outlined in the discharge instructions. The patient and/or caregivers are agreeable to this plan of care and follow-up instructions have been explained in detail. The patient and/or caregivers have received these instruction. The patient/and or caregivers are aware that any significant change in condition or worsening of symptoms should prompt an immediate return to this or the closest emergency department or call 911.
[2021-01-24 23:23] VITALS: BP 165/84; PULSE 106; O2SAT 97
--- NOTE | 2021-01-25 08:56 | XRAY ---
Indication: Pulmonary congestion. Comparison: January 04, 2020. Portable apical lordotic chest again demonstrates normal heart and lungs. Bony thorax intact with levoscoliosis. No new/acute findings.
== END 2021-01-24 23:20 | disposition home or self-care (01) ==
LOC: ED 20:43
DX: M79.89 Other specified soft tissue disorders (principal); M62.831 Muscle spasm of calf
CPT/HCPCS: 36000; 36415; 71045; 80053; 81001; 83735; 83880; 84484; 85025; 93005; 93041; 94760; 99284

== ENCOUNTER 2021-09-09 22:51 | Observation (INO) | payer OTHER ==
[2021-09-09] MEDS ORDERED: DUONEB 0.5-3 MG/3 ml Neb IH ONE ×2 (23:04→23:13)
[2021-09-09] MEDS ORDERED: solu-MEDROL 125 MG, Sterile H2O 10 ml 2 ML IV ONE ×2 (23:04)
--- NOTE | 2021-09-09 23:04 | ERPHSYRPT ---
- History of Present Illness Time Seen by Provider: 09/09/21 22:58 Source: patient, family Exam Limitations: no limitations Physician History: pt reports 3 day history of cough with shortness of breath after fever and exposure of coworker with 'cold'. No chest pain but thinks he had CHF in past. chest clear. no abd pain or n/v. reports prior Hx of asthma and COPD without current or chronic treatment and no prior ER visits. Timing/Duration: day(s) Activities at Onset: none Severity of Dyspnea-Max: moderate Severity of Dyspnea-Current: moderate Possible Cause: no prior episodes Modifying Factors: Improves With: coughing Allergies/Adverse Reactions: No Known Drug Allergies Allergy (Verified 09/09/21 22:52) Home Medications: Omeprazole Magnesium [Prilosec Otc] 40 mg PO DAILY 08/26/19 [History] Telmisartan/Hydrochlorothiazid [Telmisartan-Hctz 80-25 mg Tab] 1 each PO DAILY 01/05/20 [History] Cyclobenzaprine HCl 10 mg [Cyclobenzaprine 10 MG] 10 mg PO DAILY 08/08/20 [History] Duloxetine HCl 60 mg PO DAILY 08/08/20 [History] Morphine Sulfate Cr 15 mg [Ms Contin 15 MG] 15 mg PO QID 01/24/21 [History] Hx Tetanus, Diphtheria Vaccination/Date Given: No Hx Influenza Vaccination/Date Given: No Hx Pneumococcal Vaccination/Date Given: No Travel Risk - Vaccine Status Have you recieved a Covid-19 vaccination: No - Review of Systems Constitutional: Fever, Chills Eyes: No Symptoms Ears, Nose, & Throat: No Symptoms Respiratory: Cough, Dyspnea Cardiac: No Chest Pain, No Edema, No Syncope Abdominal/Gastrointestinal: No Abdominal Pain, No Nausea, No Vomiting, No Diarrhea Genitourinary Symptoms: No Dysuria Musculoskeletal: No Back Pain, No Neck Pain Skin: No Rash Neurological: No Dizziness, No Focal Weakness, No Sensory Changes Psychological: No Symptoms Endocrine: No Symptoms Hematologic/Lymphatic: No Symptoms Immunological/Allergic: No Symptoms All Other Systems: Reviewed and Negative - Past Medical History Pertinent Past Medical History: Yes Neurological History: No Pertinent History ENT History: No Pertinent History Cardiac History: Hypertension Respiratory History: Bronchitis, Pneumonia Endocrine Medical History: No Pertinent History Musculoskeletal History: No Pertinent History GI Medical History: GERD, Hernia History: Renal Disease Psycho-Social History: No Pertinent History Male Reproductive Disorders: No Pertinent History Other Medical History: HX Blood Clot LUE. - Past Surgical History Past Surgical History: Yes Neuro Surgical History: No Pertinent History Cardiac: No Pertinent History Respiratory: No Pertinent History Gastrointestinal: No Pertinent History Genitourinary: No Pertinent History Musculoskeletal: Other Male Surgical History: No Pertinent History Other Surgical History: HX Rotator Cuff Surgery, HX Hernia - Social History Smoking Status: Current every day smoker How long have you smoked: 36 years Exposure to second hand smoke: Yes Alcohol Use: Socially Drug Use: none Patient Lives Alone: Yes Significant Family History: heart disease, hypertension - Nursing Vital Signs Nursing Vital Signs: Initial Vital Signs Temperature 98.1 F 09/09/21 22:52 Pulse Rate 94 H 09/09/21 22:52 Respiratory Rate 16 09/09/21 22:52 Blood Pressure 185/104 09/09/21 22:52 O2 Sat by Pulse Oximetry 97 09/09/21 22:52 Pain Scale Pain Intensity 0 - Physical Exam General Appearance: no apparent distress, alert Eye Exam: PERRL/EOMI Ears, Nose, Throat Exam: nasal congestion, pharyngeal erythema Neck Exam: normal inspection, supple Respiratory Exam: airway intact, wheezing, No stridor Cardiovascular/Chest Exam: normal heart sounds, regular rate/rhythm Abdominal/Gastrointestinal Exam: soft, No tenderness, No distention, No mass Extremity Exam: non-tender, normal range of motion, normal inspection, no calf tenderness, no pedal edema Peripheral Pulses Exam: carotid (R): 2+, carotid (L): 2+, femoral (R): 2+, femoral (L): 2+, dorsalis-pedis (R): 2+, dorsalis-pedis (L): 2+ Neurologic Exam: alert, oriented x 3, cooperative, shuttle repairer II-XII nml as tested, sensation nml, No motor deficits Skin Exam: normal color, warm, No dry SpO2 Interpretation: normal SpO2: 98 O2 Delivery: Room Air - Course Nursing assessment & vital signs reviewed: Yes EKG Interpreted by Me: Sinus Rhythm, NORMAL INTERVALS, Q-wave, Non-specific ST Changes - Radiology Exams Chest X-ray Interpretation: Reviewed by me, Infiltrates (interstitial) - CT Exams Chest CT Interpretation: Tele-radiologist Report, No PE, Other (bronchitis/bronchiolitis ) Ordered Tests: Active Orders 24 hr Category Date Time Status Bonus Clerk STAT Care 09/09/21 23:05 Active EKG-ER Only STAT Care 09/09/21 23:04 Active IV Insertion STAT Care 09/09/21 23:04 Active Pulse Oximetry (ED) STAT Care 09/09/21 23:04 Active CHEST 1 VIEW (PORTABLE) Stat Exams 09/09/21 23:05 Taken CHEST WITH CONTRAST [CT] Stat Exams 09/10/21 00:02 Taken CBC W DIFF Stat Lab 09/09/21 23:15 Completed CMP Stat Lab 09/09/21 23:15 Completed D-DIMER QUANTITATIVE Stat Lab 09/09/21 23:15 Completed INFLUENZA A+B BRYAN Stat Lab 09/09/21 23:15 Completed Lactic Acid Stat Lab 09/09/21 23:20 Completed NT PRO BNP Stat Lab 09/09/21 23:15 Completed TROPONIN Q3H Lab 09/09/21 23:15 Completed TROPONIN Q3H Lab 09/10/21 02:36 Completed TROPONIN Q3H Lab 09/10/21 05:15 Ordered TROPONIN Q3H Lab 09/10/21 08:15 Ordered TROPONIN Q3H Lab 09/10/21 11:15 Ordered Respiratory Therapy Assessment DAILY RT 09/09/21 23:28 Active Medication Summary Generic Name Dose Route Start Last Admin Trade Name Freq PRN Reason Stop Dose Admin Sodium Chloride 1,000 mls @ 100 mls/hr 09/09/21 23:15 09/09/21 23:13 Sodium Chloride 0.9% 1000 Ml IV 10/09/21 23:14 100 mls/hr .Q10H OANH Administration Discontinued Medications Generic Name Dose Route Start Last Admin Trade Name Freq PRN Reason Stop Dose Admin Albuterol/Ipratropium 3 ml 09/09/21 23:04 09/09/21 23:15 Ipratropium/Albuterol Sulfate 3 Ml Ampul.Neb IH 09/09/21 23:05 3 ml STAT ONE Administration Albuterol/Ipratropium Confirm 09/09/21 23:13 Ipratropium/Albuterol Sulfate 3 Ml Ampul.Neb Administered 09/09/21 23:14 Dose 3 ml IH .STK-MED ONE Methylprednisolone Sodium 0 mg 09/09/21 23:04 09/09/21 23:13 Succinate 125 mg/ Sterile IV 09/09/21 23:05 125 mg Water 2 ml STAT ONE Administration Methylprednisolone Sodium Succinate Confirm 09/09/21 23:10 Methylprednis Sod Succ 125 Mg/2 Ml Vial Administered 09/09/21 23:11 Dose 125 mg .ROUTE .STK-MED ONE Sterile Water Confirm 09/09/21 23:10 Water For Injection,Sterile 10 Ml Vial Administered 09/09/21 23:11 Dose 10 ml IJ .STK-MED ONE Lab/Rad Data: Laboratory Result Diagrams 09/09/21 23:15 09/09/21 23:15 Laboratory Results 09/10/21 09/10/21 09/09/21 Range/Units 02:36 02:36 23:20 WBC (4.0-10.5) K/mm3 RBC (4.1-5.6) M/mm3 Hgb (12.5-18.0) gm/dl Hct (42-50) % MCV (78-100) fl MCH (26-32) pg MCHC (32-36) g/dl RDW (11.5-14.0) % Plt Count (150-450) K/mm3 MPV (7.5-11.0) fl Gran % (36.0-66.0) % Eos # (Auto) (0-0.5) Absolute Lymphs (auto) (1.0-4.6) Absolute Monos (auto) (0.0-1.3) Lymphocytes % (24.0-44.0) % Monocytes % (0.0-12.0) % Eosinophils % (0.00-5.0) % Basophils % (0.0-0.4) % Absolute Granulocytes (1.4-6.9) Basophils # (0-0.4) D-Dimer (215-500) ng/mL Sodium (137-145) mmol/L Potassium (3.5-5.1) mmol/L Chloride (98-107) mmol/L Carbon Dioxide (22-30) mmol/L Anion Gap (5-15) MEQ/L BUN (9-20) mg/dL Creatinine (0.66-1.25) mg/dL Estimated GFR ML/MIN Glucose (74-106) mg/dL Lactic Acid 1.3 (0.4-2.0) Calcium (8.4-10.2) mg/dL Total Bilirubin (0.2-1.3) mg/dL AST (17-59) U/L ALT (0-50) U/L Alkaline Phosphatase (38-126) U/L Troponin I < 0.012 (0.000-0.034) ng/mL NT-Pro-B Natriuret Pep (0-450) pg/mL Serum Total Protein (6.3-8.2) g/dL Albumin (3.5-5.0) g/dL Influenza Type A Ag NEGATIVE (NEGATIVE) Influenza Type B Ag NEGATIVE (NEGATIVE) RSV (PCR) NEGATIVE (Negative) SARS-CoV-2 (PCR) NEGATIVE (NEGATIVE) 09/09/21 09/09/21 09/09/21 Range/Units 23:15 23:15 23:15 WBC (4.0-10.5) K/mm3 RBC (4.1-5.6) M/mm3 Hgb (12.5-18.0) gm/dl Hct (42-50) % MCV (78-100) fl MCH (26-32) pg MCHC (32-36) g/dl RDW (11.5-14.0) % Plt Count (150-450) K/mm3 MPV (7.5-11.0) fl Gran % (36.0-66.0) % Eos # (Auto) (0-0.5) Absolute Lymphs (auto) (1.0-4.6) Absolute Monos (auto) (0.0-1.3) Lymphocytes % (24.0-44.0) % Monocytes % (0.0-12.0) % Eosinophils % (0.00-5.0) % Basophils % (0.0-0.4) % Absolute Granulocytes (1.4-6.9) Basophils # (0-0.4) D-Dimer 541 H* (215-500) ng/mL Sodium (137-145) mmol/L Potassium (3.5-5.1) mmol/L Chloride (98-107) mmol/L Carbon Dioxide (22-30) mmol/L Anion Gap (5-15) MEQ/L BUN (9-20) mg/dL Creatinine (0.66-1.25) mg/dL Estimated GFR ML/MIN Glucose (74-106) mg/dL Lactic Acid (0.4-2.0) Calcium (8.4-10.2) mg/dL Total Bilirubin (0.2-1.3) mg/dL AST (17-59) U/L ALT (0-50) U/L Alkaline Phosphatase (38-126) U/L Troponin I < 0.012 (0.000-0.034) ng/mL NT-Pro-B Natriuret Pep (0-450) pg/mL Serum Total Protein (6.3-8.2) g/dL Albumin (3.5-5.0) g/dL Influenza Type A Ag NEGATIVE (NEGATIVE) Influenza Type B Ag NEGATIVE (NEGATIVE) RSV (PCR) (Negative) SARS-CoV-2 (PCR) (NEGATIVE) 09/09/21 09/09/21 Range/Units 23:15 23:15 WBC 8.3 (4.0-10.5) K/mm3 RBC 4.73 (4.1-5.6) M/mm3 Hgb 14.0 (12.5-18.0) gm/dl Hct 45.3 (42-50) % MCV 95.8 (78-100) fl MCH 29.6 (26-32) pg MCHC 30.9 L (32-36) g/dl RDW 13.8 (11.5-14.0) % Plt Count 200 (150-450) K/mm3 MPV 11.7 H (7.5-11.0) fl Gran % 58.8 (36.0-66.0) % Eos # (Auto) 0.43 (0-0.5) Absolute Lymphs (auto) 2.20 (1.0-4.6) Absolute Monos (auto) 0.78 (0.0-1.3) Lymphocytes % 26.4 (24.0-44.0) % Monocytes % 9.4 (0.0-12.0) % Eosinophils % 5.2 H (0.00-5.0) % Basophils % 0.2 (0.0-0.4) % Absolute Granulocytes 4.91 (1.4-6.9) Basophils # 0.02 (0-0.4) D-Dimer (215-500) ng/mL Sodium 140 (137-145) mmol/L Potassium 4.0 (3.5-5.1) mmol/L Chloride 105 (98-107) mmol/L Carbon Dioxide 27 (22-30) mmol/L Anion Gap 12.9 (5-15) MEQ/L BUN 10 (9-20) mg/dL Creatinine 0.93 (0.66-1.25) mg/dL Estimated GFR > 60.0 ML/MIN Glucose 109 H (74-106) mg/dL Lactic Acid (0.4-2.0) Calcium 9.6 (8.4-10.2) mg/dL Total Bilirubin 0.30 (0.2-1.3) mg/dL AST 40 (17-59) U/L ALT 60 H (0-50) U/L Alkaline Phosphatase 95 (38-126) U/L Troponin I (0.000-0.034) ng/mL NT-Pro-B Natriuret Pep 58.8 (0-450) pg/mL Serum Total Protein 6.6 (6.3-8.2) g/dL Albumin 4.0 (3.5-5.0) g/dL Influenza Type A Ag (NEGATIVE) Influenza Type B Ag (NEGATIVE) RSV (PCR) (Negative) SARS-CoV-2 (PCR) (NEGATIVE) - Progress Progress: improved, re-examined Air Movement: good Progress Note: 09/10/21 02:[address] Herr and will test for Covid and if negative place in obs with Tx exac COPD and monitor trops. and if possitive will place in Covid unit - Dr. Au. pt agrees to be admitted obs . 09/10/21 03:18 still awaiting Covid swab to determine which unit and final disposition. 09/10/21 03:35 pt is Covid negative , so will treat as exacerbation COPD and place in obs and continue to check trops as well. Blood Culture(s) Obtained: No Antibiotics given: No Discussed with : Charlie Will see patient in: hospital (observation) Counseled pt/family regarding: lab results, diagnosis, need for follow-up, rad results - Departure Departure Disposition: Observation Clinical Impression: Acute exacerbation of chronic obstructive airways disease, Elevated d-dimer, Obstructive sleep apnea, SOB (shortness of breath) Condition: Good Critical Care Time: No Referrals: JUWAN BENTON [Primary Care Provider] - Follow up/PCP as directed Instructions: Chronic Obstructive Pulmonary Disease
[2021-09-09] MEDS ORDERED: solu-MEDROL ONE (23:10)
[2021-09-09] MEDS ORDERED: Sterile H2O 10 ml IJ ONE (23:10)
[2021-09-09] MEDS: Sodium Chloride 0.9% 1000 ML 1,000 ML IV SCH (23:13)
[2021-09-09 23:19] LABS: Absolute Neutrophil Ct (ANC) 4.91 (1.4-6.9); BASOPHIL % 0.2 % (0.0-0.4); Basophil (Absolute #) 0.02 (0-0.4); Eosinophil % 5.2 % (0.00-5.0); Eosinophil (Absolute #) 0.43 (0-0.5); Hematocrit 45.3 % (42-50); Lymphocytes % 26.4 % (24.0-44.0); Mean Cell Volume 95.8 fl (78-100); Mean Corpuscular Hemoglobin 29.6 pg (26-32); Mean Corpuscular Hgb Concent. 30.9 g/dl (32-36); Mean Platelet Volume 11.7 fl (7.5-11.0); Monocyte (Absolute #) 0.78 (0.0-1.3); Monocytes % 9.4 % (0.0-12.0); Neutrophil % 58.8 % (36.0-66.0); Platelet Count 200 K/mm3 (150-450); Red Blood Count 4.73 M/mm3 (4.1-5.6); Red Cell Distribution Width 13.8 % (11.5-14.0); White Blood Count 8.3 K/mm3 (4.0-10.5)
[2021-09-09 23:38] LABS: INFLUENZA A NEGATIVE (NEGATIVE); INFLUENZA B NEGATIVE (NEGATIVE)
[2021-09-09 23:40] LABS: ALKALINE PHOSPHATASE 95 U/L (38-126); ANION GAP 12.9 MEQ/L (5-15); BLOOD UREA NITROGEN 10 mg/dL (9-20); CHLORIDE 105 mmol/L (98-107); Calcium 9.6 mg/dL (8.4-10.2); Carbon Dioxide 27 mmol/L (22-30); Creatinine 1 0.93 mg/dL (0.66-1.25); EST GLOMERULAR FILTRATION RATE > 60.0 ML/MIN; Glucose 109 mg/dL (74-106); NT PRO BNP 58.8 pg/mL (0-450); SGOT/AST 40 U/L (17-59); SGPT/ALT 60 U/L (0-50); SODIUM 140 mmol/L (137-145); Total Protein 6.6 g/dL (6.3-8.2)
[2021-09-10 03:16] LABS: INFLUENZA A NEGATIVE (NEGATIVE); INFLUENZA B NEGATIVE (NEGATIVE); RESPIRATORY SYNCTIAL VIRUS NEGATIVE (Negative); SARS-CoV-2 Xpert Express NEGATIVE (NEGATIVE)
[2021-09-10] MEDS ORDERED: HUMULIN R SQ PRN (05:14)
[2021-09-10] MEDS ORDERED: solu-MEDROL 60 MG, Sterile H2O 10 ml 2 ML IV SCH ×2 (06:00)
[2021-09-10] MEDS ORDERED: TYLENOL 325 MG PO PRN (06:05)
[2021-09-10] MEDS ORDERED: solu-MEDROL ONE (06:22)
[2021-09-10] MEDS ORDERED: Sterile H2O 10 ml IJ ONE (06:23)
[2021-09-10] MEDS: Sodium Chloride 0.9% 1000 ML 1,000 ML IV SCH (06:34)
[2021-09-10] MEDS ORDERED: DUONEB 0.5-3 MG/3 ml Neb IH SCH (07:00)
[2021-09-10 07:53] VITALS: BP 150/70; PULSE 81; O2SAT 96
--- NOTE | 2021-09-10 08:26 | XRAY ---
Indication: Cough and short of breath. Elevated d-dimer. Pulmonary embolus. Multiple contiguous axial images obtained through the chest using 100 cc Isovue 370 contrast and PE protocol. Comparison: February 12, 2018. There is again suboptimal opacification of the pulmonary arteries limiting evaluation of the lobar and segmental branches. No obvious pulmonary embolus. Heart is not enlarged. Aorta is normal in course and caliber. No pathologic mediastinal/hilar lymphadenopathy. Lungs are inflated with now minimal bilateral lower lobe [id number] opacities favoring pneumonitis. No consolidation or effusion. Minimal lingula fibrosis/scarring. Bony thorax intact again with minimal degenerative changes throughout the spine. Limited upper abdomen again demonstrates fatty liver. Impression: 1. Pulmonary embolus evaluation limited due to suboptimal contrast opacification. No obvious pulmonary embolus. 2. New minimal tree-in-bud like opacities in both lower lobes favoring pneumonitis. 3. Again incidental fatty liver. Comment: Preliminary interpretation made by C. No critical discrepancy.
--- NOTE | 2021-09-10 08:28 | XRAY ---
Indication: Cough and short of breath. Comparison: January 24, 2021. Portable apical lordotic chest demonstrates new minimal bibasilar interstitial opacities, possible pneumonitis in the right clinical setting. Remaining heart, lungs, and bony thorax are unremarkable.
[2021-09-10] MEDS ORDERED: Cyclobenzaprine 10 MG PO PRN (09:28)
[2021-09-10] MEDS ORDERED: hydroDIURIL 25 MG PO SCH (10:00)
[2021-09-10] MEDS ORDERED: Pepcid 20 MG VIAL IV SCH (10:00)
[2021-09-10] MEDS ORDERED: ZYLOPRIM 100 MG PO SCH (10:00)
[2021-09-10] MEDS ORDERED: Protonix 40MG Tablet PO SCH (10:00)
[2021-09-10] MEDS ORDERED: ROCEPHIN 1 Gm-D5w 50 ml Bag** 1 G/50 ML IVPB IV SCH (10:00)
[2021-09-10] MEDS ORDERED: NON-FORMULARY ITEM (Omeprazole Magnesium [Prilosec Otc] 20 MG Tablet.Dr) PO SCH (10:00)
[2021-09-10] MEDS ORDERED: Micardis 80 MG Tablet PO SCH (10:00)
[2021-09-10] MEDS ORDERED: Ms Contin 15 MG PO SCH (10:00)
[2021-09-10] MEDS ORDERED: Zithromax 500 MG/ 250 ML NaCl Premix 500 MG/250 ML IVPB IV SCH (10:00)
[2021-09-10] MEDS ORDERED: solu-MEDROL IV SCH (12:00)
[2021-09-10] MEDS ORDERED: Zocor 10MG PO SCH (22:00)
--- NOTE | 2021-09-13 13:01 | SSS ---
DISCHARGE DIAGNOSIS: ACUTE EXACERBATION OF CHRONIC OBSTRUCTIVE PULMONARY DISEASE. HISTORY: The patient is a 50-year-old white male patient who works out of town, reports he was rooming with a younger workmate who was having upper respiratory tract illness. The patient has had COVID before. He is having more difficulty breathing. He is also a smoker and has had chronic obstructive pulmonary disease exacerbation in the past. He was seen in the emergency room, evaluated and felt that he needed to be admitted for IV antibiotics and nebulizer treatments. PAST MEDICAL/SURGICAL HISTORY: Again significant for chronic obstructive pulmonary disease. He has had previous bronchitis and pneumonia. He has had gastroesophageal reflux disease, hiatal hernia, renal disease, history of blood clot in the left upper extremity. HOME MEDICATIONS: Currently are allopurinol 100 mg daily, cyclobenzaprine 10 mg q.i.d. PRN, morphine 15 mg q.i.d. (given by chronic pain management doctor), omeprazole 40 mg a day, simvastatin 10 mg a day, Telmisartan-hydrochlorothiazide 80-25 one tablet a day. ALLERGIES: NKDA. PHYSICAL EXAMINATION: The patient's initial vital signs showed his temperature to be 98.1F, pulse 94, respiratory rate 16 and blood pressure 185/104. O2 saturation was 97%. HEENT: Normocephalic, atraumatic. Pupils equal round reactive to light. Extraocular movements intact. Oropharynx is slightly dry. NECK: Supple without lymphadenopathy, thyromegaly or JVD. CHEST: Essentially clear presently. HEART: Regular rate and rhythm without murmurs, rubs or gallops heard. ABDOMEN: Soft with no palpable masses. EXTREMITIES: Without cyanosis, clubbing or edema. NEUROLOGIC: The patient is alert and oriented x3 with no focal deficits. LAB DATA AND TESTS: The patient's laboratory studies have shown his troponin to be less than 0.012. His metabolic panel was essentially normal other than slight elevation of SGPT of 60. His influenza and COVID tests were negative. His D-dimer was slightly elevated at 541 after which he did get a CT of the chest which was negative. He had what appeared to be bronchiolitis on the evaluation. The white count was 8.3, hemoglobin 14.0 and PLT count 200,000. HOSPITAL COURSE: The patient was feeling better after receiving IV Solu-Medrol and nebulizer treatments which he reports do help. He does not have nebulizer treatment medications at home. The patient is looking in reasonably good shape presently. He appears to be back to his usual baseline from what I had seen in the office previous previously. He will be sent home today on his usual home medications with the addition of prednisone 30 mg for three days, 20 mg for three days, 10 mg for three days and Albuterol Metered Dose puffer. He was instructed to come back to the hospital if the shortness of breath gets worse and to be seen in the office within the next week for follow up and further evaluation.
== END 2021-09-10 11:30 | disposition home or self-care (01) ==
LOC: ED 22:51 → MED SURG 09-10 05:11
PROVIDERS: ADMIT Family Medicine; ATTEND Family Medicine
DX: J44.1 Chronic obstructive pulmonary disease with (acute) exacerbation (principal); I10 Essential (primary) hypertension; F17.200 Nicotine dependence, unspecified, uncomplicated; Z79.899 Other long term (current) drug therapy; Z86.16 Personal history of COVID-19; Z20.828 Contact with and (suspected) exposure to other viral communicable diseases
CPT/HCPCS: 0241U; 36000; 36415; 71045; 71260; 80053; 83605; 83880; 84484; 85025; 85379; 87400; 93005; 93041; 93268; 94640; 94760; 94762; 96374; 99285; G0378; J0456; J0696; J2930; A9270-GY

== ENCOUNTER 2022-04-24 00:17 | Observation (INO) | payer OTHER ==
[2022-04-24] MEDS ORDERED: BABY ASPIRIN 81 MG CHEW PO ONE (00:34)
[2022-04-24] MEDS ORDERED: NITRO-BID 2% UD PACKETS TOP ONE (00:35)
[2022-04-24] MEDS ORDERED: GI COCKTAIL 45 ML (Maalox/Lidocaine) PO ONE (00:46)
[2022-04-24] MEDS ORDERED: PROTONIX 40 MG IV IV ONE ×2 (00:46→00:55)
[2022-04-24 00:51] LABS: Absolute Neutrophil Ct (ANC) 5.45 x10^3/uL (1.4-6.9); Basophil (Absolute #) 0.07 x10^3/uL (0-0.4); Eosinophil % 3.6 % (0.00-5.0); Eosinophil (Absolute #) 0.38 x10^3/uL (0-0.5); Hematocrit 45.8 % (42-50); Hemoglobin 14.7 g/dL (12.5-18.0); Lymphocytes % 34.6 % (24.0-44.0); Mean Cell Volume 93.7 fL (78-100); Mean Corpuscular Hemoglobin 30.1 pg (26-32); Mean Corpuscular Hgb Concent. 32.1 g/dL (32-36); Monocyte (Absolute #) 0.78 x10^3/uL (0.0-1.3); Monocytes % 7.3 % (0.0-12.0); Neutrophil % 50.8 % (36.0-66.0); Platelet Count 255 x10^3/uL (150-450); Red Blood Count 4.89 x10^6/uL (4.1-5.6); Red Cell Distribution Width 13.5 % (11.5-14.0); White Blood Count 10.7 x10^3/uL (4.0-10.5)
--- NOTE | 2022-04-24 00:53 | ERPHSYRPT ---
- History of Present Illness Time Seen by Provider: 04/24/22 00:35 Historian: patient Exam Limitations: no limitations Patient Subjective Stated Complaint: pt states when he went to bed, he began feeling unwell. couldnt get comfortable, was clammy, felt like his bp was naomi vated and having some heartburn. states he attmpted to take bp at home and read error Triage Nursing Assessment: pt alert and oriented, answers questions approp. pt ambulatory with steady gait noted. respirations nonlabored with lungs cta. face flushed. skin warm and dry. heart rate88 on monitor, trigeminy. Physician History: 51-year-old male with history of hypertension, hyperlipidemia, GERD presented in the ER with chief complaint of substernal burning sensation/feeling off being uncomfortable for almost 1-1/2-hour. He is not able to be comfortable to go to sleep. He checked his blood pressure which machine was giving an error. Denies any headache or dizziness. Reports feeling clammy. No abdominal pain nausea or vomiting. No difficulty breathing or palpitations. Patient has a blood pressure in 200s on presentation in the ER. EKG showed sinus rhythm with trigeminy. Reports having stress test done more than 3 years ago. Timing/Duration: hour(s) (2), constant, gradual onset Activities at Onset: rest Quality: aching, burning Location: substernal, central, epigastric Chest Pain Radiation: no radiation Severity of Pain-Max: moderate Severity of Pain-Current: moderate Modifying Factors: Improves With: nothing Associated Symptoms: heartburn Prior Chest Pain/Cardiac Workup: no prior chest pain Nitro Today/Relief: no nitro taken today Aspirin Treatment Today: no aspirin today Allergies/Adverse Reactions: No Known Drug Allergies Allergy (Verified 04/24/22 00:19) Home Medications: Omeprazole Magnesium [Prilosec Otc] 40 mg PO DAILY 08/26/19 [History] Telmisartan/Hydrochlorothiazid [Telmisartan-Hctz 80-25 mg Tab] 1 each PO DAILY 01/05/20 [History] Cyclobenzaprine HCl 10 mg [Cyclobenzaprine 10 MG] 10 mg PO TID 08/08/20 [History] Allopurinol 100 mg [Zyloprim 100 mg] 100 mg PO DAILY 09/10/21 [History] Simvastatin 10 mg [Zocor 10MG] 10 mg PO DAILY 09/10/21 [History] Carvedilol [Coreg] 25 mg PO BID 04/24/22 [History] Oxycodone HCl/Acetaminophen [Percocet 7.5-325 mg Tablet] 1 each PO QID 04/24/22 [History] Hx Tetanus, Diphtheria Vaccination/Date Given: No Hx Influenza Vaccination/Date Given: No Hx Pneumococcal Vaccination/Date Given: No Immunizations Up to Date: No Travel Risk - International Travel Have you traveled outside of the country in past 3 weeks: No - Coronavirus Screening Are you exhibiting any of the following symptoms?: No Close contact with a COVID-19 positive Pt in past 14-21 Days: No - Vaccine Status Have you recieved a Covid-19 vaccination: Yes [employer]: [employer] - Vaccination Dates Date of 2cond Vaccination (if applicable): 08/07 - Review of Systems Constitutional: No Symptoms Eyes: No Symptoms Ears, Nose, & Throat: No Symptoms Respiratory: No Symptoms Cardiac: Chest Pain Abdominal/Gastrointestinal: No Symptoms Genitourinary Symptoms: No Symptoms Musculoskeletal: Arthralgias Skin: No Symptoms Neurological: No Symptoms Psychological: No Symptoms Endocrine: No Symptoms Hematologic/Lymphatic: No Symptoms Immunological/Allergic: No Symptoms - Past Medical History Pertinent Past Medical History: Yes Neurological History: No Pertinent History ENT History: No Pertinent History Cardiac History: Hypertension Respiratory History: Bronchitis, Pneumonia Endocrine Medical History: No Pertinent History Musculoskeletal History: No Pertinent History GI Medical History: GERD, Hernia History: Renal Disease Psycho-Social History: No Pertinent History Male Reproductive Disorders: No Pertinent History Other Medical History: HX Blood Clot LUE. - Past Surgical History Past Surgical History: Yes Neuro Surgical History: No Pertinent History Cardiac: No Pertinent History Respiratory: No Pertinent History Gastrointestinal: No Pertinent History Genitourinary: No Pertinent History Musculoskeletal: Other Male Surgical History: No Pertinent History Other Surgical History: HX Rotator Cuff Surgery, HX Hernia - Social History Smoking Status: Current every day smoker How long have you smoked: 36 years Exposure to second hand smoke: Yes Alcohol Use: Socially Drug Use: none Patient Lives Alone: Yes Significant Family History: heart disease, hypertension - Nursing Vital Signs Nursing Vital Signs: Initial Vital Signs Pulse Rate 88 04/24/22 00:27 Respiratory Rate 18 04/24/22 00:27 Blood Pressure 191/128 04/24/22 00:27 O2 Sat by Pulse Oximetry 97 04/24/22 00:27 Pain Scale Pain Intensity 0 - Physical Exam General Appearance: no apparent distress, alert Eye Exam: PERRL/EOMI Ears, Nose, Throat Exam: normal ENT inspection, pharynx normal, moist mucous membranes Neck Exam: normal inspection, non-tender, supple, full range of motion Respiratory Exam: normal breath sounds, lungs clear Cardiovascular Exam: regular rate/rhythm, normal heart sounds Gastrointestinal/Abdomen Exam: soft, normal bowel sounds, No tenderness Back Exam: normal inspection, normal range of motion Extremity Exam: normal inspection, normal range of motion Neurologic Exam: alert, oriented x 3, cooperative, bottle house pumper II-XII nml as tested Skin Exam: normal color SpO2 Interpretation: normal SpO2: 97 O2 Delivery: Room Air - Course EKG Interpreted by Me: RATE (89), Sinus Rhythm, NORMAL AXIS, NORMAL INTERVALS, Other (Ventricular trigeminy.) Ordered Tests: Active Orders 24 hr Category Date Time Status EKG-ER Only STAT Care 04/24/22 00:46 Active IV Insertion STAT Care 04/24/22 00:46 Active CHEST 1 VIEW (PORTABLE) Stat Exams 04/24/22 00:31 Taken BNP [NT PRO BNP] Stat Lab 04/24/22 00:33 Completed CBC W DIFF Stat Lab 04/24/22 00:46 Completed CMP Stat Lab 04/24/22 00:46 Completed LIPASE Stat Lab 04/24/22 00:46 Completed TROPONIN Q4H Lab 04/24/22 00:51 Completed TROPONIN Q4H Lab 04/24/22 04:45 Ordered TROPONIN Q4H Lab 04/24/22 08:45 Ordered TROPONIN Q4H Lab 04/24/22 12:45 Ordered TROPONIN Q4H Lab 04/24/22 16:45 Ordered TROPONIN Q4H Lab 04/24/22 20:45 Ordered Medication Summary Generic Name Dose Route Start Last Admin Trade Name Freq PRN Reason Stop Dose Admin Magnesium Sulfate/Dextrose 100 mls @ 100 mls/hr 04/24/22 01:00 04/24/22 01:48 Magnesium 1 Gm / 100 Ml D5w IV 04/24/22 02:59 100 mls/hr Q1H OANH Administration Discontinued Medications Generic Name Dose Route Start Last Admin Trade Name Freq PRN Reason Stop Dose Admin Al Hydrox/Mg Hydrox/Simethicone Confirm 04/24/22 00:55 Mag Hydrox/Al Hydrox/Simeth 30 Ml Udcup Administered 04/24/22 00:56 Dose 30 ml .ROUTE .STK-MED ONE Al Hydrox/Mg Hydrox/Simethicone Confirm 04/24/22 01:24 Mag Hydrox/Al Hydrox/Simeth 30 Ml Udcup Administered 04/24/22 01:25 Dose 30 ml .ROUTE .STK-MED ONE Aspirin 324 mg 04/24/22 00:34 04/24/22 01:11 Aspirin 81 Mg Tab.Chew PO 04/24/22 00:35 324 mg STAT ONE Administration Lidocaine HCl Confirm 04/24/22 00:55 Lidocaine Hcl 2% Viscous 15 Ml Udcup Administered 04/24/22 00:56 Dose 15 ml .ROUTE .STK-MED ONE Lidocaine HCl Confirm 04/24/22 01:24 Lidocaine Hcl 2% Viscous 15 Ml Udcup Administered 04/24/22 01:25 Dose 15 ml .ROUTE .STK-MED ONE Magnesium Hydroxide 45 ml 04/24/22 00:46 04/24/22 01:25 Mag Hydrx/Alum Hyd/Simeth/Lido 45 Ml Bottle PO 04/24/22 00:47 45 ml STAT ONE Administration Metoprolol Tartrate 5 mg 04/24/22 01:43 04/24/22 01:47 Metoprolol Tartrate 5 Mg/5 Ml Vial IV 04/24/22 01:44 5 mg STAT ONE Administration Metoprolol Tartrate Confirm 04/24/22 01:45 Metoprolol Tartrate 5 Mg/5 Ml Vial Administered 04/24/22 01:46 Dose 5 mg IV .STK-MED ONE Nitroglycerin 1 gm 04/24/22 00:35 04/24/22 01:12 Nitroglycerin 1 Gm Packet TOP 04/24/22 00:36 1 gm STAT ONE Administration Nitroglycerin Confirm 04/24/22 00:54 Nitroglycerin 1 Gm Packet Administered 04/24/22 00:55 Dose 1 gm .ROUTE .STK-MED ONE Nitroglycerin Confirm 04/24/22 00:57 Nitroglycerin 1 Gm Packet Administered 04/24/22 00:58 Dose 1 gm .ROUTE .STK-MED ONE Pantoprazole Sodium 40 mg 04/24/22 00:46 04/24/22 01:14 Pantoprazole 40 Mg Vial IV 04/24/22 00:47 40 mg STAT ONE Administration Pantoprazole Sodium Confirm 04/24/22 00:55 Pantoprazole 40 Mg Vial Administered 04/24/22 00:56 [facility]ose 40 [facility] Lab/Rad Data: Laboratory Result Diagrams 04/24/22 00:46 04/24/22 00:46 Laboratory Results 04/24/22 04/24/22 04/24/22 Range/Units 00:51 00:46 00:46 WBC 10.7 H (4.0-10.5) x10^3/uL RBC 4.89 (4.1-5.6) x10^6/uL Hgb 14.7 (12.5-18.0) g/dL Hct 45.8 (42-50) % MCV 93.7 (78-100) fL MCH 30.1 (26-32) pg MCHC 32.1 (32-36) g/dL RDW 13.5 (11.5-14.0) % Plt Count 255 (150-450) x10^3/uL MPV 11.0 (7.5-11.0) fL Gran % 50.8 (36.0-66.0) % Immature Gran % (Auto) 3.0 H (0.00-0.4) % Nucleat RBC Rel Count 0.0 (0.00-0.1) % Eos # (Auto) 0.38 (0-0.5) x10^3/uL Immature Gran # (Auto) 0.32 H (0.00-0.03) x10^3u/L Absolute Lymphs (auto) 3.70 (1.0-4.6) x10^3/uL Absolute Monos (auto) 0.78 (0.0-1.3) x10^3/uL Absolute Nucleated RBC 0.00 (0.00-0.01) x10^3u/L Lymphocytes % 34.6 (24.0-44.0) % Monocytes % 7.3 (0.0-12.0) % Eosinophils % 3.6 (0.00-5.0) % Basophils % 0.7 (0.0-0.4) % Absolute Granulocytes 5.45 (1.4-6.9) x10^3/uL Basophils # 0.07 (0-0.4) x10^3/uL Sodium 141 (137-145) mmol/L Potassium 3.8 (3.5-5.1) mmol/L Chloride 104 (98-107) mmol/L Carbon Dioxide 28 (22-30) mmol/L Anion Gap 11.5 (5-15) MEQ/L BUN 16 (9-20) mg/dL Creatinine 1.16 (0.66-1.25) mg/dL Estimated GFR > 60.0 ML/MIN Glucose 97 (74-106) mg/dL Calcium 10.0 (8.4-10.2) mg/dL Total Bilirubin 0.20 (0.2-1.3) mg/dL AST 23 (17-59) U/L ALT 29 (0-50) U/L Alkaline Phosphatase 125 (38-126) U/L Troponin I < 0.012 (0.000-0.034) ng/mL NT-Pro-B Natriuret Pep (0-450) pg/mL Serum Total Protein 6.9 (6.3-8.2) g/dL Albumin 4.2 (3.5-5.0) g/dL Lipase 63 (23-300) U/L 04/24/22 Range/Units 00:33 WBC (4.0-10.5) x10^3/uL RBC (4.1-5.6) x10^6/uL Hgb (12.5-18.0) g/dL Hct (42-50) % MCV (78-100) fL MCH (26-32) pg MCHC (32-36) g/dL RDW (11.5-14.0) % Plt Count (150-450) x10^3/uL MPV (7.5-11.0) fL Gran % (36.0-66.0) % Immature Gran % (Auto) (0.00-0.4) % Nucleat RBC Rel Count (0.00-0.1) % Eos # (Auto) (0-0.5) x10^3/uL Immature Gran # (Auto) (0.00-0.03) x10^3u/L Absolute Lymphs (auto) (1.0-4.6) x10^3/uL Absolute Monos (auto) (0.0-1.3) x10^3/uL Absolute Nucleated RBC (0.00-0.01) x10^3u/L Lymphocytes % (24.0-44.0) % Monocytes % (0.0-12.0) % Eosinophils % (0.00-5.0) % Basophils % (0.0-0.4) % Absolute Granulocytes (1.4-6.9) x10^3/uL Basophils # (0-0.4) x10^3/uL Sodium (137-145) mmol/L Potassium (3.5-5.1) mmol/L Chloride (98-107) mmol/L Carbon Dioxide (22-30) mmol/L Anion Gap (5-15) MEQ/L BUN (9-20) mg/dL Creatinine (0.66-1.25) mg/dL Estimated GFR ML/MIN Glucose (74-106) mg/dL Calcium (8.4-10.2) mg/dL Total Bilirubin (0.2-1.3) mg/dL AST (17-59) U/L ALT (0-50) U/L Alkaline Phosphatase (38-126) U/L Troponin I (0.000-0.034) ng/mL NT-Pro-B Natriuret Pep 58.4 (0-450) pg/mL Serum Total Protein (6.3-8.2) g/dL Albumin (3.5-5.0) g/dL Lipase (23-300) U/L - Progress Progress: improved Air Movement: good Progress Note: 04/24/22 01:49 51 years old is evaluated for burning sensation of the chest with the uncomfortable feeling and elevated blood pressure in the 200s. EKG sinus rhythm with trigeminy. No ST elevation. Is given aspirin, nitro along with GI cocktail and Protonix, on reevaluation feeling better but not completely symptom-free. Blood pressure improved to 170s. He is given magnesium as well but still having trigeminy's. I would give him a dose of Lopressor. Chest x- ray is negative for any acute finding reviewed by me, official report is pending. Discussed with Dr. Oseguera patient is being admitted for observation. Blood Culture(s) Obtained: No Antibiotics given: No Discussed with : Silver Will see patient in: hospital (observation) Counseled pt/family regarding: lab results, diagnosis, rad results - Departure Departure Disposition: Observation Clinical Impression: Chest pain, rule out acute myocardial infarction, Uncontrolled hypertension, Ventricular trigeminy Condition: Stable Critical Care Time: No Referrals: JUWAN BENTON [Primary Care Provider] - Follow up/PCP as directed
[2022-04-24] MEDS ORDERED: NITRO-BID 2% UD PACKETS ONE ×2 (00:54→00:57)
[2022-04-24] MEDS ORDERED: XYLOCAINE VISCOUS 2% 15 ML CUP ONE ×2 (00:55→01:24)
[2022-04-24] MEDS ORDERED: MAALOX ES 30 ML UNIT DOSE ONE ×2 (00:55→01:24)
[2022-04-24 01:09] LABS: ALBUMIN 4.2 g/dL (3.5-5.0); ALKALINE PHOSPHATASE 125 U/L (38-126); ANION GAP 11.5 MEQ/L (5-15); BLOOD UREA NITROGEN 16 mg/dL (9-20); CHLORIDE 104 mmol/L (98-107); Carbon Dioxide 28 mmol/L (22-30); Creatinine 1 1.16 mg/dL (0.66-1.25); EST GLOMERULAR FILTRATION RATE > 60.0 ML/MIN; Glucose 97 mg/dL (74-106); LIPASE 63 U/L (23-300); Potassium 3.8 mmol/L (3.5-5.1); SGOT/AST 23 U/L (17-59); SGPT/ALT 29 U/L (0-50); SODIUM 141 mmol/L (137-145); Total Protein 6.9 g/dL (6.3-8.2)
[2022-04-24] MEDS: Magnesium 1 Gm / 100 Ml D5W*** 100 ML IV SCH ×2 (01:15→01:48)
[2022-04-24] MEDS ORDERED: LOPRESSOR INJECTION IV ONE ×2 (01:43→01:45)
[2022-04-24 02:34] LABS: INFLUENZA A NEGATIVE (NEGATIVE); INFLUENZA B NEGATIVE (NEGATIVE); RESPIRATORY SYNCTIAL VIRUS NEGATIVE (Negative); SARS-CoV-2 Xpert Express NEGATIVE (NEGATIVE)
[2022-04-24] MEDS ORDERED: MORPHINE SULFATE 4 MG INJ IV PRN (03:03)
[2022-04-24] MEDS ORDERED: DUONEB 0.5-3 MG/3 ml Neb IH PRN (03:03)
[2022-04-24] MEDS ORDERED: TYLENOL 325 MG PO PRN (03:03)
[2022-04-24] MEDS ORDERED: Zofran 4 MG/2 ML VIAL IV PRN (03:03)
[2022-04-24] MEDS ORDERED: VENTOLIN COMMON CANISTER IH PRN (04:07)
[2022-04-24 05:30] LABS: ALKALINE PHOSPHATASE 95 U/L (38-126); ANION GAP 12.8 MEQ/L (5-15); BLOOD UREA NITROGEN 18 mg/dL (9-20); CHLORIDE 103 mmol/L (98-107); Calcium 9.4 mg/dL (8.4-10.2); Carbon Dioxide 28 mmol/L (22-30); EST GLOMERULAR FILTRATION RATE > 60.0 ML/MIN; Glucose 105 mg/dL (74-106); SGOT/AST 23 U/L (17-59); SGPT/ALT 28 U/L (0-50); SODIUM 140 mmol/L (137-145); Total Protein 6.9 g/dL (6.3-8.2)
[2022-04-24 07:42] VITALS: BP 147/86; PULSE 82; O2SAT 94
--- NOTE | 2022-04-24 08:50 | PCM.SSS ---
History of Present Illness - Chief Complaint Chief Complaint: chest pain rule out acute AL History of Present Illness: is a 51 year old male with a history of hypertension and GERD, he arrived to ER with substernal chest pain and diaphoresis, he had markedly elevated BP on arrival, reports compliance with meds. AL has been ruled out, he is pain free today, plan to adjust BP meds at discharge and schedule f/u stress test. - Review of Systems Constitutional: No Fever, No Chills Respiratory: No Cough, No Short Of Breath Cardiac: Chest Pain Abdominal/Gastrointestinal: No Abdominal Pain, No Nausea, No Vomiting, No Diarrhea Genitourinary Symptoms: No Dysuria All Other Systems: Reviewed and Negative Medications & Allergies Home Medications: Home Medication List Omeprazole Magnesium [Prilosec Otc] 40 mg PO DAILY 08/26/19 [History Confirmed 04/24/22] Telmisartan/Hydrochlorothiazid [Telmisartan-Hctz 80-25 mg Tab] 1 each PO DAILY 01/05/20 [History Confirmed 04/24/22] Cyclobenzaprine HCl 10 mg [Cyclobenzaprine 10 MG] 10 mg PO TID 08/08/20 [History Confirmed 04/24/22] Albuterol Sulfate [Proair Hfa] 1 - 2 puff IH Q4-6HPRN PRN #8.5 gm 09/10/21 [Rx Confirmed 04/24/22] Allopurinol 100 mg [Zyloprim 100 mg] 100 mg PO DAILY 09/10/21 [History Confirmed 04/24/22] Simvastatin 10 mg [Zocor 10MG] 10 mg PO DAILY 09/10/21 [History Confirmed 04/24/22] Amlodipine Besylate 5 mg [Norvasc 5 mg] 5 mg PO DAILY #30 tablet 04/24/22 [Rx] Aspirin [Aspirin EC] 81 mg PO DAILY #30 tab 04/24/22 [Rx] Carvedilol [Coreg] 25 mg PO BID 04/24/22 [History Confirmed 04/24/22] Oxycodone HCl/Acetaminophen [Percocet 7.5-325 mg Tablet] 1 each PO QID 04/24/22 [History Confirmed 04/24/22] Allergies/Adverse Reactions: Allergies Allergy/AdvReac Type Severity Reaction Status Date / Time No Known Drug Allergies Allergy Verified 04/24/22 00:19 - Past Medical History Past Medical History: Yes Neurological History: No Pertinent History ENT History: No Pertinent History Cardiac History: Hypertension Respiratory History: Bronchitis, Pneumonia Endocrine Medical History: No Pertinent History Musculoskelatal History: No Pertinent History GI Medical History: GERD, Hernia History: Renal Disease Pyscho-Social History: No Pertinent History Male Reproductive Disorders: No Pertinent History Comment: HX Blood Clot LUE. - Past Surgical History Past Surgical History: Yes Neuro Surgical History: No Pertinent History Cardiac History: No Pertinent History Respiratory Surgery: No Pertinent History GI Surgical History: No Pertinent History Genitourinary Surgical Hx: No Pertinent History Musculskeletal Surgical Hx: Other Male Surgical History: No Pertinent History Other Surgical History: HX Rotator Cuff Surgery, lt ankle, HX Hernia - Social History Smoking Status: Current every day smoker How long have you smoked: 36 years Exposure to second hand smoke: Yes Alcohol: Rarely Drug Use: none Significant Family History: heart disease, hypertension - Physical Exam Vital Signs: Vital Signs - 24 hr Temp Pulse Resp BP Pulse Ox 04/24/22 07:41 97.1 F 82 21 147/86 94 L 04/24/22 07:16 71 16 97 04/24/22 04:11 79 16 97 04/24/22 03:28 97.8 F 81 18 164/83 96 04/24/22 02:05 81 18 156/88 96 04/24/22 01:51 97 04/24/22 01:33 87 18 176/107 97 04/24/22 00:27 88 18 191/128 97 General Appearance: obese Neurologic Exam: alert, oriented x 3 Respiratory Exam: normal breath sounds, lungs clear, No respiratory distress Cardiovascular Exam: regular rate/rhythm, normal heart sounds, normal peripheral pulses Gastrointestinal/Abdomen Exam: soft, normal bowel sounds, No tenderness, No mass Extremity Exam: normal inspection, normal range of motion, pelvis stable Skin Exam: normal color, warm, dry, No rash Results - Labs Lab/Micro Results: Lab Results-Last 24 Hours 04/24/22 04/24/22 04/24/22 Range/Units 00:33 00:46 00:46 WBC 10.7 H (4.0-10.5) x10^3/uL RBC 4.89 (4.1-5.6) x10^6/uL Hgb 14.7 (12.5-18.0) g/dL Hct 45.8 (42-50) % MCV 93.7 (78-100) fL MCH 30.1 (26-32) pg MCHC 32.1 (32-36) g/dL RDW 13.5 (11.5-14.0) % Plt Count 255 (150-450) x10^3/uL MPV 11.0 (7.5-11.0) fL Gran % 50.8 (36.0-66.0) % Immature Gran % (Auto) 3.0 H (0.00-0.4) % Nucleat RBC Rel Count 0.0 (0.00-0.1) % Eos # (Auto) 0.38 (0-0.5) x10^3/uL Immature Gran # (Auto) 0.32 H (0.00-0.03) x10^3u/L Absolute Lymphs (auto) 3.70 (1.0-4.6) x10^3/uL Absolute Monos (auto) 0.78 (0.0-1.3) x10^3/uL Absolute Nucleated RBC 0.00 (0.00-0.01) x10^3u/L Lymphocytes % 34.6 (24.0-44.0) % Monocytes % 7.3 (0.0-12.0) % Eosinophils % 3.6 (0.00-5.0) % Basophils % 0.7 (0.0-0.4) % Absolute Granulocytes 5.45 (1.4-6.9) x10^3/uL Basophils # 0.07 (0-0.4) x10^3/uL Sodium 141 (137-145) mmol/L Potassium 3.8 (3.5-5.1) mmol/L Chloride 104 (98-107) mmol/L Carbon Dioxide 28 (22-30) mmol/L Anion Gap 11.5 (5-15) MEQ/L BUN 16 (9-20) mg/dL Creatinine 1.16 (0.66-1.25) mg/dL Estimated GFR > 60.0 ML/MIN Glucose 97 (74-106) mg/dL Calcium 10.0 (8.4-10.2) mg/dL Total Bilirubin 0.20 (0.2-1.3) mg/dL AST 23 (17-59) U/L ALT 29 (0-50) U/L Alkaline Phosphatase 125 (38-126) U/L Troponin I (0.000-0.034) ng/mL NT-Pro-B Natriuret Pep 58.4 (0-450) pg/mL Serum Total Protein 6.9 (6.3-8.2) g/dL Albumin 4.2 (3.5-5.0) g/dL Lipase 63 (23-300) U/L Influenza Type A Ag (NEGATIVE) Influenza Type B Ag (NEGATIVE) RSV (PCR) (Negative) SARS-CoV-2 (PCR) (NEGATIVE) 04/24/22 04/24/22 04/24/22 Range/Units 00:51 01:50 04:30 WBC (4.0-10.5) x10^3/uL RBC (4.1-5.6) x10^6/uL Hgb (12.5-18.0) g/dL Hct (42-50) % MCV (78-100) fL MCH (26-32) pg MCHC (32-36) g/dL RDW (11.5-14.0) % Plt Count (150-450) x10^3/uL MPV (7.5-11.0) fL Gran % (36.0-66.0) % Immature Gran % (Auto) (0.00-0.4) % Nucleat RBC Rel Count (0.00-0.1) % Eos # (Auto) (0-0.5) x10^3/uL Immature Gran # (Auto) (0.00-0.03) x10^3u/L Absolute Lymphs (auto) (1.0-4.6) x10^3/uL Absolute Monos (auto) (0.0-1.3) x10^3/uL Absolute Nucleated RBC (0.00-0.01) x10^3u/L Lymphocytes % (24.0-44.0) % Monocytes % (0.0-12.0) % Eosinophils % (0.00-5.0) % Basophils % (0.0-0.4) % Absolute Granulocytes (1.4-6.9) x10^3/uL Basophils # (0-0.4) x10^3/uL Sodium (137-145) mmol/L Potassium (3.5-5.1) mmol/L Chloride (98-107) mmol/L Carbon Dioxide (22-30) mmol/L Anion Gap (5-15) MEQ/L BUN (9-20) mg/dL Creatinine (0.66-1.25) mg/dL Estimated GFR ML/MIN Glucose (74-106) mg/dL Calcium (8.4-10.2) mg/dL Total Bilirubin (0.2-1.3) mg/dL AST (17-59) U/L ALT (0-50) U/L Alkaline Phosphatase (38-126) U/L Troponin I < 0.012 < 0.012 (0.000-0.034) ng/mL NT-Pro-B Natriuret Pep (0-450) pg/mL Serum Total Protein (6.3-8.2) g/dL Albumin (3.5-5.0) g/dL Lipase (23-300) U/L Influenza Type A Ag NEGATIVE (NEGATIVE) Influenza Type B Ag NEGATIVE (NEGATIVE) RSV (PCR) NEGATIVE (Negative) SARS-CoV-2 (PCR) NEGATIVE (NEGATIVE) 04/24/22 Range/Units 04:30 WBC (4.0-10.5) x10^3/uL RBC (4.1-5.6) x10^6/uL Hgb (12.5-18.0) g/dL Hct (42-50) % MCV (78-100) fL MCH (26-32) pg MCHC (32-36) g/dL RDW (11.5-14.0) % Plt Count (150-450) x10^3/uL MPV (7.5-11.0) fL Gran % (36.0-66.0) % Immature Gran % (Auto) (0.00-0.4) % Nucleat RBC Rel Count (0.00-0.1) % Eos # (Auto) (0-0.5) x10^3/uL Immature Gran # (Auto) (0.00-0.03) x10^3u/L Absolute Lymphs (auto) (1.0-4.6) x10^3/uL Absolute Monos (auto) (0.0-1.3) x10^3/uL Absolute Nucleated RBC (0.00-0.01) x10^3u/L Lymphocytes % (24.0-44.0) % Monocytes % (0.0-12.0) % Eosinophils % (0.00-5.0) % Basophils % (0.0-0.4) % Absolute Granulocytes (1.4-6.9) x10^3/uL Basophils # (0-0.4) x10^3/uL Sodium 140 (137-145) mmol/L Potassium 4.0 (3.5-5.1) mmol/L Chloride 103 (98-107) mmol/L Carbon Dioxide 28 (22-30) mmol/L Anion Gap 12.8 (5-15) MEQ/L BUN 18 (9-20) mg/dL Creatinine 1.10 (0.66-1.25) mg/dL Estimated GFR > 60.0 ML/MIN Glucose 105 (74-106) mg/dL Calcium 9.4 (8.4-10.2) mg/dL Total Bilirubin 0.20 (0.2-1.3) mg/dL AST 23 (17-59) U/L ALT 28 (0-50) U/L Alkaline Phosphatase 95 (38-126) U/L Troponin I (0.000-0.034) ng/mL NT-Pro-B Natriuret Pep (0-450) pg/mL Serum Total Protein 6.9 (6.3-8.2) g/dL Albumin 4.0 (3.5-5.0) g/dL Lipase (23-300) U/L Influenza Type A Ag (NEGATIVE) Influenza Type B Ag (NEGATIVE) RSV (PCR) (Negative) SARS-CoV-2 (PCR) (NEGATIVE) - Radiology Impressions Radiology Exams & Impressions: Radiology Procedures Category Date Time Status CHEST 1 VIEW (PORTABLE) Stat Exams 04/24/22 00:31 Taken - Other Procedures and Tests Respiratory Therapy 04/24/22 04:06 Respiratory Therapy Assessment DAILY 04/24/22 04:09 BiPap/CPAP ROUTINE Assessment/Plan (1) Chest pain, rule out acute myocardial infarction Current Visit: Yes Status: Acute Assessment & Plan: AL ruled out, add asa 81mg daily and continue statin and carvedilol. will schedule treadmill cardiolite upon discharge. patient agrees, would also recommend cardiology consult with accelerated htn and current symptoms Code(s): R07.9 - CHEST PAIN, UNSPECIFIED (2) Hypertensive urgency Current Visit: No Status: Acute Assessment & Plan: continue coreg 25mg bid and telmisartan/hctz 80/25mg. these are max doses so w ill add amlodipine 5mg daily Code(s): I16.0 - HYPERTENSIVE URGENCY Hospital Summary - Vitals & Intake/Output Vital Signs: Vital Signs Temperature 97.1 F 04/24/22 07:41 Pulse Rate 82 04/24/22 07:41 Respiratory Rate 21 04/24/22 07:41 Blood Pressure 147/86 04/24/22 07:41 O2 Sat by Pulse Oximetry 94 L 04/24/22 07:41 Intake & Output: Intake & Output 04/21/22 04/22/22 04/23/22 04/24/22 11:59 11:59 11:59 11:59 Weight 155.4 kg - Lab Result Diagrams: 04/24/22 00:46 04/24/22 04:30 Lab Results-Last 24 Hrs: Lab Results-Last 24 Hours 04/24/22 04/24/22 04/24/22 Range/Units 00:33 00:46 00:46 WBC 10.7 H (4.0-10.5) x10^3/uL RBC 4.89 (4.1-5.6) x10^6/uL Hgb 14.7 (12.5-18.0) g/dL Hct 45.8 (42-50) % MCV 93.7 (78-100) fL MCH 30.1 (26-32) pg MCHC 32.1 (32-36) g/dL RDW 13.5 (11.5-14.0) % Plt Count 255 (150-450) x10^3/uL MPV 11.0 (7.5-11.0) fL Gran % 50.8 (36.0-66.0) % Immature Gran % (Auto) 3.0 H (0.00-0.4) % Nucleat RBC Rel Count 0.0 (0.00-0.1) % Eos # (Auto) 0.38 (0-0.5) x10^3/uL Immature Gran # (Auto) 0.32 H (0.00-0.03) x10^3u/L Absolute Lymphs (auto) 3.70 (1.0-4.6) x10^3/uL Absolute Monos (auto) 0.78 (0.0-1.3) x10^3/uL Absolute Nucleated RBC 0.00 (0.00-0.01) x10^3u/L Lymphocytes % 34.6 (24.0-44.0) % Monocytes % 7.3 (0.0-12.0) % Eosinophils % 3.6 (0.00-5.0) % Basophils % 0.7 (0.0-0.4) % Absolute Granulocytes 5.45 (1.4-6.9) x10^3/uL Basophils # 0.07 (0-0.4) x10^3/uL Sodium 141 (137-145) mmol/L Potassium 3.8 (3.5-5.1) mmol/L Chloride 104 (98-107) mmol/L Carbon Dioxide 28 (22-30) mmol/L Anion Gap 11.5 (5-15) MEQ/L BUN 16 (9-20) mg/dL Creatinine 1.16 (0.66-1.25) mg/dL Estimated GFR > 60.0 ML/MIN Glucose 97 (74-106) mg/dL Calcium 10.0 (8.4-10.2) mg/dL Total Bilirubin 0.20 (0.2-1.3) mg/dL AST 23 (17-59) U/L ALT 29 (0-50) U/L Alkaline Phosphatase 125 (38-126) U/L Troponin I (0.000-0.034) ng/mL NT-Pro-B Natriuret Pep 58.4 (0-450) pg/mL Serum Total Protein 6.9 (6.3-8.2) g/dL Albumin 4.2 (3.5-5.0) g/dL Lipase 63 (23-300) U/L Influenza Type A Ag (NEGATIVE) Influenza Type B Ag (NEGATIVE) RSV (PCR) (Negative) SARS-CoV-2 (PCR) (NEGATIVE) 08/08/22 08/08/22 08/08/22 Range/Units 00:51 01:50 04:30 WBC (4.0-10.5) x10^3/uL RBC (4.1-5.6) x10^6/uL Hgb (12.5-18.0) g/dL Hct (42-50) % MCV (78-100) fL MCH (26-32) pg MCHC (32-36) g/dL RDW (11.5-14.0) % Plt Count (150-450) x10^3/uL MPV (7.5-11.0) fL Gran % (36.0-66.0) % Immature Gran % (Auto) (0.00-0.4) % Nucleat RBC Rel Count (0.00-0.1) % Eos # (Auto) (0-0.5) x10^3/uL Immature Gran # (Auto) (0.00-0.03) x10^3u/L Absolute Lymphs (auto) (1.0-4.6) x10^3/uL Absolute Monos (auto) (0.0-1.3) x10^3/uL Absolute Nucleated RBC (0.00-0.01) x10^3u/L Lymphocytes % (24.0-44.0) % Monocytes % (0.0-12.0) % Eosinophils % (0.00-5.0) % Basophils % (0.0-0.4) % Absolute Granulocytes (1.4-6.9) x10^3/uL Basophils # (0-0.4) x10^3/uL Sodium (137-145) mmol/L Potassium (3.5-5.1) mmol/L Chloride (98-107) mmol/L Carbon Dioxide (22-30) mmol/L Anion Gap (5-15) MEQ/L BUN (9-20) mg/dL Creatinine (0.66-1.25) mg/dL Estimated GFR ML/MIN Glucose (74-106) mg/dL Calcium (8.4-10.2) mg/dL Total Bilirubin (0.2-1.3) mg/dL AST (17-59) U/L ALT (0-50) U/L Alkaline Phosphatase (38-126) U/L Troponin I < 0.012 < 0.012 (0.000-0.034) ng/mL NT-Pro-B Natriuret Pep (0-450) pg/mL Serum Total Protein (6.3-8.2) g/dL Albumin (3.5-5.0) g/dL Lipase (23-300) U/L Influenza Type A Ag NEGATIVE (NEGATIVE) Influenza Type B Ag NEGATIVE (NEGATIVE) RSV (PCR) NEGATIVE (Negative) SARS-CoV-2 (PCR) NEGATIVE (NEGATIVE) 04/24/22 Range/Units 04:30 WBC (4.0-10.5) x10^3/uL RBC (4.1-5.6) x10^6/uL Hgb (12.5-18.0) g/dL Hct (42-50) % MCV (78-100) fL MCH (26-32) pg MCHC (32-36) g/dL RDW (11.5-14.0) % Plt Count (150-450) x10^3/uL MPV (7.5-11.0) fL Gran % (36.0-66.0) % Immature Gran % (Auto) (0.00-0.4) % Nucleat RBC Rel Count (0.00-0.1) % Eos # (Auto) (0-0.5) x10^3/uL Immature Gran # (Auto) (0.00-0.03) x10^3u/L Absolute Lymphs (auto) (1.0-4.6) x10^3/uL Absolute Monos (auto) (0.0-1.3) x10^3/uL Absolute Nucleated RBC (0.00-0.01) x10^3u/L Lymphocytes % (24.0-44.0) % Monocytes % (0.0-12.0) % Eosinophils % (0.00-5.0) % Basophils % (0.0-0.4) % Absolute Granulocytes (1.4-6.9) x10^3/uL Basophils # (0-0.4) x10^3/uL Sodium 140 (137-145) mmol/L Potassium 4.0 (3.5-5.1) mmol/L Chloride 103 (98-107) mmol/L Carbon Dioxide 28 (22-30) mmol/L Anion Gap 12.8 (5-15) MEQ/L BUN 18 (9-20) mg/dL Creatinine 1.10 (0.66-1.25) mg/dL Estimated GFR > 60.0 ML/MIN Glucose 105 (74-106) mg/dL Calcium 9.4 (8.4-10.2) mg/dL Total Bilirubin 0.20 (0.2-1.3) mg/dL AST 23 (17-59) U/L ALT 28 (0-50) U/L Alkaline Phosphatase 95 (38-126) U/L Troponin I (0.000-0.034) ng/mL NT-Pro-B Natriuret Pep (0-450) pg/mL Serum Total Protein 6.9 (6.3-8.2) g/dL Albumin 4.0 (3.5-5.0) g/dL Lipase (23-300) U/L Influenza Type A Ag (NEGATIVE) Influenza Type B Ag (NEGATIVE) RSV (PCR) (Negative) SARS-CoV-2 (PCR) (NEGATIVE) - Radiology Exams Ordered Rad Exams-Entire Visit: Radiology Procedures Category Date Time Status CHEST 1 VIEW (PORTABLE) Stat Exams 04/24/22 00:31 Taken - Procedures and Test Procedures and Tests throughout Hospitalization: Therapy Orders & Screens 04/24/22 03:49 RT Screen per Nursing Assess ONCE Comment: Protocol Order Physician Instructions: Greater than 3 points order RT Admission Screen Reason For Exam: Triggered on Admission Diagnosis: chest pain rule out acute AL Diagnosis: chest pain rule out acute AL Pneumonia: No Home O2: No Asthma: No CHF: Yes Home CPAP/BIPAP: Yes Home Nebs/MDI: No Total Points: 8 Smoking Cessation Education ONCE Comment: Diagnosis: chest pain rule out acute AL Smoking Status: Current every day smoker How long have you smoked: 36 years Have you smoked in the past 12 months: Yes Approximately how many cigarettes per day: 1-1 1/2 pk Do you dip or chew tobacco: No If,Former Smoker,when did you quit: 3 mos 04/24/22 04:06 Respiratory Therapy Assessment DAILY Comment: Diagnosis: chest pain rule out acute AL 04/24/22 04:09 BiPap/CPAP ROUTINE Comment: per home use Diagnosis: chest pain rule out acute AL - Discharge Disposition: Home, Self-Care Condition: Good Prescriptions: New Amlodipine Besylate 5 mg [Norvasc 5 mg] 5 mg PO DAILY #30 tablet Aspirin [Aspirin EC] 81 mg PO DAILY #30 tab Continue Omeprazole Magnesium [Prilosec Otc] 40 mg PO DAILY Telmisartan/Hydrochlorothiazid [Telmisartan-Hctz 80-25 mg Tab] 1 each PO DAILY Cyclobenzaprine HCl 10 mg [Cyclobenzaprine 10 MG] 10 mg PO TID Allopurinol 100 mg [Zyloprim 100 mg] 100 mg PO DAILY Simvastatin 10 mg [Zocor 10MG] 10 mg PO DAILY Albuterol Sulfate [Proair Hfa] 1 - 2 puff IH Q4-6HPRN PRN #8.5 gm PRN Reason: Shortness Of Breath Oxycodone HCl/Acetaminophen [Percocet 7.5-325 mg Tablet] 1 each PO QID Carvedilol [Coreg] 25 mg PO BID Outpatient Orders: Stress Test: Cardiolyte Facility: [facility], Location: RESPIRATORY THERAPY Follow up with: JUWAN BENTON [Primary Care Provider] - INEZ NEW MD [CONSULTING PHYSICIAN] - Call for Appointment
--- NOTE | 2022-04-24 08:54 | XRAY ---
Indication: Hypertension. Comparison: September 09, 2021 Portable apical lordotic chest clear. Heart not enlarged. Bony thorax intact. No new/acute findings.
[2022-04-24] MEDS ORDERED: PROTONIX 40 MG IV IV SCH (10:00)
== END 2022-04-24 09:57 | disposition home or self-care (01) ==
LOC: ED 00:17 → MED SURG 02:58
PROVIDERS: ADMIT Family Medicine; ATTEND Family Medicine
DX: R07.9 Chest pain, unspecified (principal); I16.0 Hypertensive urgency; I10 Essential (primary) hypertension; Z79.899 Other long term (current) drug therapy; Z20.828 Contact with and (suspected) exposure to other viral communicable diseases; Z72.0 Tobacco use
CPT/HCPCS: 0241U; 36000; 36415; 71045; 80053; 83690; 83880; 84484; 85025; 93005; 94660; 94760; 96374; 96375; 93268; 96365; 96366; 99285; J3475; A9270-GY; G0378